=== PATIENT | female | born 1960 | race Caucasian/White ===

== ENCOUNTER → 2017-05-31 | Outpatient (POV) | payer MEDICARE, MEDICAID, SELFPAY | PROVIDERS: Visit Provider Podiatrist ==

== ENCOUNTER → 2017-07-30 10:43 | Outpatient (POV) | payer MEDICARE, MEDICAID, SELFPAY | PROVIDERS: Visit Provider Otolaryngology | DX: Z00.00 Encounter for general adult medical examination without abnormal findings (principal) ==

== ENCOUNTER → 2017-08-16 09:43 | Outpatient (POV) | payer MEDICARE, MEDICAID, SELFPAY | PROVIDERS: Visit Provider Podiatrist | DX: Z00.00 Encounter for general adult medical examination without abnormal findings (principal) ==

== ENCOUNTER → 2017-08-22 16:29 | Outpatient (CLI) | payer MEDICARE, MEDICAID, SELFPAY ==
--- NOTE | 2017-08-22 16:35 | XR_ITS ---
XR chest 2V HISTORY: ITS.REASON: ACUTE URI, COUGH ORDERING PHYSICIAN: Jen Sarah PATIENT AGE: 56 years COMPARISON: 02/03/2016 FINDINGS: The cardiomediastinal silhouette and pulmonary vascularity are within normal limits. Patchy density is present in the right lung base medially suspicious for an area of pneumonia. On the lateral view there is lobular density in the infrahilar region possibly due to vascular overlap and may be confirmed with follow-up.. No acute bony abnormalities. IMPRESSION: Patchy infiltrate in right lung base
== END ==
PROVIDERS: PCP Nurse Practitioner Family; Visit Provider Nurse Practitioner Family
DX: J06.9 Acute upper respiratory infection, unspecified (principal); R05 Cough
CPT/HCPCS: 71046

== ENCOUNTER → 2017-09-02 16:33 | Outpatient (CLI) | payer MEDICARE, MEDICAID, SELFPAY ==
[2017-09-02 16:54] LABS: Basophils # 0.1 K/mm3 (0-0.2); Basophils % 1.4 % (0.1-2.0); Eosinophils # 0.1 K/mm3 (0.0-0.4); Eosinophils % 0.9 % (0.1-12.0); Hematocrit 41.9 % (37.0-47.0); Hemoglobin 13.4 g/dL (12.2-16.2); Lymphocytes # 1.6 K/mm3 (0.7-4.5); Lymphocytes % 28.8 K/mm3 (10-50); Mean Corpuscular HGB Conc 31.9 g/dL (31.8-35.4); Mean Corpuscular Hemoglobin 32.3 pg (27.0-31.2); Mean Corpuscular Volume 101.2 fl (81-99); Mean Platelet Volume 7.5 fl (7.4-10.4); Monocytes # 0.2 K/mm3 (0.1-1.0); Neutrophils # 3.5 K/mm3 (1.8-7.8); Neutrophils % 64.8 % (37.0-80.0); Platelet Count 403 K/mm3 (142-424); Red Blood Count 4.15 M/mm3 (4.20-5.40); Red Cell Distribution Width 12.7 % (11.5-17.5); White Blood Count 5.5 K/mm3 (4.8-10.8)
[2017-09-02 17:29] LABS: Alanine Aminotransferase 39 U/L (12-78); Albumin/Globulin Ratio 0.7 (1.1-1.8); Alkaline Phosphatase 140 U/L (46-116); Anion Gap 9.3 mEq/L (5-15); Aspartate Amino Transferase 26 U/L (15-37); Bilirubin,Total 0.1 mg/dL (0.2-1.0); Blood Urea Nitrogen 10 mg/dL (7-18); Calcium 9.1 mg/dL (8.5-10.1); Carbon Dioxide 32 mmol/L (21.0-32.0); Chloride 99 mmol/L (98-107); Creatinine,Serum 0.77 mg/dL (0.55-1.02); Estimated Glomerular Filt Rate 78 ml/min (>60); GFR (African American) 94 ML/MIN (>60); Globulin 4.5 gm/dl (1.3-3.2); Glucose 132 mg/dL (74-106); Potassium 4.3 mmoL/L (3.5-5.1); Sodium 136 mmol/L (136-145); Thyroid Stimulating Hormone 0.39 uIU/ml (0.358-3.740); Total Protein,Serum 7.5 gm/dL (6.4-8.2)
[2017-09-02 17:37] LABS: Hemoglobin A1C 7.4 % (0.0-7.0)
== END ==
PROVIDERS: Visit Provider Nurse Practitioner Family
DX: E11.9 Type 2 diabetes mellitus without complications (principal); Q90.9 Down syndrome, unspecified; E03.9 Hypothyroidism, unspecified
CPT/HCPCS: 36415; 80053; 83036; 84443; 85025

== ENCOUNTER → 2017-10-07 15:22 | Outpatient (CLI) | payer MEDICARE, MEDICAID, SELFPAY ==
[2017-10-07 15:33] LABS: Adenovirus,PCR Not Detected (NotDetected); Bordetella Pertussis Not Detected (NotDetected); Chlamydophila Pneumoniae, PCR Not Detected (NotDetected); Coronavirus 229E Not Detected (NotDetected); Coronavirus NL63 Not Detected (NotDetected); Coronavirus OC43 Not Detected (NotDetected); Coronovirus HKU1,PCR Not Detected (NotDetected); Human Metapneumovirus Not Detected (NotDetected); Influenza A, PCR Not Detected (NotDetected); Influenza AH1, 2009 Not Detected (NotDetected); Influenza AH1, PCR Not Detected (NotDetected); Influenza AH3,PCR Not Detected (NotDetected); Influenza B, PCR Not Detected (NotDetected); Mycoplasma Pneumoniae, PCR Not Detected (NotDected); Parainfluenza 1, PCR Not Detected (NotDetected); Parainfluenza 2, PCR Not Detected (NotDetected); Parainfluenza 3, PCR Not Detected (NotDetected); Parainfluenza 4, PCR Not Detected (NotDetected); Respiratory Syncytial Virus Not Detected (NotDetected)
[2017-10-07 18:45] LABS: Rhinovirus/Enterovirus Detected (NotDetected)
== END ==
PROVIDERS: Visit Provider Nurse Practitioner Family
DX: J06.9 Acute upper respiratory infection, unspecified (principal)
CPT/HCPCS: 87486; 87581; 87633; 87798

== ENCOUNTER → 2017-11-07 17:13 | Outpatient (CLI) | payer MEDICARE, MEDICAID, SELFPAY ==
--- NOTE | 2017-11-07 17:28 | XR_ITS ---
XR chest 2V HISTORY: ITS.REASON: COUGH ORDERING PHYSICIAN: Jacqueline Baez PATIENT AGE: 56 years COMPARISON: 08/22/2017 FINDINGS: The cardiomediastinal silhouette and pulmonary vascularity are within normal limits. The lungs are clear without infiltrates, suspicious nodules, or pleural effusions. No acute bony abnormalities. IMPRESSION: Negative chest, no acute finding
== END ==
PROVIDERS: PCP Nurse Practitioner Family; Visit Provider Nurse Practitioner Family
DX: R05 Cough (principal)
CPT/HCPCS: 71046

== ENCOUNTER → 2017-12-11 12:57 | Outpatient (CLI) | payer MEDICARE, MEDICAID, SELFPAY ==
--- NOTE | 2017-12-11 13:02 | FL_ITS ---
FL barium swallow modified: 12/11/2017 1:02 PM CLINICAL HISTORY: Dysphasia ORDERING PHYSICIAN: Jacqueline Baez PATIENT AGE: 57 years TECHNIQUE: Patient administered varying consistencies of barium contrast, while viewed in lateral position under real-time fluoroscopy with cine recording. FLUOROSCOPY TIME: 3 minutes and 50 seconds The study was performed in conjunction with speech pathologist. Please see that report & recommendations. FINDINGS: Patient was given varying consistencies of barium. There was mild vestibular penetration with varying consistencies. No filiberto tracheal aspiration. The somewhat improved with chin duct technique IMPRESSION: Mild vestibular penetration without aspiration Please see speech pathologist report and recommendations.
--- NOTE | 2017-12-11 16:25 | HMH.SLMBS2 ---
Speech & Language Evaluation Speech/Language Mod Barium Swallow Start: 12/11/17 16:05 Freq: once Status: Complete Protocol: Document 12/11/17 16:05 ALEXI (Rec: 12/11/17 16:25 ALEXI [id number]) [facility] [place] Recommendations Diet Dietary Recommendations Pureed Thin Liquids Treatment/Strategies Treatment Recommendation Compens. Strategy Educat. Strategy/Precaution Recommend Sitting Upright (90 deg) Chin Tuck Liquids from Straw Small Bites and Sips Alternate Liquids/Solids Referrals/Other Recommended Referrals Dietary Consult Other Recommendations Speech therapy through home health per POA's request. Mod Barium Swallow Impressions Summary and Impressions Oral Phase Impression Moderate Impairment Oral Phase Summary Ms. Arreola presents with moderate impairment due to difficulty clearing tongue of residue of pudding, pureed, and mechanical soft consistencies. Immature chewing pattern (munching) exhibited with mechanical soft . Pharyngeal Phase Impression Moderate Impairment Pharyngeal Phase Summary Ms. Arreola presents with flash penetration to laryngeal vesitbule with the following consistencies: thins via straw and open cup, nectar, and honey. No cough reflex noted. No filiberto aspiration noted during examination Speech/Language MBS Assessment/Goals/Plan Assessment Date of Evaluation: 12/11/17 Evaluation Type Initial Certification Assessment/Problems Dysphagia Does Patient Qualify for Service Yes Qualify/Failure Comment Dysphagia improved with compensatory strategy. Recommendations PHYSICIAN CERTIFICATION: The specified therapy services are required, authorized, and reviewed every 30 days. Diet Recommendations Dysphagia Pureed Liquid Type Recommendations Normal/Thin SL Swallow Guidelines Standard Aspiration Prec. Dysphagia Swallow Precautions/Strategies Sitting Upright (90 deg) Chin Tuck Liquids from Straw Small Bites and Sips Alternate Liquids/Solids Plan Pt/Guardian verbally ack understanding Yes: caregiver of dx/prognosis/goals G -code Re
== END ==
PROVIDERS: PCP Nurse Practitioner Family; Visit Provider Nurse Practitioner Family
DX: R13.10 Dysphagia, unspecified (principal); K44.9 Diaphragmatic hernia without obstruction or gangrene
CPT/HCPCS: 70371; 92611

== ENCOUNTER → 2018-01-04 09:08 | Outpatient (CLI) | payer MEDICARE, MEDICAID, SELFPAY ==
[2018-01-04 09:37] LABS: Basophils # 0.1 K/mm3 (0-0.2); Eosinophils % 0.3 % (0.1-12.0); Hematocrit 42.7 % (37.0-47.0); Hemoglobin 13.6 g/dL (12.2-16.2); Lymphocytes # 1.1 K/mm3 (0.7-4.5); Lymphocytes % 37.7 K/mm3 (10-50); Mean Corpuscular HGB Conc 31.9 g/dL (31.8-35.4); Mean Corpuscular Hemoglobin 31.9 pg (27.0-31.2); Mean Corpuscular Volume 100.1 fl (81-99); Mean Platelet Volume 7.1 fl (7.4-10.4); Monocytes # 0.2 K/mm3 (0.1-1.0); Monocytes % 6.3 % (1.7-9.3); Neutrophils # 1.6 K/mm3 (1.8-7.8); Neutrophils % 53.6 % (37.0-80.0); Platelet Count 415 K/mm3 (142-424); Red Blood Count 4.27 M/mm3 (4.20-5.40); Red Cell Distribution Width 13.5 % (11.5-17.5); White Blood Count 2.9 K/mm3 (4.8-10.8)
[2018-01-04 10:19] LABS: Alanine Aminotransferase 22 U/L (12-78); Albumin Level 3.3 gm/dL (3.4-5.0); Albumin/Globulin Ratio 0.8 (1.1-1.8); Alkaline Phosphatase 123 U/L (46-116); Anion Gap 6.6 mEq/L (5-15); Aspartate Amino Transferase 24 U/L (15-37); Bilirubin,Total 0.4 mg/dL (0.2-1.0); Blood Urea Nitrogen 10 mg/dL (7-18); Calcium 9.2 mg/dL (8.5-10.1); Carbon Dioxide 32 mmol/L (21.0-32.0); Chloride 104 mmol/L (98-107); Chol/HDL Ratio 2.3 (1-3.5); Cholesterol 144 mg/dL (140-200); Creatinine,Serum 0.77 mg/dL (0.55-1.02); Estimated Glomerular Filt Rate 78 ml/min (>60); GFR (African American) 94 ML/MIN (>60); Globulin 3.9 gm/dl (1.3-3.2); Glucose 152 mg/dL (74-106); HDL Cholesterol 63 mg/dL (29-89); LDL Cholesterol 70 mg/dL (0-130); Potassium 4.6 mmoL/L (3.5-5.1); Sodium 138 mmol/L (136-145); Thyroid Stimulating Hormone 0.41 uIU/ml (0.358-3.740); Total Protein,Serum 7.2 gm/dL (6.4-8.2); Triglycerides 57 mg/dL (30-200); VLDL Cholesterol 11 mg/dL (0-40)
[2018-01-04 10:21] LABS: Hemoglobin A1C 7.1 % (0.0-7.0)
== END ==
PROVIDERS: Visit Provider Nurse Practitioner Family
DX: E78.5 Hyperlipidemia, unspecified (principal); E11.9 Type 2 diabetes mellitus without complications; Q90.9 Down syndrome, unspecified
CPT/HCPCS: 36415; 80053; 80061; 83036; 84443; 85025

== ENCOUNTER → 2018-01-28 11:01 | Outpatient (POV) | payer MEDICARE, MEDICAID, SELFPAY | PROVIDERS: PCP Nurse Practitioner Family; Visit Provider Otolaryngology | DX: Z00.00 Encounter for general adult medical examination without abnormal findings (principal) ==

== ENCOUNTER → 2018-02-10 15:22 | Outpatient (CLI) | payer MEDICARE, MEDICAID, SELFPAY ==
--- NOTE | 2018-02-10 15:34 | XR_ITS ---
XR chest 2V HISTORY: Cough. Chest pain. ITS.REASON: ABD PAIN,COUGH ORDERING PHYSICIAN: Jose Lindsey MD PATIENT AGE: 57 years Technique: PA and lateral chest. COMPARISON: December 02, 2017 2 view chest. Also October 2017 CXR FINDINGS:. There is been no significant interval change. No focal pneumonia At the slight accentuated markings at the medial right base similar to the October 2017 exam. The cardiomediastinal silhouette and pulmonary vascularity are within normal limits. The lungs are clear without infiltrates, suspicious nodules, or pleural effusions. No acute bony abnormalities. IMPRESSION: Stable chest nothing definitely acute
--- NOTE | 2018-02-10 15:34 | XR_ITS ---
XR KUB Ordering Physician: Jose Lindsey MD Patient Age: 57 years: Female HISTORY: ITS.REASON: ABD PAIN,COUGH TECHNIQUE: Supine abdomen. KUB. COMPARISON : May 2017 KUB FINDINGS Prominent increase stool is seen throughout the right colon reflecting constipation. .. Prominent stool throughout the transverse colon as well as seen at rectum. Moderate solid stool throughout the descending colon Generous gas at the hepatic and splenic flexures findings suggestive of constipation but less less pronounced than previous 2017 KUB Clips right upper quadrant from cholecystectomy. There is moderate gas throughout multiple loops small bowel but no small bowel dilatation. IMPRESSION: 1. Findings consistent with constipation.. Prominent stool is seen right and transverse colon as well as rectum. Generous gas flexures and transverse colon.
[2018-02-10 15:57] LABS: Microscopic, Urine URINE MICROSCOPIC (MICROSCOPIC)
[2018-02-10 16:42] LABS: Basophils # 0.1 K/mm3 (0-0.2); Basophils % 0.5 % (0.1-2.0); Eosinophils % 0.3 % (0.1-12.0); Hematocrit 40.3 % (37.0-47.0); Hemoglobin 13.2 g/dL (12.2-16.2); Lymphocytes # 0.6 K/mm3 (0.7-4.5); Lymphocytes % 4.9 K/mm3 (10-50); Mean Corpuscular HGB Conc 32.7 g/dL (31.8-35.4); Mean Corpuscular Hemoglobin 32.5 pg (27.0-31.2); Mean Corpuscular Volume 99.4 fl (81-99); Mean Platelet Volume 6.9 fl (7.4-10.4); Monocytes # 0.3 K/mm3 (0.1-1.0); Monocytes % 2.3 % (1.7-9.3); Neutrophils # 10.8 K/mm3 (1.8-7.8); Neutrophils % 91.9 % (37.0-80.0); Platelet Count 390 K/mm3 (142-424); Red Blood Count 4.05 M/mm3 (4.20-5.40); Red Cell Distribution Width 13.5 % (11.5-17.5); White Blood Count 11.8 K/mm3 (4.8-10.8)
[2018-02-10 16:45] LABS: MANUAL DIFFERENTIAL MANUAL DIFFERENTIAL (MANUAL DIFF)
[2018-02-10 17:19] LABS: Appearance,Urine CLEAR (Clear); Bilirubin,Urine Negative (Negative); Blood, Urine Negative (Negative); Color,Urine YELLOW (Yellow); Glucose,Urine (UA) Negative (Negative); Ketones,Urine Negative (Negative); Leukocyte Esterase,Urine 1+ (Negative); Nitrate,Urine Negative (Negative); Protein,Urine Negative (Negative); Urobilinogen,Urine 0.2 EU/dl (0.2)
[2018-02-10 17:39] LABS: Alanine Aminotransferase 31 U/L (12-78); Albumin Level 3.4 gm/dL (3.4-5.0); Albumin/Globulin Ratio 0.8 (1.1-1.8); Alkaline Phosphatase 143 U/L (46-116); Amylase 47 U/L (25-125); Anion Gap 10.9 mEq/L (5-15); Aspartate Amino Transferase 30 U/L (15-37); Bilirubin,Total 0.2 mg/dL (0.2-1.0); Blood Urea Nitrogen 13 mg/dL (7-18); Calcium 9.1 mg/dL (8.5-10.1); Carbon Dioxide 32 mmol/L (21.0-32.0); Chloride 97 mmol/L (98-107); Creatinine,Serum 1.05 mg/dL (0.55-1.02); Estimated Glomerular Filt Rate 54 ml/min (>60); GFR (African American) 66 ML/MIN (>60); Globulin 4.1 gm/dl (1.3-3.2); Glucose 176 mg/dL (74-106); Lipase 120 u/L (73-393); Potassium 4.9 mmoL/L (3.5-5.1); Sodium 135 mmol/L (136-145); Total Protein,Serum 7.5 gm/dL (6.4-8.2)
[2018-02-10 17:44] LABS: Bacteria,Urine 3+ /lpf; Squamous Epithelial Cell,Urine Occasional #/hpf (0-5)
[2018-02-10 18:02] LABS: Lymphocytes % 4 % (10-50); Monocytes % 2 % (2-9); Neutrophils % 93 % (42-76); Platelet Estimate Normal; RBC Morphology Normal; Total Cells Counted 100
== END ==
PROVIDERS: PCP Internal Medicine Adolescent Medicine; Visit Provider Internal Medicine Adolescent Medicine
DX: R10.13 Epigastric pain (principal); R05 Cough
CPT/HCPCS: 36415; 71046; 74018; 80053; 81001; 82150; 83690; 85007; 85025; 87086

== ENCOUNTER → 2018-05-05 17:17 | Outpatient (CLI) | payer MEDICARE, MEDICAID, SELFPAY ==
[2018-05-05 17:22] LABS: Microscopic, Urine URINE MICROSCOPIC (MICROSCOPIC)
[2018-05-05 19:03] LABS: Appearance,Urine CLEAR (Clear); Bilirubin,Urine Negative (Negative); Blood, Urine Negative (Negative); Color,Urine YELLOW (Yellow); Glucose,Urine (UA) Negative (Negative); Ketones,Urine Negative (Negative); Leukocyte Esterase,Urine TRACE (Negative); Nitrate,Urine Negative (Negative); Protein,Urine Negative (Negative); Urobilinogen,Urine 0.2 EU/dl (0.2)
[2018-05-05 19:28] LABS: Bacteria,Urine Trace /lpf; Squamous Epithelial Cell,Urine Occasional #/hpf (0-5)
[2018-05-07 12:19] LABS: Creatinine, Urine 26.3 mg/dL (Not Estab.); Microalbumin, Urine <3.0 ug/mL (Not Estab.)
== END ==
PROVIDERS: Visit Provider Nurse Practitioner Family
DX: R82.90 Unspecified abnormal findings in urine (principal); E11.9 Type 2 diabetes mellitus without complications; Z87.440 Personal history of urinary (tract) infections
CPT/HCPCS: 81001; 82043; 82570; 87086

== ENCOUNTER → 2018-05-10 09:01 | Outpatient (CLI) | payer MEDICARE, MEDICAID, SELFPAY ==
[2018-05-10 09:16] LABS: Basophils # 0.1 K/mm3 (0-0.2); Basophils % 1.5 % (0.1-2.0); Eosinophils % 0.7 % (0.1-12.0); Hematocrit 40.7 % (37.0-47.0); Hemoglobin 13.1 g/dL (12.2-16.2); Lymphocytes # 1.2 K/mm3 (0.7-4.5); Mean Corpuscular HGB Conc 32.2 g/dL (31.8-35.4); Mean Corpuscular Hemoglobin 32.3 pg (27.0-31.2); Mean Corpuscular Volume 100.3 fl (81-99); Mean Platelet Volume 8.6 fl (7.4-10.4); Monocytes # 0.2 K/mm3 (0.1-1.0); Monocytes % 5.5 % (1.7-9.3); Neutrophils % 57.3 % (37.0-80.0); Platelet Count 333 K/mm3 (142-424); Red Blood Count 4.06 M/mm3 (4.20-5.40); Red Cell Distribution Width 13.8 % (11.5-17.5); White Blood Count 3.5 K/mm3 (4.8-10.8)
[2018-05-10 09:29] LABS: Hemoglobin A1C 7.4 % (0.0-7.0)
[2018-05-10 11:13] LABS: Alanine Aminotransferase 29 U/L (12-78); Albumin Level 3.2 gm/dL (3.4-5.0); Albumin/Globulin Ratio 0.8 (1.1-1.8); Alkaline Phosphatase 139 U/L (46-116); Anion Gap 12.4 mEq/L (5-15); Aspartate Amino Transferase 21 U/L (15-37); Bilirubin,Total 0.3 mg/dL (0.2-1.0); Blood Urea Nitrogen 18 mg/dL (7-18); Carbon Dioxide 30 mmol/L (21.0-32.0); Chloride 100 mmol/L (98-107); Chol/HDL Ratio 2.5 (1-3.5); Cholesterol 173 mg/dL (140-200); Creatinine,Serum 0.78 mg/dL (0.55-1.02); Estimated Glomerular Filt Rate 76 ml/min (>60); GFR (African American) 92 ML/MIN (>60); Globulin 4.1 gm/dl (1.3-3.2); Glucose 132 mg/dL (74-106); HDL Cholesterol 68 mg/dL (29-89); LDL Cholesterol 91 mg/dL (0-130); Potassium 4.4 mmoL/L (3.5-5.1); Sodium 138 mmol/L (136-145); Total Protein,Serum 7.3 gm/dL (6.4-8.2); Triglycerides 70 mg/dL (30-200); VLDL Cholesterol 14 mg/dL (0-40)
== END ==
PROVIDERS: Visit Provider Nurse Practitioner Family
DX: E11.9 Type 2 diabetes mellitus without complications (principal); E78.5 Hyperlipidemia, unspecified; E03.9 Hypothyroidism, unspecified; Q90.9 Down syndrome, unspecified; R82.90 Unspecified abnormal findings in urine
CPT/HCPCS: 36415; 80053; 80061; 83036; 84443; 85025

== ENCOUNTER → 2018-05-27 10:40 | Outpatient (POV) | payer MEDICARE, MEDICAID, SELFPAY | PROVIDERS: Visit Provider Otolaryngology | DX: Z00.00 Encounter for general adult medical examination without abnormal findings (principal) ==

== ENCOUNTER → 2018-07-08 15:17 | Outpatient (CLI) | payer MEDICARE, MEDICAID, SELFPAY ==
--- NOTE | 2018-07-08 15:21 | CA_ITS ---
PROCEDURE: 2-D M-mode and color Doppler study INDICATIONS FOR THE TEST: Chest pain COPD Heart Murmur Tobacco Smoking Palpitations Fatigue Syncope Edema Hypertension Diabetes Mellitus Rheumatic Fever SOB HERMAN Obesity Hyperlipidemia Family History HD Additional History PRE-OP,HYPOTENSION,DOWN'S [id number] PATIENT INFORMATION HEIGHT: 58 WEIGHT:102 GENDER: Female B/P:80/40 2-D/M-MODE INTERPRETATION: 2-D MEASUREMENTS OBSERVED VALUES IN CMS Right Ventricular Dimension (RVDd) 2.1 Interventricular Septum (Thickness)(IVsd) 0.9 Left Ventricular Internal Dimensions(LVIDd) 4.6 Left Ventricular Posterior Wall (Thickness)(LVPWd) 0.6 Aortic Root 1.9 Aortic Cusp Separation 1.5 Left Atrial Dimensions (LAD) 3.5 2D 1. Left atrium is qualitatively mildly enlarged, left ventricle is normal size, visually estimated ejection fraction of 55% with no regional wall motion abnormality. 2. The right atrium and right ventricle are normal size and contractility. 3. The aortic valve is minimally thickened and fibrosed. 4. The mitral and tricuspid valvular grossly normal. 5. The pulmonic valve is poorly visualized. 6. No significant pericardial effusion noted. DOPPLER INTERROGATION: Doppler interrogation of the aortic, mitral and tricuspid valvular presence of mild mitral and tricuspid regurgitation, tricuspid regurgitation jet velocity is inadequate for calculation of the right ventricular systolic pressure, diastolic parameters are inconclusive. CONCLUSION: 1. Normal left ventricular size, preserved left ventricular systolic function, visually estimated ejection fraction 55% with no regional wall motion abnormality. Diastolic parameters are inconclusive. 2. Mild mitral and tricuspid regurgitation 3. No significant pericardial effusion noted.
[2018-07-08 17:02] LABS: Basophils # 0.1 K/mm3 (0-0.2); Basophils % 1.5 % (0.1-2.0); Eosinophils % 0.6 % (0.1-12.0); Hematocrit 40.8 % (37.0-47.0); Hemoglobin 13.1 g/dL (12.2-16.2); Lymphocytes # 1.8 K/mm3 (0.7-4.5); Lymphocytes % 43.7 % (10-50); Mean Corpuscular HGB Conc 32.1 g/dL (31.8-35.4); Mean Corpuscular Hemoglobin 32.1 pg (27.0-31.2); Mean Platelet Volume 7.3 fl (7.4-10.4); Monocytes # 0.2 K/mm3 (0.1-1.0); Monocytes % 4.6 % (1.7-9.3); Neutrophils # 2.1 K/mm3 (1.8-7.8); Neutrophils % 49.6 % (37.0-80.0); Platelet Count 347 K/mm3 (142-424); Red Blood Count 4.08 M/mm3 (4.20-5.40); Red Cell Distribution Width 13.5 % (11.5-17.5); White Blood Count 4.2 K/mm3 (4.8-10.8)
[2018-07-08 18:55] LABS: Alanine Aminotransferase 31 U/L (12-78); Albumin Level 3.2 gm/dL (3.4-5.0); Albumin/Globulin Ratio 0.8 (1.1-1.8); Alkaline Phosphatase 143 U/L (46-116); Anion Gap 11.8 mEq/L (5-15); Aspartate Amino Transferase 23 U/L (15-37); Bilirubin,Total 0.2 mg/dL (0.2-1.0); Blood Urea Nitrogen 16 mg/dL (7-18); Calcium 8.9 mg/dL (8.5-10.1); Carbon Dioxide 29 mmol/L (21.0-32.0); Chloride 96 mmol/L (98-107); Creatinine,Serum 0.78 mg/dL (0.55-1.02); Estimated Glomerular Filt Rate 76 ml/min (>60); GFR (African American) 92 ML/MIN (>60); Globulin 3.8 gm/dl (1.3-3.2); Glucose 123 mg/dL (74-106); Potassium 4.8 mmoL/L (3.5-5.1); Sodium 132 mmol/L (136-145); Thyroid Stimulating Hormone 0.92 uIU/ml (0.358-3.740)
== END ==
PROVIDERS: PCP Nurse Practitioner Family; Visit Provider Nurse Practitioner Family
DX: Z01.818 Encounter for other preprocedural examination (principal); I95.9 Hypotension, unspecified; E03.9 Hypothyroidism, unspecified; H26.9 Unspecified cataract; Q90.9 Down syndrome, unspecified
CPT/HCPCS: 36415; 80053; 84443; 85025; 93306

== ENCOUNTER → 2018-07-24 15:44 | Outpatient (CLI) | payer MEDICARE, MEDICAID, SELFPAY ==
[2018-07-24 17:01] LABS: Alanine Aminotransferase 30 U/L (12-78); Albumin Level 3.3 gm/dL (3.4-5.0); Albumin/Globulin Ratio 0.8 (1.1-1.8); Alkaline Phosphatase 142 U/L (46-116); Anion Gap 13.4 mEq/L (5-15); Aspartate Amino Transferase 26 U/L (15-37); Bilirubin,Total 0.2 mg/dL (0.2-1.0); Blood Urea Nitrogen 16 mg/dL (7-18); Carbon Dioxide 29 mmol/L (21.0-32.0); Chloride 92 mmol/L (98-107); Creatinine,Serum 0.79 mg/dL (0.55-1.02); Estimated Glomerular Filt Rate 75 ml/min (>60); GFR (African American) 91 ML/MIN (>60); Globulin 3.9 gm/dl (1.3-3.2); Glucose 119 mg/dL (74-106); Potassium 4.4 mmoL/L (3.5-5.1); Sodium 130 mmol/L (136-145); Total Protein,Serum 7.2 gm/dL (6.4-8.2)
== END ==
PROVIDERS: Visit Provider Nurse Practitioner Family
DX: I95.0 Idiopathic hypotension (principal)
CPT/HCPCS: 36415; 80053

== ENCOUNTER → 2018-07-28 16:43 | Outpatient (CLI) | payer MEDICARE, MEDICAID, SELFPAY ==
[2018-07-28 17:42] LABS: Anion Gap 11.7 mEq/L (5-15); Blood Urea Nitrogen 17 mg/dL (7-18); Carbon Dioxide 28 mmol/L (21.0-32.0); Chloride 93 mmol/L (98-107); Creatinine,Serum 0.97 mg/dL (0.55-1.02); Estimated Glomerular Filt Rate 59 ml/min (>60); GFR (African American) 72 ML/MIN (>60); Glucose 140 mg/dL (74-106); Potassium 4.7 mmoL/L (3.5-5.1); Sodium 128 mmol/L (136-145)
[2018-07-31 06:13] LABS: Osmolality, Urine 195 mOsmol/kg (.); Sodium, Urine <20 mmol/L (Not Estab.)
== END ==
PROVIDERS: Visit Provider Nurse Practitioner Family
DX: E87.1 Hypo-osmolality and hyponatremia (principal)
CPT/HCPCS: 36415; 80048; 83935; 84300

== ENCOUNTER → 2018-08-01 17:13 | Outpatient (CLI) | payer MEDICARE, MEDICAID, SELFPAY | PROVIDERS: Visit Provider Nurse Practitioner Family | DX: E87.1 Hypo-osmolality and hyponatremia (principal) | CPT/HCPCS: 36415; 84588 ==

== ENCOUNTER → 2018-08-14 10:58 | Outpatient (CLI) | payer MEDICARE, MEDICAID, SELFPAY ==
--- NOTE | 2018-08-14 11:00 | US_ITS ---
US Arterial Ankle Brachial Ind History: ITS.REASON: Skin Changes, hyperlipidemia, diabetes ORDERING PHYSICIAN: Jacqueline Baez PATIENT AGE: 57 years TECHNIQUE: Segmental pressures obtained of both right and left leg. These are compared to brachial blood pressure to yield index at each level sampled including summary ELIUD. The data sheets from the procedure are available in PACS FINDINGS Rest study only performed today No prior studies available for comparison. Blood pressures reported are in millimeters mercury. RIGHT LEG ELIUD = 1.3. RIGHT LEG TBI=1.0 Brachial BP: 107 Thigh BP: 145 Calf BP: 157 Ankle PT: 151 Ankle DP : 118 Digit =117 LEFT LEG ELIUD = 1.2 LEFT LEG TBI= 0.6 Brachial BPD: 118 Thigh BP: 137 Calf BP: 141 Ankle PT:139 Ankle DP: 139 Digit = 66 Pulses : The dorsalis pedis pulses are diminished bilaterally with normal posterior tibial pulses. Waveforms were not performed due to patient apprehension IMPRESSION: The ABIs as reported above are within normal limits. The left TBI is slightly low which may indicate small vessel disease. Dorsalis pedis pulses are diminished
== END ==
PROVIDERS: PCP Nurse Practitioner Family; Referring Provider Podiatrist; Visit Provider Nurse Practitioner Family
DX: R09.89 Other specified symptoms and signs involving the circulatory and respiratory systems (principal)
CPT/HCPCS: 93922

== ENCOUNTER → 2018-08-26 10:08 | Outpatient (CLI) | payer MEDICARE, MEDICAID, SELFPAY ==
--- NOTE | 2018-08-26 10:21 | CT_ITS ---
CT head/brain wo con HISTORY: ITS.REASON: ABNORMAL GAIT, HYPOATREMIA ORDERING PHYSICIAN: Jacqueline Baez PATIENT AGE: 57 years COMPARISON: None TECHNIQUE: Axial images obtained without contrast. Brain and bone windows reviewed. All CT scans at the facility use one or more dose reduction, viz: automated exposure control, ma/kV adjustment per patient size (including targeted exams where dose is matched to indication, i.e. head), or iterative reconstruction technique. FINDINGS: No midline shift, mass effect, intracranial hemorrhage, hydrocephalus, or extra-axial fluid collection is evident. The calvarium has an unremarkable appearance. There is been prior right mastoidectomy. No sinus air-fluid levels.. IMPRESSION: No acute intracranial findings Prior right mastoidectomy
[2018-08-26 10:27] LABS: Anion Gap 11.2 mEq/L (5-15); Blood Urea Nitrogen 16 mg/dL (7-18); Calcium 9.2 mg/dL (8.5-10.1); Carbon Dioxide 29 mmol/L (21.0-32.0); Chloride 98 mmol/L (98-107); Creatinine,Serum 0.83 mg/dL (0.55-1.02); Estimated Glomerular Filt Rate 71 ml/min (>60); GFR (African American) 86 ML/MIN (>60); Glucose 232 mg/dL (74-106); Potassium 4.2 mmoL/L (3.5-5.1); Sodium 134 mmol/L (136-145)
[2018-08-26 10:29] LABS: Hemoglobin A1C 7.2 % (0.0-7.0)
[2018-08-26 10:31] LABS: Basophils # 0.1 K/mm3 (0-0.2); Basophils % 1.7 % (0.1-2.0); Eosinophils % 0.5 % (0.1-12.0); Hematocrit 40.6 % (37.0-47.0); Hemoglobin 13.4 g/dL (12.2-16.2); Lymphocytes # 0.9 K/mm3 (0.7-4.5); Lymphocytes % 27.8 % (10-50); Mean Corpuscular Hemoglobin 32.9 pg (27.0-31.2); Mean Corpuscular Volume 99.6 fl (81-99); Monocytes # 0.2 K/mm3 (0.1-1.0); Monocytes % 4.6 % (1.7-9.3); Neutrophils # 2.2 K/mm3 (1.8-7.8); Neutrophils % 65.4 % (37.0-80.0); Platelet Count 360 K/mm3 (142-424); Red Blood Count 4.07 M/mm3 (4.20-5.40); Red Cell Distribution Width 13.2 % (11.5-17.5); White Blood Count 3.4 K/mm3 (4.8-10.8)
== END ==
PROVIDERS: Visit Provider Nurse Practitioner Family
DX: E87.1 Hypo-osmolality and hyponatremia (principal); R26.9 Unspecified abnormalities of gait and mobility; E11.9 Type 2 diabetes mellitus without complications; R79.89 Other specified abnormal findings of blood chemistry; Z79.84 Long term (current) use of oral hypoglycemic drugs
CPT/HCPCS: 36415; 70450; 80048; 83036; 85025

== ENCOUNTER → 2018-11-25 11:13 | Outpatient (POV) | payer MEDICARE, MEDICAID, SELFPAY | PROVIDERS: Visit Provider Otolaryngology | DX: Z00.00 Encounter for general adult medical examination without abnormal findings (principal) ==

== ENCOUNTER → 2019-01-17 07:55 | Outpatient (CLI) | payer MEDICARE, MEDICAID, SELFPAY ==
[2019-01-17 08:07] LABS: Basophils % 1.8 % (0.1-2.0); Eosinophils % 0.5 % (0.1-12.0); Lymphocytes % 41.8 % (10-50); Mean Corpuscular HGB Conc 31.8 g/dL (31.8-35.4); Mean Corpuscular Hemoglobin 31.1 pg (27.0-31.2); Mean Corpuscular Volume 97.9 fl (81-99); Mean Platelet Volume 9.2 fl (7.4-10.4); Monocytes # 0.2 K/mm3 (0.1-1.0); Monocytes % 6.2 % (1.7-9.3); Neutrophils # 1.2 K/mm3 (1.8-7.8); Neutrophils % 49.8 % (37.0-80.0); Platelet Count 312 K/mm3 (142-424); Red Blood Count 4.19 M/mm3 (4.20-5.40); Red Cell Distribution Width 13.2 % (11.5-17.5); White Blood Count 2.4 K/mm3 (4.8-10.8)
[2019-01-17 08:49] LABS: Alanine Aminotransferase 20 U/L (12-78); Albumin Level 3.1 gm/dL (3.4-5.0); Albumin/Globulin Ratio 0.8 (1.1-1.8); Alkaline Phosphatase 134 U/L (46-116); Anion Gap 11.3 mEq/L (5-15); Aspartate Amino Transferase 14 U/L (15-37); Bilirubin,Total 0.3 mg/dL (0.2-1.0); Blood Urea Nitrogen 13 mg/dL (7-18); Carbon Dioxide 29 mmol/L (21.0-32.0); Chloride 101 mmol/L (98-107); Chol/HDL Ratio 2.3 (1-3.5); Cholesterol 136 mg/dL (140-200); Creatinine,Serum 0.82 mg/dL (0.55-1.02); Estimated Glomerular Filt Rate 72 ml/min (>60); GFR (African American) 87 ML/MIN (>60); Globulin 3.9 gm/dl (1.3-3.2); Glucose 127 mg/dL (74-106); HDL Cholesterol 58 mg/dL (29-89); LDL Cholesterol 60 mg/dL (0-130); Potassium 4.3 mmoL/L (3.5-5.1); Sodium 137 mmol/L (136-145); Thyroid Stimulating Hormone 0.56 uIU/ml (0.358-3.740); Triglycerides 88 mg/dL (30-200); VLDL Cholesterol 18 mg/dL (0-40)
== END ==
PROVIDERS: Visit Provider Nurse Practitioner Family
DX: E11.9 Type 2 diabetes mellitus without complications (principal); E03.9 Hypothyroidism, unspecified; Z79.84 Long term (current) use of oral hypoglycemic drugs; Q90.9 Down syndrome, unspecified
CPT/HCPCS: 36415; 80053; 80061; 83036; 84443; 85025

== ENCOUNTER → 2019-01-27 08:55 | Outpatient (POV) | payer MEDICARE, MEDICAID, SELFPAY | PROVIDERS: Visit Provider Otolaryngology | DX: Z00.00 Encounter for general adult medical examination without abnormal findings (principal) ==

== ENCOUNTER → 2019-02-10 10:02 | Outpatient (POV) | payer MEDICARE, MEDICAID, SELFPAY | PROVIDERS: Visit Provider Otolaryngology | DX: Z00.00 Encounter for general adult medical examination without abnormal findings (principal) ==

== ENCOUNTER → 2019-03-24 10:16 | Outpatient (POV) | payer MEDICARE, MEDICAID, SELFPAY | PROVIDERS: Visit Provider Otolaryngology | DX: Z00.00 Encounter for general adult medical examination without abnormal findings (principal) ==

== ENCOUNTER → 2019-04-20 12:47 | Outpatient (CLI) | payer MEDICARE, MEDICAID, SELFPAY ==
--- NOTE | 2019-04-20 12:58 | FL_ITS ---
PROCEDURE: FL BARIUM SWALLOW MODIFIED CLINICAL INDICATION: trouble swallowing COMPARISON: No exams were available for comparison TECHNIQUE: Patient administered varying consistencies of barium contrast, while viewed in lateral position under real-time fluoroscopy with cine recording. FLUOROSCOPY TIME: The study was performed in conjunction with speech pathologist. Please see that report & recommendations. FINDINGS: Patient was given varying consistencies of barium. There was no evidence of a stable a penetration or tracheal aspiration. There was inability to perform bolus with mechanical soft.. IMPRESSION: No vestibular penetration or tracheal aspiration. Please see speech pathologist report and recommendations. Dictated by: Napoleon Agosto MD 04/30/2019 17:00 Electronically signed by Napoleon Agosto MD in [place] 04/30/2019 17:00
--- NOTE | 2019-04-20 14:37 | HMH.SLMBS2 ---
Speech & Language Evaluation Speech/Language Mod Barium Swallow Start: 04/20/19 13:43 Freq: once Status: Complete Protocol: Document 04/20/19 13:43 ALEXI (Rec: 04/20/19 14:37 ALEXI [id number]) [facility] [place] Recommendations Diet Dietary Recommendations Pureed,Thin Liquids Treatment/Strategies Strategy/Precaution Recommend Sitting Upright (90 deg), Liquids from Straw,Small Bites and Sips,Alternate Liquids/ Solids Mod Barium Swallow Impressions Summary and Impressions Oral Phase Impression Mild Impairment Oral Phase Summary Ms. Arreola was given the following consistencies: thins via straw and open cup, nectar, and honey, pudding, pureed, and mechanical soft. It was noted that Ms. Arreola exhibited immature munching with mechanical soft. She was unable to use rotary jaw movement while eating. Mechanical soft had to be spat out due to inability to masticate. Pharyngeal Phase Impression Mild Impairment Pharyngeal Phase Summary Ms. Arreola exhibited flash penetration with thin liquids, nectar liquids, and honey thick liquids. No aspiration noted. Speech/Language MBS Assessment/Goals/Plan Assessment Date of Evaluation: 04/20/19 Evaluation Type Initial Certification Assessment/Problems Dysphagia Does Patient Qualify for Service No Qualify/Failure Comment Diet remains appropriate. Patient is non-verbal and has difficulties following directions. Recommendations PHYSICIAN CERTIFICATION: The specified therapy services are required, authorized, and reviewed every 30 days. Diet Recommendations Dysphagia Pureed Liquid Type Recommendations Normal/Thin SL Swallow Guidelines Standard Aspiration Prec. Crush Meds Crush all meds Dysphagia Swallow Precautions/Strategies Sitting Upright (90 deg), Liquids from Straw,Small Bites and Sips,Alternate Liquids/ Solids Plan Pt/Guardian verbally ack understanding No: Caregiver informed of dx/prognosis/goals G -code Required Yes G-CODES ST Current Status [id number] ST Current Status Modifier CJ-At least 20% but less than
== END ==
PROVIDERS: PCP Nurse Practitioner Family; Visit Provider Internal Medicine Adolescent Medicine
DX: R13.10 Dysphagia, unspecified (principal)
CPT/HCPCS: 70371; 92611

== ENCOUNTER → 2019-04-25 09:15 | Outpatient (CLI) | payer MEDICARE, MEDICAID, SELFPAY ==
[2019-04-25 09:41] LABS: Basophils # 0.1 K/mm3 (0-0.2); Basophils % 1.4 % (0.1-2.0); Eosinophils % 0.8 % (0.1-12.0); Lymphocytes # 1.2 K/mm3 (0.7-4.5); Lymphocytes % 31.3 % (10-50); Mean Corpuscular HGB Conc 31.8 g/dL (31.8-35.4); Mean Corpuscular Hemoglobin 32.8 pg (27.0-31.2); Mean Corpuscular Volume 103.1 fl (81-99); Monocytes # 0.2 K/mm3 (0.1-1.0); Monocytes % 4.7 % (1.7-9.3); Neutrophils # 2.3 K/mm3 (1.8-7.8); Neutrophils % 61.8 % (37.0-80.0); Platelet Count 398 K/mm3 (142-424); Red Blood Count 4.27 M/mm3 (4.20-5.40); Red Cell Distribution Width 13.2 % (11.5-17.5); White Blood Count 3.7 K/mm3 (4.8-10.8)
[2019-04-25 10:42] LABS: Hemoglobin A1C 7.1 % (0.0-7.0)
[2019-04-25 11:02] LABS: Alanine Aminotransferase 19 U/L (12-78); Albumin Level 3.4 gm/dL (3.4-5.0); Albumin/Globulin Ratio 0.9 (1.1-1.8); Alkaline Phosphatase 152 U/L (46-116); Anion Gap 9.3 mEq/L (5-15); Aspartate Amino Transferase 20 U/L (15-37); Bilirubin,Total 0.3 mg/dL (0.2-1.0); Blood Urea Nitrogen 14 mg/dL (7-18); Calcium 9.5 mg/dL (8.5-10.1); Carbon Dioxide 31 mmol/L (21.0-32.0); Chloride 99 mmol/L (98-107); Chol/HDL Ratio 2.4 (1-3.5); Cholesterol 158 mg/dL (140-200); Creatinine,Serum 0.76 mg/dL (0.55-1.02); Estimated Glomerular Filt Rate 78 ml/min (>60); GFR (African American) 95 ML/MIN (>60); Glucose 157 mg/dL (74-106); HDL Cholesterol 66 mg/dL (29-89); LDL Cholesterol 80 mg/dL (0-130); Potassium 4.3 mmoL/L (3.5-5.1); Sodium 135 mmol/L (136-145); Thyroid Stimulating Hormone 0.47 uIU/ml (0.358-3.740); Total Protein,Serum 7.4 gm/dL (6.4-8.2); Triglycerides 60 mg/dL (30-200); VLDL Cholesterol 12 mg/dL (0-40)
== END ==
PROVIDERS: Visit Provider Internal Medicine Adolescent Medicine
DX: E78.5 Hyperlipidemia, unspecified (principal); E11.9 Type 2 diabetes mellitus without complications; E03.9 Hypothyroidism, unspecified; R13.10 Dysphagia, unspecified; Z79.84 Long term (current) use of oral hypoglycemic drugs
CPT/HCPCS: 36415; 80053; 80061; 83036; 84443; 85025

== ENCOUNTER → 2019-06-30 10:24 | Outpatient (POV) | payer MEDICARE, MEDICAID, SELFPAY | PROVIDERS: Visit Provider Otolaryngology | DX: Z00.00 Encounter for general adult medical examination without abnormal findings (principal) ==

== ENCOUNTER → 2019-06-30 15:48 | Outpatient (POV) | payer MEDICARE, MEDICAID, SELFPAY | PROVIDERS: Visit Provider Dermatology | DX: Z00.00 Encounter for general adult medical examination without abnormal findings (principal) ==

== ENCOUNTER → 2019-08-25 13:42 | Outpatient (POV) | payer MEDICARE, MEDICAID, SELFPAY | PROVIDERS: PCP Otolaryngology; Visit Provider Otolaryngology | DX: Z00.00 Encounter for general adult medical examination without abnormal findings (principal) ==

== ENCOUNTER → 2019-10-20 15:10 | Outpatient (CLI) | payer MEDICARE, MEDICAID, SELFPAY ==
--- NOTE | 2019-10-20 15:17 | CT_ITS ---
PROCEDURE: CT SINUS WO CON CLINICAL HISTORY: ALLERGIC RHINITIS,NASAL CONGESTION COMPARISON: No exams were available for comparison TECHNIQUE: Axial images obtained with sagittal and coronal reformats. All CT scans at the facility use one or more dose reduction, viz: automated exposure control, ma/kV adjustment per patient size (including targeted exams where dose is matched to indication, i.e. head), or iterative reconstruction technique. FINDINGS: Study is somewhat limited technically due to patient's inability to be properly position. The paranasal sinuses however have an unremarkable appearance. No significant mucosal thickening air-fluid levels or masses are evident. There appears to been a prior mastoidectomy on the right. There is a small amount of fluid in the left mastoid sinus. There are mild degenerative changes in the cervical spine. TMJs are unremarkable as are the orbits IMPRESSION: 1. Unremarkable CT of the paranasal sinuses. 2. Prior right mastoidectomy with small amount of fluid in the left mastoid sinus the Dictated by: Napoleon Agosto MD 10/21/2019 16:21 Electronically signed by Napoleon Agosto MD in [place] 10/21/2019 16:21
== END ==
PROVIDERS: PCP Otolaryngology; Visit Provider Otolaryngology
DX: J30.9 Allergic rhinitis, unspecified (principal); R09.81 Nasal congestion
CPT/HCPCS: 70486

== ENCOUNTER 2019-10-25 18:50 | Emergency (ER) | payer MEDICARE, MEDICAID, SELFPAY ==
[2019-10-25 18:52] VITALS: BP 143/93; PULSE 74; RESP 16; TEMP 38; O2SAT 100; BMI 21.4
--- NOTE | 2019-10-25 19:31 | HMH.EDGENADL ---
ED Disposition Condition on Discharge: Good - Critical Care Critical Care Time: No <Scot Beltre - Last Filed: 10/25/19 19:53> <Agustín Alvarenga - Last Filed: 10/25/19 21:17> Clinical Impression: Type 2 diabetes mellitus with hyperglycemia, without long-term current use of insulin, Hyponatremia Fatigue Qualifiers: Fatigue type: unspecified Qualified Code(s): R53.83 - Other fatigue UTI (urinary tract infection) Qualifiers: Urinary tract infection type: site unspecified Hematuria presence: without hematuria Qualified Code(s): N39.0 - Urinary tract infection, site not specified Disposition: Home, Self-Care Instructions: DI for Altered Mental Status Additional Instructions: fluids and call pcp in am Prescriptions: cephALEXin [cephALEXin 250mg/5mL 100mL susp] 250 mg PO Q8H #120 ml Transmission Status: Pending to [facility] Referrals: Jacqueline Baez APRN [Primary Care Provider] - Attestation: On 10/25/19, the high probability of a clinically significant, sudden or life threatening deterioration of the following system(s) required my full and direct attention, intervention and personal management. The time I documented below is in addition to time spent performing reported procedures but includes the following listed in this critical care notation. Medical Decision Making - Medical Records Medical records reviewed: Yes: I reviewed the patient's medical records. - [place] Inquiry Pt receiving controlled substance: No - Lab Data Result diagrams: 10/25/19 19:15 <Scot Beltre - Last Filed: 10/25/19 19:53> - Lab Data Lab results reviewed: Yes: I reviewed the patient's lab results. Result diagrams: 10/25/19 19:15 10/25/19 19:15 - Radiology Data #1 Image(s): Chest Image Reviewed: Yes I reviewed the patient's radiology image Preliminary Findings: Normal/NAD - CT Data CT Scan: Head, C-Spine Time Received: 21:[address] Reviewed: Yes: I have viewed the radiologist's interpretation Preliminary Findings: No Fracture Seen - Physician Consults Physician Consulted: aman Reason -: Pt condition - Reevaluation(s) Time: 21:12 <Agustín Alvarenga - Last Filed: 10/25/19 21:17> Vital Signs: 10/25/19 18:52 Temperature 100.4 F H Temperature Source Oral Pulse Rate [Left Radial] 74 Respiratory Rate 16 Blood Pressure [Right Arm] 143/93 H Blood Pressure Mean [Right Arm] 109 Blood Pressure Source [Right Arm] Automatic Cuff Blood Pressure Position [Right Arm] Sitting 02 Sat by Pulse Oximetry 100 Oxygen Delivery Method Room Air - Lab Data Lab Results 10/25/19 19:15: WBC 8.6, RBC 4.02 L, Hgb 13.2, Hct 39.5, MCV 98.1, MCH 32.8 H, MCHC 33.5, RDW 13.5, Plt Count 384, MPV 7.8, Neut % (Auto) 81.0 H, Lymph % (Auto) 14.5, [place] % (Auto) 3.3, Eos % (Auto) 0.3, Baso % (Auto) 0.9, Neut # (Auto) 6.9, Lymph # (Auto) 1.2, [place] # (Auto) 0.3, Eos # (Auto) 0.0, Baso # (Auto) 0.1 10/25/19 19:15: Sodium 127 L, Potassium 4.1, Chloride 93 L, Carbon Dioxide 27, Anion Gap 11.1, BUN 6 L, Creatinine 0.50 L, Estimated Creat Clear 98, Estimated GFR 127, Est GFR ( Amer) 154, Glucose 260 H, Calcium 9.2, Total Bilirubin 0.3, AST 31, ALT 18, Alkaline Phosphatase 146 H, Total Protein 7.3, Albumin 3.9, Globulin 3.4 H, Albumin/Globulin Ratio 1.1 10/25/19 19:15: Lactate 1.6 10/25/19 19:15: Influenza Type A Ag Negative, Influenza Type B Ag Negative 10/25/19 19:15: Group A Strep Rapid Negative 10/25/19 19:45: Urine Color Yellow, Urine Appearance Clear, Urine pH 6.0, Ur Specific [place] 1.010, Urine Protein Negative, Urine Glucose (UA) Negative, Urine Ketones Negative, Urine Blood Trace-i, Urine Nitrate Negative, Urine Bilirubin Negative, Urine Urobilinogen 0.2, Ur Leukocyte Esterase Trace, Urine RBC 3-5, Urine WBC 5-10 Orders (Tests/Meds): ED MEDICATIONS Generic Name Dose Route Start Last Admin Trade Name Freq PRN Reason Stop Dose Admin Sodium Chloride 1,000 mls @ 999 mls/hr 10/25/19 20:45
--- NOTE | 2019-10-25 19:32 | CT_ITS ---
PROCEDURE: CT HEAD/BRAIN WO CON CLINICAL INDICATION: confused Confusion, altered level consciousness, disorientation COMPARISON: HEADWO CT head/brain wo con from 08/26/2018 TECHNIQUE: Axial images obtained. All CT scans at the facility use one or more dose reduction, viz: automated exposure control, ma/kV adjustment per patient size (including targeted exams where dose is matched to indication, i.e. head), or iterative reconstruction technique. FINDINGS: No midline shift, mass effect, intracranial hemorrhage, hydrocephalus, or extra-axial fluid collection is evident. The calvarium has an unremarkable appearance. Prior right mastoidectomy. Minimal amount of fluid in the left mastoid sinus. No sinus air-fluid level. IMPRESSION: No acute intracranial findings. Dictated by: Napoleon Agosto MD 10/26/2019 07:16 Electronically signed by Napoleon Agosto MD in [place] 10/26/2019 07:16
--- NOTE | 2019-10-25 19:33 | XR_ITS ---
PROCEDURE: XR CHEST 2V CLINICAL HISTORY: lethargic Lethargy COMPARISON: CXR2V XR chest 2V from 11/07/2017 CXR2V XR chest 2V from 12/02/2017 CXR2V XR chest 2V from 02/10/2018 FINDINGS: The cardiomediastinal silhouette and pulmonary vascularity are within normal limits. There is overall increased density of the left hemithorax compared to the right which is felt to be technical in nature. No lobar consolidation or collapse. Button artifact noted over the upper torso. Bowel interposition is noted on the right No acute bony abnormalities. IMPRESSION: No acute findings. Dictated by: Napoleon Agosto MD 10/26/2019 05:37 Electronically signed by Napoleon Agosto MD in [place] 10/26/2019 05:37
--- NOTE | 2019-10-25 19:33 | CT_ITS ---
PROCEDURE: CT CERVICAL SPINE WO CON CLINICAL INDICATION: neck pain Neck pain COMPARISON: CT HEAD/BRAIN WO CON from 10/25/2019 TECHNIQUE: Axial images obtained with sagittal and coronal reformats. All CT scans at the facility use one or more dose reduction, viz: automated exposure control, ma/kV adjustment per patient size (including targeted exams where dose is matched to indication, i.e. head), or iterative reconstruction technique. Axial spiral CT scanning performed of the cervical spine beginning at the base of the skull and continuing to the upper T-spine. 3-D multiplanar reconstruction with 3-D manipulation of volumetric data set in image rendering was completed by the radiologist and/or technologist with the supervision of the radiologist on independent workstation. FINDINGS: There is normal alignment. No acute fracture or dislocation is evident. There is spina bifida occulta of C1 C2-C3: Degenerative disc disease. C3-C4: Degenerate disc disease C4-C5: Degenerate disc disease. C5-C6: Degenerate disc disease with some minimal posterior endplate hypertrophic change. Block vertebra involve C6-C7 and T1. Scattered small nodes are present in the neck. Lung apices are clear IMPRESSION: 1. Congenital block vertebra C6 through T1 2. Multilevel cervical spondylosis as described above. 3. No acute finding Dictated by: Napoleon Agosto MD 10/26/2019 07:21 Electronically signed by Napoleon Agosto MD in [place] 10/26/2019 07:21
[2019-10-25 19:48] LABS: Microscopic, Urine URINE MICROSCOPIC (MICROSCOPIC)
[2019-10-25 19:50] LABS: Basophils # 0.1 K/mm3 (0-0.2); Basophils % 0.9 % (0.1-2.0); Eosinophils % 0.3 % (0.1-12.0); Hematocrit 39.5 % (37.0-47.0); Hemoglobin 13.2 g/dL (12.2-16.2); Lymphocytes # 1.2 K/mm3 (0.7-4.5); Lymphocytes % 14.5 % (10-50); Mean Corpuscular HGB Conc 33.5 g/dL (31.8-35.4); Mean Corpuscular Hemoglobin 32.8 pg (27.0-31.2); Mean Corpuscular Volume 98.1 fl (81-99); Mean Platelet Volume 7.8 fl (7.4-10.4); Monocytes # 0.3 K/mm3 (0.1-1.0); Monocytes % 3.3 % (1.7-9.3); Neutrophils # 6.9 K/mm3 (1.8-7.8); Platelet Count 384 K/mm3 (142-424); Red Blood Count 4.02 M/mm3 (4.20-5.40); Red Cell Distribution Width 13.5 % (11.5-17.5); White Blood Count 8.6 K/mm3 (4.8-10.8)
[2019-10-25 19:52] VITALS: BP 121/83; PULSE 68; RESP 15; O2SAT 99
[2019-10-25 20:02] LABS: Appearance,Urine CLEAR (Clear); Bilirubin,Urine Negative (Negative); Blood, Urine TRACE-I (Negative); Color,Urine YELLOW (Yellow); Glucose,Urine (UA) Negative (Negative); Ketones,Urine Negative (Negative); Leukocyte Esterase,Urine TRACE (Negative); Nitrate,Urine Negative (Negative); Protein,Urine Negative (Negative); Urobilinogen,Urine 0.2 EU/dl (0.2)
[2019-10-25 20:04] LABS: Alanine Aminotransferase 18 U/L (12-78); Albumin Level 3.9 g/dl (3.5-5.0); Albumin/Globulin Ratio 1.1 (1.1-1.8); Alkaline Phosphatase 146 U/L (38-126); Anion Gap 11.1 mEq/L (5-15); Aspartate Amino Transferase 31 U/L (14-36); Bilirubin,Total 0.3 mg/dl (0.2-1.3); Blood Urea Nitrogen 6 mg/dl (7-17); Calcium 9.2 mg/dl (8.4-10.2); Carbon Dioxide 27 mmol/L (22.0-30.0); Chloride 93 mmol/L (98-107); Creatinine Clearance Estimated 98 mL/min (50-200); Estimated Glomerular Filt Rate 127 ml/min (>60); GFR (African American) 154 ML/MIN (>60); Globulin 3.4 g/dL (1.3-3.2); Glucose 260 mg/dl (74-100); Potassium 4.1 mmoL/L (3.5-5.1); Sodium 127 mmol/L (136-145); Total Protein,Serum 7.3 g/dl (6.3-8.2)
[2019-10-25 20:11] LABS: Lactic Acid 1.6 mmol/L (0.7-2.1)
[2019-10-25 20:20] LABS: Strep Scrn Group A (Rapid) Negative (Negative)
[2019-10-25 20:52] VITALS: BP 126/89; PULSE 71; RESP 15; O2SAT 98
[2019-10-25 21:50] VITALS: BP 117/71; PULSE 77; RESP 15; TEMP 37.3; O2SAT 95
== END 2019-10-25 21:53 | disposition home or self-care (01) ==
PROVIDERS: Emergency Provider Family Medicine; PCP Nurse Practitioner Family
DX: E11.65 Type 2 diabetes mellitus with hyperglycemia (principal); E87.1 Hypo-osmolality and hyponatremia; N30.00 Acute cystitis without hematuria; E03.9 Hypothyroidism, unspecified; E78.5 Hyperlipidemia, unspecified
CPT/HCPCS: 70450; 71046; 72125; 80053; 81001; 83605; 85025; 87040; 87275; 87276; 87430; 93005; 96365; 96366; 99284; J1335

== ENCOUNTER → 2019-11-03 08:43 | Outpatient (CLI) | payer MEDICARE, MEDICAID, SELFPAY ==
[2019-11-03 09:22] LABS: Basophils % 0.9 % (0.1-2.0); Eosinophils % 0.4 % (0.1-12.0); Hematocrit 41.1 % (37.0-47.0); Hemoglobin 13.1 g/dL (12.2-16.2); Lymphocytes # 1.1 K/mm3 (0.7-4.5); Mean Corpuscular HGB Conc 31.9 g/dL (31.8-35.4); Mean Corpuscular Hemoglobin 31.4 pg (27.0-31.2); Mean Corpuscular Volume 98.6 fl (81-99); Mean Platelet Volume 7.5 fl (7.4-10.4); Monocytes # 0.4 K/mm3 (0.1-1.0); Monocytes % 7.4 % (1.7-9.3); Neutrophils # 3.6 K/mm3 (1.8-7.8); Neutrophils % 70.3 % (37.0-80.0); Platelet Count 618 K/mm3 (142-424); Red Blood Count 4.17 M/mm3 (4.20-5.40); Red Cell Distribution Width 13.8 % (11.5-17.5); White Blood Count 5.2 K/mm3 (4.8-10.8)
[2019-11-03 10:26] LABS: Alanine Aminotransferase 11 U/L (12-78); Albumin/Globulin Ratio 1.1 (1.1-1.8); Alkaline Phosphatase 153 U/L (38-126); Aspartate Amino Transferase 24 U/L (14-36); Bilirubin,Total 0.4 mg/dl (0.2-1.3); Carbon Dioxide 32 mmol/L (22.0-30.0); Cholesterol 131 mg/dl (140-200); Globulin 3.5 g/dL (1.3-3.2); Total Protein,Serum 7.5 g/dl (6.3-8.2); Triglycerides 84 mg/dl (30-150); VLDL Cholesterol 17 mg/dL (0-40)
[2019-11-03 10:37] LABS: Direct LDL Cholesterol 84.39 mg/dL (100-129)
[2019-11-03 10:56] LABS: Anion Gap 10.8 mEq/L (5-15); Chloride 94 mmol/L (98-107); Potassium 4.8 mmoL/L (3.5-5.1); Sodium 132 mmol/L (136-145)
[2019-11-03 10:59] LABS: Calcium 9.9 mg/dl (8.4-10.2); Chol/HDL Ratio 2.8 (1-3.5); Glucose 164 mg/dl (74-100); HDL Cholesterol 47 mg/dl (40-60)
[2019-11-03 11:51] LABS: Blood Urea Nitrogen 11 mg/dl (7-17); Estimated Glomerular Filt Rate 103 ml/min (>60); GFR (African American) 125 ML/MIN (>60)
== END ==
PROVIDERS: Visit Provider Nurse Practitioner Family
DX: R50.9 Fever, unspecified (principal); E78.5 Hyperlipidemia, unspecified; E11.9 Type 2 diabetes mellitus without complications; E87.1 Hypo-osmolality and hyponatremia; E03.9 Hypothyroidism, unspecified; Z79.84 Long term (current) use of oral hypoglycemic drugs
CPT/HCPCS: 36415; 80053; 80061; 83036; 84443; 85025

== ENCOUNTER → 2019-11-24 10:00 | Outpatient (POV) | payer MEDICARE, MEDICAID, SELFPAY | PROVIDERS: PCP Otolaryngology; Visit Provider Otolaryngology | DX: Z00.00 Encounter for general adult medical examination without abnormal findings (principal) ==

== ENCOUNTER → 2020-01-15 08:31 | Outpatient (CLI) | payer MEDICARE, MEDICAID, SELFPAY ==
--- NOTE | 2020-01-15 08:36 | CT_ITS ---
PROCEDURE: CT ABDOMEN PELVIS WO CON CLINICAL INDICATION: SLOW TRANSIT CONSTIPATION,ABD PAIN Upper abdominal pain, slow transit constipation now with diarrhea COMPARISON: ABDPELW/O CT ABD PELVIS W/O CONTRAST from 02/03/2016 TECHNIQUE: Axial images obtained with sagittal and coronal reformats. All CT scans at the facility use one or more dose reduction, viz: automated exposure control, ma/kV adjustment per patient size (including targeted exams where dose is matched to indication, i.e. head), or iterative reconstruction technique. FINDINGS: LOWER THORAX: There are mild atelectatic changes in the lung bases. There is minimal pericardial thickening posteriorly. ABDOMEN & PELVIS: Status post cholecystectomy. The liver, spleen, adrenal glands, and pancreas has an unremarkable appearance. No renal or ureteral calculi. No hydronephrosis. The bowel gas pattern is nonspecific with gas-filled loops of small and large bowel which are nondistended. There is a mild amount of retained colonic feces. There are redundant loops of large bowel. What appears represent the appendix is slightly prominent measuring up to 7 mm in diameter. There is no stranding of the periappendiceal fat. The prominence of the appendix is not significantly changed compared to 02/03/2016 and may represent a normal variant. There is a moderate amount of stool within the rectosigmoid region. There is nonspecific thickening of a redundant loop of sigmoid colon which could be due to nondistention or mild colitis. Urinary bladder is decompressed with mild thickening of the wall. No acute bony findings. There are degenerative changes in the lumbar spine with prominent bony osteophytes anteriorly IMPRESSION: 1. There is a moderate amount of retained colonic feces especially in the rectosigmoid region consistent with constipation. 2. Mild prominence of the appendix. This however is not significantly changed and is somewhat less than when compared to 02/03/2016 consistent with a normal variant. 3. Nonspecific thickening of the redundant loop of sigmoid colon which could be due to nondistention or mild colitis. 4. Other nonacute findings as described above. The Dictated by: Napoleon Agosto MD 01/16/2020 07:52 Electronically signed by Napoleon Agosto MD in [place] 01/16/2020 07:52
== END ==
PROVIDERS: PCP Otolaryngology; Visit Provider Nurse Practitioner Family
DX: R10.84 Generalized abdominal pain (principal); K59.01 Slow transit constipation
CPT/HCPCS: 74176

== ENCOUNTER → 2020-03-14 12:38 | Outpatient (CLI) | payer MEDICARE, MEDICAID, SELFPAY ==
[2020-03-14 12:57] LABS: Basophils % 0.9 % (0.1-2.0); Eosinophils % 0.5 % (0.1-12.0); Hematocrit 42.6 % (37.0-47.0); Hemoglobin 14.3 g/dL (12.2-16.2); Lymphocytes # 1.2 K/mm3 (0.7-4.5); Lymphocytes % 24.5 % (10-50); Mean Corpuscular HGB Conc 33.5 g/dL (31.8-35.4); Mean Corpuscular Volume 101.4 fl (81-99); Mean Platelet Volume 8.4 fl (7.4-10.4); Monocytes # 0.2 K/mm3 (0.1-1.0); Monocytes % 4.5 % (1.7-9.3); Neutrophils # 3.4 K/mm3 (1.8-7.8); Neutrophils % 69.6 % (37.0-80.0); Platelet Count 419 K/mm3 (142-424); Red Cell Distribution Width 13.9 % (11.5-17.5); White Blood Count 4.9 K/mm3 (4.8-10.8)
[2020-03-14 13:44] LABS: Hemoglobin A1C 7.6 % (4.0-6.0)
[2020-03-14 13:45] LABS: Chloride 97 mmol/L (98-107); Sodium 134 mmol/L (136-145)
[2020-03-14 13:46] LABS: Potassium 4.4 mmoL/L (3.5-5.1)
[2020-03-14 13:48] LABS: Alanine Aminotransferase 13 U/L (12-78); Alkaline Phosphatase 143 U/L (38-126); Anion Gap 13.4 mEq/L (5-15); Aspartate Amino Transferase 29 U/L (14-36); Bilirubin,Total 0.3 mg/dl (0.2-1.3); Blood Urea Nitrogen 13 mg/dl (7-17); Carbon Dioxide 28 mmol/L (22.0-30.0); Estimated Glomerular Filt Rate 103 ml/min (>60); GFR (African American) 124 ML/MIN (>60)
[2020-03-14 13:49] LABS: Albumin Level 3.8 g/dl (3.5-5.0); Albumin/Globulin Ratio 1.2 (1.1-1.8); Calcium 9.7 mg/dl (8.4-10.2); Globulin 3.2 g/dL (1.3-3.2); Glucose 161 mg/dl (74-100)
[2020-03-14 14:20] LABS: Thyroid Stimulating Hormone 0.67 uIU/mL (0.465-4.68)
== END ==
PROVIDERS: Visit Provider Nurse Practitioner Family
DX: E03.9 Hypothyroidism, unspecified (principal); E11.9 Type 2 diabetes mellitus without complications; Z79.84 Long term (current) use of oral hypoglycemic drugs
CPT/HCPCS: 36415; 80053; 83036; 84443; 85025

== ENCOUNTER → 2020-03-30 11:37 | Outpatient (CLI) | payer MEDICARE, MEDICAID, SELFPAY ==
[2020-03-30 13:01] LABS: Coronavirus 19 IgG Antibody Positive (Negative)
[2020-03-30 13:02] LABS: Coronavirus 19 IgM Antibody Negative (Negative)
== END ==
PROVIDERS: Visit Provider Internal Medicine Adolescent Medicine
DX: Z01.84 Encounter for antibody response examination (principal); U07.1 COVID-19
CPT/HCPCS: 36415; 86328

== ENCOUNTER → 2020-05-11 14:54 | Outpatient (CLI) | payer MEDICARE, MEDICAID, SELFPAY | PROVIDERS: PCP Nurse Practitioner Family; Visit Provider Nurse Practitioner Family | DX: Z71.3 Dietary counseling and surveillance (principal); E11.9 Type 2 diabetes mellitus without complications | CPT/HCPCS: 97802 ==

== ENCOUNTER → 2020-05-26 12:14 | Outpatient (CLI) | payer MEDICARE, MEDICAID, SELFPAY ==
[2020-05-26 13:51] LABS: Adenovirus,PCR Not Detected (NotDetected); Bordetella Pertussis Not Detected (NotDetected); Chlamydophila Pneumoniae, PCR Not Detected (NotDetected); Coronavirus 19, PCR Not Detected (NotDetected); Coronavirus 229E Not Detected (NotDetected); Coronavirus NL63 Not Detected (NotDetected); Coronavirus OC43 Not Detected (NotDetected); Coronovirus HKU1,PCR Not Detected (NotDetected); Human Metapneumovirus Not Detected (NotDetected); Influenza A, PCR Not Detected (NotDetected); Influenza AH1, 2009 Not Detected (NotDetected); Influenza AH1, PCR Not Detected (NotDetected); Influenza AH3,PCR Not Detected (NotDetected); Influenza B, PCR Not Detected (NotDetected); Mycoplasma Pneumoniae, PCR Not Detected (NotDetected); Parainfluenza 1, PCR Not Detected (NotDetected); Parainfluenza 2, PCR Not Detected (NotDetected); Parainfluenza 3, PCR Not Detected (NotDetected); Parainfluenza 4, PCR Not Detected (NotDetected); Respiratory Syncytial Virus Not Detected (NotDetected); Rhinovirus/Enterovirus Not Detected (NotDetected)
== END ==
PROVIDERS: PCP Nurse Practitioner Family; Referring Provider Nurse Practitioner Family; Visit Provider Nurse Practitioner Family
DX: Z03.818 Encounter for observation for suspected exposure to other biological agents ruled out (principal); R50.9 Fever, unspecified; R09.81 Nasal congestion
CPT/HCPCS: 87581; 87633; 87798

== ENCOUNTER 2020-05-30 07:19 | Emergency (ER) | payer MEDICARE, MEDICAID, SELFPAY ==
[2020-05-30 07:21] VITALS: BP 113/54; PULSE 60; RESP 18; TEMP 36.4; O2SAT 99; BMI 25.4
--- NOTE | 2020-05-30 07:38 | CT_ITS ---
PROCEDURE: CT ABDOMEN PELVIS W CON CLINICAL INDICATION: pain Diarrhea and abdominal pain COMPARISON: CT CT ABDOMEN PELVIS WO CON from 01/15/2020 TECHNIQUE: IV Contrast: 75ML Isovue 370 Oral Contrast None Axial images obtained with sagittal and coronal reformats. All CT scans at the facility use one or more dose reduction, viz: automated exposure control, ma/kV adjustment per patient size (including targeted exams where dose is matched to indication, i.e. head), or iterative reconstruction technique. FINDINGS: LOWER THORAX: There is a patchy area of infiltrate in the right lung base along the hemidiaphragm. Another smaller area of ground-glass infiltrate is present in the left lung base possibly due to atelectasis versus infiltrate. There is a trace right-sided pleural effusion. ABDOMEN & PELVIS: There has been a prior cholecystectomy. The spleen and adrenal glands and pancreas have an unremarkable appearance. No renal or ureteral calculi. No hydronephrosis. No evidence of appendicitis. There is non rotation of the bowel with the colon mostly on the right side and small bowel on the left side. There is mild thickening the descending colon with some mild stranding of the pericolic fat. No intestinal obstruction or free air is evident. There is diffuse thickening of the urinary bladder. 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 IMPRESSION: 1. Pneumonia in the right lung base with trace right effusion. Ground-glass infiltrate or atelectasis in the left lung base. 2. Non rotation of the bowel with: On the right and small bowel on the left with mild thickening of the descending colon and stranding of the pericolic fat suggesting colitis. 3. Moderate thickening of the urinary bladder wall with somewhat irregular contour. Differential diagnosis would include cystitis or neoplasm or neurogenic bladder Dictated by: Napoleon Agosto MD 05/30/2020 09:43 Napoleon Agosto MD in [place] 05/30/2020 09:43
--- NOTE | 2020-05-30 07:56 | PC.NURSE ---
Pt does not want pt to have contrast with the scan. States they had a brother to after receiving contrast and she wants to just see what they can without a scan with contrast. Family aware that the test will not be a accurate without contrast vs with scan with contrast. aware
[2020-05-30 08:09] LABS: Basophils % 0.7 % (0.1-2.0); Eosinophils % 0.1 % (0.1-12.0); Hematocrit 41.2 % (37.0-47.0); Hemoglobin 13.6 g/dL (12.2-16.2); Lymphocytes # 0.8 K/mm3 (0.7-4.5); Lymphocytes % 22.2 % (10-50); Mean Corpuscular HGB Conc 33.1 g/dL (31.8-35.4); Mean Corpuscular Hemoglobin 33.3 pg (27.0-31.2); Mean Corpuscular Volume 100.6 fl (81-99); Mean Platelet Volume 8.3 fl (7.4-10.4); Monocytes # 0.2 K/mm3 (0.1-1.0); Monocytes % 4.8 % (1.7-9.3); Neutrophils # 2.5 K/mm3 (1.8-7.8); Neutrophils % 72.2 % (37.0-80.0); Platelet Count 285 K/mm3 (142-424); Red Cell Distribution Width 13.9 % (11.5-17.5); White Blood Count 3.5 K/mm3 (4.8-10.8)
[2020-05-30 08:13] LABS: Chloride 95 mmol/L (98-107); Potassium 4.5 mmoL/L (3.5-5.1); Sodium 132 mmol/L (136-145)
[2020-05-30 08:15] LABS: Blood Urea Nitrogen 15 mg/dl (7-17)
[2020-05-30 08:16] LABS: Alanine Aminotransferase 13 U/L (12-78); Albumin/Globulin Ratio 1.1 (1.1-1.8); Alkaline Phosphatase 171 U/L (38-126); Anion Gap 11.5 mEq/L (5-15); Aspartate Amino Transferase 30 U/L (14-36); Bilirubin,Total 0.5 mg/dl (0.2-1.3); Calcium 9.2 mg/dl (8.4-10.2); Carbon Dioxide 30 mmol/L (22.0-30.0); Creatinine Clearance Estimated 59 mL/min (50-200); Estimated Glomerular Filt Rate 86 ml/min (>60); GFR (African American) 104 ML/MIN (>60); Globulin 3.6 g/dL (1.3-3.2); Glucose 181 mg/dl (74-100); Total Protein,Serum 7.6 g/dl (6.3-8.2)
[2020-05-30 08:21] VITALS: BP 104/38; PULSE 84; RESP 20; O2SAT 100
--- NOTE | 2020-05-30 08:37 | HMH.EDNVD ---
ED Disposition Clinical Impression: Colitis Right lower lobe pneumonia Qualifiers: Pneumonia type: due to unspecified organism Qualified Code(s): J18.9 - Pneumonia, unspecified organism Disposition: Home, Self-Care Condition on Discharge: Good Instructions: DI for Colitis Prescriptions: Ciprofloxacin HCl [Ciprofloxacin 500mg Tab] 500 mg PO BID 10 Days #20 tab Transmission Status: Pending to [facility] Referrals: Jacqueline Baez APRN [Primary Care Provider] - - Critical Care Critical Care Time: No Attestation: On 05/30/20, the high probability of a clinically significant, sudden or life threatening deterioration of the following system(s) required my full and direct attention, intervention and personal management. The time I documented below is in addition to time spent performing reported procedures but includes the following listed in this critical care notation. Medical Decision Making - Medical Records Medical records reviewed: Yes: I reviewed the patient's medical records. - Puneet Inquiry Pt receiving controlled substance: No Vital Signs: 05/30/20 07:21 05/30/20 08:21 05/30/20 09:51 Temperature 97.6 F Temperature Source Oral Pulse Rate [Left Radial] 60 84 Respiratory Rate 18 20 16 Blood Pressure [Right Arm] 113/54 L 104/38 L 130/66 Blood Pressure Mean [Right Arm] 73 60 87 Blood Pressure Source [Right Arm] Automatic Cuff Automatic Cuff Blood Pressure Position [Right Arm] Sitting Sitting 02 Sat by Pulse Oximetry 99 100 97 Oxygen Delivery Method Room Air Room Air - Lab Data Lab Results 05/30/20 07:50: WBC 3.5 L, RBC 4.10 L, Hgb 13.6, Hct 41.2, MCV 100.6 H, MCH 33.3 H, MCHC 33.1, RDW 13.9, Plt Count 285, MPV 8.3, Neut % (Auto) 72.2, Lymph % (Auto) 22.2, [place] % (Auto) 4.8, Eos % (Auto) 0.1, Baso % (Auto) 0.7, Neut # (Auto) 2.5, Lymph # (Auto) 0.8, [place] # (Auto) 0.2, Eos # (Auto) 0.0, Baso # (Auto) 0.0 05/30/20 07:50: Sodium 132 L, Potassium 4.5, Chloride 95 L, Carbon Dioxide 30, Anion Gap 11.5, BUN 15, Creatinine 0.70, Estimated Creat Clear 59, Estimated GFR 86, Est GFR ( Amer) 104, Glucose 181 H, Calcium 9.2, Total Bilirubin 0.5, AST 30, ALT 13, Alkaline Phosphatase 171 H, Total Protein 7.6, Albumin 4.0, Globulin 3.6 H, Albumin/Globulin Ratio 1.1 Result diagrams: 05/30/20 07:50 05/30/20 07:50 Orders (Tests/Meds): ED MEDICATIONS Discontinued Medications Generic Name Dose Route Start Last Admin Trade Name Freq PRN Reason Stop Dose Admin Sodium Chloride 1,000 mls @ 999 mls/hr 05/30/20 08:00 05/30/20 08:00 Sod Chlor 0.9% 1000ml Bag IV 05/30/20 09:00 999 mls/hr .Q1H1M SIMÓN Administration Iopamidol 75 ml 05/30/20 09:03 05/30/20 09:04 Iopamidol-370 (76%);100ml Bottle IV 05/30/20 09:04 75 ml ONCE ONE Administration Sodium Chloride 10 ml 05/30/20 09:03 05/30/20 09:04 Sodium Chloride 0.9% 10ml Syr (Rad Only) IV 05/30/20 09:04 10 ml ONCE ONE Administration ORDERS Category Date Time Status Diarrhea 6-11 Panel, Cdiff PCR Stat Lab 05/30/20 07:38 Ordered - CT Data CT Scan: Abdomen, Pelvis Time Received: 09:[address] Reviewed: Yes: I have reviewed the patient's CT results, I have viewed the radiologist's interpretation Findings Narrative: 1. Pneumonia in the right lung base with trace right effusion. Ground-glass infiltrate or atelectasis in the left lung base. 2. Non rotation of the bowel with: On the right and small bowel on the left with mild thickening of the descending colon and stranding of the pericolic fat suggesting colitis. 3. Moderate thickening of the urinary bladder wall with somewhat irregular contour. Differential diagnosis would include cystitis or neoplasm or neurogenic bladder - Reevaluation(s) Time: 10:07 Reevaluation #1: On reevaluation, patient appears to be at baseline. There is been no vomiting or diarrhea in the emergency department. Remains hemodynamically stable. CT of t
--- NOTE | 2020-05-30 08:48 | PC.NURSE ---
Pt family member has contacted another sister and are ok with doing the CT with contrast at this time. aware.
--- NOTE | 2020-05-30 08:49 | PC.NURSE ---
pt to radiology
[2020-05-30 09:51] VITALS: BP 130/66; RESP 16; O2SAT 97
--- NOTE | 2020-05-30 09:51 | PC.NURSE ---
Pt sitting in bed with family at bedside. No complaints at this time
[2020-05-30 10:28] VITALS: BP 119/59; PULSE 55; RESP 16; TEMP 36.4; O2SAT 96
== END 2020-05-30 10:30 | disposition home or self-care (01) ==
PROVIDERS: Emergency Medicine; Emergency Provider Emergency Medicine; PCP Nurse Practitioner Family
DX: K52.9 Noninfective gastroenteritis and colitis, unspecified (principal); J18.9 Pneumonia, unspecified organism; E11.65 Type 2 diabetes mellitus with hyperglycemia; E03.9 Hypothyroidism, unspecified; E78.5 Hyperlipidemia, unspecified; Q90.9 Down syndrome, unspecified; Z88.0 Allergy status to penicillin; Z88.5 Allergy status to narcotic agent
CPT/HCPCS: 74177; 80053; 85025; 96365; 99283; Q9967

== ENCOUNTER 2020-06-01 19:55 | Emergency (ER) | payer MEDICARE, MEDICAID, SELFPAY ==
[2020-06-01 19:54] VITALS: BP 127/57; PULSE 69; RESP 16; TEMP 37.2; O2SAT 96; BMI 26.7
[2020-06-01 20:24] VITALS: BP 107/57; PULSE 74; RESP 16; O2SAT 97
[2020-06-01 20:24] LABS: Basophils % 1.2 % (0.1-2.0); Eosinophils % 0.5 % (0.1-12.0); Hematocrit 38.9 % (37.0-47.0); Hemoglobin 13.3 g/dL (12.2-16.2); Mean Corpuscular HGB Conc 34.2 g/dL (31.8-35.4); Mean Corpuscular Hemoglobin 33.9 pg (27.0-31.2); Mean Corpuscular Volume 99.1 fl (81-99); Mean Platelet Volume 8.3 fl (7.4-10.4); Monocytes # 0.2 K/mm3 (0.1-1.0); Monocytes % 7.2 % (1.7-9.3); Neutrophils % 44.1 % (37.0-80.0); Platelet Count 327 K/mm3 (142-424); Red Blood Count 3.92 M/mm3 (4.20-5.40); Red Cell Distribution Width 13.7 % (11.5-17.5); White Blood Count 2.2 K/mm3 (4.8-10.8)
--- NOTE | 2020-06-01 20:35 | XR_ITS ---
PROCEDURE: XR CHEST PORTABLE CLINICAL HISTORY: pt choked on food Cough COMPARISON: CR CXR2V XR chest 2V from 12/02/2017 CR CXR2V XR chest 2V from 02/10/2018 CR XR CHEST 2V from 10/25/2019 FINDINGS: The cardiomediastinal silhouette and pulmonary vascularity are within normal limits. There are some minimal atelectatic changes in the left lung base. There is some faint increased density in the right midlung at the 7th interspace posteriorly which may be due to summation artifact. There is bowel interposition on the right.. There is mild gaseous distention of the bowel loop in the right upper quadrant. IMPRESSION: As above, minimal atelectatic change in the left lung base Dictated by: Napoleon Agosto MD 06/01/2020 23:36 Napoleon Agosto MD in [place] 06/01/2020 23:36
--- NOTE | 2020-06-01 20:36 | HMH.EDSKAF ---
ED Disposition Clinical Impression: Unexplained dysphagia, Choking episode, Down syndrome Disposition: Home, Self-Care Condition on Discharge: Fair Instructions: DI for Choking Episode Additional Instructions: call pcp for follow up Referrals: Jacqueline Baez APRN [Primary Care Provider] - - Critical Care Critical Care Time: No Attestation: On 06/01/20, the high probability of a clinically significant, sudden or life threatening deterioration of the following system(s) required my full and direct attention, intervention and personal management. The time I documented below is in addition to time spent performing reported procedures but includes the following listed in this critical care notation. Medical Decision Making - Medical Records Medical records reviewed: Yes: I reviewed the patient's medical records. - Puneet Inquiry Pt receiving controlled substance: No Vital Signs: 06/01/20 19:54 Temperature 99.0 F Temperature Source Oral Pulse Rate [Left Radial] 69 Respiratory Rate 16 Blood Pressure [Right Arm] 127/57 L Blood Pressure Mean [Right Arm] 80 Blood Pressure Source [Right Arm] Automatic Cuff Blood Pressure Position [Right Arm] Sitting 02 Sat by Pulse Oximetry 96 Oxygen Delivery Method Room Air - Lab Data Lab results reviewed: Yes: I reviewed the patient's lab results. Lab Results 06/01/20 20:15: WBC 2.2 L D, RBC 3.92 L, Hgb 13.3, Hct 38.9, MCV 99.1 H, MCH 33.9 H, MCHC 34.2, RDW 13.7, Plt Count 327, MPV 8.3, Neut % (Auto) 44.1, Lymph % (Auto) 47.0, [place] % (Auto) 7.2, Eos % (Auto) 0.5, Baso % (Auto) 1.2, Neut # (Auto) 1.0 L, Lymph # (Auto) 1.0, [place] # (Auto) 0.2, Eos # (Auto) 0.0, Baso # (Auto) 0.0 Result diagrams: 06/01/20 20:15 Orders (Tests/Meds): ORDERS Category Date Time Status XR chest portable Stat Exams 06/01/20 20:35 Taken - Radiology Data #1 Image(s): Chest Image Reviewed: Yes I reviewed the patient's radiology image Preliminary Findings: Abnormal (non-specific) - Reevaluation(s) Time: 21:26 Reevaluation #1: tolerating liquids Skin/Abscess/FB HPI - General Chief complaint: Skin/Abscess/Foreign Body Stated complaint: food bolus Time Seen by Provider: 06/01/20 20:10 Mode of Arrival: EMS Source of Information: Patient, Relative, EMS, Medical Record Limitations: No Limitations Description of Symptoms (Recalled from ER Triage Doc. by RN): pt is nonverbal. per pts sister pt was eating mashed potatoes for dinner when she got choked up and threw up her mashed potatoes. pt sister stated since the episode this evening the pt has been spitting up her saliva and when offered a drink she will pocket the fluid in her cheeks and spit it back out. - History of Present Illness HPI narrative: choking episode tonight - pt has hx of downs syndrome - no sig hx of dysphagia MD complaint: other (choking episode ) Onset (ago): hour(s) Tetanus up to date: unsure Severity: moderate Associated symptoms: denies other symptoms Treatments prior to arrival: none - Related Data Home Medications Medication Instructions Recorded Confirmed aspirin 81 mg tablet,delayed 81 mg PO ONCE 07/25/17 04/21/20 release atorvastatin 10 mg tablet 10 mg PO DAILY 30 Days tab 07/25/17 04/21/20 beclomethasone dipropionate 80 80 mcg INTRANASAL DAILY 30 Days #8 07/25/17 04/21/20 mcg/actuation nasal HFA inhaler levothyroxine 75 mcg tablet 75 mcg PO DAILY 30 Days tab 07/25/17 04/21/20 metformin 500 mg tablet 500 mg PO DAILY 90 Days tab 07/25/17 04/21/20 polyethylene glycol 3350 17 17 g PO DAILY 30 Days #527 each 07/25/17 04/21/20 gram/dose oral powder montelukast 10 mg tablet 10 mg PO DAILY 30 Days #30 11/28/17 04/21/20 omeprazole 20 mg capsule,delayed 20 mg PO DAILY 30 Days #30 11/28/17 04/21/20 release nystatin 100,000 unit/mL oral 1 ml PO ml 04/21/20 04/21/20 suspension olopatadine 0.1 % eye drops drp OPHTHALMIC 04/21/20 04/21/20 plecanatide 3 mg tablet 3 mg PO t
--- NOTE | 2020-06-01 20:42 | PC.NURSE ---
bedside PO challenge with a small sip of water. pt swallowed water. tolerated well and no complaints observed
--- NOTE | 2020-06-01 20:43 | PC.NURSE ---
pt offered a hany mist to drink. pt able to take small drinks at this time without difficulty
[2020-06-01 20:54] VITALS: BP 104/56; PULSE 71; RESP 16; O2SAT 96
[2020-06-01 21:24] VITALS: BP 124/60; PULSE 75; RESP 16; O2SAT 98
[2020-06-01 22:02] VITALS: BP 116/58; PULSE 80; RESP 15; TEMP 36.9; O2SAT 96
== END 2020-06-01 22:05 | disposition home or self-care (01) ==
PROVIDERS: Emergency Provider Emergency Medicine; PCP Nurse Practitioner Family
DX: R13.10 Dysphagia, unspecified (principal); Q90.9 Down syndrome, unspecified; E11.9 Type 2 diabetes mellitus without complications; Z79.84 Long term (current) use of oral hypoglycemic drugs; E78.5 Hyperlipidemia, unspecified; Z88.0 Allergy status to penicillin; Z88.5 Allergy status to narcotic agent; Z79.899 Other long term (current) drug therapy
CPT/HCPCS: 71045; 85025; 99283

== ENCOUNTER → 2020-06-07 10:23 | Outpatient (POV) | payer MEDICARE, MEDICAID, SELFPAY | PROVIDERS: Visit Provider Otolaryngology | DX: Z00.00 Encounter for general adult medical examination without abnormal findings (principal) ==

== ENCOUNTER → 2020-06-13 15:21 | Outpatient (CLI) | payer MEDICARE, MEDICAID, SELFPAY ==
--- NOTE | 2020-06-13 15:26 | XR_ITS ---
PROCEDURE: XR KUB CLINICAL INDICATION: COLITIS,INCOMPLETE ROTATION OF INTESTINE COMPARISON: CT CT ABDOMEN PELVIS WO CON from 01/15/[address] ABDOMEN PELVIS W CON from 05/30/2020 FINDINGS: There is a moderate amount of retained colonic feces in the rectosigmoid region. Surgical clips are present in the right upper quadrant. No acute bony anomalies. There are degenerative changes in the hips with some exostosis in the super acetabular region bilaterally IMPRESSION: Mild amount of retained colonic feces in the rectosigmoid area Dictated by: Napoleon Agosto MD 06/13/2020 15:44 Napoleon Agosto MD in [facility] 06/13/2020 15:45
== END ==
PROVIDERS: PCP Nurse Practitioner Family; Visit Provider Nurse Practitioner Family
DX: K52.9 Noninfective gastroenteritis and colitis, unspecified (principal); Q43.3 Congenital malformations of intestinal fixation
CPT/HCPCS: 74018

== ENCOUNTER → 2020-10-05 17:40 | Outpatient (CLI) | payer MEDICARE, MEDICAID, SELFPAY ==
[2020-10-05 18:41] LABS: Basophils # 0.1 K/mm3 (0-0.2); Basophils % 1.3 % (0.1-2.0); Eosinophils % 0.4 % (0.1-12.0); Hematocrit 37.9 % (37.0-47.0); Hemoglobin 12.1 g/dL (12.2-16.2); Lymphocytes # 2.1 K/mm3 (0.7-4.5); Lymphocytes % 44.7 % (10-50); Mean Corpuscular Hemoglobin 32.2 pg (27.0-31.2); Mean Corpuscular Volume 100.9 fl (81-99); Monocytes # 0.3 K/mm3 (0.1-1.0); Monocytes % 5.4 % (1.7-9.3); Neutrophils # 2.2 K/mm3 (1.8-7.8); Neutrophils % 48.1 % (37.0-80.0); Platelet Count 348 K/mm3 (142-424); Red Blood Count 3.76 M/mm3 (4.20-5.40); Red Cell Distribution Width 13.8 % (11.5-17.5); White Blood Count 4.7 K/mm3 (4.8-10.8)
[2020-10-05 19:10] LABS: Hemoglobin A1C 7.4 % (4.0-6.0)
[2020-10-05 19:18] LABS: Alanine Aminotransferase 19 U/L (12-78); Albumin Level 3.8 g/dl (3.5-5.0); Albumin/Globulin Ratio 1.2 (1.1-1.8); Alkaline Phosphatase 116 U/L (38-126); Anion Gap 12.7 mEq/L (5-15); Aspartate Amino Transferase 34 U/L (14-36); Bilirubin,Total 0.2 mg/dl (0.2-1.3); Blood Urea Nitrogen 16 mg/dl (7-17); Calcium 9.2 mg/dl (8.4-10.2); Carbon Dioxide 28 mmol/L (22.0-30.0); Chloride 98 mmol/L (98-107); Estimated Glomerular Filt Rate 86 ml/min (>60); GFR (African American) 104 ML/MIN (>60); Globulin 3.3 g/dL (1.3-3.2); Glucose 128 mg/dl (74-100); Potassium 4.7 mmoL/L (3.5-5.1); Sodium 134 mmol/L (136-145); Total Protein,Serum 7.1 g/dl (6.3-8.2)
[2020-10-05 19:50] LABS: Thyroid Stimulating Hormone 0.59 uIU/mL (0.465-4.68)
[2020-10-05 20:25] LABS: Vitamin B12 387 pg/mL (239-931)
[2020-10-05 20:33] LABS: Folate 4.28 ng/mL
== END ==
PROVIDERS: Visit Provider Nurse Practitioner Family
DX: E03.9 Hypothyroidism, unspecified (principal); E11.9 Type 2 diabetes mellitus without complications; D72.819 Decreased white blood cell count, unspecified; Q90.9 Down syndrome, unspecified; Z79.84 Long term (current) use of oral hypoglycemic drugs
CPT/HCPCS: 36415; 80053; 82607; 82746; 83036; 84443; 85025

== ENCOUNTER → 2020-11-10 09:40 | Outpatient (CLI) | payer MEDICARE, MEDICAID, SELFPAY ==
--- NOTE | 2020-11-10 09:46 | XR_ITS ---
PROCEDURE: XR ACUTE ABDOMEN SERIES CLINICAL INDICATION: COUGH, SLOW TRANSIT CONSTIPATION COMPARISON: No exams were available for comparison FINDINGS: Frontal view of the chest shows no acute finding. Upright and supine views of the abdomen demonstrates surgical clips in the right upper quadrant. There is a nonspecific bowel gas pattern. There is a mild amount of retained colonic feces in the rectosigmoid region. Gas-filled transverse colon and hepatic flexure noted with questionable bowel wall thickening at this region. There are nondistended gas-filled loops of small bowel. There are few small air-fluid levels. Degenerative changes are present in the hips and spine. IMPRESSION: Nondistended air-filled loop of large bowel in the right upper quadrant with questionable mucosal thickening raising the suspicion of possible colitis. CT with IV and oral contrast may confirm. There also nondistended gas-filled loops of small bowel with a few air-fluid levels. Enteritis is also consideration. Dictated by: Napoleon Agosto MD 11/10/2020 11:24 Napoleon Agosto MD in [place] 11/10/2020 11:24
== END ==
PROVIDERS: PCP Internal Medicine Adolescent Medicine; Visit Provider Internal Medicine Adolescent Medicine
DX: K59.01 Slow transit constipation (principal); R05 Cough
CPT/HCPCS: 74021

== ENCOUNTER 2020-12-04 21:40 | Observation (INO) | payer MEDICARE, MEDICAID, SELFPAY ==
[2020-12-04 21:50] VITALS: BP 130/66; PULSE 61; RESP 16; TEMP 37.2; O2SAT 95; BMI 25.1
[2020-12-04 22:00] VITALS: BP 107/55; PULSE 57; O2SAT 97
--- NOTE | 2020-12-04 22:09 | HMH.EDNVD ---
ED Disposition Clinical Impression: Down syndrome, Type 2 diabetes mellitus with hyperglycemia, without long-term current use of insulin Dysphagia Qualifiers: Dysphagia type: unspecified Qualified Code(s): R13.10 - Dysphagia, unspecified Disposition: Admitted as Observation Condition on Discharge: Good - Critical Care Critical Care Time: No Attestation: On 12/04/20, the high probability of a clinically significant, sudden or life threatening deterioration of the following system(s) required my full and direct attention, intervention and personal management. The time I documented below is in addition to time spent performing reported procedures but includes the following listed in this critical care notation. Medical Decision Making - Medical Records Medical records reviewed: Yes: I reviewed the patient's medical records. - Puneet Inquiry Pt receiving controlled substance: No Vital Signs: 12/04/20 21:50 12/04/20 22:00 12/04/20 22:30 Temperature 98.9 F Temperature Source Oral Pulse Rate 57 L 83 Pulse Rate [Right] 61 Respiratory Rate 16 Blood Pressure 107/55 L 140/66 Blood Pressure [Right Arm] 130/66 Blood Pressure Mean [Right Arm] 87 Blood Pressure Source [Right Arm] Automatic Cuff Blood Pressure Position [Right Arm] Supine 02 Sat by Pulse Oximetry 95 97 97 Oxygen Delivery Method Room Air 12/04/20 23:00 12/04/20 23:30 12/05/20 00:00 Temperature Temperature Source Pulse Rate 89 89 78 Pulse Rate [Right] Respiratory Rate Blood Pressure 105/61 L 105/61 L 117/59 L Blood Pressure [Right Arm] Blood Pressure Mean [Right Arm] Blood Pressure Source [Right Arm] Blood Pressure Position [Right Arm] 02 Sat by Pulse Oximetry 97 97 93 L Oxygen Delivery Method Room Air Room Air 12/05/20 00:50 12/05/20 01:00 12/05/20 01:30 Temperature Temperature Source Pulse Rate 69 64 58 L Pulse Rate [Right] Respiratory Rate Blood Pressure 102/54 L 124/55 L 94/56 L Blood Pressure [Right Arm] Blood Pressure Mean [Right Arm] Blood Pressure Source [Right Arm] Blood Pressure Position [Right Arm] 02 Sat by Pulse Oximetry 91 L 91 L 91 L Oxygen Delivery Method Room Air Room Air Room Air 12/05/20 02:00 12/05/20 02:32 Temperature 98.9 F Temperature Source Pulse Rate 57 L 58 L Pulse Rate [Right] Respiratory Rate 16 Blood Pressure 80/43 L 115/64 Blood Pressure [Right Arm] Blood Pressure Mean [Right Arm] Blood Pressure Source [Right Arm] Blood Pressure Position [Right Arm] 02 Sat by Pulse Oximetry 92 L Oxygen Delivery Method Room Air Room Air - Lab Data Lab results reviewed: Yes: I reviewed the patient's lab results. Lab Results 12/04/20 22:00: WBC 3.5 L, RBC 3.94 L, Hgb 12.8, Hct 38.6, MCV 98.1, MCH 32.6 H, MCHC 33.2, RDW 13.4, Plt Count 390, MPV 7.7, Neut % (Auto) 36.5 L, Lymph % (Auto) 54.9 H, [place] % (Auto) 5.2, Eos % (Auto) 0.9, Baso % (Auto) 2.4 H, Neut # (Auto) 1.3 L, Lymph # (Auto) 1.9, [place] # (Auto) 0.2, Eos # (Auto) 0.0, Baso # (Auto) 0.1, Total Counted 100, Neutrophils % (Manual) 39 L, Lymphocytes % (Manual) 51 H, Monocytes % (Manual) 9, Eosinophils % (Manual) 1, Platelet Estimate Normal, RBC Morphology Normal, ESR 54 H 12/04/20 22:00: Sodium 134 L, Potassium 4.1, Chloride 100, Carbon Dioxide 30, Anion Gap 8.1, BUN 10, Creatinine 0.70, Estimated Creat Clear 58, Estimated GFR 86, Est GFR ( Amer) 104, Glucose 134 H, Calcium 8.8, Total Bilirubin 0.3, AST 32, ALT 23, Alkaline Phosphatase 106, C-Reactive Protein 1.4, Total Protein 7.2, Albumin 3.8, Globulin 3.4 H, Albumin/Globulin Ratio 1.1, Amylase 70, Lipase 144, Procalcitonin 0.035 12/04/20 22:00: Troponin I < 0.01 12/05/20 00:29: Urine Color Straw, Urine Appearance Clear, Urine pH 6.5, Ur Specific [employer] <= 1.005, Urine Protein Negative, Urine Glucose (UA) Negative, Urine Ketones Negative, Urine Blood Negative, Urine Nitrate Negative, Urine Bilirubin Negative, Urine Urobilinogen
[2020-12-04 22:11] LABS: Basophils # 0.1 K/mm3 (0-0.2); Basophils % 2.4 % (0.1-2.0); Eosinophils % 0.9 % (0.1-12.0); Hematocrit 38.6 % (37.0-47.0); Hemoglobin 12.8 g/dL (12.2-16.2); Lymphocytes # 1.9 K/mm3 (0.7-4.5); Lymphocytes % 54.9 % (10-50); Mean Corpuscular HGB Conc 33.2 g/dL (31.8-35.4); Mean Corpuscular Hemoglobin 32.6 pg (27.0-31.2); Mean Corpuscular Volume 98.1 fl (81-99); Mean Platelet Volume 7.7 fl (7.4-10.4); Monocytes # 0.2 K/mm3 (0.1-1.0); Monocytes % 5.2 % (1.7-9.3); Neutrophils # 1.3 K/mm3 (1.8-7.8); Neutrophils % 36.5 % (37.0-80.0); Platelet Count 390 K/mm3 (142-424); Red Blood Count 3.94 M/mm3 (4.20-5.40); Red Cell Distribution Width 13.4 % (11.5-17.5); White Blood Count 3.5 K/mm3 (4.8-10.8)
[2020-12-04 22:19] LABS: Alanine Aminotransferase 23 U/L (12-78); Albumin Level 3.8 g/dl (3.5-5.0); Albumin/Globulin Ratio 1.1 (1.1-1.8); Alkaline Phosphatase 106 U/L (38-126); Amylase 70 U/L (30-110); Anion Gap 8.1 mEq/L (5-15); Aspartate Amino Transferase 32 U/L (14-36); Bilirubin,Total 0.3 mg/dl (0.2-1.3); Blood Urea Nitrogen 10 mg/dl (7-17); Calcium 8.8 mg/dl (8.4-10.2); Carbon Dioxide 30 mmol/L (22.0-30.0); Chloride 100 mmol/L (98-107); Creatinine Clearance Estimated 58 mL/min (50-200); Estimated Glomerular Filt Rate 86 ml/min (>60); GFR (African American) 104 ML/MIN (>60); Globulin 3.4 g/dL (1.3-3.2); Glucose 134 mg/dl (74-100); Lipase 144 U/L (23-300); Potassium 4.1 mmoL/L (3.5-5.1); Sodium 134 mmol/L (136-145); Total Protein,Serum 7.2 g/dl (6.3-8.2)
[2020-12-04 22:20] LABS: MANUAL DIFFERENTIAL MANUAL DIFFERENTIAL (MANUAL DIFF)
[2020-12-04 22:25] LABS: C-Reactive Protein 1.4 mg/L (0-4)
--- NOTE | 2020-12-04 22:28 | XR_ITS ---
PROCEDURE INFORMATION: Exam: XR Chest Exam date and time: 12/04/2020 10:28 PM Age: 60 years old Clinical indication: Other: Possible asspiration; Patient HX: Possible aspiration, PT unable to raise chin; Additional info: Possable aspiration TECHNIQUE: Imaging protocol: XR of the chest. Views: 1 view. COMPARISON: CR XR CHEST PORTABLE 06/01/2020 9:02 PM FINDINGS: Airway: The airways are patent. Lungs: Low lung volumes causes crowding of the bronchovascular structures. No acute interstitial or airspace disease. Left lung apex is obscured by the overlying mandible. Pleural spaces: There are no pleural effusions present. There is no evidence of pneumothorax. Heart/Mediastinum: Cardiomediastinal silhouette is magnified due to technique. Bones/joints: No acute skeletal abnormality or aggressive osseous lesion. IMPRESSION: Negative for acute thoracic pathology.
[2020-12-04 22:30] VITALS: BP 140/66; PULSE 83; O2SAT 97
[2020-12-04 22:38] LABS: Procalcitonin 0.035 ng/mL (0.0-2.0)
[2020-12-04 22:41] LABS: Eosinophils % 1 % (0-3); Lymphocytes % 51 % (10-50); Monocytes % 9 % (2-9); Neutrophils % 39 % (42-76); Platelet Estimate Normal; RBC Morphology Normal; Total Cells Counted 100
[2020-12-04 22:48] LABS: Erythrocyte Sedimentation Rate 54 mm/hr (0-30)
[2020-12-04 23:00] VITALS: BP 105/61; PULSE 89; O2SAT 97
[2020-12-04 23:18] LABS: Troponin I < 0.01 ng/ml (0.00-0.034)
[2020-12-04 23:30] VITALS: BP 105/61; PULSE 89; O2SAT 97
[2020-12-05] VITALS (22 sets, daily range): BP systolic 90–124; BP diastolic 46–66; PULSE 56–78; RESP 12–16; TEMP 35.9–37.2; O2SAT 91–98; BMI 26.3; BMI 26.6
[2020-12-05 00:37] LABS: Microscopic, Urine URINE MICROSCOPIC (MICROSCOPIC)
[2020-12-05 00:38] LABS: Appearance,Urine CLEAR (Clear); Bilirubin,Urine Negative (Negative); Blood, Urine Negative (Negative); Color,Urine STRAW (Yellow); Glucose,Urine (UA) Negative (Negative); Ketones,Urine Negative (Negative); Leukocyte Esterase,Urine Negative (Negative); Nitrate,Urine Negative (Negative); PH,Urine 6.5 (5.0-8.5); Protein,Urine Negative (Negative); Specific Gravity, Urine <= 1.005 (1.005-1.030); Urobilinogen,Urine 0.2 EU/dl (0.2)
[2020-12-05 00:44] LABS: Bacteria,Urine Trace /lpf; Squamous Epithelial Cell,Urine Occasional #/hpf (0-5); WBC,Urine Occasional #/hpf (0-3)
[2020-12-05 02:19] LABS: Coronavirus 19, PCR Not Detected (NotDetected); Influenza A, PCR Not Detected (NotDetected); Influenza B, PCR Not Detected (NotDetected)
--- NOTE | 2020-12-05 02:42 | PC.NURSE ---
patient up to floor via stretcher.
[2020-12-05 02:48] LABS: Troponin I < 0.01 ng/ml (0.00-0.034)
[2020-12-05 05:51] LABS: POC Glucose,Bedside 129 (70-110)
--- NOTE | 2020-12-05 07:20 | HMH.HP ---
*Admission Date: 12/05/20 *Chief complaint: choked, cannot swallow *History of present illness: Ms. Arreola is a 60-year-old patient with history of Down syndrome, type 2 diabetes, hypothyroidism, hypertension. She presented last night to the ER after swallowing a pill and choking on it at home. Subsequently refused to take any p.o. food or fluids. Attempted a bedside swallow in the ER and patient spit out all of her liquids and applesauce. Had significant coughing after the initial episode coughed up quite a bit of mucus. Has had swallow studies in the past due to concerns for dysphagia but had overall been doing well at home on a pur?ed diet until last night. Sister is at bedside, she is her caregiver. Reports concern that Ms. Hdzs has a tendency to drop her blood pressure with anesthesia and medications. Patient has remained comfortable overnight on maintenance IV fluids. Is pleasant on interview but not talkative. [facility] History I have reviewed the patient's past medical history: Yes Medical History: Reports:: Diabetes Mellitus Type 2, Hyperlipidemia Denies:: Aneurysm, Asthma, Atrial Fibrillation, Cancer, Chronic Obstructive Pulmonary Disease (COPD), Cerebrovascular Accident, Diabetes Mellitus Type 1, Gastroesophageal Reflux Disease(GERD), Hypertension, MRSA, Myocardial Infarction, Renal Disease, Renal Insufficiency *Have you ever received a pneumonia vaccine?: Yes *Have you received a flu vaccine this season?: Yes Other Medical History: Reports: Hypothyroidism, Liver Disease, Sinus Problems, Thyroid Disease. Denies: Arthritis Other Surgeries: Yes: No Previous Surgery, Cholecystectomy, Colonoscopy, Other Amputation: No Fractures: No - *Social History Last grade of school completed: High school graduate Smoking Status: Never smoker Alcohol Intake: never Alcohol Intake Frequency:: other Substance Use Type: denies use *Occupational Status:: disabled Housing: house Household Members: family *Travel in the last 8 weeks: None Family Hx:: Non-contributory Review of Systems - Review of Systems Review of systems:: pertinent systems reviewed and negative unless documented below (14 point review of systems performed, pertinent positives and negatives as per HPI) - *Neurologic Denies localized weakness, Denies headache(s), Denies seizure-like activity Meds Home Medications Medication Instructions Recorded Confirmed Type aspirin 81 mg tablet,delayed 81 mg PO DAILY 07/25/17 12/05/20 History release atorvastatin 10 mg tablet 10 mg PO HS 30 Days tab 07/25/17 12/05/20 History beclomethasone dipropionate 80 1 - 2 spr INTRANASAL DAILY 30 Days 07/25/17 12/05/20 History mcg/actuation nasal HFA inhaler #8 levothyroxine 75 mcg tablet 75 mcg PO DAILY 30 Days tab 07/25/17 12/05/20 History metformin 500 mg tablet 500 mg PO DAILY 90 Days tab 07/25/17 12/05/20 History montelukast 10 mg tablet 10 mg PO PM 30 Days #30 11/28/17 12/05/20 History omeprazole 20 mg capsule,delayed 20 mg PO HS 30 Days #30 11/28/17 12/05/20 History release olopatadine 0.1 % eye drops 1 drp OPHTHALMIC BIDP PRN 04/21/20 12/05/20 History sennosides 8.6 mg-docusate sodium 2 cap PO HS 08/02/20 12/05/20 History 50 mg capsule tamsulosin 0.4 mg capsule 0.4 mg PO HS cap 08/02/20 12/05/20 History Plecanatide [Trulance] 3 mg PO DAILY 12/05/20 12/05/20 History Allergies Allergy/AdvReac Type Severity Reaction Status Date / Time bacitracin [BACITRACIN] Allergy Unknown Verified 10/27/20 16:00 codeine [CODEINE] Allergy Unknown Verified 10/27/20 16:00 Penicillins [PENICILLINS] Allergy Unknown Verified 10/27/20 16:00 Exam Vital signs and Labs for Last 24 Hours: Temp Pulse Resp BP Pulse Ox 98.6 F 62 16 110/57 L 93 L 12/05/20 03:52 12/05/20 03:52 12/05/20 03:52 12/05/20 03:52 12/05/20 03:52 Laboratory Results - last 24 hr 12/04/20 22:00: WBC 3.5 L, RBC 3.94 L, Hgb 12.8, Hct 38.6, MCV 98.1, MCH 32.6 H, MCHC 33.2, RDW 13.4, Plt Count 390, MPV
--- NOTE | 2020-12-05 07:21 | HMH.PHAVTE ---
[facility] Pharmacy VTE Monitoring - Patient Demographics Admission date: 12/04/20 Report Date: 12/05/20 Time: 07:21 Allergies/Adverse Reactions: Patient Allergies bacitracin [BACITRACIN] Allergy (Unknown, Verified 10/27/20 16:00) codeine [CODEINE] Allergy (Unknown, Verified 10/27/20 16:00) Penicillins [PENICILLINS] Allergy (Unknown, Verified 10/27/20 16:00) Height: 1.3 m Weight: 44.509 kg Patient Problems: Current Active Problems Dysphagia (Acute) Down syndrome (Acute) Type 2 diabetes mellitus with hyperglycemia, without long-term current use of insulin (Acute) - VTE Risk Labs: VTE Related Lab Results Hgb 12.8 g/dL (12.2-16.2) 12/04/20 22:00 Hct 38.6 % (37.0-47.0) 12/04/20 22:00 Plt Count 390 K/mm3 (142-424) 12/04/20 22:00 BUN 10 mg/dl (7-17) 12/04/20 22:00 Creatinine 0.70 mg/dl (0.52-1.04) 12/04/20 22:00 Estimated Creat Clear 58 mL/min (50-200) 12/04/20 22:00 VTE Score: 2 - Prophylaxis VTE Prophylaxis Ordered?: Yes Types of VTE Prophylaxis: TEDS Knee High Location of Applied Device: Bilateral Lower Extremeties
--- NOTE | 2020-12-05 10:16 | HMH.PHAINT ---
verified home medication list using list from MD office ([facility]) and outpatient pharmacy
[2020-12-05 11:49] LABS: POC Glucose,Bedside 113 (70-110)
--- NOTE | 2020-12-05 15:12 | HMH.ANESCL ---
[facility] Anesthesia Checklist - Patient Identification Patient Identification: Arm Band - Structural Data Admitted From: Home Planned Operative Procedure/s: egd Consent for Planned Operative Procedure(s) Verified: Yes Verified Documents: Surgical Consent, History and Physical - NPO Status Verified Time NPO: 00:00 - Additional verifications Anesthesia Reactions: No - Airway Assessment C-Spine Mobility Assessed: Yes (mp2) TMJ Mobility Assessed: Yes Dentition: Edentulous - Neurological Assessment Level of Consciousness: Awake, Alert - Anesthesia Plan Anesthesia Risk discussed: Yes Anesthesia Plan: Verified ASA Class: III Anesthesia Type: MAC [facility] History I have reviewed the patient's past medical history: Yes Medical History: Reports:: Diabetes Mellitus Type 2, Hyperlipidemia Denies:: Aneurysm, Asthma, Atrial Fibrillation, Cancer, Chronic Obstructive Pulmonary Disease (COPD), Cerebrovascular Accident, Diabetes Mellitus Type 1, Gastroesophageal Reflux Disease(GERD), Hypertension, MRSA, Myocardial Infarction, Renal Disease, Renal Insufficiency *Have you ever received a pneumonia vaccine?: Yes *Have you received a flu vaccine this season?: Yes Other Medical History: Reports: Hypothyroidism, Liver Disease, Sinus Problems, Thyroid Disease. Denies: Arthritis Anesthesia experience/problems:: nac Other Surgeries: Yes: Cholecystectomy, Colonoscopy, Other Amputation: No Fractures: No - *Social History Last grade of school completed: High school graduate Smoking Status: Never smoker Alcohol Intake: never Alcohol Intake Frequency:: other Substance Use Type: denies use *Occupational Status:: disabled Housing: house Household Members: family *Travel in the last 8 weeks: None Family Hx:: Non-contributory
--- NOTE | 2020-12-05 15:25 | HMH.PROC ---
[facility] Procedure Note Procedure Note:: Upper Endoscopy Procedure Report: Esophagogastroduodenoscopy with cold biopsies and TTS balloon dilation Endoscopost: Hernán Pichardo II, MD Referring Physician: MARYCHUY Leo Date of Procedure: December 05, 2020 Equipment: Olympus GIF 190 standard upper endoscope Sedation: MAC sedation Indications: Ms. Arreola is a 60-year-old female with a history of diabetes, hypertension and Down syndrome. The patient has had longstanding digestive difficulties and does have moderate chronic constipation. She did have prior CT scan of the abdomen and routine abdominal films in May 2020. She did have nonrotation of the bowel with some mild thickening of the descending colon. Her KUB showed obstipation/retained stool. The patient does have moderate bloating. The patient came to the hospital with dysphagia. She has had some chronic dysphagia but last evening she could not tolerate swallowing her pills. Her sister states that she has had trouble and she did have a prior modified barium swallow in April 2019. This did not show any stricturing or pharyngeal defect. Procedure: Prior to the procedure, a history and physical exam was performed, and patient's medications and allergies were reviewed. The risks, benefits and alternatives of the sedation and procedure were discussed with the patient. All questions were answered and informed consent was obtained. The patient was brought to the procedure room. Patient identification and proposed procedure were verified by the physician and the nurse. The patient was placed in a left lateral decubitus position and the scope was passed under direct vision. Throughout the procedure, the patient's blood pressure, pulse, and oxygen saturations were monitored continuously. The upper GI endoscopy was accomplished without difficulty. The patient tolerated the procedure well. Findings: The scope was passed directly into the upper esophagus (and initially there was a proximal esophageal web or stricture that did not allow passage of the 8 mm endoscope and the original diameter was approximately 5 to 6 mm) and advanced to the third portion of the duodenum. The post bulbar duodenum and duodenal bulb were normal with normal mucosa and conniventes. The scope was withdrawn through a normal duodenal bulb and pylorus into the stomach. There was bile reflux with mild reactive gastropathy of the antrum. There was mild atrophy of the fundus. Cold biopsies were taken from the fundus of the stomach. Upon retroflexion there was no hiatal hernia. The scope was then withdrawn into the esophagus. There was reduced resting tone of the lower esophageal sphincter (LES). There was no evidence of reflux esophagitis or Carter's. There was moderate esophageal dysmotility. There was a proximal esophageal web/stricture that was initially 5 to 6 mm and this was dilated to 15 mm with a TTS hydrostatic balloon. Cold biopsies were taken from the midesophagus to rule out chronic candidal esophagitis or eosinophilic esophagitis. The remainder of the esophageal mucosa was normal. Impression: 1. Proximal esophageal stricture/web status post dilation to 15 mm (from original diameter 5 to 6 mm) 2. Nonerosive GERD with reduced LES resting tone and esophageal dysmotility 3. Bile reflux with mild reactive gastropathy and chronic atrophic gastritis Plan: The patient should have clinical improvement with swallowing and I will follow-up the biopsies. I would like to make sure this does not represent chronic candidal esophagitis versus eosinophilic esophagitis. I would treat her obstipation with a fiber bowel regimen. If she is unable to tolerate, I would consider promotility treatment. She is a long-term diabetic.
[2020-12-05 16:50] LABS: POC Glucose,Bedside 120 (70-110)
--- NOTE | 2020-12-05 18:57 | PC.NURSE ---
Pt has been pleasant and cooperative this shift. Pt is non-verbal, although she follows commands. No S/S of pain or SOA. Pt is post-EGD. Pt is on room air with sats. >90%. Lungs CTA. No edema noted. Skin is C/D/I. Pt is partially incontinent and ambulates with stand-by assistance. Urine is clear and yellow. No BM today. FSBS results have been 113 and 120. 20 G peripheral IV in the RT AC is patent and infusing NS @ 50 ML/HR. VSS. Family at bedside. Call light within reach. Will continue to monitor.
[2020-12-05 20:44] LABS: POC Glucose,Bedside 177 (70-110)
--- NOTE | 2020-12-06 03:40 | PC.NURSE ---
A&OX3, BUT IS NOT VERBAL THIS SHIFT. PT FOLLOWS COMMANDS. PT TOLERATING RA WELL. PT UP WITH STANDBY ASSIST IN ROOM, HER MOTHER HAS HELPED HER TONIGHT. PT HAS HAD NO ISSUES WITH DRINKING OR TAKING MEDS TONIGHT. PT HAS HAD NO C/O PAIN/NA/VO. VSS WILL CONTINUE TO MONITOR.
[2020-12-06 04:27] VITALS: BP 102/53; PULSE 65; RESP 16; TEMP 36.4; O2SAT 94
[2020-12-06 05:00] VITALS: BMI 26.6
[2020-12-06 05:52] LABS: Basophils # 0.1 K/mm3 (0-0.2); Basophils % 1.5 % (0.1-2.0); Eosinophils # 0.1 K/mm3 (0.0-0.4); Eosinophils % 2.3 % (0.1-12.0); Hematocrit 33.7 % (37.0-47.0); Hemoglobin 11.5 g/dL (12.2-16.2); Lymphocytes # 1.6 K/mm3 (0.7-4.5); Lymphocytes % 35.7 % (10-50); Mean Corpuscular HGB Conc 34.1 g/dL (31.8-35.4); Mean Corpuscular Hemoglobin 33.6 pg (27.0-31.2); Mean Corpuscular Volume 98.5 fl (81-99); Monocytes # 0.2 K/mm3 (0.1-1.0); Monocytes % 4.5 % (1.7-9.3); Neutrophils # 2.5 K/mm3 (1.8-7.8); Platelet Count 321 K/mm3 (142-424); Red Blood Count 3.42 M/mm3 (4.20-5.40); Red Cell Distribution Width 13.6 % (11.5-17.5); White Blood Count 4.4 K/mm3 (4.8-10.8)
[2020-12-06 05:56] LABS: Chloride 104 mmol/L (98-107); Sodium 134 mmol/L (136-145)
[2020-12-06 05:57] LABS: Potassium 3.7 mmoL/L (3.5-5.1)
[2020-12-06 05:59] LABS: Alanine Aminotransferase 16 U/L (12-78); Albumin Level 3.2 g/dl (3.5-5.0); Albumin/Globulin Ratio 1.1 (1.1-1.8); Alkaline Phosphatase 94 U/L (38-126); Anion Gap 7.7 mEq/L (5-15); Aspartate Amino Transferase 26 U/L (14-36); Bilirubin,Total 0.5 mg/dl (0.2-1.3); Blood Urea Nitrogen 6 mg/dl (7-17); Calcium 8.4 mg/dl (8.4-10.2); Carbon Dioxide 26 mmol/L (22.0-30.0); Creatinine Clearance Estimated 72 mL/min (50-200); Estimated Glomerular Filt Rate 102 ml/min (>60); GFR (African American) 124 ML/MIN (>60); Glucose 111 mg/dl (74-100); Magnesium 1.6 mg/dl (1.6-2.3); Total Protein,Serum 6.2 g/dl (6.3-8.2)
[2020-12-06 08:00] VITALS: BP 120/64; PULSE 68; RESP 18; TEMP 37.2; O2SAT 95
--- NOTE | 2020-12-06 10:22 | HMH.DCSUM ---
General - General Admission date:: 12/05/20 Discharge date: 12/06/20 HPI HPI: Ms. Arreola is a 60-year-old patient with history of Down syndrome, type 2 diabetes, hypothyroidism, hypertension. She presented last night to the ER after swallowing a pill and choking on it at home. Subsequently refused to take any p.o. food or fluids. Attempted a bedside swallow in the ER and patient spit out all of her liquids and applesauce. Had significant coughing after the initial episode coughed up quite a bit of mucus. Has had swallow studies in the past due to concerns for dysphagia but had overall been doing well at home on a pur?ed diet until last night. Sister is at bedside, she is her caregiver. Reports concern that Ms. Laguerre's has a tendency to drop her blood pressure with anesthesia and medications. Patient has remained comfortable overnight on maintenance IV fluids. Is pleasant on interview but not talkative. Hospital Course Hospital Course: Noted for dysphagia. GI consulted. Patient taken for EGD with finding of esophageal stricture. Full details below from procedure note. After procedure, patient tolerated p.o. intake well. Medically stable for discharge home today, tolerating oral nutrition and meds. Will transition to pantoprazole from omeprazole. Discussed bowel regimen and stool softener with caregiver. Examined on day of discharge. Patient had no complaints or visible response on exam concerning for abdominal pain, nausea, chest discomfort. Was pleasant and cooperative and at her baseline nonverbal state. Close follow-up in the next 2 weeks in our office. Impression: 1. Proximal esophageal stricture/web status post dilation to 15 mm (from original diameter 5 to 6 mm) 2. Nonerosive GERD with reduced LES resting tone and esophageal dysmotility 3. Bile reflux with mild reactive gastropathy and chronic atrophic gastritis Plan: The patient should have clinical improvement with swallowing and I will follow-up the biopsies. I would like to make sure this does not represent chronic candidal esophagitis versus eosinophilic esophagitis. I would treat her obstipation with a fiber bowel regimen. If she is unable to tolerate, I would consider promotility treatment. She is a long-term diabetic. Objective Vital signs: Temp Pulse Resp BP Pulse Ox 99.0 F 68 18 120/64 95 12/06/20 08:00 12/06/20 08:00 12/06/20 08:00 12/06/20 08:00 12/06/20 08:00 Narrative: - Constitutional no acute distress Comments: Trisomy 21 facies - *Routine HEENT Exam Head: Present: normocephalic Eye: Present: EOMI, PERRL ENT: Present: mucous membranes moist - *Routine Neck Exam Present: supple. Absent: lymphadenopathy - *Routine Respiratory Exam Present: CTA bilaterally - *Routine Cardiovascular Exam Present: RRR - *Routine Abdominal Exam Present: soft, normoactive bowel sounds. Absent: tenderness - *Routine Extremities Exam Absent: cyanosis, clubbing, edema - *Routine Skin Exam Present: warm. Absent: rash - *Routine Neurological Exam Present: alert, baseline non-verbal on exam. cooperative Results Labs on day of discharge: Labs from last 24 hours 12/06/20 12/06/20 12/05/20 05:42 05:42 20:34 WBC 4.4 L D RBC 3.42 L Hgb 11.5 L Hct 33.7 L MCV 98.5 MCH 33.6 H MCHC 34.1 RDW 13.6 Plt Count 321 MPV 8.0 Neut % (Auto) 56.0 Lymph % (Auto) 35.7 Mcmullen % (Auto) 4.5 Eos % (Auto) 2.3 Baso % (Auto) 1.5 Neut # (Auto) 2.5 Lymph # (Auto) 1.6 Mcmullen # (Auto) 0.2 Eos # (Auto) 0.1 Baso # (Auto) 0.1 Sodium 134 L Potassium 3.7 Chloride 104 Carbon Dioxide 26 Anion Gap 7.7 BUN 6 L D Creatinine 0.60 Estimated Creat Clear 72 Estimated GFR 102 Est GFR ( Amer) 124 Glucose 111 H POC Glucose 177 H Calcium 8.4 Magnesium 1.6 Total Bilirubin 0.5 AST 26 ALT 16 D Alkaline Phosphatas
[2020-12-06 11:20] LABS: POC Glucose,Bedside 179 (70-110)
[2020-12-06 20:35] LABS: POC Glucose,Bedside 103 (70-110)
== END 2020-12-06 12:02 | disposition home or self-care (01) ==
LOC: ER 22:22 → 2ND 12-05 02:23
PROVIDERS: Internal Medicine Adolescent Medicine; Internal Medicine Gastroenterology; Admitting Provider Emergency Medicine; Emergency Provider Emergency Medicine; PCP Nurse Practitioner Family; Visit Provider Internal Medicine Adolescent Medicine
PROC: 0DJ08ZZ Inspection of Upper Intestinal Tract, Via Natural or Artificial Opening Endoscopic (ICD-10-PCS; CPT 43235; principal; 2020-12-05 15:30)
DX: K21.9 Gastro-esophageal reflux disease without esophagitis (principal); K22.8 Other specified diseases of esophagus; E11.65 Type 2 diabetes mellitus with hyperglycemia; Q90.9 Down syndrome, unspecified; R13.10 Dysphagia, unspecified; E78.5 Hyperlipidemia, unspecified; E03.9 Hypothyroidism, unspecified; Z79.84 Long term (current) use of oral hypoglycemic drugs; K29.40 Chronic atrophic gastritis without bleeding
CPT/HCPCS: 43239; 43249; 36415; 71045; 80053; 81001; 82150; 82962; 83690; 83735; 84145; 84484; 85007; 85025; 85651; 86140; 88305; 88342; 96365; 96375; 99284; C1726; G0378; J2405; U0003

== ENCOUNTER → 2021-01-02 08:36 | Outpatient (POV) | payer MEDICARE, MEDICAID, SELFPAY | PROVIDERS: Visit Provider Otolaryngology | DX: Z00.00 Encounter for general adult medical examination without abnormal findings (principal) ==

== ENCOUNTER → 2021-02-13 16:30 | Outpatient (CLI) | payer MEDICARE, MEDICAID, SELFPAY ==
[2021-02-13 16:59] LABS: Basophils # 0.1 K/mm3 (0-0.2); Basophils % 1.6 % (0.1-2.0); Eosinophils % 0.6 % (0.1-12.0); Hematocrit 42.1 % (37.0-47.0); Hemoglobin 14.1 g/dL (12.2-16.2); Lymphocytes # 1.7 K/mm3 (0.7-4.5); Mean Corpuscular HGB Conc 33.4 g/dL (31.8-35.4); Mean Corpuscular Hemoglobin 33.3 pg (27.0-31.2); Mean Corpuscular Volume 99.7 fl (81-99); Mean Platelet Volume 7.9 fl (7.4-10.4); Monocytes # 0.2 K/mm3 (0.1-1.0); Neutrophils # 2.6 K/mm3 (1.8-7.8); Neutrophils % 56.7 % (37.0-80.0); Platelet Count 435 K/mm3 (142-424); Red Blood Count 4.22 M/mm3 (4.20-5.40); Red Cell Distribution Width 13.7 % (11.5-17.5); White Blood Count 4.6 K/mm3 (4.8-10.8)
[2021-02-13 17:48] LABS: Alanine Aminotransferase 25 U/L (12-78); Albumin Level 4.1 g/dl (3.5-5.0); Albumin/Globulin Ratio 1.2 (1.1-1.8); Alkaline Phosphatase 118 U/L (38-126); Anion Gap 15.6 mEq/L (5-15); Aspartate Amino Transferase 37 U/L (14-36); Bilirubin,Total 0.3 mg/dl (0.2-1.3); Blood Urea Nitrogen 13 mg/dl (7-17); Carbon Dioxide 29 mmol/L (22.0-30.0); Chloride 90 mmol/L (98-107); Estimated Glomerular Filt Rate 102 ml/min (>60); GFR (African American) 124 ML/MIN (>60); Globulin 3.4 g/dL (1.3-3.2); Glucose 116 mg/dl (74-100); Potassium 4.6 mmoL/L (3.5-5.1); Sodium 130 mmol/L (136-145); Total Protein,Serum 7.5 g/dl (6.3-8.2)
[2021-02-13 17:51] LABS: Hemoglobin A1C 6.9 % (4.0-6.0)
[2021-02-13 18:19] LABS: Thyroid Stimulating Hormone 1.59 uIU/mL (0.465-4.68)
== END ==
PROVIDERS: Visit Provider Nurse Practitioner Family
DX: E11.9 Type 2 diabetes mellitus without complications (principal); E03.9 Hypothyroidism, unspecified; R63.1 Polydipsia; Z79.84 Long term (current) use of oral hypoglycemic drugs
CPT/HCPCS: 36415; 80053; 83036; 84443; 85025

== ENCOUNTER → 2021-03-28 09:53 | Outpatient (POV) | payer MEDICARE, MEDICAID, SELFPAY | PROVIDERS: Visit Provider Otolaryngology | DX: Z00.00 Encounter for general adult medical examination without abnormal findings (principal) ==

== ENCOUNTER → 2021-08-19 11:53 | Outpatient (CLI) | payer MEDICARE, MEDICAID, SELFPAY ==
--- NOTE | 2021-08-19 12:23 | ECG_ITS ---
APPROVED REPORT Exam: Resting ECG HR:65 bpm ECG Measurements Heart Rate 65 AXES ID 159 P 43 QRSd 81 QRS 12 QT 425 T 60 QTc 436 Conclusion SINUS RHYTHM Left atrial abnormality and very minimal ST changes previously noted ABNORMAL ECG UNCONFIRMED REPORT Electronically signed by : Jose Lindsey MD 08/19/2021 18:37:43
[2021-08-19 12:52] LABS: Basophils # 0.1 K/mm3 (0-0.2); Basophils % 0.9 % (0.1-2.0); Eosinophils % 0.4 % (0.1-12.0); Hematocrit 39.1 % (37.0-47.0); Lymphocytes # 0.9 K/mm3 (0.7-4.5); Lymphocytes % 11.7 % (10-50); Mean Corpuscular HGB Conc 33.3 g/dL (31.8-35.4); Mean Corpuscular Hemoglobin 33.2 pg (27.0-31.2); Mean Corpuscular Volume 99.5 fl (81-99); Mean Platelet Volume 7.5 fl (7.4-10.4); Monocytes # 0.3 K/mm3 (0.1-1.0); Monocytes % 4.1 % (1.7-9.3); Neutrophils # 6.2 K/mm3 (1.8-7.8); Platelet Count 420 K/mm3 (142-424); Red Blood Count 3.92 M/mm3 (4.20-5.40); Red Cell Distribution Width 13.2 % (11.5-17.5); White Blood Count 7.5 K/mm3 (4.8-10.8)
[2021-08-19 13:26] LABS: Anion Gap 9.4 mEq/L (5-15); Blood Urea Nitrogen 8 mg/dl (7-17); Calcium 9.3 mg/dl (8.4-10.2); Carbon Dioxide 32 mmol/L (22.0-30.0); Chloride 93 mmol/L (98-107); Estimated Glomerular Filt Rate 102 ml/min (>60); GFR (African American) 124 ML/MIN (>60); Glucose 186 mg/dl (74-100); Potassium 4.4 mmoL/L (3.5-5.1); Sodium 130 mmol/L (136-145)
== END ==
PROVIDERS: PCP Internal Medicine Adolescent Medicine; Referring Provider Otolaryngology; Visit Provider Nurse Practitioner Family
DX: Z11.52 Encounter for screening for COVID-19; Z01.818 Encounter for other preprocedural examination; H61.22 Impacted cerumen, left ear
CPT/HCPCS: 36415; 80048; 85025; 93005; C9803; U0003; U0005

== ENCOUNTER 2021-08-22 07:51 | Day surgery (SDC) | payer MEDICARE, MEDICAID, SELFPAY ==
[2021-08-21 08:42] VITALS: BMI 27.3
[2021-08-22 08:04] VITALS: BP 124/67; PULSE 68; RESP 18; TEMP 36.7; O2SAT 97
--- NOTE | 2021-08-22 08:59 | HMH.ANESCL ---
[facility] Anesthesia Checklist - Patient Identification Patient Identification: Arm Band, Guardian - Structural Data Admitted From: Home Planned Operative Procedure/s: Left Cerumenectomy, Right Mastoid Debridement Consent for Planned Operative Procedure(s) Verified: Yes Verified Documents: Surgical Consent, History and Physical - NPO Status Verified Time NPO: 00:00 - Additional verifications Anesthesia Reactions: No Hx Blood Transfusions: No Blood Transfusion Reaction: No - Airway Assessment C-Spine Mobility Assessed: Yes TMJ Mobility Assessed: Yes Dentition: Edentulous - Neurological Assessment Level of Consciousness: Awake - Anesthesia Plan Anesthesia Risk discussed: Yes Anesthesia Plan: Verified (with Guardian) ASA Class: III Anesthesia Type: General [facility] History I have reviewed the patient's past medical history: Yes Medical History: Reports:: Diabetes Mellitus Type 2, Gastroesophageal Reflux Disease(GERD), Hyperlipidemia Denies:: Aneurysm, Asthma, Atrial Fibrillation, Cancer, Chronic Obstructive Pulmonary Disease (COPD), Cerebrovascular Accident, Diabetes Mellitus Type 1, Hypertension, Internal Pacemaker, MRSA, Myocardial Infarction, Renal Disease, Renal Insufficiency, Seizures *Have you ever received a pneumonia vaccine?: Yes *Have you received a flu vaccine this season?: Yes Other Medical History: Reports: Arthritis, Hypothyroidism, Liver Disease, Sinus Problems, Thyroid Disease, Other. Denies: Blood Transfusion Reaction Anesthesia experience/problems:: nac Other Surgeries: Yes: Cholecystectomy, Colonoscopy, Other. No: Pacemaker Amputation: No Fractures: No - *Social History Last grade of school completed: None Smoking Status: Never smoker Alcohol Intake: never Alcohol Intake Frequency:: other Substance Use Type: denies use *Occupational Status:: disabled Housing: house Household Members: family *Travel in the last 8 weeks: None Family Hx:: Cancer, Hyperlipidemia, Hypertension
--- NOTE | 2021-08-22 10:13 | HMH.OPNOTE ---
Date of procedure: 08/22/21 Pre-op Diagnosis:: Cerumen impaction left ear, debris and right mastoid cavity Post-op Diagnosis:: Same Procedure performed:: Left cerumenectomy, debridement of right mastoid cavity Surgeon:: Stanley Bailey MD SUPERVISOR WHIPPED TOPPING:: Other Anesthesia: GETA Estimated blood loss (mL): 0 Operative findings:: Large amount of cerumen in the left ear canal, left tympanic membrane was retracted but clear. Large amount of cerumen and squamous debris right mastoid cavity but no underlying infection Operative note:: Patient was brought to the operating room and after adequate general anesthesia the operating microscope was employed to visualize the left ear canal. A large amount of cerumen was removed with suction and cup forceps and the tympanic membrane then visualized. Findings as noted above. Attention was then drawn to the right ear. Using the operating microscope, suction, and cup forceps, a moderate amount of cerumen and squamous debris was removed from the mastoid cavity. The underlying cavity was clean and uninfected. The procedure was then concluded. All counts correct. Blood loss 0. Patient was sent to recovery in stable condition. Condition: stable Disposition: PACU Complications:: None
[2021-08-22 10:17] VITALS: BP 81/47; PULSE 56; RESP 16; TEMP 36.2; O2SAT 92
[2021-08-22 10:32] VITALS: BP 95/52; PULSE 66; RESP 16; TEMP 36.2; O2SAT 98
[2021-08-22 10:48] VITALS: BP 110/55; PULSE 71; RESP 16; TEMP 36.2; O2SAT 99
[2022-03-22 10:57] LABS: POC Glucose,Bedside 160 (70-110)
== END 2021-08-22 10:49 | disposition home or self-care (01) ==
LOC: OR 07:53
PROVIDERS: PCP Nurse Practitioner Family; Visit Provider Otolaryngology
DX: H61.22 Impacted cerumen, left ear (principal); E11.9 Type 2 diabetes mellitus without complications; K21.9 Gastro-esophageal reflux disease without esophagitis; E78.5 Hyperlipidemia, unspecified; M19.90 Unspecified osteoarthritis, unspecified site; E03.9 Hypothyroidism, unspecified; Z80.9 Family history of malignant neoplasm, unspecified
CPT/HCPCS: 69210; 82962; J2405

== ENCOUNTER → 2021-11-07 09:33 | Outpatient (CLI) | payer MEDICARE, MEDICAID, SELFPAY ==
--- NOTE | 2021-11-07 | CA_ITS ---
FINAL REPORT TECHNIQUE: Color Doppler, duplex Doppler and compression sonography of the left lower extremity deep venous systems was performed. CLINICAL HISTORY: .Left leg pain, Down syndrome-non verbal FINDINGS: There is no evidence of deep venous thrombosis from the level of the groin to the calf. The veins are patent and compressible. IMPRESSION: No evidence of deep venous thrombosis left lower extremity. Reviewed, Interpreted and Dictated by Darwin Modi III, MD Transcribed by Johann Alberts Authenticated by Darwin Modi III, MD on 11/07/2021 11:12:11 AM [facility]
== END ==
PROVIDERS: PCP Nurse Practitioner Family; Visit Provider Nurse Practitioner Family
DX: M79.605 Pain in left leg (principal)
CPT/HCPCS: 93971

== ENCOUNTER → 2021-11-21 15:01 | Outpatient (POV) | payer MEDICARE, MEDICAID, SELFPAY | PROVIDERS: Visit Provider Dermatology | DX: Z00.00 Encounter for general adult medical examination without abnormal findings (principal) ==

== ENCOUNTER → 2021-11-25 11:24 | Outpatient (CLI) | payer MEDICARE, MEDICAID, SELFPAY ==
--- NOTE | 2021-11-25 11:43 | XR_ITS ---
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 ; Additional info: Lt lateral ankle pain and swelling TECHNIQUE: Imaging protocol: XR Left ankle. Views: 3 or more views. COMPARISON: None FINDINGS: Bones/joints: No acute bony injury or malalignment. Soft tissues: Soft tissue swelling. IMPRESSION: Soft tissue swelling.
[2021-11-25 11:49] LABS: Basophils # 0.1 K/mm3 (0-0.2); Basophils % 1.5 % (0.1-2.0); Eosinophils % 0.3 % (0.1-12.0); Hematocrit 38.5 % (37.0-47.0); Lymphocytes # 0.9 K/mm3 (0.7-4.5); Lymphocytes % 10.1 % (10-50); Mean Corpuscular HGB Conc 33.8 g/dL (31.8-35.4); Mean Corpuscular Hemoglobin 34.1 pg (27.0-31.2); Mean Corpuscular Volume 100.8 fl (81-99); Mean Platelet Volume 7.7 fl (7.4-10.4); Monocytes # 0.4 K/mm3 (0.1-1.0); Monocytes % 4.1 % (1.7-9.3); Neutrophils # 7.6 K/mm3 (1.8-7.8); Platelet Count 452 K/mm3 (142-424); Red Blood Count 3.82 M/mm3 (4.20-5.40); Red Cell Distribution Width 13.4 % (11.5-17.5); White Blood Count 9.1 K/mm3 (4.8-10.8)
[2021-11-25 12:00] LABS: Alanine Aminotransferase 20 U/L (12-78); Albumin Level 3.7 g/dl (3.5-5.0); Albumin/Globulin Ratio 1.1 (1.1-1.8); Alkaline Phosphatase 168 U/L (38-126); Anion Gap 9.9 mEq/L (5-15); Aspartate Amino Transferase 35 U/L (14-36); Blood Urea Nitrogen 14 mg/dl (7-17); Carbon Dioxide 31 mmol/L (22.0-30.0); Chloride 94 mmol/L (98-107); Cholesterol 142 mg/dl (140-200); Estimated Glomerular Filt Rate 85 ml/min (>60); GFR (African American) 103 ML/MIN (>60); Globulin 3.5 g/dL (1.3-3.2); Glucose 181 mg/dl (74-100); HDL Cholesterol 47 mg/dl (40-60); Potassium 3.9 mmoL/L (3.5-5.1); Sodium 131 mmol/L (136-145); Total Protein,Serum 7.2 g/dl (6.3-8.2); Triglycerides 65 mg/dl (30-150); VLDL Cholesterol 13 mg/dL (0-40)
[2021-11-25 12:03] LABS: Bilirubin,Total < 0.1 mg/dl (0.2-1.3)
[2021-11-25 12:11] LABS: Direct LDL Cholesterol 55.42 mg/dL (100-129)
[2021-11-25 12:33] LABS: Thyroid Stimulating Hormone 1.13 uIU/mL (0.465-4.68)
== END ==
PROVIDERS: PCP Nurse Practitioner Family; Visit Provider Nurse Practitioner Family
DX: M25.572 Pain in left ankle and joints of left foot (principal); M25.472 Effusion, left ankle; E11.9 Type 2 diabetes mellitus without complications; E78.5 Hyperlipidemia, unspecified; R74.8 Abnormal levels of other serum enzymes; E03.9 Hypothyroidism, unspecified; Z79.84 Long term (current) use of oral hypoglycemic drugs
CPT/HCPCS: 36415; 73610; 80053; 80061; 83036; 84443; 84550; 85025

== ENCOUNTER → 2022-01-01 12:42 | Outpatient (CLI) | payer MEDICARE, MEDICAID, SELFPAY | PROVIDERS: PCP Nurse Practitioner Family; Visit Provider Internal Medicine Adolescent Medicine | DX: R55 Syncope and collapse (principal) | CPT/HCPCS: 95816 ==

== ENCOUNTER → 2022-02-01 14:28 | Outpatient (CLI) | payer MEDICARE, MEDICAID, SELFPAY ==
--- NOTE | 2022-02-01 14:30 | CA_ITS ---
APPROVED REPORT EXAM: Comprehensive 2D, Doppler, and color-flow Echocardiogram Organic Preparation Technician: Jessica Frye RDCS Ht: 4 ft 9 in Wt: 105lbs BSA: 1.37 BP: 116/62 mmHg Indications: SYNCOPE DOWN SYNDROME ECHO LIMITED, APICALS OFF AXIS SECONDARY TO BODY HABITUS 2D Dimensions LVOT 1.58 cm (M/F) 1.5-2.5 M-Mode Dimensions RVDd 2.63 cm (0.9-2.6) LA Diam 3.11 cm (1.9-4.0) LVDd 4.10 cm (3.5-5.7) Ao Diam 2.45 cm (2.0-3.7) LVDs 2.54 cm (3.5-5.7) IVSd 0.56 cm (0.6-1.1) PWd 0.66 cm (0.6-1.1) EF (Teich) 68.70% FS 38.00% EDV (Teich) 74.20 mL ESV (Teich) 23.20 mL Left Ventricle Technically difficult study because of the patient factors and poor acoustic windows. Left atrium is normal size left ventricle is normal size, estimated ejection fraction 55% with no regional wall motion abnormality, diastolic parameters are inconclusive in the study. Right Ventricle Right atrium and right ventricle are normal size and contractility. Aortic Valve Aortic valve is grossly normal there is no aortic stenosis aortic insufficiency. Mitral Valve Mitral valve leaflets are minimally thickened, there is trace mitral regurgitation. Tricuspid Valve Tricuspid valve grossly normal, there is trace tricuspid regurgitation. Tricuspid regurgitation jet velocity is inadequate for calculation of the right ventricular systolic pressure. Pulmonic Valve Pulmonic valve is poorly visualized. Great Vessels Aortic root is normal size. Inferior vena cava is poorly visualized. Pericardium No significant pericardial effusion noted. Conclusion 1. Technically difficult study because of the patient factors and poor acoustic windows. Normal left ventricular size preserved left ventricular systolic function, estimated ejection fraction 55% with no regional wall motion abnormality, diastolic parameters are inconclusive. 2. Trace mitral and tricuspid regurgitation. 3. No significant pericardial effusion. 4. Inferior vena cava is poorly visualized. Electronically signed by : González Seals MD 02/02/2022 15:13:39
== END ==
PROVIDERS: PCP Nurse Practitioner Family; Visit Provider Nurse Practitioner Family
DX: R55 Syncope and collapse (principal); Q90.9 Down syndrome, unspecified
CPT/HCPCS: 93306

== ENCOUNTER → 2022-03-05 15:27 | Outpatient (CLI) | payer MEDICARE, MEDICAID, SELFPAY ==
--- NOTE | 2022-03-05 15:27 | US_ITS ---
FINAL REPORT CLINICAL HISTORY: DM,EDEMA,PAIN,PT HAS DOWN SYNDROME FINDINGS: ANKLE-BRACHIAL PRESSURE INDICES Pressure indices are as follows: RIGHT LOWER EXTREMITY: Ankle-brachial pressure index: 1.14 Comments: Normal LEFT LOWER EXTREMITY: Ankle-brachial pressure index: 1.30 Comments: Normal IMPRESSION: No evidence of significant obstructive peripheral vascular disease of the lower extremities Reviewed, Interpreted and Dictated by Darwin Modi III, MD Transcribed by Eva Askew Authenticated and [facility]
== END ==
PROVIDERS: PCP Nurse Practitioner Family; Visit Provider Podiatrist
DX: G89.29 Other chronic pain (principal); M25.572 Pain in left ankle and joints of left foot; R09.89 Other specified symptoms and signs involving the circulatory and respiratory systems
CPT/HCPCS: 93923

== ENCOUNTER → 2022-07-02 15:42 | Outpatient (CLI) | payer MEDICARE, MEDICAID, SELFPAY ==
[2022-07-02 16:56] LABS: Basophils # 0.1 K/mm3 (0-0.2); Basophils % 0.7 % (0.1-2.0); Eosinophils % 0.2 % (0.1-12.0); Hematocrit 40.2 % (37.0-47.0); Hemoglobin 12.8 g/dL (12.2-16.2); Lymphocytes # 1.2 K/mm3 (0.7-4.5); Lymphocytes % 19.4 % (10-50); Mean Corpuscular HGB Conc 31.8 g/dL (31.8-35.4); Mean Corpuscular Hemoglobin 32.9 pg (27.0-31.2); Mean Corpuscular Volume 103.5 fl (81-99); Monocytes # 0.2 K/mm3 (0.1-1.0); Monocytes % 3.6 % (1.7-9.3); Neutrophils # 4.8 K/mm3 (1.8-7.8); Platelet Count 454 K/mm3 (142-424); Red Blood Count 3.89 M/mm3 (4.20-5.40); Red Cell Distribution Width 13.5 % (11.5-17.5); White Blood Count 6.3 K/mm3 (4.8-10.8)
[2022-07-02 17:38] LABS: Hemoglobin A1C 7.1 % (4.0-6.0)
[2022-07-02 17:59] LABS: Alanine Aminotransferase 20 U/L (12-78); Albumin Level 3.8 g/dl (3.5-5.0); Albumin/Globulin Ratio 1.2 (1.1-1.8); Alkaline Phosphatase 137 U/L (38-126); Aspartate Amino Transferase 30 U/L (14-36); Bilirubin,Total 0.2 mg/dl (0.2-1.3); Blood Urea Nitrogen 15 mg/dl (7-17); Calcium 8.6 mg/dl (8.4-10.2); Carbon Dioxide 29 mmol/L (22.0-30.0); Chloride 94 mmol/L (98-107); Estimated Glomerular Filt Rate 85 ml/min (>60); GFR (African American) 103 ML/MIN (>60); Globulin 3.1 g/dL (1.3-3.2); Glucose 160 mg/dl (74-100); Sodium 131 mmol/L (136-145); Total Protein,Serum 6.9 g/dl (6.3-8.2)
[2022-07-02 18:28] LABS: Thyroid Stimulating Hormone 0.65 uIU/mL (0.465-4.68)
[2022-07-02 19:09] LABS: Anion Gap 12.4 mEq/L (5-15); Potassium 4.4 mmoL/L (3.5-5.1)
== END ==
PROVIDERS: PCP Nurse Practitioner Family; Visit Provider Nurse Practitioner Family
DX: E03.9 Hypothyroidism, unspecified (principal); J30.2 Other seasonal allergic rhinitis; E11.9 Type 2 diabetes mellitus without complications; Z79.84 Long term (current) use of oral hypoglycemic drugs
CPT/HCPCS: 36415; 80053; 83036; 84443; 85025

== ENCOUNTER → 2023-01-22 07:51 | Outpatient (CLI) | payer MEDICARE, MEDICAID, SELFPAY ==
[2023-01-22 08:29] LABS: Basophils # 0.1 K/mm3 (0-0.2); Basophils % 2.5 % (0.1-2.0); Eosinophils % 1.3 % (0.1-12.0); Hematocrit 43.3 % (37.0-47.0); Hemoglobin 13.7 g/dL (12.2-16.2); Lymphocytes # 1.2 K/mm3 (0.7-4.5); Lymphocytes % 53.1 % (10-50); Mean Corpuscular HGB Conc 31.6 g/dL (31.8-35.4); Mean Corpuscular Hemoglobin 31.1 pg (27.0-31.2); Mean Corpuscular Volume 98.4 fl (81-99); Mean Platelet Volume 7.7 fl (7.4-10.4); Monocytes # 0.2 K/mm3 (0.1-1.0); Monocytes % 6.9 % (1.7-9.3); Neutrophils # 0.8 K/mm3 (1.8-7.8); Neutrophils % 36.3 % (37.0-80.0); Platelet Count 374 K/mm3 (142-424); Red Cell Distribution Width 13.1 % (11.5-17.5); White Blood Count 2.2 K/mm3 (4.8-10.8)
[2023-01-22 08:47] LABS: MANUAL DIFFERENTIAL MANUAL DIFFERENTIAL (MANUAL DIFF)
[2023-01-22 09:12] LABS: Eosinophils % 1 % (0-3); Lymphocytes % 56 % (10-50); Monocytes % 8 % (2-9); Neutrophils % 33 % (42-76); Platelet Estimate Normal; RBC Morphology Normal; Total Cells Counted 100
[2023-01-22 09:31] LABS: Hemoglobin A1C 7.8 % (4.0-6.0)
[2023-01-22 09:34] LABS: Alanine Aminotransferase 18 U/L (12-78); Albumin Level 3.7 g/dl (3.5-5.0); Albumin/Globulin Ratio 1.1 (1.1-1.8); Alkaline Phosphatase 128 U/L (38-126); Anion Gap 9.9 mEq/L (5-15); Aspartate Amino Transferase 28 U/L (14-36); Bilirubin,Total 0.2 mg/dl (0.2-1.3); Blood Urea Nitrogen 17 mg/dl (7-17); Calcium 9.2 mg/dl (8.4-10.2); Carbon Dioxide 31 mmol/L (22.0-30.0); Chloride 100 mmol/L (98-107); Chol/HDL Ratio 3.2 (1-3.5); Cholesterol 137 mg/dl (140-200); Estimated Glomerular Filt Rate 85 ml/min (>60); GFR (African American) 103 ML/MIN (>60); Globulin 3.3 g/dL (1.3-3.2); Glucose 154 mg/dl (74-100); HDL Cholesterol 43 mg/dl (40-60); Potassium 4.9 mmoL/L (3.5-5.1); Sodium 136 mmol/L (136-145); Triglycerides 71 mg/dl (30-150); VLDL Cholesterol 14 mg/dL (0-40)
[2023-01-22 09:45] LABS: Direct LDL Cholesterol 71.25 mg/dL (100-129)
[2023-01-22 09:51] LABS: 25-OH Vitamin D, Total 21.6 ng/mL (30-100)
[2023-01-22 10:04] LABS: Thyroid Stimulating Hormone 0.22 uIU/mL (0.465-4.68)
[2023-01-22 10:23] LABS: Vitamin B12 286 pg/mL (239-931)
== END ==
PROVIDERS: PCP Nurse Practitioner Family; Visit Provider Nurse Practitioner Family
DX: E11.9 Type 2 diabetes mellitus without complications (principal); E55.9 Vitamin D deficiency, unspecified; R06.02 Shortness of breath; E03.9 Hypothyroidism, unspecified; D75.89 Other specified diseases of blood and blood-forming organs; Z79.84 Long term (current) use of oral hypoglycemic drugs
CPT/HCPCS: 36415; 80053; 80061; 82306; 82607; 83036; 84443; 85007; 85025

== ENCOUNTER 2023-02-25 09:46 | Emergency (ER) | payer MEDICARE, MEDICAID, SELFPAY ==
[2023-02-25 10:00] VITALS: BP 98/60; PULSE 60; RESP 18; TEMP 36.4; O2SAT 97; BMI 29.7
--- NOTE | 2023-02-25 10:03 | EXP.UTC ---
Discharge Plan Disposition Patient Disposition: Home, Self-Care Condition: Good Prescriptions Prescriptions: New cefdinir 250 mg/5 mL suspension for reconstitution 300 mg PO BID 10 Days Qty: 120 0RF No Action levothyroxine 75 mcg tablet 75 mcg PO DAILY 30 Days Patient Comments: beclomethasone dipropionate 80 mcg/actuation HFA aerosol inhaler 1 - 2 spr INTRANASAL DAILY 30 Days Qty: 8 Patient Comments: atorvastatin 10 mg tablet 10 mg PO HS 30 Days Patient Comments: metformin 500 mg tablet 500 mg PO DAILY 90 Days Patient Comments: aspirin [Adult Low Dose Aspirin] 81 mg tablet,delayed release (DR/EC) 81 mg PO DAILY Rx Instructions: Senna Plus 8.6-50 mg capsule 2 cap PO MOWEFR wheat dextrin 1 gram tablet 1 gram tablet PO nystatin 100,000 unit/gram powder 1 applic topical DAILY 14 Days Qty: 30 2RF Rx Instructions: apply to affected area azelastine 137 mcg (0.1 %) aerosol,spray 2 spray intranasal DAILY Qty: 30 3RF Rx Instructions: administer into each nostril montelukast 10 mg tablet 10 mg PO PM 30 Days Qty: 30 olopatadine 0.1 % drops 1 drp OPHTHALMIC BIDP PRN (Reason: allergy symptoms) escitalopram oxalate 10 mg tablet 10 mg PO cetirizine 10 mg tablet 10 mg PO sennosides [senna] 8.8 mg/5 mL syrup 8.8 mg PO docusate sodium [Docu] 50 mg/5 mL liquid 50 mg PO diazepam 5 mg/mL concentrate 5 mg PO HS PRN (Reason: anxiety) Qty: 5 0RF Rx Instructions: Give 30 minutes prior to ear cleaning appointment Jublia 10 % solution with applicator 1 applic TP DAILY 336 Days Qty: 8 3RF Rx Instructions: Apply once daily to toenails both feet pantoprazole 20 MG tablet,delayed release (DR/EC) 20 mg PO DAILY tamsulosin 0.4 MG capsule 0.4 mg PO DAILY polyethylene glycol 3350 119 GM powder 1 cap PO BID psyllium husk (with sugar) 575 GM powder 1 tbsp PO BID Referrals Follow up/Referrals: Jacqueline Baez APRN [Primary Care Provider] - See instructions Activity Restrictions/Add. Instructions Additional Instructions/Restrictions: Encourage her to drink plenty of fluids. Give her the medications as directed. Give her tylenol or ibuprofen for pain or fever. Throw her tooth brush away and get a new one. Follow up with her regular doctor. GO TO THE ER FOR ANY WORSENING SYMPTOMS Clinical Impressions Clinical Impression: Strep throat Stand Alone Forms Stand Alone Forms: Work/School Release Instructions Patient Instructions: Strep Throat, DI for Strep Throat Discharge ED Provider: Danielito Carrillo [facility] [place] HPI General Stated complaint: chills, fever 100.7, diarrhea, congestion Mode of Arrival: Ambulatory Source of Information: Patient and Relative Limitations: Language Barrier Time Seen by Provider: 02/25/23 10:03 Description of Symptoms (Recalled from Triage Doc. by RN): severe chills, fever, stuffy nose, difficulty breathing, diarrhea HEENT Symptoms (Recalled from RN notes): Yes Resp Symptoms (Recalled from RN notes): Yes Skin Symptoms (Recalled from RN notes): No MS Symptoms (Recalled from RN notes): No Functional Status (Recalled from RN notes): na History of Present Illness Provider Complaint: She states that for the past 2 days she has had sore throat, congestion, cough, low grade fever and malaise. Related Data Home Medications Medication Instructions Recorded Confirmed aspirin 81 mg tablet,delayed 81 mg PO DAILY Heart health 07/25/17 12/11/22 release (Adult Low Dose Aspirin) atorvastatin 10 mg tablet 10 mg PO HS Cholesterol 30 days 07/25/17 12/11/22 beclomethasone dipropionate 80 1 - 2 spr intranasal DAILY Allergy 07/25/17 12/11/22 mcg/actuation nasal HFA inhaler symptoms 30 days ##8 levothyroxine 75 mcg tablet 75 mcg PO DAILY hypothyroidism 30 07/25/17 12/11/22 days metformin
--- NOTE | 2023-02-25 10:14 | XR_ITS ---
PROCEDURE INFORMATION: Exam: XR Chest Exam date and time: 02/25/2023 10:13 AM Age: 62 years old Clinical indication: Cough; Additional info: Cough, congestion TECHNIQUE: Imaging protocol: Radiologic exam of the chest. Views: 2 views. COMPARISON: CR XR CHEST PORTABLE 12/04/2020 10:32 PM FINDINGS: Lungs: Unremarkable. No consolidation. Pleural spaces: Unremarkable. No pleural effusion. No pneumothorax. Heart/Mediastinum: Unremarkable. No cardiomegaly. Bones/joints: Unremarkable. IMPRESSION: No acute findings.
[2023-02-25 10:26] LABS: UTC Strep Screen (Rapid) Positive (Negative)
[2023-02-25 10:45] VITALS: BP 98/44; PULSE 60; RESP 18; TEMP 36.4
== END 2023-02-25 10:49 | disposition home or self-care (01) ==
PROVIDERS: Emergency Provider Nurse Practitioner Family; PCP Nurse Practitioner Family
DX: J02.0 Streptococcal pharyngitis (principal); R50.9 Fever, unspecified; R53.81 Other malaise; E11.9 Type 2 diabetes mellitus without complications; K21.9 Gastro-esophageal reflux disease without esophagitis; Q90.9 Down syndrome, unspecified; Z79.84 Long term (current) use of oral hypoglycemic drugs
CPT/HCPCS: 71046; 87880; 99204; 99212; G0463

== ENCOUNTER → 2023-04-22 12:32 | Outpatient (CLI) | payer MEDICARE, MEDICAID, SELFPAY ==
--- NOTE | 2023-04-22 12:37 | XR_ITS ---
FINAL REPORT CLINICAL HISTORY: COUGH COMPARISON: 02/25/2023 FINDINGS: 2 views of the chest were obtained . The heart is normal in size. The mediastinum is within normal limits. There is mild right base atelectasis or less likely, pneumonia. There is no pneumothorax. Osseous structures are unremarkable. IMPRESSION: Mild right base atelectasis or less likely, pneumonia. Reviewed, Interpreted and Dictated by Darwin Modi III, MD Transcribed by Eva Askew Authenticated and [facility]
== END ==
PROVIDERS: PCP Nurse Practitioner Family; Visit Provider Nurse Practitioner Family
DX: R05.1 Acute cough (principal)
CPT/HCPCS: 71046

== ENCOUNTER → 2023-05-06 08:11 | Outpatient (CLI) | payer MEDICARE, MEDICAID, SELFPAY ==
[2023-05-06 08:44] LABS: Basophils # 0.1 K/mm3 (0-0.2); Basophils % 1.4 % (0.1-2.0); Eosinophils % 0.6 % (0.1-12.0); Hematocrit 42.2 % (37.0-47.0); Hemoglobin 14.3 g/dL (12.2-16.2); Lymphocytes # 1.3 K/mm3 (0.7-4.5); Lymphocytes % 33.2 % (10-50); Mean Corpuscular HGB Conc 33.9 g/dL (31.8-35.4); Mean Corpuscular Volume 100.1 fl (81-99); Mean Platelet Volume 7.8 fl (7.4-10.4); Monocytes # 0.2 K/mm3 (0.1-1.0); Neutrophils # 2.2 K/mm3 (1.8-7.8); Neutrophils % 59.8 % (37.0-80.0); Platelet Count 436 K/mm3 (142-424); Red Blood Count 4.22 M/mm3 (4.20-5.40); White Blood Count 3.8 K/mm3 (4.8-10.8)
[2023-05-06 09:24] LABS: Potassium 4.8 mmoL/L (3.5-5.1); Sodium 132 mmol/L (136-145)
[2023-05-06 09:26] LABS: Alanine Aminotransferase 17 U/L (12-78); Albumin/Globulin Ratio 1.1 (1.1-1.8); Alkaline Phosphatase 124 U/L (38-126); Aspartate Amino Transferase 33 U/L (14-36); Bilirubin,Total 0.3 mg/dl (0.2-1.3); Blood Urea Nitrogen 16 mg/dl (7-17); Calcium 9.1 mg/dl (8.4-10.2); Carbon Dioxide 31 mmol/L (22.0-30.0); Estimated Glomerular Filt Rate 73 ml/min (>60); GFR (African American) 88 ML/MIN (>60); Globulin 3.5 g/dL (1.3-3.2); Glucose 145 mg/dl (74-100); Total Protein,Serum 7.5 g/dl (6.3-8.2)
[2023-05-06 09:33] LABS: Anion Gap 11.8 mEq/L (5-15); Chloride 94 mmol/L (98-107)
[2023-05-06 09:57] LABS: Hemoglobin A1C 7.3 % (4.0-6.0)
[2023-05-06 09:59] LABS: 25-OH Vitamin D, Total 55.1 ng/mL (30-100); Thyroid Stimulating Hormone 3.54 uIU/mL (0.465-4.68)
== END ==
PROVIDERS: PCP Nurse Practitioner Family; Visit Provider Nurse Practitioner Family
DX: E11.9 Type 2 diabetes mellitus without complications (principal); E55.9 Vitamin D deficiency, unspecified; E03.9 Hypothyroidism, unspecified; E87.1 Hypo-osmolality and hyponatremia; D72.819 Decreased white blood cell count, unspecified; Z68.22 Body mass index [BMI] 22.0-22.9, adult; Z79.84 Long term (current) use of oral hypoglycemic drugs
CPT/HCPCS: 36415; 80053; 82306; 83036; 84443; 85025

== ENCOUNTER 2023-06-29 05:12 | Inpatient (IN) | payer MEDICARE, MEDICAID, SELFPAY ==
[2023-06-29] VITALS (67 sets, daily range): BP systolic 59–132; BP diastolic 16–63; PULSE 57–93; RESP 12–21; TEMP 36.7–39; O2SAT 82–99; BMI 28.5; BMI 29.1
--- NOTE | 2023-06-29 05:33 | CT_ITS ---
PROCEDURE INFORMATION: Exam: CTA Chest With Contrast Exam date and time: 06/29/2023 6:36 AM Age: 62 years old Clinical indication: Other: Resp distress, hypoxia; Additional info: Abd pain, vomiting, resp distress, hypoxia TECHNIQUE: Imaging protocol: Computed tomographic angiography of the chest with contrast. Exam focused on the arteries. 3D rendering (Not supervised by radiologist): MIP and/or 3D reconstructed images were created by the technologist. Radiation optimization: All CT scans at this facility use at least one of these dose optimization techniques: automated exposure control; mA and/or kV adjustment per patient size (includes targeted exams where dose is matched to clinical indication); or iterative reconstruction. Contrast material: ISOVUE; Contrast volume: 75 ml; Contrast route: INTRAVENOUS (IV); COMPARISON: CR XR CHEST 2V 04/22/2023 12:39 PM FINDINGS: Pulmonary arteries: Negative for acute pulmonary embolism. Aorta: Unremarkable. No aortic aneurysm. No aortic dissection. Lungs: Patchy airspace densities in the right lower lobe compatible with pneumonia. Pleural spaces: Small right pleural effusion. Heart: Unremarkable. No cardiomegaly. No pericardial effusion. Lymph nodes: Mild right hilar lymphadenopathy, largest lymph node 1.3 cm in short axis. Likely reactive. Bones/joints: Unremarkable. No acute fracture. Soft tissues: Unremarkable. IMPRESSION: 1. Negative for acute pulmonary embolism. 2. Patchy airspace densities in the right lower lobe compatible with pneumonia. 3. Small right pleural effusion. 4. Mild right hilar lymphadenopathy, largest lymph node 1.3 cm in short axis. Likely reactive.
--- NOTE | 2023-06-29 05:33 | CT_ITS ---
PROCEDURE INFORMATION: Exam: CT Abdomen And Pelvis With Contrast Exam date and time: 06/29/2023 6:36 AM Age: 62 years old Clinical indication: Vomiting; Abdominal pain; Additional info: Abd pain, vomiting, resp distress, hypoxia TECHNIQUE: Imaging protocol: Computed tomography of the abdomen and pelvis with contrast. Radiation optimization: All CT scans at this facility use at least one of these dose optimization techniques: automated exposure control; mA and/or kV adjustment per patient size (includes targeted exams where dose is matched to clinical indication); or iterative reconstruction. Contrast material: ISOVUE; Contrast volume: 75 ml; Contrast route: IV; COMPARISON: CT ABDOMEN PELVIS W CON 05/30/2020 8:56 AM FINDINGS: Lungs: Patchy airspace densities in the right lower lobe, compatible with pneumonia. Pleural spaces: Small right pleural effusion. Liver: Normal. No mass. Gallbladder and bile ducts: Previous cholecystectomy. Pancreas: Normal. No ductal dilation. Spleen: Normal. No splenomegaly. Adrenal glands: Normal. No mass. Kidneys and ureters: Normal. No hydronephrosis. Stomach and bowel: Cecum in the right upper quadrant. No evidence of bowel obstruction. Appendix: No evidence of appendicitis. Intraperitoneal space: Unremarkable. No free air. No significant fluid collection. Vasculature: Unremarkable. No abdominal aortic aneurysm. Lymph nodes: Unremarkable. No enlarged lymph nodes. Urinary bladder: Unremarkable as visualized. Reproductive: Unremarkable as visualized. Bones/joints: Prominent anterior osteophytes of the lumbar spine. Soft tissues: Unremarkable. IMPRESSION: 1. Patchy airspace densities in the right lower lobe, compatible with pneumonia. 2. Small right pleural effusion. 3. Cecum in the right upper quadrant. No evidence of bowel obstruction.
[2023-06-29 05:42] LABS: Basophils % 0.2 % (0.1-2.0); Eosinophils % 0.2 % (0.1-12.0); Hematocrit 40.5 % (37.0-47.0); Hemoglobin 13.5 g/dL (12.2-16.2); Lymphocytes # 0.5 K/mm3 (0.7-4.5); Lymphocytes % 7.5 % (10-50); Mean Corpuscular HGB Conc 33.4 g/dL (31.8-35.4); Mean Corpuscular Volume 98.9 fl (81-99); Mean Platelet Volume 7.2 fl (7.4-10.4); Monocytes # 0.1 K/mm3 (0.1-1.0); Monocytes % 1.6 % (1.7-9.3); Neutrophils # 6.6 K/mm3 (1.8-7.8); Neutrophils % 90.5 % (37.0-80.0); Platelet Count 401 K/mm3 (142-424); Red Blood Count 4.09 M/mm3 (4.20-5.40); Red Cell Distribution Width 13.6 % (11.5-17.5); White Blood Count 7.3 K/mm3 (4.8-10.8)
[2023-06-29 05:43] LABS: MANUAL DIFFERENTIAL MANUAL DIFFERENTIAL (MANUAL DIFF)
--- NOTE | 2023-06-29 05:43 | ECG_ITS ---
APPROVED REPORT Exam: Resting ECG HR:84 bpm ECG Measurements Heart Rate 84 AXES OH 153 P 78 QRSd 81 QRS 68 QT 349 T 59 QTc 391 Conclusion SINUS RHYTHM NORMAL ECG UNCONFIRMED REPORT Electronically signed by : Jose Lindsey MD 06/30/2023 09:04:02
--- NOTE | 2023-06-29 05:43 | ED_ITS ---
Discharge Plan Disposition Patient Disposition: Still a Patient Prescriptions Prescriptions: No Action levothyroxine 75 mcg tablet 75 mcg PO DAILY 30 Days Patient Comments: beclomethasone dipropionate 80 mcg/actuation HFA aerosol inhaler 1 - 2 spr INTRANASAL DAILY 30 Days Qty: 8 Patient Comments: atorvastatin 10 mg tablet 10 mg PO HS 30 Days Patient Comments: metformin 500 mg tablet 500 mg PO DAILY 90 Days Patient Comments: aspirin [Adult Low Dose Aspirin] 81 mg tablet,delayed release (DR/EC) 81 mg PO DAILY Rx Instructions: azelastine 137 mcg (0.1 %) aerosol,spray 2 spray intranasal DAILY Qty: 30 3RF Rx Instructions: administer into each nostril montelukast 10 mg tablet 10 mg PO PM 30 Days Qty: 30 olopatadine 0.1 % drops 1 drp OPHTHALMIC BIDP PRN (Reason: allergy symptoms) cetirizine 10 mg tablet 10 mg PO DAILY sennosides [senna] 8.8 mg/5 mL syrup 8.8 mg PO DAILY docusate sodium [Docu] 50 mg/5 mL liquid 50 mg PO DAILY mecobalamin (vitamin B12) 500 mcg tablet,chewable 500 mcg PO DAILY calcium [id number] 500 mg-12.5 mcg -20 mg/15 mL liquid 15 ml PO DAILY pantoprazole 20 MG tablet,delayed release (DR/EC) 20 mg PO DAILY tamsulosin 0.4 MG capsule 0.4 mg PO DAILY polyethylene glycol 3350 119 GM powder 1 cap PO BID psyllium husk (with sugar) 575 GM powder 1 tbsp PO BID Referrals Follow up/Referrals: Provider,Referral, MD [Primary Care Provider] - See instructions Clinical Impressions Clinical Impression: Septic shock, Acute hypoxemic respiratory failure Pneumonia Qualifiers: Pneumonia type: aspiration pneumonia Instructions Patient Instructions: DI for Diarrhea and Traveler's Diarrhea -- Adult, DI for Diarrhea and Traveler's Diarrhea -- Child, DI for Nausea -- Adult, DI for Nausea -- Child Discharge ED Provider: Whitney Vang General Adult HPI <Whitney Vang DO - Last Filed: 06/29/23 07:01> General Chief complaint: Nausea/Vomiting/Diarrhea Stated complaint: N/V,diarrhea Time Seen by Provider: 06/29/23 05:20 Mode of Arrival: Ambulatory Source of Information: Patient Limitations: No Limitations Description of Symptoms (Recalled from ER Triage Doc. by RN): pt c/o n/v/d since 3 this morning History of Present Illness HPI narrative: This patient is a 62-year-old female with history of Down syndrome who is nonverbal, history of type 2 diabetes, history of urinary tract infection, history of hypothyroidism, and hyperlipidemia presenting to the emergency department for evaluation with concern for vomiting and pain. According to the patient's sister, who is her POA, the patient woke up screaming in the middle of the night. Given the patient is nonverbal, family is unable to determine what is causing her pain, but she has been screaming and has had dry heaves since approximately 4:00 this morning. She was given Zofran at home with no improvement. Of note, she did recently have a stomach bug, and a gastroe nteritis is going around the patient's adult daycare. She has also had loose, watery diarrhea. Patient is nonverbal and is unable to contribute to history given this. Related Data Home Medications Medication Instructions Recorded Confirmed aspirin 81 mg tablet,delayed 81 mg PO DAILY Heart health 07/25/17 06/29/23 release (Adult Low Dose Aspirin) atorvastatin 10 mg tablet 10 mg PO HS Cholesterol 30 days 07/25/17 06/29/23 beclomethasone dipropionate 80 1 - 2 spr intranasal DAILY Allergy 07/25/17 06/29/23 mcg/actuation nasal HFA inhaler symptoms 30 days ##8 levothyroxine 75 mcg tablet 75 mcg PO DAILY hypothyroidism 30 07/25/17 06/29/23 days metformin 500 mg tablet 500 mg PO DAILY Diabetes 90 days 07/25/17 06/29/23 montelukast 10 mg tablet 10 mg PO PM Allergy symptoms 30 11/28/17 06/29/23 days ##30 olopatadine 0.1 % eye drops 1 drp ophthalmic (eye) BIDP PRN 04/21/20 06/29/23 allergy symptoms polyethylene glycol 3350 17 1 cap PO BID CONSTIPATION 12/06/20 06/29/23 gram/dose oral powder psyllium husk (with sugar) 3.4 1 tbsp PO BID CONSTIPATION 12/06/20 06/29/23 gram/12 gram oral powder pantoprazole 20 mg tablet,delayed 20 mg PO DAILY stomach 08/21/21 06/29/23 release tamsulosin 0.4 mg capsule 0.4 mg PO DAILY kidneys 08/21/21 06/29/23 cetirizine 10 mg tablet 10 mg PO DAILY 09/05/21 06/29/23 docusate sodium 50 mg/5 mL oral 50 mg PO DAILY 09/05/21 06/29/23 liquid (Docu) sennosides 8.8 mg/5 mL oral syrup 8.8 mg PO DAILY 09/05/21 06/29/23 (senna) calcium 500 mg-D3 12.5 mcg-mag 20 15 ml PO DAILY 03/12/23 06/29/23 mg-boron 125 mcg/15 mL oral liquid mecobalamin (vitamin B12) 500 mcg 500 mcg PO DAILY 03/12/23 06/29/23 chewable tablet Previous Rx's Medication Instructions Recorded azelastine 137 mcg (0.1 %) nasal 2 spray intranasal DAILY use at 09/12/22 spray aerosol night before bed #30 mL Allergies Allergy/AdvReac Type Severity Reaction Status Date / Time bacitracin [BACITRACIN] Allergy Unknown Verified 06/04/23 09:06 codeine [CODEINE] Allergy Unknown Verified 06/04/23 09:06 Penicillins [PENICILLINS] Allergy Unknown Verified 06/04/23 09:06 [facility] <Whitney Vang DO - Last Filed: 06/29/23 07:01> [facility] Disclaimer: The information contained in this section may have been updated after the patient was seen, as this information can be updated by other users. Medical History Bilateral impacted cerumen Down syndrome GERD with esophagitis Hypertrophy of nasal turbinates Hyponatremia Impacted cerumen of left ear Type 2 diabetes mellitus with hyperglycemia, without long-term current use of insulin Surgical History H/O mastoidectomy Family History Other Cancer Hyperlipidemia Hypertension Social History Smoking Status: Never smoker second hand exposure: No alcohol intake: never counseling provided: none substance use type: denies use current occupational status: disabled Travel in the last 8 weeks: None household members: family housing: house current occupational exposures/hazards: No caffeine: No <Whitney Vang DO - Last Filed: 06/29/23 07:01> ROS Obtained: Yes All systems reviewed & no additional complaints except as documented Physical Exam <Whitney Vang DO - Last Filed: 06/29/23 07:01> General General appearance: alert Comment: In mild distress. Tachypneic and hypoxic on room air. Appears to be in pain. Head Head exam: atraumatic and normocephalic Eye Eye exam: Present normal appearance, PERRL and EOMI ENT ENT exam: Present normal exam, normal oropharynx, mucous membranes moist and normal external ear exam Neck Neck exam: Present normal inspection, full ROM and trachea midline; Absent tenderness Chest Chest inspection: Present normal inspection and symmetric chest wall rise; Absent tenderness Respiratory Respiratory exam: Present normal lung sounds bilaterally and respiratory distress (Tachypnea with hypoxia on room air); Absent wheezes, stridor or accessory muscle use Cardiovascular Cardiovascular exam: Present normal rhythm and tachycardia Abdominal Exam Abdominal exam: Present soft; Absent distention, tenderness or guarding Extremities Exam Extremities exam: Present normal inspection, full ROM and normal capillary refill; Absent tenderness or edema Back Exam Back exam: Present normal inspection and full ROM; Absent tenderness Neurological Exam Neurological exam: Present alert and other (At neurologic baseline) Skin Skin exam: Present warm and dry Medical Decision Making <Whitney Vang DO - Last Filed: 06/29/23 07:01> Medical Records Medical records reviewed: Yes I reviewed the patient's medical records. [place] Inquiry Pt receiving controlled substance: No Vital Signs: 06/29/23 05:13 06/29/23 05:31 06/29/23 06:00 Temperature 102.2 F H Temperature Source Rectal Pulse Rate 90 78 Pulse Rate [Right] 93 H Respiratory Rate 16 Blood Pressure 103/48 L 86/37 L Blood Pressure [Right Arm] 124/63 Blood Pressure Mean Blood Pressure Mean [Right Arm] 83 Blood Pressure Source 02 Sat by Pulse Oximetry 82 L 96 96 Oxygen Delivery Method Room Air Nasal Cannula Nasal Cannula Oxygen Flow Rate (LPM) 4 4 06/29/23 06:07 06/29/23 06:08 06/29/23 06:09 Temperature Temperature Source Pulse Rate 74 69 79 Pulse Rate [Right] Respiratory Rate Blood Pressure 72/31 L 59/16 L 71/30 L Blood Pressure [Right Arm] Blood Pressure Mean Blood Pressure Mean [Right Arm] Blood Pressure Source 02 Sat by Pulse Oximetry 95 95 95 Oxygen Delivery Method Nasal Cannula Nasal Cannula Nasal Cannula Oxygen Flow Rate (LPM) 4 4 4 06/29/23 06:10 06/29/23 06:18 06/29/23 06:20 Temperature Temperature Source Pulse Rate 65 75 Pulse Rate [Right] Respiratory Rate Blood Pressure 70/40 L 84/43 L 90/45 L Blood Pressure [Right Arm] Blood Pressure Mean 43 Blood Pressure Mean [Right Arm] Blood Pressure Source Manual Cuff/ Auscultation 02 Sat by Pulse Oximetry 95 97 98 Oxygen Delivery Method Nasal Cannula Nasal Cannula Nasal Cannula Oxygen Flow Rate (LPM) 4 4 4 06/29/23 06:24 06/29/23 06:25 06/29/23 06:30 Temperature 99.8 F H Temperature Source Rectal Pulse Rate 77 75 72 Pulse Rate [Right] Respiratory Rate Blood Pressure 90/49 L 98/48 L 93/57 L Blood Pressure [Right Arm] Blood Pressure Mean Blood Pressure Mean [Right Arm] Blood Pressure Source 02 Sat by Pulse Oximetry 97 97 96 Oxygen Delivery Method Nasal Cannula Nasal Cannula Nasal Cannula Oxygen Flow Rate (LPM) 4 4 4 06/29/23 06:44 06/29/23 06:45 06/29/23 06:50 Temperature Temperature Source Pulse Rate 86 57 L 82 Pulse Rate [Right] Respiratory Rate Blood Pressure 95/37 L 91/49 L 91/43 L Blood Pressure [Right Arm] Blood Pressure Mean Blood Pressure Mean [Right Arm] Blood Pressure Source 02 Sat by Pulse Oximetry 94 L 95 96 Oxygen Delivery Method Nasal Cannula Nasal Cannula Nasal Cannula Oxygen Flow Rate (LPM) 4 4 4 06/29/23 06:55 06/29/23 07:00 06/29/23 07:05 Temperature Temperature Source Pulse Rate 80 79 81 Pulse Rate [Right] Respiratory Rate 19 Blood Pressure 93/42 L 83/44 L 101/52 L Blood Pressure [Right Arm] Blood Pressure Mean Blood Pressure Mean [Right Arm] Blood Pressure Source 02 Sat by Pulse Oximetry 96 97 96 Oxygen Delivery Method Nasal Cannula Nasal Cannula Nasal Cannula Oxygen Flow Rate (LPM) 4 4 4 06/29/23 07:10 06/29/23 07:15 06/29/23 07:20 Temperature Temperature Source Pulse Rate 80 74 77 Pulse Rate [Right] Respiratory Rate 19 17 17 Blood Pressure 80/50 L 104/49 L 109/53 L Blood Pressure [Right Arm] Blood Pressure Mean Blood Pressure Mean [Right Arm] Blood Pressure Source 02 Sat by Pulse Oximetry 95 98 98 Oxygen Delivery Method Nasal Cannula Nasal Cannula Nasal Cannula Oxygen Flow Rate (LPM) 2 2 2 06/29/23 07:25 06/29/23 07:30 06/29/23 07:35 Temperature Temperature Source Pulse Rate 82 85 78 Pulse Rate [Right] Respiratory Rate 21 18 19 Blood Pressure 97/49 L 92/43 L 96/52 L Blood Pressure [Right Arm] Blood Pressure Mean Blood Pressure Mean [Right Arm] Blood Pressure Source 02 Sat by Pulse Oximetry 95 96 97 Oxygen Delivery Method Nasal Cannula Nasal Cannula Nasal Cannula Oxygen Flow Rate (LPM) 2 2 2 06/29/23 07:40 06/29/23 07:50 06/29/23 08:05 Temperature Temperature Source Pulse Rate 73 73 79 Pulse Rate [Right] Respiratory Rate 18 18 18 Blood Pressure 112/55 L 115/53 L 110/53 L Blood Pressure [Right Arm] Blood Pressure Mean 74 73 68 Blood Pressure Mean [Right Arm] Blood Pressure Source 02 Sat by Pulse Oximetry 98 98 98 Oxygen Delivery Method Nasal Cannula Nasal Cannula Nasal Cannula Oxygen Flow Rate (LPM) 2 2 2 06/29/23 08:20 06/29/23 08:25 06/29/23 08:30 Temperature Temperature Source Pulse Rate 78 82 74 Pulse Rate [Right] Respiratory Rate 18 19 17 Blood Pressure 104/54 L 108/53 L 100/49 L Blood Pressure [Right Arm] Blood Pressure Mean 68 Blood Pressure Mean [Right Arm] Blood Pressure Source 02 Sat by Pulse Oximetry 98 98 98 Oxygen Delivery Method Nasal Cannula Nasal Cannula Nasal Cannula Oxygen Flow Rate (LPM) 2 2 2 06/29/23 08:35 06/29/23 08:40 06/29/23 08:45 Temperature Temperature Source Pulse Rate 80 82 77 Pulse Rate [Right] Respiratory Rate 20 19 19 Blood Pressure 116/54 L 113/59 L 115/54 L Blood Pressure [Right Arm] Blood Pressure Mean Blood Pressure Mean [Right Arm] Blood Pressure Source 02 Sat by Pulse Oximetry 97 98 98 Oxygen Delivery Method Nasal Cannula Nasal Cannula Nasal Cannula Oxygen Flow Rate (LPM) 2 2 2 06/29/23 08:50 06/29/23 08:55 06/29/23 09:00 Temperature Temperature Source Pulse Rate 77 74 80 Pulse Rate [Right] Respiratory Rate 18 17 18 Blood Pressure 111/53 L 109/55 L 116/58 L Blood Pressure [Right Arm] Blood Pressure Mean Blood Pressure Mean [Right Arm] Blood Pressure Source 02 Sat by Pulse Oximetry 98 98 97 Oxygen Delivery Method Nasal Cannula Nasal Cannula Nasal Cannula Oxygen Flow Rate (LPM) 2 2 2 06/29/23 09:05 Temperature Temperature Source Pulse Rate 78 Pulse Rate [Right] Respiratory Rate 18 Blood Pressure 111/56 L Blood Pressure [Right Arm] Blood Pressure Mean Blood Pressure Mean [Right Arm] Blood Pressure Source 02 Sat by Pulse Oximetry 97 Oxygen Delivery Method Nasal Cannula Oxygen Flow Rate (LPM) 2 Lab Data Lab results reviewed: Yes I reviewed the patient's lab results. Lab Results 06/29/23 05:28: WBC 7.3, RBC 4.09 L, Hgb 13.5, Hct 40.5, MCV 98.9, MCH 33.0 H, MCHC 33.4, RDW 13.6, Plt Count 401, MPV 7.2 L, Neut % (Auto) 90.5 H, Lymph % (Auto) 7.5 L, [place] % (Auto) 1.6 L, Eos % (Auto) 0.2, Baso % (Auto) 0.2, Neut # (Auto) 6.6, Lymph # (Auto) 0.5 L, [place] # (Auto) 0.1, Eos # (Auto) 0.0, Baso # (Auto) 0.0, Total Counted 100, Neutrophils % (Manual) 90 H, Lymphocytes % (Manual) 9 L, Monocytes % (Manual) 1 L, Platelet Estimate Normal, Macrocytosis 1+, Sodium 133 L, Potassium 4.1, Chloride 98, Carbon Dioxide 24, Anion Gap 15.1 H, BUN 19 H, Creatinine 0.80, Estimated Creat Clear 47, Estimated GFR 73, Est GFR ( Amer) 88, Glucose 186 H, Lactate 2.7 H, Calcium 8.5, Total Bilirubin 0.5, AST 33, ALT 30, Alkaline Phosphatase 113, Troponin I < 0.01, Total Protein 6.8, Albumin 3.4 L, Globulin 3.4 H, Albumin/Globulin Ratio 1.0 L, Lipase 68 06/29/23 05:44: VBG pH 7.34, VBG pCO2 43.5, VBG pO2 42.4 H, VBG HCO3 23.0, VBG Total CO2 24.3, VBG O2 Saturation 75.1 H, VBG Base Excess -2.8 L 06/29/23 05:54: Urine Color Yellow, Urine Appearance Clear, Urine pH 6.0, Ur Specific [place] 1.015, Urine Protein Negative, Urine Glucose (UA) Negative, Urine Ketones Negative, Urine Blood Negative, Urine Nitrate Negative, Urine B ilirubin Negative, Urine Urobilinogen 0.2, Ur Leukocyte Esterase Negative, Urine RBC None, Urine WBC 3-5, Ur Squamous Epith Cells Occasional, Urine Bacteria None 06/29/23 06:15: SARS-CoV-2 (PCR) Not detected, Influenza A Untype (PCR) Not detected, Influenza Type B (PCR) Not detected 06/29/23 05:28 06/29/23 05:28 Orders (Tests/Meds): ED MEDICATIONS Generic Name Dose Route Start Last Admin Trade Name Freq PRN Reason Stop Dose Admin Norepinephrine Bitartrate 8 mg 258 mls @ 3.87 mls/hr 06/29/23 06:15 06/29/23 07:56 / Dextrose IV 07/29/23 06:14 10 mcg/min .Q24H SIMÓN 19.35 mls/hr Titration Protocol 2 MCG/MIN Lactated Ringer's 1,000 mls @ 150 mls/hr 06/29/23 07:00 06/29/23 06:56 Lactated Ringer's 1000 Ml Bag IV 07/29/23 06:59 150 mls/hr .Q6H40M [facility] Administration Miscellaneous 1 each 06/29/23 06:00 06/29/23 06:02 Vancomycin Consult Request NOTAPPLIC 07/29/23 05:59 1 each CONSULT PHARMACY [facility] Administration Discontinued Medications Generic Name Dose Route Start Last Admin Trade Name Freq PRN Reason Stop Dose Admin Acetaminophen 1,000 mg 06/29/23 05:35 06/29/23 05:45 Acetaminophen 1,000mg/100ml Vial IV 06/29/23 05:36 1,000 mg ONCE ONE Administration Lactated Ringer's 1,000 mls @ 999 mls/hr 06/29/23 05:35 06/29/23 06:02 Lactated Ringer's 1000 Ml Bag IV 06/29/23 06:35 Not Given .Q1H1M ONE Metronidazole 500 mg in 100 mls @ 100 mls/hr 06/29/23 05:59 06/29/23 06:04 Flagyl 500mg/100ml Ivpb IV 06/29/23 06:58 100 mls/hr ONCE ONE Administration Cefepime HCl 2 gm/ Sodium 100 mls @ 200 mls/hr 06/29/23 05:59 06/29/23 06:52 Chloride IV 06/29/23 06:28 200 mls/hr ONCE ONE Administration Lactated Ringer's 1,500 mls @ 750 mls/hr 06/29/23 05:59 06/29/23 06:04 Lactated Ringer's 1000 Ml Bag 30 ml/kg infuse over 2 hr (1500 ml) 06/29/23 07:58 750 mls/hr IV Administration .Q2H ONE Vancomycin HCl 1,000 mg/ 250 mls @ 125 mls/hr 06/29/23 06:15 06/29/23 06:56 Sodium Chloride IV 06/29/23 08:14 125 mls/hr ONCE ONE Administration Iopamidol 75 ml 06/29/23 06:40 06/29/23 06:43 Iopamidol-370 (76%);100ml Bottle IV 06/29/23 06:41 75 ml ONCE ONE Administration Ondansetron HCl 4 mg 06/29/23 05:35 06/29/23 05:45 Ondansetron 4mg/2ml Vial IV 06/29/23 05:36 4 mg ONCE ONE Administration Sodium Chloride 10 ml 06/29/23 06:40 06/29/23 06:43 Sodium Chloride 0.9% 10ml Syr (Rad Only) IV 06/29/23 06:41 10 ml ONCE ONE Administration Sodium Chloride 40 ml 06/29/23 06:40 06/29/23 06:43 Sodium Chloride 0.9% 50ml Bag IV 06/29/23 06:41 40 ml ONCE ONE Administration ORDERS Category Date Time Status CT abdomen pelvis w con Stat Cat Scan 06/29/23 05:33 Completed CTA Chest [CT angio chest PE protocol] Stat Cat Scan 06/29/23 05:33 Completed Complete Blood Count Auto Diff Stat Lab 06/29/23 05:28 Completed Comprehensive Metabolic Panel Stat Lab 06/29/23 05:28 Completed Diarrhea 23 Panel, PCR Stat Lab 06/29/23 05:44 Ordered Lactic Acid Stat Lab 06/29/23 05:28 Completed Lipase Stat Lab 06/29/23 05:28 Completed Rapid PCR Covid and Flu A/B Stat Lab 06/29/23 06:15 Completed Troponin I Q3H Lab 06/29/23 08:45 Ordered Troponin I Q3H Lab 06/29/23 11:45 Ordered Troponin I Stat Lab 06/29/23 05:28 Completed Urinalysis and Microscopic Stat Lab 06/29/23 05:54 Completed Blood Culture Stat Micro 06/29/23 05:51 Received Urine Culture Stat Micro 06/29/23 05:54 Received Venous Blood Gas Stat RT 06/29/23 05:44 Completed ECG Data Tracing #1: I reviewed this ECG and interpreted as documented below: Normal sinus rhythm with a ventricular rate of [address] changes concerning for ischemia. Normal axis and intervals. ECG initial impression date: 06/29/23 ECG initial impression time: 05:50 Medical Decision Narrative: In summary, this patient is a 62-year-old female who is nonverbal who woke up c rying out in pain and dry heaving in the middle of the night. Differential diagnoses considered include but are not limited to bowel obstruction, appendicitis, constipation, cystitis, pyelonephritis, viral syndrome, pneumonia, aspiration, PE. Ruling out the most morbid conditions drove assessment. It should be noted patient's history includes diabetes, hyperlipidemia, and hypothyroidism which may or may not be at goal therapy. This complicates all aspects of care by increasing patient's risk for morbidity. On exam, the patient is febrile, hypoxic, and tachycardic. She is uncomfortable appearing. Workup included broad lab evaluation including infectious and metabolic workup as well as CTA of the chest PE protocol and CT abdomen pelvis with IV contrast. Patient was given a bolus of IV fluids as well as IV acetaminophen and Zofran for symptomatic improvement. I independently interpre dorota CT scans prior to the radiologist read and noted right lower lobe pneumonia, concerning for possible aspiration. She also has mild gaseous distention of her intestine without obvious obstruction. Please see their read for final interpretation. Labs were obtained that demonstrated elevated lactic acid and mildly elevated anion gap and slightly low CO2 concerning for dehydration. On multiple subsequent reassessments, patient had a rapid decline in her blood pressure on cardiac telemetry. She became hypotensive with systolics in the 70s. She was given sepsis bolus with improvement in her maps initially to 65, however she started to decline again once fluids were finished. Maintenance fluids were initiated, and the patient was started on IV Levophed for blood pressure support. She continues to require supplemental oxygen for respiratory failure with hypoxia. Given concerns for possible septic shock in the setting of likely aspiration pneumonia, patient was given IV vancomycin, cefepime, and Flagyl. I had a long discussion with the patient's family who noted that she is a full code. At this time, CT scan final reads are pending. I feel that it is important to get the final radiology read and exclude surgical pathology definitively prior to admission, so patient care signed out to the oncoming provider, Dr. Cloud pending CT reads and ultimate admission for septic shock. <Eduard Cloud, DO - Last Filed: 06/29/23 09:17> Vital Signs: 06/29/23 05:13 06/29/23 05:31 06/29/23 06:00 Temperature 102.2 F H Temperature Source Rectal Pulse Rate 90 78 Pulse Rate [Right] 93 H Respiratory Rate 16 Blood Pressure 103/48 L 86/37 L Blood Pressure [Right Arm] 124/63 Blood Pressure Mean Blood Pressure Mean [Right Arm] 83 Blood Pressure Source 02 Sat by Pulse Oximetry 82 L 96 96 Oxygen Delivery Method Room Air Nasal Cannula Nasal Cannula Oxygen Flow Rate (LPM) 4 4 06/29/23 06:07 06/29/23 06:08 06/29/23 06:09 Temperature Temperature Source Pulse Rate 74 69 79 Pulse Rate [Right] Respiratory Rate Blood Pressure 72/31 L 59/16 L 71/30 L Blood Pressure [Right Arm] Blood Pressure Mean Blood Pressure Mean [Right Arm] Blood Pressure Source 02 Sat by Pulse Oximetry 95 95 95 Oxygen Delivery Method Nasal Cannula Nasal Cannula Nasal Cannula Oxygen Flow Rate (LPM) 4 4 4 06/29/23 06:10 06/29/23 06:18 06/29/23 06:20 Temperature Temperature Source Pulse Rate 65 75 Pulse Rate [Right] Respiratory Rate Blood Pressure 70/40 L 84/43 L 90/45 L Blood Pressure [Right Arm] Blood Pressure Mean 43 Blood Pressure Mean [Right Arm] Blood Pressure Source Manual Cuff/ Auscultation 02 Sat by Pulse Oximetry 95 97 98 Oxygen Delivery Method Nasal Cannula Nasal Cannula Nasal Cannula Oxygen Flow Rate (LPM) 4 4 4 06/29/23 06:24 06/29/23 06:25 06/29/23 06:30 Temperature 99.8 F H Temperature Source Rectal Pulse Rate 77 75 72 Pulse Rate [Right] Respiratory Rate Blood Pressure 90/49 L 98/48 L 93/57 L Blood Pressure [Right Arm] Blood Pressure Mean Blood Pressure Mean [Right Arm] Blood Pressure Source 02 Sat by Pulse Oximetry 97 97 96 Oxygen Delivery Method Nasal Cannula Nasal Cannula Nasal Cannula Oxygen Flow Rate (LPM) 4 4 4 06/29/23 06:44 06/29/23 06:45 06/29/23 06:50 Temperature Temperature Source Pulse Rate 86 57 L 82 Pulse Rate [Right] Respiratory Rate Blood Pressure 95/37 L 91/49 L 91/43 L Blood Pressure [Right Arm] Blood Pressure Mean Blood Pressure Mean [Right Arm] Blood Pressure Source 02 Sat by Pulse Oximetry 94 L 95 96 Oxygen Delivery Method Nasal Cannula Nasal Cannula Nasal Cannula Oxygen Flow Rate (LPM) 4 4 4 06/29/23 06:55 06/29/23 07:00 06/29/23 07:05 Temperature Temperature Source Pulse Rate 80 79 81 Pulse Rate [Right] Respiratory Rate 19 Blood Pressure 93/42 L 83/44 L 101/52 L Blood Pressure [Right Arm] Blood Pressure Mean Blood Pressure Mean [Right Arm] Blood Pressure Source 02 Sat by Pulse Oximetry 96 97 96 Oxygen Delivery Method Nasal Cannula Nasal Cannula Nasal Cannula Oxygen Flow Rate (LPM) 4 4 4 06/29/23 07:10 06/29/23 07:15 06/29/23 07:20 Temperature Temperature Source Pulse Rate 80 74 77 Pulse Rate [Right] Respiratory Rate 19 17 17 Blood Pressure 80/50 L 104/49 L 109/53 L Blood Pressure [Right Arm] Blood Pressure Mean Blood Pressure Mean [Right Arm] Blood Pressure Source 02 Sat by Pulse Oximetry 95 98 98 Oxygen Delivery Method Nasal Cannula Nasal Cannula Nasal Cannula Oxygen Flow Rate (LPM) 2 2 2 06/29/23 07:25 06/29/23 07:30 06/29/23 07:35 Temperature Temperature Source Pulse Rate 82 85 78 Pulse Rate [Right] Respiratory Rate 21 18 19 Blood Pressure 97/49 L 92/43 L 96/52 L Blood Pressure [Right Arm] Blood Pressure Mean Blood Pressure Mean [Right Arm] Blood Pressure Source 02 Sat by Pulse Oximetry 95 96 97 Oxygen Delivery Method Nasal Cannula Nasal Cannula Nasal Cannula Oxygen Flow Rate (LPM) 2 2 2 06/29/23 07:40 06/29/23 07:50 06/29/23 08:05 Temperature Temperature Source Pulse Rate 73 73 79 Pulse Rate [Right] Respiratory Rate 18 18 18 Blood Pressure 112/55 L 115/53 L 110/53 L Blood Pressure [Right Arm] Blood Pressure Mean 74 73 68 Blood Pressure Mean [Right Arm] Blood Pressure Source 02 Sat by Pulse Oximetry 98 98 98 Oxygen Delivery Method Nasal Cannula Nasal Cannula Nasal Cannula Oxygen Flow Rate (LPM) 2 2 2 06/29/23 08:20 06/29/23 08:25 06/29/23 08:30 Temperature Temperature Source Pulse Rate 78 82 74 Pulse Rate [Right] Respiratory Rate 18 19 17 Blood Pressure 104/54 L 108/53 L 100/49 L Blood Pressure [Right Arm] Blood Pressure Mean 68 Blood Pressure Mean [Right Arm] Blood Pressure Source 02 Sat by Pulse Oximetry 98 98 98 Oxygen Delivery Method Nasal Cannula Nasal Cannula Nasal Cannula Oxygen Flow Rate (LPM) 2 2 2 06/29/23 08:35 06/29/23 08:40 06/29/23 08:45 Temperature Temperature Source Pulse Rate 80 82 77 Pulse Rate [Right] Respiratory Rate 20 19 19 Blood Pressure 116/54 L 113/59 L 115/54 L Blood Pressure [Right Arm] Blood Pressure Mean Blood Pressure Mean [Right Arm] Blood Pressure Source 02 Sat by Pulse Oximetry 97 98 98 Oxygen Delivery Method Nasal Cannula Nasal Cannula Nasal Cannula Oxygen Flow Rate (LPM) 2 2 2 06/29/23 08:50 06/29/23 08:55 06/29/23 09:00 Temperature Temperature Source Pulse Rate 77 74 80 Pulse Rate [Right] Respiratory Rate 18 17 18 Blood Pressure 111/53 L 109/55 L 116/58 L Blood Pressure [Right Arm] Blood Pressure Mean Blood Pressure Mean [Right Arm] Blood Pressure Source 02 Sat by Pulse Oximetry 98 98 97 Oxygen Delivery Method Nasal Cannula Nasal Cannula Nasal Cannula Oxygen Flow Rate (LPM) 2 2 2 06/29/23 09:05 Temperature Temperature Source Pulse Rate 78 Pulse Rate [Right] Respiratory Rate 18 Blood Pressure 111/56 L Blood Pressure [Right Arm] Blood Pressure Mean Blood Pressure Mean [Right Arm] Blood Pressure Source 02 Sat by Pulse Oximetry 97 Oxygen Delivery Method Nasal Cannula Oxygen Flow Rate (LPM) 2 Lab Data Lab Results 06/29/23 05:28: WBC 7.3, RBC 4.09 L, Hgb 13.5, Hct 40.5, MCV 98.9, MCH 33.0 H, MCHC 33.4, RDW 13.6, Plt Count 401, MPV 7.2 L, Neut % (Auto) 90.5 H, Lymph % (Auto) 7.5 L, [place] % (Auto) 1.6 L, Eos % (Auto) 0.2, Baso % (Auto) 0.2, Neut # (Auto) 6.6, Lymph # (Auto) 0.5 L, [place] # (Auto) 0.1, Eos # (Auto) 0.0, Baso # (Auto) 0.0, Total Counted 100, Neutrophils % (Manual) 90 H, Lymphocytes % (Manual) 9 L, Monocytes % (Manual) 1 L, Platelet Estimate Normal, Macrocytosis 1+, Sodium 133 L, Potassium 4.1, Chloride 98, Carbon Dioxide 24, Anion Gap 15.1 H, BUN 19 H, Creatinine 0.80, Estimated Creat Clear 47, Estimated GFR 73, Est GFR ( Amer) 88, Glucose 186 H, Lactate 2.7 H, Calcium 8.5, Total Bilirubin 0.5, AST 33, ALT 30, Alkaline Phosphatase 113, Troponin I < 0.01, Total Protein 6.8, Albumin 3.4 L, Globulin 3.4 H, Albumin/Globulin Ratio 1.0 L, Lipase 68 06/29/23 05:44: VBG pH 7.34, VBG pCO2 43.5, VBG pO2 42.4 H, VBG HCO3 23.0, VBG Total CO2 24.3, VBG O2 Saturation 75.1 H, VBG Base Excess -2.8 L 06/29/23 05:54: Urine Color Yellow, Urine Appearance Clear, Urine pH 6.0, Ur Specific [place] 1.015, Urine Protein Negative, Urine Glucose (UA) Negative, Urine Ketones Negative, Urine Blood Negative, Urine Nitrate Negative, Urine Bilirubin Negative, Urine Urobilinogen 0.2, Ur Leukocyte Esterase Negative, Urine RBC None, Urine WBC 3-5, Ur Squamous Epith Cells Occasional, Urine Bacteria None 06/29/23 06:15: SARS-CoV-2 (PCR) Not detected, Influenza A Untype (PCR) Not detected, Influenza Type B (PCR) Not detected Orders (Tests/Meds): ED MEDICATIONS Generic Name Dose Route Start Last Admin Trade Name Freq PRN Reason Stop Dose Admin Norepinephrine Bitartrate 8 mg 258 mls @ 3.87 mls/hr 06/29/23 06:15 06/29/23 07:56 / Dextrose IV 07/29/23 06:14 10 mcg/min .Q24H SIMÓN 19.35 mls/hr Titration Protocol 2 MCG/MIN Lactated Ringer's 1,000 mls @ 150 mls/hr 06/29/23 07:00 06/29/23 06:56 Lactated Ringer's 1000 Ml Bag IV 07/29/23 06:59 150 mls/hr .Q6H40M SIMÓN Administration Miscellaneous 1 each 06/29/23 06:00 06/29/23 06:02 Vancomycin Consult Request NOTAPPLIC 07/29/23 05:59 1 each CONSULT PHARMACY [facility] Administration Discontinued Medications Generic Name Dose Route Start Last Admin Trade Name Freq PRN Reason Stop Dose Admin Acetaminophen 1,000 mg 06/29/23 05:35 06/29/23 05:45 Acetaminophen 1,000mg/100ml Vial IV 06/29/23 05:36 1,000 mg ONCE ONE Administration Lactated Ringer's 1,000 mls @ 999 mls/hr 06/29/23 05:35 06/29/23 06:02 Lactated Ringer's 1000 Ml Bag IV 06/29/23 06:35 Not Given .Q1H1M ONE Metronidazole 500 mg in 100 mls @ 100 mls/hr 06/29/23 05:59 06/29/23 06:04 Flagyl 500mg/100ml Ivpb IV 06/29/23 06:58 100 mls/hr ONCE ONE Administration Cefepime HCl 2 gm/ Sodium 100 mls @ 200 mls/hr 06/29/23 05:59 06/29/23 06:52 Chloride IV 06/29/23 06:28 200 mls/hr ONCE ONE Administration Lactated Ringer's 1,500 mls @ 750 mls/hr 06/29/23 05:59 06/29/23 06:04 Lactated Ringer's 1000 Ml Bag 30 ml/kg infuse over 2 hr (1500 ml) 06/29/23 07:58 750 mls/hr IV Administration .Q2H ONE Vancomycin HCl 1,000 mg/ 250 mls @ 125 mls/hr 06/29/23 06:15 06/29/23 06:56 Sodium Chloride IV 06/29/23 08:14 125 mls/hr ONCE ONE Administration Iopamidol 75 ml 06/29/23 06:40 06/29/23 06:43 Iopamidol-370 (76%);100ml Bottle IV 06/29/23 06:41 75 ml ONCE ONE Administration Ondansetron HCl 4 mg 06/29/23 05:35 06/29/23 05:45 Ondansetron 4mg/2ml Vial IV 06/29/23 05:36 4 mg ONCE ONE Administration Sodium Chloride 10 ml 06/29/23 06:40 06/29/23 06:43 Sodium Chloride 0.9% 10ml Syr (Rad Only) IV 06/29/23 06:41 10 ml ONCE ONE Administration Sodium Chloride 40 ml 06/29/23 06:40 06/29/23 06:43 Sodium Chloride 0.9% 50ml Bag IV 06/29/23 06:41 40 ml ONCE ONE Administration ORDERS Category Date Time Status CT abdomen pelvis w con Stat Cat Scan 06/29/23 05:33 Completed CTA Chest [CT angio chest PE protocol] Stat Cat Scan 06/29/23 05:33 Completed Complete Blood Count Auto Diff Stat Lab 06/29/23 05:28 Completed Comprehensive Metabolic Panel Stat Lab 06/29/23 05:28 Completed Diarrhea 23 Panel, PCR Stat Lab 06/29/23 05:44 Ordered Lactic Acid Stat Lab 06/29/23 05:28 Completed Lipase Stat Lab 06/29/23 05:28 Completed Rapid PCR Covid and Flu A/B Stat Lab 06/29/23 06:15 Completed Troponin I Q3H Lab 06/29/23 08:45 Ordered Troponin I Q3H Lab 06/29/23 11:45 Ordered Troponin I Stat Lab 06/29/23 05:28 Completed Urinalysis and Microscopic Stat Lab 06/29/23 05:54 Completed Blood Culture Stat Micro 06/29/23 05:51 Received Urine Culture Stat Micro 06/29/23 05:54 Received Venous Blood Gas Stat RT 06/29/23 05:44 Completed Medical Decision Narrative: In summary, this patient is a 62-year-old female who is nonverbal who woke up crying out in pain and dry heaving in the middle of the night. Differential diagnoses considered include but are not limited to bowel obstruction, appendicitis, constipation, cystitis, pyelonephritis, viral syndrome, pneumonia, aspiration, PE. Ruling out the most morbid conditions drove assessment. It should be noted patient's history includes diabetes, hyperlipidemia, and hypothyroidism which may or may not be at goal therapy. This complicates all aspects of care by increasing patient's risk for morbidity. On exam, the patient is febrile, hypoxic, and tachycardic. She is uncomfortable appearing. Workup included broad lab evaluation including infectious and metabolic workup as well as CTA of the chest PE protocol and CT abdomen pelvis with IV contrast. Patient was given a bolus of IV fluids as well as IV acetaminophen and Zofran for symptomatic improvement. I independently interpreted CT scans prior to the radiologist read and noted right lower lobe pneumonia, concerning for possible aspiration. She also has mild gaseous distention of her intestine without obvious obstruction. Please see their read for final interpretation. Labs were obtained that demonstrated elevated lactic acid and mildly elevated anion gap and slightly low CO2 concerning for dehydration. On multiple subsequent reassessments, patient had a rapid decline in her blood pressure on cardiac telemetry. She became hypotensive with systolics in the 70s. She was given sepsis bolus with improvement in her maps initially to 65, however she started to decline again once fluids were finished. Maintenance fluids were initiated, and the patient was started on IV Levophed for blood pressure support. She continues to require supplemental oxygen for respiratory failure with hypoxia. Given concerns for possible septic shock in the setting of likely aspiration pneumonia, patient was given IV vancomycin, cefepime, and Flagyl. I had a long discussion with the patient's family who noted that she is a full code. At this time, CT scan final reads are pending. I feel that it is important to get the final radiology read and exclude surgical pathology definitively prior to admission, so patient care signed out to the oncoming provider, Dr. Cloud pending CT reads and ultimate admission for septic shock. Dr. Cloud: CT PE with no pulmonary embolism identified on radiology read. There were airspace densities in the right lower lobe, likely pneumonia. Small right pleural effusion. Right hilar lymphadenopathy. CT abdomen pelvis with cecum in the right upper quadrant. No evidence of bowel obstruction. Patient's current vitals 128/58. Heart rate of 73. Oxygen saturation 97% on 2 L nasal cannula. Currently on 10 of Levophed. I did consult with hospital medicine for admission and discussed management. Patient was subsequently admitted to their service for further management. Critical Care <Whitney Vang, DO - Last Filed: 06/29/23 07:01> Critical Care Time Critical Care Time: Yes Attestation: On 06/29/23, the high probability of a clinically significant, sudden or life threatening deterioration of the following system(s) (respiratory, cardiovascular, gastrointestinal) required my full and direct attention, intervention and personal management. The time I documented below is in addition to time spent performing reported procedures but includes the following listed in this critical care notation. Total Time Total Critical Care Time: 45
[2023-06-29] MEDS: ONDANSETRON 4MG/2ML VIAL 4 MG IV (05:45)
[2023-06-29] MEDS: ACETAMINOPHEN 1,000MG/100ML VIAL 1000 MG IV (05:45)
[2023-06-29 05:46] LABS: Chloride 98 mmol/L (98-107); Potassium 4.1 mmoL/L (3.5-5.1)
[2023-06-29 05:48] LABS: Alanine Aminotransferase 30 U/L (12-78); Alkaline Phosphatase 113 U/L (38-126); Aspartate Amino Transferase 33 U/L (14-36); Bilirubin,Total 0.5 mg/dl (0.2-1.3); Blood Urea Nitrogen 19 mg/dl (7-17); Creatinine Clearance Estimated 47 mL/min (50-200); Estimated Glomerular Filt Rate 73 ml/min (>60); GFR (African American) 88 ML/MIN (>60)
[2023-06-29 05:49] LABS: Albumin Level 3.4 g/dl (3.5-5.0); Calcium 8.5 mg/dl (8.4-10.2); Carbon Dioxide 24 mmol/L (22.0-30.0); Globulin 3.4 g/dL (1.3-3.2); Glucose 186 mg/dl (74-100); Lipase 68 U/L (23-300); Total Protein,Serum 6.8 g/dl (6.3-8.2)
[2023-06-29 05:52] LABS: Lactic Acid 2.7 mmol/L (0.7-2.1); Lymphocytes % 9 % (10-50); Monocytes % 1 % (2-9); Neutrophils % 90 % (42-76); Total Cells Counted 100
[2023-06-29 05:52] LABS: VBG Base Excess -2.8 mmol/L (-2.4-2.3); VBG Oxygen Saturation 75.1 % (50-70); VBG PCO2 43.5 mmol/L (35-51); VBG PH 7.34 mmol/L (7.31-7.41); VBG PO2 42.4 mmol/L (28-40); VBG Total CO2 24.3 mmol/L (23-27)
[2023-06-29 05:53] LABS: Macrocytosis 1+; Platelet Estimate Normal
[2023-06-29 05:59] LABS: Microscopic, Urine URINE MICROSCOPIC (MICROSCOPIC)
[2023-06-29 06:02] LABS: Troponin I < 0.01 ng/ml (0.00-0.034)
[2023-06-29] MEDS: VANCOMYCIN CONSULT REQUEST 1 EACH NOTAPPLIC (06:02)
[2023-06-29 06:03] LABS: Appearance,Urine CLEAR (Clear); Bilirubin,Urine Negative (Negative); Blood, Urine Negative (Negative); Color,Urine YELLOW (Yellow); Glucose,Urine (UA) Negative (Negative); Ketones,Urine Negative (Negative); Leukocyte Esterase,Urine Negative (Negative); Nitrate,Urine Negative (Negative); Protein,Urine Negative (Negative); Specific Gravity, Urine 1.015 (1.005-1.030); Urobilinogen,Urine 0.2 EU/dl (0.2)
[2023-06-29 06:03] LABS: Anion Gap 15.1 mEq/L (5-15); Sodium 133 mmol/L (136-145)
[2023-06-29] MEDS: METRONIDAZ/SOD CHL 500 MG/100 ML PIGGYBACK 100 MG IV ×3 (06:04→22:01)
[2023-06-29] MEDS: LACTATED RINGERS 1000ML 1,500 ML 750 ML IV (06:04)
--- NOTE | 2023-06-29 06:14 | PC.NURSE ---
Doctor speaking to family at this time
--- NOTE | 2023-06-29 06:16 | PC.NURSE ---
verified levophed dose at 2mcg/min with Martine NAVA
[2023-06-29 06:22] LABS: Coronavirus 19, PCR Not Detected (NotDetected); Influenza A, PCR Not Detected (NotDetected); Influenza B, PCR Not Detected (NotDetected)
[2023-06-29] MEDS: SODIUM CHLORIDE 0.9% 50ML BAG 40 ML IV (06:43)
[2023-06-29] MEDS: SODIUM CHLORIDE 0.9% 10ML SYR (RAD ONLY) 10 ML IV (06:43)
[2023-06-29] MEDS: IOPAMIDOL-370 (76%);100ML BOTTLE 75 ML IV (06:43)
[2023-06-29] MEDS: CEFEPIME HCL 2 GM in 0.9 % SODIUM CHLORIDE 100 ML IV ×2 (06:52→18:18)
[2023-06-29 06:56] LABS: Squamous Epithelial Cell,Urine Occasional #/hpf (0-5)
[2023-06-29] MEDS: LACTATED RINGERS 1000ML 1,000 ML 150 ML IV ×3 (06:56→20:30)
[2023-06-29] MEDS: VANCOMYCIN HCL 1,000 MG in 0.9 % SODIUM CHLORIDE 250 ML 125 MG IV (06:56)
[2023-06-29] MEDS: NOREPINEPHRINE BITARTRATE 8 MG in DEXTROSE 5 % IN WATER 250 ML 3.87000000000000011 MG IV (07:13)
--- NOTE | 2023-06-29 09:20 | P.CONPHA_ITS ---
Pharmacy Consult Date: 06/29/23 Time: 09:20 Referring provider: DR. RAMIREZ Reason for Consult:: VANCOMYCIN DOSING Allergies Allergy/AdvReac Type Severity Reaction Status Date / Time bacitracin [BACITRACIN] Allergy Unknown Verified 06/04/23 09:06 codeine [CODEINE] Allergy Unknown Verified 06/04/23 09:06 Penicillins [PENICILLINS] Allergy Unknown Verified 06/04/23 09:06 Home Medications Medication Instructions Recorded Confirmed Type aspirin 81 mg tablet,delayed 81 mg PO DAILY Heart health 07/25/17 06/29/23 History release (Adult Low Dose Aspirin) atorvastatin 10 mg tablet 10 mg PO HS Cholesterol 30 days 07/25/17 06/29/23 History beclomethasone dipropionate 80 1 - 2 spr intranasal DAILY Allergy 07/25/17 06/29/23 History mcg/actuation nasal HFA inhaler symptoms 30 days ##8 levothyroxine 75 mcg tablet 75 mcg PO DAILY hypothyroidism 30 07/25/17 06/29/23 History days metformin 500 mg tablet 500 mg PO DAILY Diabetes 90 days 07/25/17 06/29/23 History montelukast 10 mg tablet 10 mg PO PM Allergy symptoms 30 11/28/17 06/29/23 History days ##30 olopatadine 0.1 % eye drops 1 drp ophthalmic (eye) BIDP PRN 04/21/20 06/29/23 History allergy symptoms polyethylene glycol 3350 17 1 cap PO BID CONSTIPATION 12/06/20 06/29/23 History gram/dose oral powder psyllium husk (with sugar) 3.4 1 tbsp PO BID CONSTIPATION 12/06/20 06/29/23 Hi story gram/12 gram oral powder pantoprazole 20 mg tablet,delayed 20 mg PO DAILY stomach 08/21/21 06/29/23 History release tamsulosin 0.4 mg capsule 0.4 mg PO DAILY kidneys 08/21/21 06/29/23 History cetirizine 10 mg tablet 10 mg PO DAILY 09/05/21 06/29/23 History docusate sodium 50 mg/5 mL oral 50 mg PO DAILY 09/05/21 06/29/23 History liquid (Docu) sennosides 8.8 mg/5 mL oral syrup 8.8 mg PO DAILY 09/05/21 06/29/23 History (senna) azelastine 137 mcg (0.1 %) nasal 2 spray intranasal DAILY use at 09/12/22 06/29/23 Rx spray aerosol night before bed #30 mL calcium 500 mg-D3 12.5 mcg-mag 20 15 ml PO DAILY 03/12/23 06/29/23 History mg-boron 125 mcg/15 mL oral liquid mecobalamin (vitamin B12) 500 mcg 500 mcg PO DAILY 03/12/23 06/29/23 History chewable tablet New Prescriptions to Start Prescriptions: Height: 1.32 m Weight: 49.895 kg Laboratory Results:: Laboratory Results - last 24 hr 06/29/23 05:28: WBC 7.3, RBC 4.09 L, Hgb 13.5, Hct 40.5, MCV 98.9, MCH 33.0 H, MCHC 33.4, RDW 13.6, Plt Count 401, MPV 7.2 L, Neut % (Auto) 90.5 H, Lymph % (Auto) 7.5 L, [place] % (Auto) 1.6 L, Eos % (Auto) 0.2, Baso % (Auto) 0.2, Neut # (Auto) 6.6, Lymph # (Auto) 0.5 L, [place] # (Auto) 0.1, Eos # (Auto) 0.0, Baso # (Auto) 0.0, Total Counted 100, Neutrophils % (Manual) 90 H, Lymphocytes % (Manual) 9 L, Monocytes % (Manual) 1 L, Platelet Estimate Normal, Macrocytosis 1+, Sodium 133 L, Potassium 4.1, Chloride 98, Carbon Dioxide 24, Anion Gap 15.1 H, BUN 19 H, Creatinine 0.80, Estimated Creat Clear 47, Estimated GFR 73, Est GFR ( Amer) 88, Glucose 186 H, Lactate 2.7 H, Calcium 8.5, Total Bilirubin 0.5, AST 33, ALT 30, Alkaline Phosphatase 113, Troponin I < 0.01, Total Protein 6.8, Albumin 3.4 L, Globulin 3.4 H, Albumin/Globulin Ratio 1.0 L, Lipase 68 06/29/23 05:44: VBG pH 7.34, VBG pCO2 43.5, VBG pO2 42.4 H, VBG HCO3 23.0, VBG Total CO2 24.3, VBG O2 Saturation 75.1 H, VBG Base Excess -2.8 L 06/29/23 05:54: Urine Color Yellow, Urine Appearance Clear, Urine pH 6.0, Ur Specific [place] 1.015, Urine Protein Negative, Urine Glucose (UA) Negative, Urine Ketones Negative, Urine Blood Negative, Urine Nitrate Negative, Urine Bilirubin Negative, Urine Urobilinogen 0.2, Ur Leukocyte Esterase Negative, Urine RBC None, Urine WBC 3-5, Ur Squamous Epith Cells Occasional, Urine B acteria None 06/29/23 06:15: SARS-CoV-2 (PCR) Not detected, Influenza A Untype (PCR) Not detected, Influenza Type B (PCR) Not detected Medical History: Medical History (Updated 06/29/23 @ 07:01 by Whitney Ramirez DO) Bilateral impacted cerumen Down syndrome GERD with esophagitis Hypertrophy of nasal turbinates Hyponatremia Impacted cerumen of left ear Type 2 diabetes mellitus with hyperglycemia, without long-term current use of insulin Assessment and Plan Assessment and plan all Dx Assessment and Plan for all problems:: Pharmacokinetic dosing service Objective: Patient: Floor: Age: 62 yo Serum creatinine: 0.80 mg/dL Height: 52.0 Inches Weight (kg): 49.9 Assessment: IBW (kg): 39.44 Dosing wt(kg): 49.9 Estimated Creatinine clearance (ml/min): 46.0 CRCL method: Cockcroft and Gault using ibw(default). Drug selected: Vancomycin Loading dose (mg): Vd (liters): 39.9 (factor used: 0.8 L/kg) Edin (hr-1): 0.043 Half life (hrs): 16.12 CLvanco=?? 1.716 L/hr Recommended dose: 1000 mg Interval: 24 hrs Infusion time (hrs): 2.0 Predicted peak (mcg/mL): 37.3 Predicted trough (mcg/mL): 14.48 Total body weight is being used for vancomycin dosing. Recommendations: Give Vancomycin 1000 mg q 24 hrs with an expected Cpeak of 37.3 mcg/ml and an expected Ctrough of 14.48 mcg/ml AUC 0-24 /JAS Data: JAS 0.5 mcg/mL:?? AUC/JAS:? 1165.5 JAS 1.0 mcg/mL:?? AUC/JAS:? 582.8 --------- JAS 1.5 mcg/mL:?? AUC/JAS:? 388.5 JAS 2.0 mcg/mL:?? AUC/JAS:? 291.4 Thank you for the consult, will continue to follow. -IRENE PURVIS, CARRID
--- NOTE | 2023-06-29 09:38 | PC.NURSE ---
on phone with hospitalist
[2023-06-29 09:39] LABS: Reflex Lactic Add Lactic Reflex
--- NOTE | 2023-06-29 09:39 | PC.NURSE ---
call made to dry house tender for bed assignment
--- NOTE | 2023-06-29 09:55 | PC.NURSE ---
report called to hugh leija on second floor
--- NOTE | 2023-06-29 10:03 | PC.NURSE ---
arrived by stretcher from ED
--- NOTE | 2023-06-29 10:05 | HMH.PHAINT1 ---
Pharmacy Intervention Comments: MEDICATION RECONCILIATION COMPLETED ON PATIENT USING EXTERNAL FILL HISTORY FROM PHARMACY. -IRENE PURVIS, CARRID
--- NOTE | 2023-06-29 11:14 | PC.NURSE ---
Pt is non verbal and unable to answer question regarding orientation. pt does follow requests/directions. pt is aware of when she needs to go to the restroom per sister
[2023-06-29] MEDS: HEPARIN SODIUM 5,000 UNIT/ML VIAL 5000 UNIT SQ ×2 (13:36→20:29)
[2023-06-29 16:56] LABS: POC Glucose,Bedside 250 (70-110)
--- NOTE | 2023-06-29 17:00 | PC.NURSE ---
[address] Jacinto about pt sister being concerned with the number of needle sticks/pokes pt is receiving. pt does not comprehend situation and could become fearful of staff performing care. pt fsbs is 250 at this time, does not have fsbs with insulin ordered and is a diabetic who takes metformin at home. pt family does not perform fsbs at home, instead they rely on blood work from md office. MD states he will review pt order and enter as needed. no new orders for RN
[2023-06-29 17:09] LABS: Lactic Acid Follow Up (RFLX 1) 2.8 mmol/L (0.7-2.1)
--- NOTE | 2023-06-29 17:19 | EXP.HP ---
History of Present Illness *Admission Date: 06/29/23 *Reason for visit:: Agitation *History of present illness: Patient is a 62-year-old female with past medical history of Down syndrome diabetes mellitus who presented to hospital for not feeling well. According to the patient's sister at the bedside patient has been screaming and agitated. Patient is nonverbal at baseline. Patient was further evaluated in the emergency department which did show pulmonary infiltrates. Patient was a started on 2 L nasal cannula, patient was also noted to have low blood pressure and was started on Levophed. [facility] Disclaimer: The information contained in this section may have been updated after the patient was seen, as this information can be updated by other users. Medical History Bilateral impacted cerumen Down syndrome GERD with esophagitis Hypertrophy of nasal turbinates Hyponatremia Impacted cerumen of left ear Type 2 diabetes mellitus with hyperglycemia, without long-term current use of insulin Surgical History H/O mastoidectomy Family History Other Cancer Hyperlipidemia Hypertension Social History (Updated 06/29/23 @ 11:22 by Quynh Fuentes RN) Smoking Status: Never smoker second hand exposure: No alcohol intake: never counseling provided: none substance use type: denies use current occupational status: disabled Travel in the last 8 weeks: None household members: family housing: house current occupational exposures/hazards: No caffeine: No Review of Systems Review of Systems Review of systems (narrative): as per HPI Meds Home Medications and Allergies Home Medications Medication Instructions Recorded Confirmed Type aspirin 81 mg tablet,delayed 81 mg PO DAILY Heart health 07/25/17 06/29/23 History release (Adult Low Dose Aspirin) atorvastatin 10 mg tablet 10 mg PO HS Cholesterol 30 days 07/25/17 06/29/23 History beclomethasone dipropionate 80 1 - 2 spr intranasal DAILY Allergy 07/25/17 06/29/23 History mcg/actuation nasal HFA inhaler symptoms 30 days ##8 levothyroxine 75 mcg tablet 75 mcg PO DAILY hypothyroidism 30 07/25/17 06/29/23 History days metformin 500 mg tablet 500 mg PO BID Diabetes 90 days 07/25/17 06/29/23 History montelukast 10 mg tablet 10 mg PO PM Allergy symptoms 30 11/28/17 06/29/23 History days ##30 olopatadine 0.1 % eye drops 1 drp ophthalmic (eye) BIDP PRN 04/21/20 06/29/23 History allergy symptoms polyethylene glycol 3350 17 1 cap PO BID CONSTIPATION 12/06/20 06/29/23 History gram/dose oral powder psyllium husk (with sugar) 3.4 1 tbsp PO BID CONSTIPATION 12/06/20 06/29/23 History gram/12 gram oral powder pantoprazole 20 mg tablet,delayed 20 mg PO DAILY Acid Reflux 08/21/21 06/29/23 History release tamsulosin 0.4 mg capsule 0.4 mg PO DAILY Bladder 08/21/21 06/29/23 History cetirizine 10 mg tablet 10 mg PO DAILY Allergy Symptoms 09/05/21 06/29/23 History docusate sodium 50 mg/5 mL oral 50 mg PO DAILY 09/05/21 06/29/23 History liquid (Docu) sennosides 8.8 mg/5 mL oral syrup 8.8 mg PO DAILY Constipation 09/05/21 06/29/23 History (senna) calcium 500 mg-D3 12.5 mcg-mag 20 15 ml PO DAILY 03/12/23 06/29/23 History mg-boron 125 mcg/15 mL oral liquid mecobalamin (vitamin B12) 500 mcg 500 mcg PO DAILY 03/12/23 06/29/23 History chewable tablet azelastine 137 mcg (0.1 %) nasal 2 spray intranasal HS Allergy 06/29/23 06/29/23 History spray aerosol Symptoms docusate sodium 50 mg/5 mL oral 50 mg PO DAILY Constipation 06/29/23 06/29/23 History liquid New Prescriptions to Start Prescriptions: Allergies Allergy/AdvReac Type Severity Reaction Status Date / Time bacitracin [BACITRACIN] Allergy Unknown Verified 06/29/23 11:12 codeine [CODEINE] Allergy Unknown Verified 06/29/23 11:12 Penicillins [PENICILLINS] Allergy Unknown Verified 06/29/23 11:12 Exam Data for Last 24 hours Vital signs and Labs for Last 24 Hours: Temp Pulse Resp BP Pulse Ox O2 Del Method O2 Flow Rate 98.9 F 64 16 107/56 L 96 Room Air 2 06/29/23 15:15 06/29/23 17:00 06/29/23 17:00 06/29/23 17:00 06/29/23 17:00 06/29/23 17:00 06/29/23 14:00 Laboratory Results - last 24 hr 06/29/23 05:28: WBC 7.3, RBC 4.09 L, Hgb 13.5, Hct 40.5, MCV 98.9, MCH 33.0 H, MCHC 33.4, RDW 13.6, Plt Count 401, MPV 7.2 L, Neut % (Auto) 90.5 H, Lymph % (Auto) 7.5 L, [place] % (Auto) 1.6 L, Eos % (Auto) 0.2, Baso % (Auto) 0.2, Neut # (Auto) 6.6, Lymph # (Auto) 0.5 L, [place] # (Auto) 0.1, Eos # (Auto) 0.0, Baso # (Auto) 0.0, Total Counted 100, Neutrophils % (Manual) 90 H, Lymphocytes % (Manual) 9 L, Monocytes % (Manual) 1 L, Platelet Estimate Normal, Macrocytosis 1+, Sodium 133 L, Potassium 4.1, Chloride 98, Carbon Dioxide 24, Anion Gap 15.1 H, BUN 19 H, Creatinine 0.80, Estimated Creat Clear 47, Estimated GFR 73, Est GFR ( Amer) 88, Glucose 186 H, Lactate 2.7 H, Calcium 8.5, Total Bilirubin 0.5, AST 33, ALT 30, Alkaline Phosphatase 113, Troponin I < 0.01, Total Protein 6.8, Albumin 3.4 L, Globulin 3.4 H, Albumin/Globulin Ratio 1.0 L, Lipase 68 06/29/23 05:44: VBG pH 7.34, VBG pCO2 43.5, VBG pO2 42.4 H, VBG HCO3 23.0, VBG Total CO2 24.3, VBG O2 Saturation 75.1 H, VBG Base Excess -2.8 L 06/29/23 05:54: Urine Color Yellow, Urine Appearance Clear, Urine pH 6.0, Ur Specific [place] 1.015, Urine Protein Negative, Urine Glucose (UA) Negative, Urine Ketones Negative, Urine Blood Negative, Urine Nitrate Negative, Urine Bilirubin Negative, Urine Urobilinogen 0.2, Ur Leukocyte Esterase Negative, Urine RBC None, Urine WBC 3-5, Ur Squamous Epith Cells Occasional, Urine Bacteria None 06/29/23 06:15: SARS-CoV-2 (PCR) Not detected, Influenza A Untype (PCR) Not detected, Influenza Type B (PCR) Not detected 06/29/23 16:28: POC Glucose 250 H 06/29/23 16:45: Lactate 2.8 H I & O for Last 24 hours: Intake & Output 06/26/23 06/27/23 06/28/23 06/29/23 23:59 23:59 23:59 23:59 Intake Total 1489.484 / 1489.484 Output Total 700 / 700 Balance 789.484 / 789.484 Weight 50.802 kg Constitutional Constitutional: no acute distress *Routine HEENT Exam Head: Present normocephalic Eye: Present EOMI and PERRL ENT: Present mucous membranes moist *Routine Neck Exam Neck: Present supple; Absent lymphadenopathy *Routine Respiratory Exam Respiratory: Present CTA bilaterally *Routine Cardiovascular Exam Cardiovascular: Present RRR *Routine Abdominal Exam Abdominal: Present soft and normoactive bowel sounds; Absent tenderness *Routine Rectal Exam Rectal:: deferred *Routine Genitalia Exam Genitalia:: deferred *Routine Extremities Exam Extremities: Absent cyanosis, clubbing or edema *Routine Skin Exam Skin: Present warm; Absent rash *Routine Neurological Exam Neurological: Present alert and oriented X3 Assessment and Plan *Assessment and plan (1) Septic shock: Status: Acute Category: Medical Code(s): A41.9 - Sepsis, unspecified organism; R65.21 - Severe sepsis with septic shock (2) Pneumonia: Status: Acute Qualifiers: Pneumonia type: aspiration pneumonia Category: Medical Code(s): J18.9 - Pneumonia, unspecified organism (3) Acute hypoxemic respiratory failure: Status: Acute Category: Medical Code(s): J96.01 - Acute respiratory failure with hypoxia (4) Type 2 diabetes mellitus with hyperglycemia, without long-term current use of insulin: Status: Chronic Category: Medical Code(s): E11.65 - Type 2 diabetes mellitus with hyperglycemia (5) Hyponatremia: Status: Acute Category: Medical Code(s): E87.1 - Hypo-osmolality and hyponatremia Plan Patient is a 62-year-old female with past medical history of Down syndrome diabetes mellitus who presented to hospital for not feeling well. According to the patient's sister at the bedside patient has been screaming and agitated. Patient is nonverbal at baseline. Patient was further evaluated in the emergency department which did show pulmonary infiltrates. Patient was a started on 2 L nasal cannula, patient was also noted to have low blood pressure and was started on Levophed. Assessment Septic shock present on admission likely secondary to pneumonia Pneumonia presumed gram-positive organism Lactic acidosis Acute hypoxic respiratory failure satting less than 90% on room air Chronic hyponatremia Hyperglycemia Down syndrome Plan Started on vancomycin, cefepime, Flagyl on levophed, continue IVF Check blood cultures Check PCT UA was checked-negative for UTI DuoNeb as needed Monitor and replace electrolytes Monitor lactic acid Sliding scale Hold home metformin DVT prophylaxis-heparin
[2023-06-29] MEDS: TAMSULOSIN 0.4MG CAPSULE 0.400000000000000022 MG PO (17:48)
[2023-06-29] MEDS: LORATADINE 10MG TABLET 10 MG PO (17:48)
[2023-06-29] MEDS: ASPIRIN EC 81MG TABLET 81 MG PO (17:49)
[2023-06-29 18:26] LABS: Adenovirus F 40/41, stool Not Detected (NotDetected); Astrovirus Not Detected (NotDetected); Campylobacter Not Detected (NotDetected); Clostridium Difficile A/B, PCR Not Detected (NotDetected); Cryptosporidium Not Detected (NotDetected); Cyclospora Cayetanesis Not Detected (NotDetected); Entamoeba histolytica Not Detected (NotDetected); Enteroaggregative E coli Not Detected (NotDetected); Enteropathogenic E coli Not Detected (NotDetected); Enterotoxigenic E coli Not Detected (NotDetected); Giardia lamblia Not Detected (NotDetected); Plesimonas Shigalloides, PCR Not Detected (NotDetected); Rotavirus A Not Detected (NotDetected); Salmonella, PCR Not Detected (NotDetected); Shiga-like toxin E coli Not Detected (NotDetected); Shigella Enterovasive E coli Not Detected (NotDetected); Vibrio Cholerae Not Detected (NotDetected); Vibrio, PCR Not Detected (NotDetected); Yersinia Entercolitica, PCR Not Detected (NotDetected)
[2023-06-29 19:04] LABS: Reflex Lactic (2 hrs) Add Lactic Reflex
[2023-06-29] MEDS: MONTELUKAST SODIUM 10MG TAB 10 MG PO (20:29)
[2023-06-29] MEDS: humaLOG 100 UNITS/ML 3ML VIAL (SSI) SQ (20:32)
[2023-06-29] MEDS: ATORVASTATIN 10MG TABLET 10 MG PO (20:33)
[2023-06-29 20:46] LABS: POC Glucose,Bedside 250 (70-110)
[2023-06-29 21:02] LABS: Lactic Acid Follow up (RFLX 2) 2.4 mmol/L (0.7-2.1)
[2023-06-29] MEDS: MELATONIN 5MG TABLET 10 MG PO (23:10)
[2023-06-30] VITALS (42 sets, daily range): BP systolic 74–128; BP diastolic 37–73; PULSE 50–88; RESP 16–22; TEMP 36.4–38.8; O2SAT 86–99; BMI 30.1
[2023-06-30] MEDS: LACTATED RINGERS 1000ML 1,000 ML 150 ML IV ×2 (02:52→14:02)
[2023-06-30] MEDS: NOREPINEPHRINE BITARTRATE 8 MG in DEXTROSE 5 % IN WATER 250 ML 13.5500000000000007 MG IV (02:52)
[2023-06-30] MEDS: CEFEPIME HCL 2 GM in 0.9 % SODIUM CHLORIDE 100 ML IV ×2 (05:03→18:42)
[2023-06-30] MEDS: METRONIDAZ/SOD CHL 500 MG/100 ML PIGGYBACK 100 MG IV ×3 (05:59→21:30)
[2023-06-30] MEDS: humaLOG 100 UNITS/ML 3ML VIAL (SSI) SQ ×2 (06:28→12:11)
[2023-06-30 06:33] LABS: POC Glucose,Bedside 157 (70-110)
--- NOTE | 2023-06-30 06:34 | PC.NURSE ---
Shift summary: Pt nonverbal, but followed commands throughout night. Sister at bedside and informed of medication regimen and plan. Pt temperature elevated at beginning of shift, normothermic on last VS. Pt NE gtt increased to 6 mcg/min to maintain MAP >65, tolerating well. Pt maintained on regular voiding schedule to , tolerated well. Pt increased anxiety and agitation with needlesticks, especially in ABD, requiring encouraging from sister and staff development educator. Pt unable to verbalize any discomfort or needs. Nonverbal cues and pt behaviors assessed on rounding and conferred with sister. No other acute events or issues overnight. Call light within reach, fall precautions in place.
[2023-06-30] MEDS: VANCOMYCIN HCL 1,000 MG in 0.9 % SODIUM CHLORIDE 250 ML 125 MG IV (06:46)
[2023-06-30 07:29] LABS: Anion Gap 6.9 mEq/L (5-15); Blood Urea Nitrogen 8 mg/dl (7-17); Calcium 7.7 mg/dl (8.4-10.2); Carbon Dioxide 27 mmol/L (22.0-30.0); Chloride 99 mmol/L (98-107); Creatinine Clearance Estimated 49 mL/min (50-200); Estimated Glomerular Filt Rate 85 ml/min (>60); GFR (African American) 103 ML/MIN (>60); Glucose 150 mg/dl (74-100); Potassium 3.9 mmoL/L (3.5-5.1); Sodium 129 mmol/L (136-145)
[2023-06-30 07:33] LABS: Basophils # 0.1 K/mm3 (0-0.2); Basophils % 0.4 % (0.1-2.0); Hemoglobin 11.4 g/dL (12.2-16.2); Lymphocytes % 5.1 % (10-50); Mean Corpuscular HGB Conc 32.6 g/dL (31.8-35.4); Mean Corpuscular Hemoglobin 32.8 pg (27.0-31.2); Mean Corpuscular Volume 100.5 fl (81-99); Mean Platelet Volume 8.9 fl (7.4-10.4); Monocytes # 0.4 K/mm3 (0.1-1.0); Monocytes % 2.3 % (1.7-9.3); Neutrophils # 17.2 K/mm3 (1.8-7.8); Neutrophils % 92.3 % (37.0-80.0); Platelet Count 334 K/mm3 (142-424); Red Blood Count 3.48 M/mm3 (4.20-5.40); Red Cell Distribution Width 13.8 % (11.5-17.5); White Blood Count 18.6 K/mm3 (4.8-10.8)
--- NOTE | 2023-06-30 07:40 | PC.NURSE ---
at start of shift pt levophed infusing at 6mcg. titration on aug updated to show current rate.
[2023-06-30 08:26] LABS: MANUAL DIFFERENTIAL MANUAL DIFFERENTIAL (MANUAL DIFF)
[2023-06-30] MEDS: ASPIRIN EC 81MG TABLET 81 MG PO (09:03)
[2023-06-30] MEDS: LORATADINE 10MG TABLET 10 MG PO (09:03)
[2023-06-30] MEDS: TAMSULOSIN 0.4MG CAPSULE 0.400000000000000022 MG PO (09:03)
[2023-06-30] MEDS: LEVOTHYROXINE 75MCG (0.075MG) TAB 75 MCG PO (09:03)
[2023-06-30] MEDS: NOREPINEPHRINE BITARTRATE 8 MG in 0.9 % SODIUM CHLORIDE 250 ML 11.6099999999999994 MG IV (09:05)
[2023-06-30 09:43] LABS: Lymphocytes % 2 % (10-50); Macrocytosis 1+; Neutrophils % 98 % (42-76); Platelet Estimate Normal; Total Cells Counted 100
--- NOTE | 2023-06-30 10:03 | PC.NURSE ---
Pt home meds that have been ordered are unavailable at this time, pt family to bring meds in this afternoon.
[2023-06-30 12:24] LABS: POC Glucose,Bedside 212 (70-110)
[2023-06-30] MEDS: PANTOPRAZOLE 20 MG 20 EACH PO (14:13)
[2023-06-30] MEDS: BECLOMETHASONE DIPROPIONATE NS (14:14)
[2023-06-30] MEDS: VITAMIN B12 500 EACH PO (14:14)
[2023-06-30] MEDS: [UNRECOGNIZED DRUG - OTHER] NS (14:14)
--- NOTE | 2023-06-30 17:12 | EXP.PN ---
Subjective *Date: 06/30/23 *Time: 17:12 Interval history: seen at bedside, sister at bedside, no questions, no acute events overnight reproted except agitation during Heparin SC Exam Data for Last 24 hours Vital signs and Labs for Last 24 Hours: Temp Pulse Resp BP Pulse Ox O2 Del Method O2 Flow Rate 99.0 F 57 L 16 116/57 L 97 Room Air 1 06/30/23 15:50 06/30/23 16:00 06/30/23 15:00 06/30/23 15:00 06/30/23 16:00 06/30/23 16:00 06/30/23 06:00 Laboratory Results - last 24 hr 06/29/23 20:21: POC Glucose 250 H 06/29/23 20:45: Lactate 2.4 H 06/30/23 06:25: WBC 18.6 H D, RBC 3.48 L, Hgb 11.4 L, Hct 35.0 L, MCV 100.5 H, MCH 32.8 H, MCHC 32.6, RDW 13.8, Plt Count 334, MPV 8.9, Neut % (Auto) 92.3 H, Lymph % (Auto) 5.1 L, [place] % (Auto) 2.3, Eos % (Auto) 0.0 L, Baso % (Auto) 0.4, Neut # (Auto) 17.2 H, Lymph # (Auto) 1.0, [place] # (Auto) 0.4, Eos # (Auto) 0.0, Baso # (Auto) 0.1, Total Counted 100, Neutrophils % (Manual) 98 H, Lymphocytes % (Manual) 2 L, Platelet Estimate Normal, Macrocytosis 1+, Sodium 129 L, Potassium 3.9, Chloride 99, Carbon Dioxide 27, Anion Gap 6.9, BUN 8 D, Creatinine 0.70, Estimated Creat Clear 49, Estimated GFR 85, Est GFR ( Amer) 103, Glucose 150 H, POC Glucose 157 H, Calcium 7.7 L 06/30/23 12:05: POC Glucose 212 H I & O for Last 24 hours: Intake & Output 06/27/23 06/28/23 06/29/23 06/30/23 23:59 23:59 23:59 23:59 Intake Total 2399.126 / 2597.211 3044.996 / 3044.996 Output Total 2550 / 2550 1949 / 1949 Balance -150.874 / 47.211 1094.996 / 1094.996 Weight 50.802 kg 52.5 kg Constitutional Constitutional: no acute distress *Routine HEENT Exam Head: Present normocephalic Eye: Present EOMI and PERRL ENT: Present mucous membranes moist *Routine Neck Exam Neck: Present supple; Absent lymphadenopathy *Routine Respiratory Exam Respiratory: Present CTA bilaterally *Routine Cardiovascular Exam Cardiovascular: Present RRR *Routine Abdominal Exam Abdominal: Present soft and normoactive bowel sounds; Absent tenderness *Routine Extremities Exam Extremities: Absent cyanosis, clubbing or edema *Routine Skin Exam Skin: Present warm; Absent rash *Routine Neurological Exam Neurological: Present alert Comments: [email or web address] Assessment and Plan *Assessment and plan (1) Septic shock: Status: Acute Category: Medical Code(s): A41.9 - Sepsis, unspecified organism; R65.21 - Severe sepsis with septic shock (2) Pneumonia: Status: Acute Qualifiers: Pneumonia type: aspiration pneumonia Category: Medical Code(s): J18.9 - Pneumonia, unspecified organism (3) Acute hypoxemic respiratory failure: Status: Acute Category: Medical Code(s): J96.01 - Acute respiratory failure with hypoxia (4) Type 2 diabetes mellitus with hyperglycemia, without long-term current use of insulin: Status: Chronic Category: Medical Code(s): E11.65 - Type 2 diabetes mellitus with hyperglycemia (5) Hyponatremia: Status: Acute Category: Medical Code(s): E87.1 - Hypo-osmolality and hyponatremia Plan Patient is a 62-year-old female with past medical history of Down syndrome diabetes mellitus who presented to hospital for not feeling well. According to the patient's sister at the bedside patient has been screaming and agitated. Patient is nonverbal at baseline. Patient was further evaluated in the emergency department which did show pulmonary infiltrates. Patient was a started on 2 L nasal cannula, patient was also noted to have low blood pressure and was started on Levophed. Assessment Septic shock present on admission likely secondary to pneumonia Pneumonia presumed gram-positive organism Lactic acidosis Acute hypoxic respiratory failure satting less than 90% on room air Chronic hyponatremia Hyperglycemia Down syndrome Plan Started on vancomycin, cefepime, Flagyl on levophed, continue IVF Check blood cultures Check PCT UA was checked-negative for UTI DuoNeb as needed Monitor and replace electrolytes Monitor lactic acid Sliding scale Hold home metformin DVT prophylaxis-heparin continue current treatment, wean levophed
[2023-06-30 17:46] LABS: POC Glucose,Bedside 177 (70-110)
[2023-06-30] MEDS: ONDANSETRON 4MG/2ML VIAL 4 MG IV (17:59)
[2023-06-30] MEDS: MONTELUKAST SODIUM 10MG TAB 10 MG PO (18:42)
--- NOTE | 2023-06-30 19:45 | PC.NURSE ---
At start of shift Levo GTT is paused. Patients SBP is maintaing >90 at this time.
[2023-06-30] MEDS: ACETAMINOPHEN 325MG TAB 650 MG PO (20:37)
[2023-06-30] MEDS: MELATONIN 5MG TABLET 10 MG PO (20:38)
[2023-06-30] MEDS: ATORVASTATIN 10MG TABLET 10 MG PO (20:38)
[2023-06-30] MEDS: AZELASTINE NASAL SPRAY 30ML BOTTLE NS (20:38)
--- NOTE | 2023-06-30 21:29 | PC.NURSE ---
Patient has been changed to step down status
--- NOTE | 2023-06-30 21:52 | PC.NURSE ---
Addendum entered by Bobbi Velazquez RN 06/30/23 21:54: JODIE Barrientos Original Note: Levophed GTT had to be resumed patients systolic blood pressure maintaining <90. Currently 77/37 (51). Patient is resting at this time. JODIE Rivas has been notified.
--- NOTE | 2023-06-30 22:01 | PC.NURSE ---
New orders recieved to give patient a 500ML bolus of NS and monitor BP, hold on levophed at this time. Orders recieved from JAVID Cueto
[2023-06-30] MEDS: 0.9 % SODIUM CHLORIDE 500 ML IV (22:06)
--- NOTE | 2023-06-30 22:10 | PC.NURSE ---
Patient desated to 85-86% von room air. 2LNC was applied oxygen maintaing >90% Current sats are 94% on the 2LNC. Patient is asleep resting well, easily arousable. Sister remains at bedside
--- NOTE | 2023-06-30 23:15 | PC.NURSE ---
low bp, spoke with Iliana Wagoner new order to restart levaphed and change status to icu.
[2023-07-01] VITALS (25 sets, daily range): BP systolic 81–135; BP diastolic 47–68; PULSE 50–84; RESP 16–22; TEMP 36.6–37.3; O2SAT 90–97; BMI 30.1
[2023-07-01] MEDS: LACTATED RINGERS 1000ML 1,000 ML 100 ML IV ×2 (05:25→18:22)
[2023-07-01] MEDS: CEFEPIME HCL 2 GM in 0.9 % SODIUM CHLORIDE 100 ML IV ×2 (06:11→18:20)
[2023-07-01] MEDS: METRONIDAZ/SOD CHL 500 MG/100 ML PIGGYBACK 100 MG IV (06:11)
[2023-07-01 06:20] LABS: POC Glucose,Bedside 144 (70-110)
[2023-07-01 06:21] LABS: POC Glucose,Bedside 141 (70-110)
[2023-07-01] MEDS: LEVOTHYROXINE 75MCG (0.075MG) TAB 75 MCG PO (06:49)
[2023-07-01] MEDS: VANCOMYCIN HCL 1,000 MG in 0.9 % SODIUM CHLORIDE 250 ML 125 MG IV (06:49)
--- NOTE | 2023-07-01 06:52 | PC.NURSE ---
Patient has rested well throughout the shift. As previous notes state patient was restarted on levophed GTT to maintain systolic >90 and oxygen had to be applied to maintain sats >90%. This morning patient is awake, smiling and blood pressures have improved. Levophed is currently being titrated back down currently at 1mcg/min. Patient has been to the bathroom three times with adequate urine output. No BM this shift. Lung sounds are still diminished and expiratory wheezing is present.
[2023-07-01 06:59] LABS: Basophils # 0.1 K/mm3 (0-0.2); Basophils % 0.3 % (0.1-2.0); Eosinophils # 0.1 K/mm3 (0.0-0.4); Eosinophils % 0.3 % (0.1-12.0); Hematocrit 31.6 % (37.0-47.0); Hemoglobin 10.5 g/dL (12.2-16.2); Lymphocytes % 7.1 % (10-50); Mean Corpuscular HGB Conc 33.2 g/dL (31.8-35.4); Mean Corpuscular Hemoglobin 33.6 pg (27.0-31.2); Mean Corpuscular Volume 101.1 fl (81-99); Mean Platelet Volume 8.4 fl (7.4-10.4); Monocytes # 0.3 K/mm3 (0.1-1.0); Monocytes % 1.8 % (1.7-9.3); Neutrophils # 12.2 K/mm3 (1.8-7.8); Neutrophils % 90.4 % (37.0-80.0); Platelet Count 316 K/mm3 (142-424); Red Blood Count 3.12 M/mm3 (4.20-5.40); Red Cell Distribution Width 14.1 % (11.5-17.5); White Blood Count 13.5 K/mm3 (4.8-10.8)
[2023-07-01 07:08] LABS: Anion Gap 1.6 mEq/L (5-15); Blood Urea Nitrogen 6 mg/dl (7-17); Calcium 7.6 mg/dl (8.4-10.2); Carbon Dioxide 27 mmol/L (22.0-30.0); Chloride 103 mmol/L (98-107); Creatinine Clearance Estimated 49 mL/min (50-200); Estimated Glomerular Filt Rate 102 ml/min (>60); GFR (African American) 123 ML/MIN (>60); Glucose 149 mg/dl (74-100); MANUAL DIFFERENTIAL MANUAL DIFFERENTIAL (MANUAL DIFF); Potassium 3.6 mmoL/L (3.5-5.1); Sodium 128 mmol/L (136-145)
[2023-07-01 08:51] LABS: Eosinophils % 2 % (0-3); Lymphocytes % 6 % (10-50); Monocytes % 3 % (2-9); Neutrophils % 77 % (42-76); Total Cells Counted 100
[2023-07-01 09:02] LABS: RBC Morphology Normal
[2023-07-01 09:03] LABS: Platelet Estimate Normal
[2023-07-01] MEDS: ASPIRIN EC 81MG TABLET 81 MG PO (09:29)
[2023-07-01] MEDS: BECLOMETHASONE DIPROPIONATE NS (09:29)
[2023-07-01] MEDS: [UNRECOGNIZED DRUG - OTHER] NS (09:29)
[2023-07-01] MEDS: LORATADINE 10MG TABLET 10 MG PO (09:30)
[2023-07-01] MEDS: VITAMIN B12 500 EACH PO (09:30)
[2023-07-01] MEDS: ENOXAPARIN 40MG/0.4ML SYRINGE 40 MG SQ (09:30)
[2023-07-01] MEDS: PANTOPRAZOLE 20 MG 20 EACH PO (09:30)
[2023-07-01] MEDS: POLYETHYLENE GLYCOL 3350 17 GM PACKET PO (09:30)
[2023-07-01] MEDS: humaLOG 100 UNITS/ML 3ML VIAL (SSI) SQ ×2 (11:16→20:54)
[2023-07-01] MEDS: metroNIDAZOLE 500 MG TABLET PO ×2 (13:46→20:54)
[2023-07-01 13:51] LABS: POC Glucose,Bedside 218 (70-110)
--- NOTE | 2023-07-01 14:37 | P.PN_ITS ---
Subjective *Date: 07/01/23 *Time: 14:37 Interval history: Patient was seen and evaluated at the bedside. more alert and awake today, No reported acute events overnight, denies chest pain, shortness of breath, nausea, vomiting, abdominal pain. Exam Data for Last 24 hours Vital signs and Labs for Last 24 Hours: Temp Pulse Resp BP Pulse Ox O2 Del Method O2 Flow Rate 98 F 72 16 113/63 94 L Room Air 2 07/01/23 12:54 07/01/23 13:00 07/01/23 13:00 07/01/23 13:00 07/01/23 13:00 07/01/23 13:00 07/01/23 08:00 Laboratory Results - last 24 hr 06/30/23 16:40: POC Glucose 177 H 06/30/23 21:40: POC Glucose 144 H 07/01/23 05:52: WBC 13.5 H D, RBC 3.12 L, Hgb 10.5 L, Hct 31.6 L, MCV 101.1 H, MCH 33.6 H, MCHC 33.2, RDW 14.1, Plt Count 316, MPV 8.4, Neut % (Auto) 90.4 H, Lymph % (Auto) 7.1 L, [place] % (Auto) 1.8, Eos % (Auto) 0.3, Baso % (Auto) 0.3, Neut # (Auto) 12.2 H, Lymph # (Auto) 1.0, [place] # (Auto) 0.3, Eos # (Auto) 0.1, Baso # (Auto) 0.1, Total Counted 100, Neutrophils % (Manual) 77 H, Band Neutrophils % 12.0 H, Lymphocytes % (Manual) 6 L, Monocytes % (Manual) 3, Eosinophils % (Manual) 2, Platelet Estimate Normal, RBC Morphology Normal, Sodium 128 L, Potassium 3.6, Chloride 103, Carbon Dioxide 27, Anion Gap 1.6 L, BUN 6 L, Creatinine 0.60, Estimated Creat Clear 49, Estimated GFR 102, Est GFR ( Amer) 123, Glucose 149 H, Calcium 7.6 L 07/01/23 06:14: POC Glucose 141 H 07/01/23 11:13: POC Glucose 218 H I & O for Last 24 hours: Intake & Output 06/28/23 06/29/23 06/30/23 01/08/24 23:59 23:59 23:59 23:59 Intake Total 2399.126 / 2597.211 4689.854 / 4793.054 2867.335 / 2867.335 Output Total 2550 / 2550 2300 / 2300 1300 / 1300 Balance -150.874 / 47.211 2389.854 / 2493.054 1567.335 / 1567.335 Weight 50.802 kg 52.5 kg 52.5 kg Constitutional Constitutional: no acute distress *Routine HEENT Exam Head: Present normocephalic Eye: Present EOMI and PERRL ENT: Present mucous membranes moist *Routine Neck Exam Neck: Present supple; Absent lymphadenopathy *Routine Respiratory Exam Respiratory: Present CTA bilaterally *Routine Cardiovascular Exam Cardiovascular: Present RRR *Routine Abdominal Exam Abdominal: Present soft and normoactive bowel sounds; Absent tenderness *Routine Extremities Exam Extremities: Absent cyanosis, clubbing or edema *Routine Skin Exam Skin: Present warm; Absent rash *Routine Neurological Exam Neurological: Present alert Comments: [email or web address] Assessment and Plan *Assessment and plan (1) Septic shock: Status: Acute Category: Medical Code(s): A41.9 - Sepsis, unspecified organism; R65.21 - Severe sepsis with septic shock (2) Pneumonia: Status: Acute Qualifiers: Pneumonia type: aspiration pneumonia Category: Medical Code(s): J18.9 - Pneumonia, unspecified organism (3) Acute hypoxemic respiratory failure: Status: Acute Category: Medical Code(s): J96.01 - Acute respiratory failure with hypoxia (4) Type 2 diabetes mellitus with hyperglycemia, without long-term current use of insulin: Status: Chronic Category: Medical Code(s): E11.65 - Type 2 diabetes mellitus with hyperglycemia (5) Hyponatremia: Status: Acute Category: Medical Code(s): E87.1 - Hypo-osmolality and hyponatremia Plan Patient is a 62-year-old female with past medical history of Down syndrome diabetes mellitus who presented to hospital for not feeling well. According to the patient's sister at the bedside patient has been screaming and agitated. Patient is nonverbal at baseline. Patient was further evaluated in the emergency department which did show pulmonary infiltrates. Patient was a started on 2 L nasal cannula, patient was also noted to have low blood pressure and was started on Levophed. Assessment Septic shock present on admission likely secondary to pneumonia Pneumonia presumed gram-positive organism Lactic acidosis Acute hypoxic respiratory failure satting less than 90% on room air Chronic hyponatremia Hyperglycemia Down syndrome Plan Started on vancomycin, cefepime, Flagyl on levophed, continue IVF Check blood cultures Check PCT UA was checked-negative for UTI DuoNeb as needed Monitor and replace electrolytes Monitor lactic acid Sliding scale Hold home metformin DVT prophylaxis-heparin continue current treatment, weaning down levophed, continue IV abx, continue IVF
[2023-07-01 16:43] LABS: POC Glucose,Bedside 143 (70-110)
[2023-07-01] MEDS: MONTELUKAST SODIUM 10MG TAB 10 MG PO (18:23)
[2023-07-01] MEDS: ATORVASTATIN 10MG TABLET 10 MG PO (20:52)
[2023-07-01] MEDS: ACETAMINOPHEN 325MG TAB 650 MG PO (20:53)
[2023-07-01] MEDS: AZELASTINE NASAL SPRAY 30ML BOTTLE NS (20:53)
[2023-07-01] MEDS: TAMSULOSIN 0.4MG CAPSULE 0.400000000000000022 MG PO (20:53)
[2023-07-01] MEDS: DOCUSATE SODIUM 10 ML/UDC UDC PO (20:53)
[2023-07-01] MEDS: SENNA 8.6MG TABLET 8.59999999999999964 MG PO (20:53)
[2023-07-02] VITALS (14 sets, daily range): BP systolic 91–142; BP diastolic 50–88; PULSE 60–80; RESP 15–25; TEMP 36.4–37.3; O2SAT 88–96; BMI 30.1
[2023-07-02 05:09] LABS: Basophils % 0.5 % (0.1-2.0); Eosinophils # 0.1 K/mm3 (0.0-0.4); Eosinophils % 1.3 % (0.1-12.0); Hematocrit 34.5 % (37.0-47.0); Hemoglobin 11.4 g/dL (12.2-16.2); Lymphocytes # 0.9 K/mm3 (0.7-4.5); Lymphocytes % 9.9 % (10-50); Mean Corpuscular Hemoglobin 33.7 pg (27.0-31.2); Mean Corpuscular Volume 102.1 fl (81-99); Mean Platelet Volume 8.3 fl (7.4-10.4); Monocytes # 0.3 K/mm3 (0.1-1.0); Monocytes % 3.2 % (1.7-9.3); Neutrophils # 7.4 K/mm3 (1.8-7.8); Platelet Count 293 K/mm3 (142-424); Red Blood Count 3.38 M/mm3 (4.20-5.40); Red Cell Distribution Width 14.1 % (11.5-17.5); White Blood Count 8.7 K/mm3 (4.8-10.8)
[2023-07-02 05:12] LABS: MANUAL DIFFERENTIAL MANUAL DIFFERENTIAL (MANUAL DIFF)
[2023-07-02] MEDS: PHA TO NURSING INSTRUCTION 1 EACH NOTAPPLIC (05:17)
[2023-07-02 05:19] LABS: Anion Gap 3.8 mEq/L (5-15); Blood Urea Nitrogen 4 mg/dl (7-17); Calcium 7.6 mg/dl (8.4-10.2); Carbon Dioxide 28 mmol/L (22.0-30.0); Chloride 102 mmol/L (98-107); Creatinine Clearance Estimated 49 mL/min (50-200); Estimated Glomerular Filt Rate 125 ml/min (>60); GFR (African American) 152 ML/MIN (>60); Glucose 116 mg/dl (74-100); Potassium 3.8 mmoL/L (3.5-5.1); Sodium 130 mmol/L (136-145)
[2023-07-02] MEDS: CEFEPIME HCL 2 GM in 0.9 % SODIUM CHLORIDE 100 ML IV (05:19)
[2023-07-02 05:35] LABS: Eosinophils % 1 % (0-3); Lymphocytes % 11 % (10-50); Monocytes % 2 % (2-9); Neutrophils % 86 % (42-76); Total Cells Counted 100
[2023-07-02 05:36] LABS: Macrocytosis 1+; Platelet Estimate Normal
[2023-07-02 05:37] LABS: POC Glucose,Bedside 116 (70-110)
[2023-07-02] MEDS: LEVOTHYROXINE 75MCG (0.075MG) TAB 75 MCG PO (06:35)
[2023-07-02] MEDS: VANCOMYCIN HCL 1,000 MG in 0.9 % SODIUM CHLORIDE 250 ML 125 MG IV (06:35)
--- NOTE | 2023-07-02 06:42 | PC.NURSE ---
Patient remained stable throughout shift without acute changes. Patient's mother remains at bedside and reports her daughter to be more at her playful baseline. Patient medicated per MAR. NAD, VSS
[2023-07-02] MEDS: ENOXAPARIN 40MG/0.4ML SYRINGE 40 MG SQ (08:25)
[2023-07-02] MEDS: BECLOMETHASONE DIPROPIONATE NS (08:26)
[2023-07-02] MEDS: ASPIRIN EC 81MG TABLET 81 MG PO (08:26)
[2023-07-02] MEDS: [UNRECOGNIZED DRUG - OTHER] NS (08:26)
[2023-07-02] MEDS: LORATADINE 10MG TABLET 10 MG PO (08:29)
[2023-07-02] MEDS: metroNIDAZOLE 500 MG TABLET PO ×3 (08:30→20:57)
[2023-07-02] MEDS: VITAMIN B12 500 EACH PO (08:30)
[2023-07-02] MEDS: PANTOPRAZOLE 20 MG 20 EACH PO (08:30)
[2023-07-02] MEDS: PSYLLIUM UD PACKET 1 EACH PO (08:31)
[2023-07-02] MEDS: POLYETHYLENE GLYCOL 3350 17 GM PACKET PO (08:31)
--- NOTE | 2023-07-02 08:48 | P.CONPHA_ITS ---
Pharmacy Consult Date: 07/02/23 Time: 08:48 Referring provider: DR. CABRERA Reason for Consult:: VANCOMYCIN TROUGH LEVEL AND DOSE CHANGE Allergies Allergy/AdvReac Type Severity Reaction Status Date / Time bacitracin [BACITRACIN] Allergy Unknown Verified 06/29/23 11:12 codeine [CODEINE] Allergy Unknown Verified 06/29/23 11:12 Penicillins [PENICILLINS] Allergy Unknown Verified 06/29/23 11:12 Home Medications Medication Instructions Recorded Confirmed Type aspirin 81 mg tablet,delayed 81 mg PO DAILY Heart health 07/25/17 06/29/23 History release (Adult Low Dose Aspirin) atorvastatin 10 mg tablet 10 mg PO HS Cholesterol 30 days 07/25/17 06/29/23 History levothyroxine 75 mcg tablet 75 mcg PO DAILY hypothyroidism 30 07/25/17 06/29/23 History days metformin 500 mg tablet 500 mg PO BID Diabetes 90 days 07/25/17 06/29/23 History montelukast 10 mg tablet 10 mg PO PM Allergy symptoms 30 11/28/17 06/29/23 History days ##30 olopatadine 0.1 % eye drops 1 drp ophthalmic (eye) BIDP PRN 04/21/20 06/29/23 History allergy symptoms polyethylene glycol 3350 17 1 cap PO BID CONSTIPATION 12/06/20 06/29/23 History gram/dose oral powder psyllium husk (with sugar) 3.4 1 tbsp PO BID CONSTIPATION 12/06/20 06/29/23 History gram/12 gram oral powder pantoprazole 20 mg tablet,delayed 20 mg PO DAILY Acid Reflux 08/21/21 06/29/23 History release tamsulosin 0.4 mg capsule 0.4 mg PO DAILY Bladder 08/21/21 06/29/23 History cetirizine 10 mg tablet 10 mg PO DAILY Allergy Symptoms 09/05/21 06/29/23 History sennosides 8.8 mg/5 mL oral syrup 8.8 mg PO DAILY Constipation 09/05/21 06/29/23 History (senna) calcium 500 mg-D3 12.5 mcg-mag 20 15 ml PO DAILY 03/12/23 06/29/23 History mg-boron 125 mcg/15 mL oral liquid mecobalamin (vitamin B12) 500 mcg 500 mcg PO DAILY 03/12/23 06/29/23 History chewable tablet azelastine 137 mcg (0.1 %) nasal 2 spray intranasal HS Allergy 06/29/23 06/29/23 History spray aerosol Symptoms docusate sodium 50 mg/5 mL oral 50 mg PO DAILY Constipation 06/29/23 06/29/23 History liquid beclomethasone dipropionate 80 1 - 2 spray intranasal DAILY 06/30/23 06/30/23 History mcg/actuation nasal HFA inhaler Allergy Symptoms (QNASL) New Prescriptions to Start Prescriptions: Height: 1.32 m Weight: 52.5 kg Laboratory Results:: Laboratory Results - last 24 hr 07/01/23 05:52: Total Counted 100, Neutrophils % (Manual) 77 H, Band Neutrophils % 12.0 H, Lymphocytes % (Manual) 6 L, Monocytes % (Manual) 3, Eosinophils % (Manual) 2, Platelet Estimate Normal, RBC Morphology Normal 07/01/23 11:13: POC Glucose 218 H 07/01/23 16:35: POC Glucose 143 H 07/02/23 04:50: WBC 8.7 D, RBC 3.38 L, Hgb 11.4 L, Hct 34.5 L, MCV 102.1 H, MCH 33.7 H, MCHC 33.0, RDW 14.1, Plt Count 293, MPV 8.3, Neut % (Auto) 85.0 H, Lymph % (Auto) 9.9 L, [place] % (Auto) 3.2, Eos % (Auto) 1.3, Baso % (Auto) 0.5, Neut # (Auto) 7.4, Lymph # (Auto) 0.9, [place] # (Auto) 0.3, Eos # (Auto) 0.1, Baso # (Auto) 0.0, Total Counted 100, Neutrophils % (Manual) 86 H, Lymphocytes % (Manual) 11, Monocytes % (Manual) 2, Eosinophils % (Manual) 1, Platelet Estimate Normal, Macrocytosis 1+, Sodium 130 L, Potassium 3.8, Chloride 102, Carbon Dioxide 28, Anion Gap 3.8 L, BUN 4 L D, Creatinine 0.50 L, Estimated Creat Clear 49, Estimated GFR 125, Est GFR ( Amer) 152 D, Glucose 116 H D, Calcium 7.6 L, Vancomycin Trough 7.0 07/02/23 05:29: POC Glucose 116 H Medical History: Medical History (Updated 06/29/23 @ 07:01 by Whitney Vang, ) Bilateral impacted cerumen Down syndrome GERD with esophagitis Hypertrophy of nasal turbinates Hyponatremia Impacted cerumen of left ear Type 2 diabetes mellitus with hyperglycemia, without long-term current use of insulin Assessment and Plan Assessment and plan all Dx Assessment and Plan for all problems:: BASED ON PATIENT FACTORS AND VANCOMYCIN TROUGH LEVEL OF 7.0, RECOMMEND ADJUST VANCOMYCIN DOSE TO 750MG EVERY 12 HOURS. PHARMACY WILL CONTINUE TO MONITOR AND WILL ADJUST DOSE APPROPRIATE. -IRENE PURVIS, CARRID
--- NOTE | 2023-07-02 09:44 | P.PN_ITS ---
Subjective *Date: 07/02/23 *Time: 09:44 Medical Exam Vital signs and Labs for Last 24 Hours: Vital Signs Temp Pulse Pulse Resp BP Pulse Ox O2 Del Method 07/02/23 08:00 97.7 F 07/02/23 06:41 Room Air 07/02/23 06:00 63 17 97/59 L 93 L Room Air 07/02/23 05:00 Room Air 07/02/23 04:00 97.7 F 60 15 91/50 L 92 L Nasal Cannula 07/02/23 03:59 91 L Nasal Cannula 07/02/23 03:58 60 07/02/23 02:28 Nasal Cannula 07/02/23 01:51 71 22 121/62 89 L Nasal Cannula 07/02/23 00:51 Nasal Cannula 07/02/23 00:00 70 07/02/23 00:00 97.6 F 80 24 113/56 L 94 L Nasal Cannula 07/01/23 23:07 94 L Nasal Cannula 07/01/23 22:28 Nasal Cannula 07/01/23 21:00 Nasal Cannula 07/01/23 22:26 60 07/01/23 22:00 98.4 F 66 17 109/54 L 94 L Nasal Cannula 07/01/23 19:00 70 21 115/58 L 92 L Room Air 07/01/23 19:00 Room Air 07/01/23 18:00 71 20 121/63 95 Room Air 07/01/23 16:00 98.5 F 07/01/23 16:00 64 07/01/23 17:00 63 20 97/53 L 93 L Room Air 07/01/23 17:00 Room Air 07/01/23 16:00 95 Room Air 07/01/23 16:00 58 L 18 112/60 95 Room Air 07/01/23 15:00 Room Air 07/01/23 15:00 66 16 112/52 L 94 L Room Air 07/01/23 14:00 79 18 122/66 94 L Room Air 07/01/23 12:00 67 07/01/23 13:00 72 16 113/63 94 L Room Air 07/01/23 13:00 Room Air 07/01/23 12:54 98 F 07/01/23 12:00 62 95 Room Air 07/01/23 12:00 62 17 100/49 L 95 Room Air 07/01/23 11:00 63 22 103/57 L 92 L Room Air 07/01/23 10:00 63 20 103/54 L 91 L Room Air 07/01/23 11:00 Room Air O2 Flow Rate 07/02/23 08:00 07/02/23 06:41 07/02/23 06:00 07/02/23 05:00 07/02/23 04:00 2 07/02/23 03:59 2 07/02/23 03:58 07/02/23 02:28 2 07/02/23 01:51 2 07/02/23 00:51 2 07/02/23 00:00 07/02/23 00:00 2 07/01/23 23:07 2 07/01/23 22:28 2 07/01/23 21:00 2 07/01/23 22:26 07/01/23 22:00 2 07/01/23 19:00 07/01/23 19:00 07/01/23 18:00 07/01/23 16:00 07/01/23 16:00 07/01/23 17:00 07/01/23 17:00 07/01/23 16:00 07/01/23 16:00 07/01/23 15:00 07/01/23 15:00 07/01/23 14:00 07/01/23 12:00 07/01/23 13:00 07/01/23 13:00 07/01/23 12:54 07/01/23 12:00 07/01/23 12:00 07/01/23 11:00 07/01/23 10:00 07/01/23 11:00 Intake and Output 07/01/23 07/02/23 07/02/23 23:59 07:59 15:59 Intake Total 675 / 3745.335 500 / 740 240 / 740 Output Total 800 / 2400 2400 / 2400 Balance -125 / 1345.335 -1900 / -1660 240 / -1660 Intake: Intake, Oral Amount 270 / 1110 0 / 240 240 / 240 Intake, Total IV Amount 405 / 2553 500 / 500 Cefepime HCl 2 gm In 0.9 % 100 / 200 Sodium Chloride 100 ml @ 200 mls/hr IV Q12H [facility] Rx#:[id number] Lactated Ringers 1000ML 1,000 305 / 1962 500 / 500 ml @ 100 mls/hr IV .Q10H [facility] Rx #:[id number] Output: Output, Urine Amount 800 / 2400 2400 / 2400 Other: Number of Voids 0 Weight 52.5 kg 52.5 kg Patient Weight 07/02/23 23:59 Weight 52.5 kg Laboratory Results - last 24 hr 07/01/23 11:13: POC Glucose 218 H 07/01/23 16:35: POC Glucose 143 H 07/02/23 04:50: WBC 8.7 D, RBC 3.38 L, Hgb 11.4 L, Hct 34.5 L, MCV 102.1 H, MCH 33.7 H, MCHC 33.0, RDW 14.1, Plt Count 293, MPV 8.3, Neut % (Auto) 85.0 H, Lymph % (Auto) 9.9 L, [place] % (Auto) 3.2, Eos % (Auto) 1.3, Baso % (Auto) 0.5, Neut # (Auto) 7.4, Lymph # (Auto) 0.9, [place] # (Auto) 0.3, Eos # (Auto) 0.1, Baso # (Auto) 0.0, Total Counted 100, Neutrophils % (Manual) 86 H, Lymphocytes % (Manual) 11, Monocytes % (Manual) 2, Eosinophils % (Manual) 1, Platelet Estimate Normal, Macrocytosis 1+, Sodium 130 L, Potassium 3.8, Chloride 102, Carbon Dioxide 28, Anion Gap 3.8 L, BUN 4 L D, Creatinine 0.50 L, Estimated Creat Clear 49, Estimated GFR 125, Est GFR ( Amer) 152 D, Glucose 116 H D, Calcium 7.6 L, Vancomycin Trough 7.0 07/02/23 05:29: POC Glucose 116 H I & O for Labs for Last 24 Hours: Intake & Output 06/29/23 06/30/23 07/01/23 07/02/23 23:59 23:59 23:59 23:59 Intake Total 2399.126 / 2597.211 4689.854 / 4793.054 3745.335 / 3745.335 740 / 740 Output Total 2550 / 2550 2300 / 2300 2400 / 2400 2400 / 2400 Balance -150.874 / 47.211 2389.854 / 2493.054 1345.335 / 1345.335 -1660 / -1660 Weight 50.802 kg 52.5 kg 52.5 kg 52.5 kg Microbiology Reports for the Last 24 Hours: Microbiology 06/29/23 05:51 Blood Blood Culture - Preliminary 06/29/23 05:51 Blood Blood Culture - Preliminary The patient's infection will respond to the chosen ABx?: Yes (EMPIRIC THERAPY) Is the patient receiving the right drug, dose, and route?: Yes Could a more targeted ABx be ordered?: No (CULTURES PENDING)
--- NOTE | 2023-07-02 10:03 | ECG_ITS ---
APPROVED REPORT Exam: Resting ECG HR:74 bpm ECG Measurements Heart Rate 74 AXES AZ 160 P 51 QRSd 70 QRS 20 QT 373 T 52 QTc 400 Conclusion SINUS RHYTHM NORMAL ECG UNCONFIRMED REPORT Electronically signed by : Jose Lindsey MD 07/02/2023 20:38:21
--- NOTE | 2023-07-02 10:08 | FL_ITS ---
FINAL REPORT CLINICAL HISTORY: DAP 126.65 time 1:20 recurrent PNA FINDINGS: MODIFIED BARIUM SWALLOW History: Dysphagia FINDINGS: Fluoroscopy was provided for the speech pathologist to evaluate the swallowing mechanism. The patient was given several different consistencies of barium while the swallow was visualized fluoroscopically. The report of the speech pathologist should be consulted prior to making dietary decisions. FLUOROSCOPY TIME: 3 minutes IMPRESSION: Modified barium swallow under fluoroscopic guidance. Please see the report of the speech pathologist for Dietary recommendations. Films reviewed , interpreted and dictated by Dr. Modi Transcribed by Theodore Weiss PA-C. Reviewed, Interpreted and Dictated by Darwin Modi III, MD Transcribed by LEANNE Bar Authenticated and . [facility]
--- NOTE | 2023-07-02 10:27 | HMH.SLDYSPHA ---
Speech & Language Evaluation Speech/Language Dysphagia Evaluation Start: 07/02/23 10:13 Freq: ONCE Status: Active Protocol: Document 07/02/23 10:13 TOÑO (Rec[facility]02/23 10:27 [id number] Dysphagia Assess/Goals/Plan Assessment Date of Evaluation: 07/02/23 Evaluation Type Initial Certification Assessment/Problems possible aspiration/modified diet per MD order Does Patient Qualify for Service Yes Qualify/Failure Comment Based on chart review and patient caregiver interview, pt would benefit from further instrumental testing 2' recurrent pna. MBSS schuelded for 2 PM today. Plan Pt/Guardian verbally ack understanding Yes of dx/prognosis/goals G -code Required No Education Instructions provided Discussed current diet and limited changes that could be made, as well as need for MBSS 2' recurrent pna hx and mother expressed compliance and understanding. Pt/Caregiver able to recall information Able to recall/restate Reinforcement needed No Speech & Language HPI History Present Illness Description of Patient Problem patient is a 62-year-old female with history of Down syndrome who is nonverbal, history of type 2 diabetes, history of urinary tract infection, history of hypothyroidism, and hyperlipidemia presenting to the emergency department on 06/29/23 for evaluation with concern for vomiting and pain. Pt is currently on a puree/ thin diet. Chest CTA impressions state atchy airspace densities in the right lower lobe compatible with pneumonia and small right pleural effusion. Language Primary Language [place] General Information General Current Food Consistancy Pureed,Thin Liquids Dentition Edentulous Oxygen Status Nasal Cannula Ability to Follow Directions Fair Communication Ability Severe Impairment Dysphagia:Food Presentation Evaluation Food Type Pureed,Liquid,Pudding Dysphagia Evaluation Summary Pt was seen sitting upright in the bed with caregiver at the bedside. Per nursing report, pt has had no difficulty with meals or pills. Family reported at the bedside that pt has had pna 4+ times within the past year. Pt was given thin liquid, pureed applesauce , and pudding trials with no overt s/sxs of aspiration. Given recurrent pna hx and modified diet it is recommended that pt receive an updated MBSS to assess oropharyngeal phase of the swallow; her POA was in agreement. MBSS scheduled for today at 2 PM. Stroke Dysphagia Assessment PHYSICIAN CERTIFICATION: I certify the specified therapy services for Deepa Nicole Lyvers are required, authorized, and reviewed every 30 days.
[2023-07-02] MEDS: humaLOG 100 UNITS/ML 3ML VIAL (SSI) SQ ×2 (11:29→20:32)
--- NOTE | 2023-07-02 12:43 | PC.NURSE ---
patient oxygen saturation 87% on room air at rest
[2023-07-02 12:55] LABS: Vancomycin,Peak 16.1 ug/ml (11-39)
--- NOTE | 2023-07-02 14:18 | DIET.NUTRFU ---
reviewed POC in rounds today, pureed is baseline at home but d/t recurrent PNA FACE HARDENER ordered and MBSS recommended. Sister indicated tubefeeding is not desired to prolong life. Will followup on MBSS results
--- NOTE | 2023-07-02 14:40 | HMH.SLMBS2 ---
Speech & Language Evaluation Speech/Language Mod Barium Swallow Start: 07/02/23 10:08 Freq: ONCE Status: Complete Protocol: Document 07/02/23 14:17 TOÑO (Rec: 07/02/23 14:40 [facility] [id number]) General Information General Current Food Consistancy Pureed,Thin Liquids Dentition Edentulous Ability to Follow Directions Good Communication Ability Severe Impairment MBS Recommendations Diet Dietary Recommendations Pureed,Thin Liquids Treatment/Strategies Strategy/Precaution Recommend Sitting Upright (90 deg),Small Bites and Sips,Alternate Liquids/Solids Mod Barium Swallow Impressions Summary and Impressions Oral Phase Impression Severe Impairment Oral Phase Summary Severe impairment of the oral preparatory and oral transit phases of the swallow. Pt did well with thin liquids, puree, and pudding trials during the instrumental, however, when presented with a mechanical soft solid (trialled 2' family reporting that she has been eating eggs/smashed cake/ spaghetti in home environment) Deepa was observed to have difficulty producing an adequate munching/rotary chew to manipulate the bolus and had scattered loss and residual under base of tongue. She required a pureed wash to facilitate the swallow of the solid with trace resiudals found in the vallecular space following wash, which was then cleared by an additional swallow. CHANNEL MAN discussed importance of ensuring that bolus at home is as close to puree as possible and provided recommendations for what foods could be blended with. Ms. Arreola is okay to continue with thin liquids given small bites/sips. Pharyngeal Phase Impression Moderate Impairment Pharyngeal Phase Summary Moderate impairment of the pharyngeal phase of the swallow. Deepa did well with thin liquids, puree, and pudding consistencies during the instrumental with minimal to no residual found in the pharynx. However, when given mechanical soft solid, pt was observed to have a delayed swallow in which she was unable to facilitate a swallow to clear until she was given a puree wash. When given the puree wash, she was observed to have residual of the mechanical soft solid (likely 2' improper mastication/ manipulation of bolus during oral phase) that she required a double swallow and a puree wash to clear. CHANNEL MAN discussed importance of continuing a puree only diet with thin liquids with family who expressed understanding. Speech/Language MBS Assessment/Goals/Plan Assessment Date of Evaluation: 07/02/23 Evaluation Type Initial Certification Assessment/Problems possible aspiration per MD order. Does Patient Qualify for Service No Qualify/Failure Comment Based on MBSS results, with continuation of recommended diet pt's swallowing and mastication/manipulation of bolus is WFL. No further skilled speech therapy services are warranted at this time. Recommendations PHYSICIAN CERTIFICATION: The specified therapy services are required, authorized, and reviewed every 30 days. Diet Recommendations Pureed Liquid Type Recommendations Normal/Thin SL Swallow Guidelines Standard Aspiration Prec.,Chk mough for pocketing,Crush meds as allowed*,Eat at slow rate Crush Meds Crush all meds Dysphagia Swallow Precautions/Strategies Sitting Upright (90 deg),Small Bites and Sips,Alternate Liquids/Solids Place Food on Either side of Mouth Plan Pt/Guardian verbally ack understanding Yes of dx/prognosis/goals G -code Required No Education Instructions provided Discussed results of MBSS and aspiraton precautions/diet recommendations and need to follow pureed consistency with family and care management both of which expressed understanding. Pt/Caregiver able to recall information Able to recall/restate Reinforcement needed No Mod Barium Swallow Setup Exam Setup Radiologist Darwin Modi Level of Consciousness Awake,Alert,Appropriate, Follows Commands Mod Barium Swallow-Lat View Textures Lateral View Food Presentation Thin Liquid via Spoon,Thin Liquid via Cup,Thin Liquid via Straw,Pureed Food- Thin,Mech. Soft Food- Chopped,Pudding Comment puree: applesauce mechanical soft: crumbled cookie piece in barium pudding Oral Phase Labial Closure Minimal Impairment Bolus Formation Pooling L/R Minimal Impairment Bolus Formation under Tongue Moderate Impairment Bolus Formation Scattered Loss Moderate Impairment Mastication Rotary Chew Moderate Impairment Mastication Munching Moderate Impairment Mastication Lateralization Mild Impairment Lingual Movement Mild Impairment Residue Clearing Minimal Impairment Other Oral Phase Observations Difficulties observed with primarily with mechanical soft solids trial, required puree bolus to initiate swallow Pharyngeal Phase A/P Lingual Propulsion Spills No Impairment (WFL) Swallow Response Delay Moderate Impairment Base of Tongue Moderate Impairment Epiglottic Coverage Mild Impairment Laryngeal Elevation Mild Impairment Vallecular Retention Clearing Mild Impairment Pharyn. Wall Residue Clearing No Impairment (WFL) Piriform Sinus Retention No Impairment (WFL) Other Pharyngeal Phase Observation Difficulties observed with primarily with mechanical soft solids trial, required puree bolus to initiate swallow Aspiration? No Silent aspiration? No Mod Barium Swallow-AP View Performed Mod Barium Swallow A/P View Test Not Applicable/Performed PHYSICIAN CERTIFICATION: I certify the specified therapy services for Deepalauren Mendozae Lyvers are required, authorized, and reviewed every 30 days.
[2023-07-02] MEDS: MONTELUKAST SODIUM 10MG TAB 10 MG PO (16:36)
--- NOTE | 2023-07-02 18:22 | PC.NURSE ---
Vtach noted on monitor at 0953, ekg obtained, NSR. Dr. Baptiste notified. Patient aymptomatic, BP stable. No changes noted. VS stable. Lung sounds diminished but clear.
--- NOTE | 2023-07-02 19:44 | EXP.ACUTE.PN ---
Subjective *Date: 07/02/23 *Time: 22:53 Interval history: Patient in no acute distress on morning exam. Remains afebrile. On room air on initial exam. When she rests or sleeping she desats into the mid to high 80s. Speech evaluating for dietary modification. Family at bedside. Medical Exam Vital signs and Labs for Last 24 Hours: Vital Signs Temp Pulse Pulse Resp BP Pulse Ox O2 Del Method 07/02/23 10:30 72 18 114/58 L 88 L Room Air 07/02/23 08:30 65 20 105/60 L 94 L Nasal Cannula 07/02/23 07:30 65 20 108/56 L 96 Nasal Cannula 07/02/23 18:35 Room Air 07/02/23 16:00 71 07/02/23 12:00 71 07/02/23 08:00 76 07/02/23 08:45 Room Air 07/02/23 17:00 Room Air 07/02/23 15:00 Room Air 07/02/23 13:00 Room Air 07/02/23 15:59 99.1 F 66 22 112/88 91 L Room Air 07/02/23 11:00 Room Air 07/02/23 09:13 Room Air 07/02/23 12:00 99.0 F 79 25 H 110/58 L 90 L Room Air 07/02/23 10:13 Nasal Cannula 07/02/23 08:00 97.7 F 07/02/23 06:41 Room Air 07/02/23 06:00 63 17 97/59 L 93 L Room Air 07/02/23 05:00 Room Air 07/02/23 04:00 97.7 F 60 15 91/50 L 92 L Nasal Cannula 07/02/23 03:59 91 L Nasal Cannula 07/02/23 03:58 60 07/02/23 02:28 Nasal Cannula 07/02/23 01:51 71 22 121/62 89 L Nasal Cannula 07/02/23 00:51 Nasal Cannula 07/02/23 00:00 70 07/02/23 00:00 97.6 F 80 24 113/56 L 94 L Nasal Cannula 07/01/23 23:07 94 L Nasal Cannula 07/01/23 22:28 Nasal Cannula 07/01/23 21:00 Nasal Cannula 07/01/23 22:26 60 07/01/23 22:00 98.4 F 66 17 109/54 L 94 L Nasal Cannula O2 Flow Rate 07/02/23 10:30 07/02/23 08:30 2 07/02/23 07:30 2 07/02/23 18:35 07/02/23 16:00 07/02/23 12:00 07/02/23 08:00 07/02/23 08:45 07/02/23 17:00 07/02/23 15:00 07/02/23 13:00 07/02/23 15:59 07/02/23 11:00 07/02/23 09:13 07/02/23 12:00 07/02/23 10:13 07/02/23 08:00 07/02/23 06:41 07/02/23 06:00 07/02/23 05:00 07/02/23 04:00 2 07/02/23 03:59 2 07/02/23 03:58 07/02/23 02:28 2 07/02/23 01:51 2 07/02/23 00:51 2 07/02/23 00:00 07/02/23 00:00 2 07/01/23 23:07 2 07/01/23 22:28 2 07/01/23 21:00 2 07/01/23 22:26 07/01/23 22:00 2 Intake and Output 07/02/23 07/02/23 07/02/23 07:59 15:59 23:59 Intake Total 500 / 1100 480 / 1100 120 / 1100 Output Total 2400 / 3600 400 / 3600 800 / 3600 Balance -1900 / -2500 80 / -2500 -680 / -2500 Intake: Intake, Oral Amount 0 / 600 480 / 600 120 / 600 Intake, Total IV Amount 500 / 500 Lactated Ringers 1000ML 1,000 500 / 500 ml @ 100 mls/hr IV .Q10H [facility] Rx #:[id number] Output: Output, Urine Amount 2400 / 3600 400 / 3600 800 / 3600 Other: Number of Unmeasured Voids 0 0 Weight 52.5 kg 52.5 kg Patient Weight 07/02/23 23:59 Weight 52.5 kg Laboratory Results - last 24 hr 07/02/23 04:50: WBC 8.7 D, RBC 3.38 L, Hgb 11.4 L, Hct 34.5 L, MCV 102.1 H, MCH 33.7 H, MCHC 33.0, RDW 14.1, Plt Count 293, MPV 8.3, Neut % (Auto) 85.0 H, Lymph % (Auto) 9.9 L, [place] % (Auto) 3.2, Eos % (Auto) 1.3, Baso % (Auto) 0.5, Neut # (Auto) 7.4, Lymph # (Auto) 0.9, [place] # (Auto) 0.3, Eos # (Auto) 0.1, Baso # (Auto) 0.0, Total Counted 100, Neutrophils % (Manual) 86 H, Lymphocytes % (Manual) 11, Monocytes % (Manual) 2, Eosinophils % (Manual) 1, Platelet Estimate Normal, Macrocytosis 1+, Sodium 130 L, Potassium 3.8, Chloride 102, Carbon Dioxide 28, Anion Gap 3.8 L, BUN 4 L D, Creatinine 0.50 L, Estimated Creat Clear 49, Estimated GFR 125, Est GFR ( Amer) 152 D, Glucose 116 H D, Calcium 7.6 L, Vancomycin Trough 7.0 07/02/23 05:29: POC Glucose 116 H 07/02/23 11:25: Vancomycin Peak 16.1 I & O for Labs for Last 24 Hours: Intake & Output 06/29/23 06/30/23 07/01/23 07/02/23 23:59 23:59 23:59 23:59 Intake Total 2399.126 / 2597.211 4689.854 / 4793.054 3745.335 / 3745.335 1100 / 1100 Output Total 2550 / 2550 2300 / 2300 2400 / 2400 3600 / 3600 Balance -150.874 / 47.211 2389.854 / 2493.054 1345.335 / 1345.335 -2500 / -2500 Weight 50.802 kg 52.5 kg 52.5 kg 52.5 kg Microbiology Reports for the Last 24 Hours: Microbiology 06/29/23 05:51 Blood Blood Culture - Preliminary 06/29/23 05:51 Blood Blood Culture - Preliminary Constitutional: Present no acute distress, obese, chronically ill appearing and cooperative Comment:: Non-verbal Head: Present atraumatic Comment:: Downs facies Neck: Present normal inspection Respiratory: Present crackles (Right lower lobe) and normal respiratory effort; Absent rhonchi or wheezes Comment:: transmitted upper airway sounds Cardiac: Present Reg Rate and Rhythm GI: Present normal bowel sounds; Absent tenderness Extremities: Present normal inspection and full ROM Skin: Present intact; Absent erythema Neuro: Present Grossly Intact, alert, awake and moves all extremities Assessment and Plan *Assessment and plan (1) Pneumonia: Status: Acute Qualifiers: Pneumonia type: aspiration pneumonia Aspiration pneumonia type: unspecified Laterality: right Lung location: lower lobe of lung Qualified Code(s): J69.0 - Pneumonitis due to inhalation of food and vomit Category: Medical Code(s): J18.9 - Pneumonia, unspecified organism (2) Acute hypoxemic respiratory failure: Status: Acute Category: Medical Code(s): J96.01 - Acute respiratory failure with hypoxia (3) Type 2 diabetes mellitus with hyperglycemia, without long-term current use of insulin: Status: Chronic Category: Medical Code(s): E11.65 - Type 2 diabetes mellitus with hyperglycemia (4) Hyponatremia: Status: Acute Category: Medical Code(s): E87.1 - Hypo-osmolality and hyponatremia (5) Down syndrome: Status: Chronic Category: Medical Code(s): Q90.9 - Down syndrome, unspecified (6) GERD with esophagitis: Status: Chronic Category: Medical Code(s): K21.00 - Gastro-esophageal reflux disease with esophagitis, without bleeding Plan Patient is a 62-year-old female with past medical history of Down syndrome diabetes mellitus who presented to hospital for not feeling well. According to the patient's sister at the bedside patient has been screaming and agitated. Patient is nonverbal at baseline. Patient was further evaluated in the emergency department which did show pulmonary infiltrates. Patient was a started on 2 L nasal cannula, patient was also noted to have low blood pressure and was started on Levophed, since weaned off Levophed. Patient evaluated by speech today. Attempting to wean oxygen. Continuing antibiotics. Continues to necessitate inpatient management. Problems addressed as follows: Septic shock, resolved Pneumonia, aspiration Acute hypoxemic respiratory failure - Findings on chest imaging of right lower lobe pneumonia. Patient has been on a modified diet due to aspiration risk for some time. Continue antibiotics to cover broadly. Will continue vancomycin, cefepime, Flagyl while admitted. Plan to transition to cefdinir and Flagyl at discharge. - Speech eval to assess for aspiration risk. Anticipate modified barium swallow today. -Discussed risks and benefits of alternate forms of nutrition including feeding tube, this would not minimize her risk of aspirating secretions which she has significant amount of due to chronic congestion. Family not interested in pursuing this route at this time, agree with this decision. -On room air during the day while awake. Continue supplemental oxygen for goal saturation greater 90%. Suspect component of sleep apnea, will monitor for oxygen requirement tonight. -Repeat CBC, CMP, magnesium ordered for the morning. -White cell count normal at 8.7. chronic hyponatremia: Sodium 130, this appears to be baseline for her. Hyperglycemia: Sliding scale insulin with fingersticks ACHS DVT prophylaxis-heparin Full code
[2023-07-02] MEDS: VANCOMYCIN HCL 750 MG in 0.9 % SODIUM CHLORIDE 250 ML 125 MG IV (20:01)
[2023-07-02] MEDS: SENNA 8.6MG TABLET 8.59999999999999964 MG PO (20:56)
[2023-07-02] MEDS: CEFDINIR 300MG CAPSULE 300 MG PO (20:56)
[2023-07-02] MEDS: TAMSULOSIN 0.4MG CAPSULE 0.400000000000000022 MG PO (20:57)
[2023-07-02] MEDS: AZELASTINE NASAL SPRAY 30ML BOTTLE NS (20:57)
[2023-07-02] MEDS: ATORVASTATIN 10MG TABLET 10 MG PO (20:57)
[2023-07-02] MEDS: DOCUSATE SODIUM 10 ML/UDC UDC PO (20:57)
[2023-07-02] MEDS: MAGNESIUM SULFATE IN WATER 2 GM/50 ML PIGGYBACK IV (21:10)
[2023-07-02] MEDS: METOPROLOL TARTRATE 25MG TABLET 12.5 MG PO (21:58)
[2023-07-03] VITALS: BP 116/62; PULSE 56; PULSE 59; RESP 16; TEMP 36.9; O2SAT 96
[2023-07-03 03:50] LABS: Norovirus Detected (NotDetected)
[2023-07-03 04:00] VITALS: BP 114/62; PULSE 69; PULSE 91; RESP 16; TEMP 36.9; O2SAT 91; BMI 31.4
[2023-07-03 04:42] LABS: Sapovirus Detected (NotDetected)
[2023-07-03] MEDS: LEVOTHYROXINE 75MCG (0.075MG) TAB 75 MCG PO (06:25)
[2023-07-03 07:24] LABS: Basophils # 0.1 K/mm3 (0-0.2); Basophils % 0.9 % (0.1-2.0); Eosinophils # 0.1 K/mm3 (0.0-0.4); Eosinophils % 0.8 % (0.1-12.0); Hematocrit 30.5 % (37.0-47.0); Hemoglobin 10.5 g/dL (12.2-16.2); Lymphocytes # 0.9 K/mm3 (0.7-4.5); Lymphocytes % 14.4 % (10-50); Mean Corpuscular HGB Conc 34.5 g/dL (31.8-35.4); Mean Corpuscular Volume 98.7 fl (81-99); Mean Platelet Volume 8.3 fl (7.4-10.4); Monocytes # 0.2 K/mm3 (0.1-1.0); Monocytes % 3.9 % (1.7-9.3); Neutrophils % 79.9 % (37.0-80.0); Platelet Count 384 K/mm3 (142-424); Red Blood Count 3.09 M/mm3 (4.20-5.40); Red Cell Distribution Width 14.2 % (11.5-17.5); White Blood Count 6.2 K/mm3 (4.8-10.8)
[2023-07-03 07:49] LABS: Alanine Aminotransferase 15 U/L (12-78); Albumin Level 2.3 g/dl (3.5-5.0); Albumin/Globulin Ratio 0.8 (1.1-1.8); Alkaline Phosphatase 83 U/L (38-126); Aspartate Amino Transferase 26 U/L (14-36); Bilirubin,Total 0.3 mg/dl (0.2-1.3); Blood Urea Nitrogen 4 mg/dl (7-17); Calcium 7.5 mg/dl (8.4-10.2); Carbon Dioxide 29 mmol/L (22.0-30.0); Chloride 100 mmol/L (98-107); Creatinine Clearance Estimated 51 mL/min (50-200); Estimated Glomerular Filt Rate 102 ml/min (>60); GFR (African American) 123 ML/MIN (>60); Globulin 2.8 g/dL (1.3-3.2); Glucose 136 mg/dl (74-100); Magnesium 1.9 mg/dl (1.6-2.3); Potassium 3.9 mmoL/L (3.5-5.1); Total Protein,Serum 5.1 g/dl (6.3-8.2)
[2023-07-03 07:56] VITALS: BP 98/62; PULSE 67; RESP 15; TEMP 37.1; O2SAT 95
[2023-07-03 08:00] VITALS: PULSE 68
[2023-07-03 08:03] LABS: Anion Gap 2.9 mEq/L (5-15); Sodium 128 mmol/L (136-145)
[2023-07-03] MEDS: VANCOMYCIN HCL 750 MG in 0.9 % SODIUM CHLORIDE 250 ML 125 MG IV (08:24)
[2023-07-03] MEDS: ENOXAPARIN 40MG/0.4ML SYRINGE 40 MG SQ (08:26)
[2023-07-03] MEDS: ASPIRIN EC 81MG TABLET 81 MG PO (08:26)
[2023-07-03] MEDS: LORATADINE 10MG TABLET 10 MG PO (08:27)
[2023-07-03] MEDS: CEFDINIR 300MG CAPSULE 300 MG PO (08:27)
[2023-07-03] MEDS: METOPROLOL TARTRATE 25MG TABLET 12.5 MG PO (08:28)
[2023-07-03] MEDS: ASCORBIC ACID 500MG TAB 500 MG PO (08:29)
[2023-07-03] MEDS: [UNRECOGNIZED DRUG - OTHER] NS (08:30)
[2023-07-03] MEDS: BECLOMETHASONE DIPROPIONATE NS (08:30)
[2023-07-03] MEDS: metroNIDAZOLE 500 MG TABLET PO ×2 (08:31→12:20)
[2023-07-03] MEDS: POLYETHYLENE GLYCOL 3350 17 GM PACKET PO (08:33)
[2023-07-03] MEDS: PSYLLIUM UD PACKET 1 EACH PO (08:33)
--- NOTE | 2023-07-03 09:14 | EXP.DC.SUM ---
General Admission date:: 06/29/23 Discharge date: 07/03/23 HPI HPI HPI: Patient is a 62-year-old female with past medical history of Down syndrome diabetes mellitus who presented to hospital for not feeling well. According to the patient's sister at the bedside patient has been screaming and agitated. Patient is nonverbal at baseline. Patient was further evaluated in the emergency department which did show pulmonary infiltrates. Patient was a started on 2 L nasal cannula, patient was also noted to have low blood pressure and was started on Levophed. Hospital Course Hospital Course Hospital Course: Patient is a 62-year-old female with past medical history of Down syndrome diabetes mellitus who presented to hospital for not feeling well. According to the patient's sister at the bedside patient has been screaming and agitated. Patient is nonverbal at baseline. Patient was further evaluated in the emergency department which did show pulmonary infiltrates. Patient was a started on 2 L nasal cannula, patient was also noted to have low blood pressure and was started on Levophed. She was weaned off Levophed. Blood pressure is done well. Pneumonia concerning for aspiration. Evaluated by speech, continue pur?ed diet. Continues to require oxygen at night but stable on room air during the day. Tolerating p.o. intake and p.o. meds. Transition to p.o. antibiotics to complete course. Patient additionally had an episode of V. tach that responded to magnesium and metoprolol. Will need further evaluation of possible heart failure as an outpatient. Discussed case with PCP, echo obtained prior to discharge, formal read still pending. Stable for discharge home with close follow-up. Problems addressed as follows: Septic shock, resolved Pneumonia, aspiration Acute hypoxemic respiratory failure - Findings on chest imaging of right lower lobe pneumonia. Patient has been on a modified diet due to aspiration risk for some time. Started on IV antibiotics. Showed good response. Initially on vancomycin, cefepime, Flagyl. Transitioned to cefdinir and Flagyl at discharge to complete course. Speech eval to assess for aspiration risk. Modified barium swallow performed during admission. No filiberto aspiration but speech recommends continuing modified diet. Discussed risks and benefits of alternate forms of nutrition including feeding tube, this would not minimize her risk of aspirating secretions which she has significant amount of due to chronic congestion. Family not interested in pursuing this route at this time, agree with this decision. On room air during the day while awake. Continue supplemental oxygen for goal saturation greater 90%. Suspect component of sleep apnea, continue 2 L nasal cannula oxygen at night. Labs showed normalization of white cell count. Patient has been afebrile for over 48 hours. chronic hyponatremia: Sodium 130, this appears to be baseline for her. Hyperglycemia: Sliding scale insulin with fingersticks ACHS V. tach -Episode of V. tach that resolved with magnesium supplementation and initiation of metoprolol. Will continue low-dose metoprolol 12.5 mg twice daily. 1 week event monitor placed prior to discharge. Echo also obtained. Read still pending at time of discharge. Concern the patient may have a component of heart failure given her tachyarrhythmia. During discussion with family, they care very much for Jennie and want to keep her comfortable but are unsure about aggressive invasive interventions at this time. Will defer cardiology referral pending results of echo and discussion with PCP. Continues to be stable on current medications. Spent 30 minutes in discharge counseling, documentation, chart review, and direct care with patient. Exam Data for Last 24 hours Vital signs and Labs for Last 24 Hours: Temp Pulse Resp BP Pulse Ox O2 Del Method O2 Flow Rate 98.8 F 67 15 98/62 L 95 Room Air 2 07/03/23 07:56 07/03/23 07:56 07/03/23 07:56 07/03/23 07:56 07/03/23 07:56 07/03/23 07:56 07/03/23 07:00 Laboratory Results - last 24 hr 06/29/23 18:06: Stl Aeromonas (PCR) Not detected, Stl C. cayetanensis PCR Not detected, Stool Rotavirus (PCR) Not detected, Stl Adenov F 40/41 PCR Not detected, Stool Astrovirus (PCR) Not detected, Stool Campylobacter PCR Not detected, Stl C.difficile Tox PCR Not detected, Stool Cryptosporidium PCR Not detected, Stl E.coli Shiga Tox PCR Not detected, Stool E coli O157 PCR TNP, Stl Enterotoxigenic E PCR Not detected, Stool EPEC (PCR) Not detected, Stool EAEC (PCR) Not detected, Stl E. histolytica PCR Not detected, Stool Giardia Lamblia PCR Not detected, Stool Salmonella PCR Not detected, Stool Sapovirus (PCR) Detected A, Stl P. shigelloides PCR Not detected, Stl Shigella/EIEC PCR Not detected, St Y.enterocolitica PCR Not detected, Stool Vibrio (PCR) Not detected, Stl Vibrio cholerae PCR Not detected, Stl Norovirus GI/GII PCR Detected A 07/02/23 11:25: Vancomycin Peak 16.1 07/03/23 06:51: WBC 6.2 D, RBC 3.09 L, Hgb 10.5 L, Hct 30.5 L, MCV 98.7, MCH 34.0 H, MCHC 34.5, RDW 14.2, Plt Count 384 D, MPV 8.3, Neut % (Auto) 79.9, Lymph % (Auto) 14.4, [place] % (Auto) 3.9, Eos % (Auto) 0.8, Baso % (Auto) 0.9, Neut # (Auto) 5.0, Lymph # (Auto) 0.9, [place] # (Auto) 0.2, Eos # (Auto) 0.1, Baso # (Auto) 0.1, Sodium 128 L, Potassium 3.9, Chloride 100, Carbon Dioxide 29, Anion Gap 2.9 L, BUN 4 L, Creatinine 0.60, Estimated Creat Clear 51, Estimated GFR 102, Est GFR ( Amer) 123, Glucose 136 H, Calcium 7.5 L, Magnesium 1.9, Total Bilirubin 0.3, AST 26, ALT 15, Alkaline Phosphatase 83, Total Protein 5.1 L, Albumin 2.3 L, Globulin 2.8, Albumin/Globulin Ratio 0.8 L I & O for Last 24 hours: Intake & Output 06/30/23 07/01/23 07/02/23 07/03/23 23:59 23:59 23:59 23:59 Intake Total 4689.854 / 4793.054 3745.335 / 3745.335 1100 / 1150 290 / 290 Output Total 2300 / 2300 2400 / 2400 4200 / 4200 700 / 700 Balance 2389.854 / 2493.054 1345.335 / 1345.335 -3100 / -3050 -410 / -410 Weight 52.5 kg 52.5 kg 52.5 kg 54.703 kg Microbiology Reports for the Last 24 Hours: Microbiology 06/29/23 16:30 Sputum - Expectorated Sputum Gram Stain - Final 06/29/23 05:51 Blood Blood Culture - Preliminary 06/29/23 05:51 Blood Blood Culture - Preliminary Constitutional Constitutional: no acute distress, obese, chronically ill appearing and cooperative Comments: non-verbal *Routine HEENT Exam Head: Present normocephalic Eye: Present EOMI and PERRL ENT: Present mucous membranes moist *Routine Neck Exam Neck: Present supple; Absent lymphadenopathy *Routine Respiratory Exam Respiratory: Present CTA bilaterally; Absent rhonchi, wheezes or crackles *Routine Cardiovascular Exam Cardiovascular: Present RRR *Routine Abdominal Exam Abdominal: Present soft and normoactive bowel sounds; Absent tenderness *Routine Extremities Exam Extremities: Absent cyanosis, clubbing or edema *Routine Skin Exam Skin: Present warm; Absent rash *Routine Neurological Exam Neurological: Present alert and moving all extremities; Absent altered mental status Comments: [email or web address] Results Data Completed and Pending Labs on day of discharge: Labs from last 24 hours 07/03/23 07/02/23 06/29/23 06:51 11:25 18:06 WBC 6.2 D RBC 3.09 L Hgb 10.5 L Hct 30.5 L MCV 98.7 MCH 34.0 H MCHC 34.5 RDW 14.2 Plt Count 384 D MPV 8.3 Neut % (Auto) 79.9 Lymph % (Auto) 14.4 [place] % (Auto) 3.9 Eos % (Auto) 0.8 Baso % (Auto) 0.9 Neut # (Auto) 5.0 Lymph # (Auto) 0.9 [place] # (Auto) 0.2 Eos # (Auto) 0.1 Baso # (Auto) 0.1 Sodium 128 L Potassium 3.9 Chloride 100 Carbon Dioxide 29 Anion Gap 2.9 L BUN 4 L Creatinine 0.60 Estimated Creat Clear 51 Estimated GFR 102 Est GFR ( Amer) 123 Glucose 136 H Calcium 7.5 L Magnesium 1.9 Total Bilirubin 0.3 AST 26 ALT 15 Alkaline Phosphatase 83 Total Protein 5.1 L Albumin 2.3 L Globulin 2.8 Albumin/Globulin Ratio 0.8 L Stl Aeromonas (PCR) Not detected Stl C. cayetanensis PCR Not detected Stool Rotavirus (PCR) Not detected Stl Adenov F 40/41 PCR Not detected Stool Astrovirus (PCR) Not detected Stool Campylobacter PCR Not detected Stl C.difficile Tox PCR Not detected Stool Cryptosporidium PCR Not detected Stl E.coli Shiga Tox PCR Not detected Stool E coli O157 PCR TNP Stl Enterotoxigenic E PCR Not detected Stool EPEC (PCR) Not detected Stool EAEC (PCR) Not detected Stl E. histolytica PCR Not detected Stool Giardia Lamblia PCR Not detected Stool Salmonella PCR Not detected Stool Sapovirus (PCR) Detected A Stl P. shigelloides PCR Not detected Stl Shigella/EIEC PCR Not detected St Y.enterocolitica PCR Not detected Stool Vibrio (PCR) Not detected Stl Vibrio cholerae PCR Not detected Stl Norovirus GI/GII PCR Detected A Vancomycin Peak 16.1 Preliminary micro results at discharge 06/29/23 05:51 Blood Culture - Preliminary Blood 06/29/23 05:51 Blood Culture - Preliminary Blood DS: Diagnosis Discharge Diagnosis (1) Pneumonia: Status: Acute Code(s): J18.9 - Pneumonia, unspecified organism Qualifiers: Aspiration pneumonia type: unspecified Laterality: right Lung location: lower lobe of lung Pneumonia type: aspiration pneumonia Qualified Code(s): J69.0 - Pneumonitis due to inhalation of food and vomit (2) Acute hypoxemic respiratory failure: Status: Acute Code(s): J96.01 - Acute respiratory failure with hypoxia (3) Type 2 diabetes mellitus with hyperglycemia, without long-term current use of insulin: Status: Chronic Code(s): E11.65 - Type 2 diabetes mellitus with hyperglycemia (4) Hyponatremia: Status: Acute Code(s): E87.1 - Hypo-osmolality and hyponatremia (5) Down syndrome: Status: Chronic Code(s): Q90.9 - Down syndrome, unspecified (6) GERD with esophagitis: Status: Chronic Code(s): K21.00 - Gastro-esophageal reflux disease with esophagitis, without bleeding Meds Home Medications and Allergies Home Medications Medication Instructions Recorded Confirmed Type aspirin 81 mg tablet,delayed 81 mg PO DAILY Heart health 07/25/17 06/29/23 History release (Adult Low Dose Aspirin) atorvastatin 10 mg tablet 10 mg PO HS Cholesterol 30 days 07/25/17 06/29/23 History levothyroxine 75 mcg tablet 75 mcg PO DAILY hypothyroidism 30 07/25/17 06/29/23 History days metformin 500 mg tablet 500 mg PO BID Diabetes 90 days 07/25/17 06/29/23 History montelukast 10 mg tablet 10 mg PO PM Allergy symptoms 30 11/28/17 06/29/23 History days ##30 olopatadine 0.1 % eye drops 1 drp ophthalmic (eye) BIDP PRN 04/21/20 06/29/23 History allergy symptoms polyethylene glycol 3350 17 1 cap PO BID CONSTIPATION 12/06/20 06/29/23 History gram/dose oral powder psyllium husk (with sugar) 3.4 1 tbsp PO BID CONSTIPATION 12/06/20 06/29/23 History gram/12 gram oral powder pantoprazole 20 mg tablet,delayed 20 mg PO DAILY Acid Reflux 08/21/21 06/29/23 History release tamsulosin 0.4 mg capsule 0.4 mg PO DAILY Bladder 08/21/21 06/29/23 History cetirizine 10 mg tablet 10 mg PO DAILY Allergy Symptoms 09/05/21 06/29/23 History sennosides 8.8 mg/5 mL oral syrup 8.8 mg PO DAILY Constipation 09/05/21 06/29/23 History (senna) calcium 500 mg-D3 12.5 mcg-mag 20 15 ml PO DAILY 03/12/23 06/29/23 History mg-boron 125 mcg/15 mL oral liquid mecobalamin (vitamin B12) 500 mcg 500 mcg PO DAILY 03/12/23 06/29/23 History chewable tablet azelastine 137 mcg (0.1 %) nasal 2 spray intranasal HS Allergy 06/29/23 06/29/23 History spray aerosol Symptoms docusate sodium 50 mg/5 mL oral 50 mg PO DAILY Constipation 06/29/23 06/29/23 History liquid beclomethasone dipropionate 80 1 - 2 spray intranasal DAILY 06/30/23 06/30/23 History mcg/actuation nasal HFA inhaler Allergy Symptoms (QNASL) cefdinir 300 mg capsule 300 mg PO BID 3 days #5 caps 07/03/23 Rx metoprolol tartrate 25 mg tablet 12.5 mg PO BID 30 days #30 tabs 07/03/23 Rx metronidazole 500 mg tablet 500 mg PO TID 3 days #7 tabs 07/03/23 Rx New Prescriptions to Start Prescriptions: Danielito Santana metoprolol tartrate Danielito Baptiste metronidazole Danielito Baptiste Allergies Allergy/AdvReac Type Severity Reaction Status Date / Time bacitracin [BACITRACIN] Allergy Unknown Verified 06/29/23 11:12 codeine [CODEINE] Allergy Unknown Verified 06/29/23 11:12 Penicillins [PENICILLINS] Allergy Unknown Verified 06/29/23 11:12 Discharge Plan Disposition Patient Disposition: Home, Self-Care Condition: Fair Discharge Order Discharge Orders: Discharge Order (Routine); Ordered 07/03/23 Ordered By: Danielito Baptiste Follow up Plan Follow up with: Jacqueline Baez APRN [Nurse Practitioner] - 07/11/23 4:45 pm Prescriptions/Medication Reconciliation: New cefdinir 300 mg Capsule 300 mg PO BID 3 Days Qty: 5 0RF metronidazole 500 mg Tablet 500 mg PO TID 3 Days Qty: 7 0RF metoprolol tartrate 25 mg Tablet 12.5 mg PO BID 30 Days Qty: 30 0RF Continued levothyroxine 75 mcg tablet 75 mcg PO DAILY 30 Days Patient Comments: atorvastatin 10 mg tablet 10 mg PO HS 30 Days Patient Comments: metformin 500 mg tablet 500 mg PO BID 90 Days Patient Comments: aspirin [Adult Low Dose Aspirin] 81 mg tablet,delayed release (DR/EC) 81 mg PO DAILY Rx Instructions: montelukast 10 mg tablet 10 mg PO PM 30 Days Qty: 30 olopatadine 0.1 % drops 1 drp OPHTHALMIC BIDP PRN (Reason: allergy symptoms) cetirizine 10 mg tablet 10 mg PO DAILY sennosides [senna] 8.8 mg/5 mL syrup 8.8 mg PO DAILY mecobalamin (vitamin B12) 500 mcg tablet,chewable 500 mcg PO DAILY calcium no.[id number]-boron 500 mg-12.5 mcg -20 mg/15 mL liquid 15 ml PO DAILY pantoprazole 20 MG tablet,delayed release (DR/EC) 20 mg PO DAILY tamsulosin 0.4 MG capsule 0.4 mg PO DAILY polyethylene glycol 3350 119 GM powder 1 cap PO BID psyllium husk (with sugar) 575 GM powder 1 tbsp PO BID docusate sodium 50 mg/5 mL liquid 50 mg PO DAILY azelastine 137 mcg (0.1 %) aerosol,spray 2 spray intranasal HS Rx Instructions: administer into each nostril QNASL 80 mcg/actuation HFA aerosol inhaler 1 - 2 spray INTRANASAL DAILY Other Ambulatory Orders: Home Medical Equipment (Routine) Location: None Selected Ordered By: Danielito Baptiste Problem Reconciliation Problems Reviewed?: Yes Patient Discharge Instructions ACTIVITY: Continue current activity DIET: continue same diet Patient Instructions: Pneumonia-Adult, Sepsis, Septic Shock, DI for Pneumonia -- Adult, DI for Sepsis -- Adult Providers Primary Care Provider: Provider,Referral Admit Provider: Jordyn Jacinto Attending Provider: Jordyn Jacinto
[2023-07-03 11:19] VITALS: BP 115/63; PULSE 64; RESP 18; TEMP 37.4; O2SAT 93
[2023-07-03 11:25] LABS: POC Glucose,Bedside 153 (70-110)
[2023-07-03 11:25] LABS: POC Glucose,Bedside 143 (70-110)
[2023-07-03 11:25] LABS: POC Glucose,Bedside 216 (70-110)
[2023-07-03] MEDS: MAGNESIUM SULFATE IN WATER 2 GM/50 ML PIGGYBACK IV (11:29)
[2023-07-03] MEDS: humaLOG 100 UNITS/ML 3ML VIAL (SSI) SQ (11:36)
[2023-07-03 11:43] LABS: POC Glucose,Bedside 240 (70-110)
--- NOTE | 2023-07-03 11:46 | CA_ITS ---
APPROVED REPORT EXAM: Comprehensive 2D, Doppler, and color-flow Echocardiogram Cushion Cover Inspector: XANDER De Guzman, RVS Ht: 4 ft 3 in Wt: 120lbs BSA: 1.33 BP: 107/56 mmHg Indications: episode of V-tach, Down syndrome, Pneumonia, DM 2D Dimensions Left Atrium 2.41 cm LA Volume 36.00 mL LA Volume Index 26.30 mL/m2 (M/F) 16-34 M-Mode Dimensions RVDd 1.37 cm (0.9-2.6) LA Diam 3.64 cm (1.9-4.0) LVDd 4.62 cm (3.5-5.7) LVDs 3.56 cm (3.5-5.7) IVSd 0.91 cm (0.6-1.1) PWd 0.78 cm (0.6-1.1) EF (Teich) 46.10% EPSs 0.57 cm FS 22.90% EDV (Teich) 98.30 mL TAPSE 1.38 (<1.7) ESV (Teich) 53.00 mL LV Diastology E Decel Time 210 (160-240 msec) E/A Ratio 0.81 MED A' 6.70 cm/s LAT A' 8.30 cm/s Aortic Valve KEVYN Index 1.10 cm2/m2 AoV Peak Bryan. 144.0 (50-130 cm/s) AO Peak GR. 8.30 mmHg AO Mean GR. 4.20 (<5 mmHg) AO VTI 30.5 (18-25 cm) KEVYN (VTI) 1.51 (2.5-4.5 cm2) Mitral Valve MV A Velocity 115.0 (40-130 cm/s) E/A Ratio 0.81 Tricuspid Valve TR P. Velocity 263.00 cm/s RAP Estimate 10.00 mmHg RVSP 37.80 mmHg Left Ventricle The left ventricle is normal size. The left ventricular systolic function is normal. The left ventricular ejection fraction is within the normal range. There is increased LV wall thickness. There is normal LV segmental wall motion. Transmitral Doppler flow pattern suggests impaired LV relaxation. LVEF is 60%. Right Ventricle Right ventricle is mildly dilated. Right ventricle is mildly hypokinetic. Atria The left atrium size is normal. There is no Doppler evidence of interatrial shunt. Aortic Valve The aortic valve opens well. There is no aortic valvular stenosis. No aortic regurgitation is present. Mitral Valve The mitral valve is normal in structure. No evidence of mitral valve stenosis. There is no mitral valve regurgitation noted. Tricuspid Valve The tricuspid valve leaflets are thin and pliable. Trace tricuspid regurgitation. RVSP is 25 mmHg + RA pressure. Pulmonic Valve The pulmonary valve is normal in structure. Trace pulmonic regurgitation. Great Vessels The aortic root is normal in size. The ascending aorta is normal in size. The IVC is not well visualized. Pericardium There is no pericardial effusion. Other Information Study Quality: Fair Conclusion Normal LV systolic function. Mild RV dilation with mild reduction in RV function. No significant valvular stenosis or regurgitation. Electronically signed by : Mackenzie Shields MD 07/06/2023 15:34:23
[2023-07-03 12:00] VITALS: PULSE 67
--- NOTE | 2023-07-03 14:56 | CARE MANAGER ---
Met with patient and her family to discuss need for home O2. Patient's family member signed the Patient Choice form for [facility]. Order/clinical faxed and confirmed with [employer] that it was received. Plan is for delivery to home.
--- NOTE | 2023-07-04 16:03 | CARE MANAGER ---
Called and spoke with patient's sister regarding recent discharge. She stated that she is doing well, has started new medication and was aware of scheduled f/u appt. Explained how pulse ox works so that they can monitor O2 status.
--- NOTE | 2023-07-08 15:57 | PC.NURSE ---
URINE CULTURE RESULTS DISCUSSED WITH DR. ORDOÑEZ. PT RECEIVED APPROPRIATE ABX WHILE ADMITTED AND ON D/C. NO NEW ORDERS
--- NOTE | 2023-07-11 11:31 | DIET.NUTRFU ---
Spoke to sister over phone, Deepa is sick and not eating well. Saw Dr Lindsey and ABT tx was started. Veronica had questions about pureed consistency and portion sizes for meats and other protein choices. Recommended premier protein BID to provide extra protein but low sugar. Veronica was afraid to add ensure due to sugar content. Also let her glucerna was a option. Deepa used to like oatmeal but she dislikes the pureed oatmeal, suggested adding more flavor the peanut butter protein powder would be good. Also suggested mixing the cottage cheese with peaches. Deepa hasn't been eating the pureed cottage cheese like she used too. She still is tolerating the yogurt and mashed potatoes. They are not checking sugar at home for comfort reason, continues to take metformin BID. Anticipate BS would be elevated just because she is sick. Encourage her to eat whatever she could get in and not worry so much about the amount of carbs. Since she is only eats bites of each item. Provided contact information if she needed anything else.
== END 2023-07-03 16:47 | disposition home or self-care (01) | DRG 871 ==
LOC: ER 09:17 → 2ND 10:02 → ICU 07-01 20:37
PROVIDERS: Internal Medicine Adolescent Medicine; Admitting Provider Internal Medicine; Emergency Provider Emergency Medicine; Visit Provider Internal Medicine
DX: A41.9 Sepsis, unspecified organism (principal); J69.0 Pneumonitis due to inhalation of food and vomit; R65.21 Severe sepsis with septic shock; J96.01 Acute respiratory failure with hypoxia; E87.20 Acidosis, unspecified; E87.1 Hypo-osmolality and hyponatremia; I47.20 Ventricular tachycardia, unspecified; E78.5 Hyperlipidemia, unspecified; E03.9 Hypothyroidism, unspecified; Q90.9 Down syndrome, unspecified; E11.65 Type 2 diabetes mellitus with hyperglycemia; Z79.84 Long term (current) use of oral hypoglycemic drugs
CPT/HCPCS: 36415; 70371; 71275; 74177; 80048; 80053; 80202; 81001; 82803; 82962; 83605; 83690; 83735; 84484; 85007; 85025; 87040; 87070; 87086; 87205; 87507; 87636; 92610; 92611; 93005; 93270; 93306; 99291; J0131; J2405; J3370; J3475; Q9967

== ENCOUNTER 2023-07-14 11:32 | Inpatient (IN) | payer MEDICARE, MEDICAID, SELFPAY ==
[2023-07-14] VITALS (9 sets, daily range): BP systolic 115–131; BP diastolic 52–69; PULSE 63–78; RESP 14–18; TEMP 35.9–36.9; O2SAT 92–96; BMI 37.5; BMI 27.6
--- NOTE | 2023-07-14 11:45 | CT_ITS ---
PROCEDURE INFORMATION: Exam: CT Chest With Contrast; Diagnostic Exam date and time: 07/14/2023 12:44 PM Age: 62 years old Clinical indication: Pain; Chest pressure; Additional info: Recent pna, pain TECHNIQUE: Imaging protocol: Diagnostic computed tomography of the chest with contrast. Radiation optimization: All CT scans at this facility use at least one of these dose optimization techniques: automated exposure control; mA and/or kV adjustment per patient size (includes targeted exams where dose is matched to clinical indication); or iterative reconstruction. Contrast material: ISOVUE; Contrast volume: 75 ml; Contrast route: IV; COMPARISON: CT ANGIO CHEST PE PROTOCOL 06/29/2023 6:36 AM FINDINGS: Thyroid: Thyroid gland is unremarkable. Trachea: Main airways are patent. Lungs: Dependent atelectasis in the lower lobes noted. Hazy and consolidative airspace opacity in right middle lobe, new from prior exam. Pleural spaces: Development of moderate right, mild left pleural effusions. Heart: Cardiomegaly attributable to multi cardiac chamber enlargement. The left atrial appendage is normal. Coronary arteries: There is mild atherosclerotic calcification of the coronary arteries. Lymph nodes: Borderline prominent, multi station lymph nodes likely reactive. Vasculature: The main pulmonary trunk is prominent, which can be seen in the context of pulmonary hypertension. Aorta is nonaneurysmal. Intraperitoneal space: For findings in the abdomen and pelvis, please refer to the separately dictated abdomen and pelvis CT report under a separate accession number. Bones/joints: Unremarkable. No acute fracture. Soft tissues: Unremarkable. IMPRESSION: 1. Development of moderate right, mild left pleural effusions. 2. New, hazy airspace opacity in right middle lobe suspicious for pneumonia/aspiration.
--- NOTE | 2023-07-14 11:45 | CT_ITS ---
PROCEDURE INFORMATION: Exam: CT Abdomen And Pelvis With Contrast Exam date and time: 07/14/2023 12:44 PM Age: 62 years old Clinical indication: Abdominal pain; Generalized; Additional info: Abd pain/diarrhea TECHNIQUE: Imaging protocol: Computed tomography of the abdomen and pelvis with contrast. Radiation optimization: All CT scans at this facility use at least one of these dose optimization techniques: automated exposure control; mA and/or kV adjustment per patient size (includes targeted exams where dose is matched to clinical indication); or iterative reconstruction. Contrast material: ISOVUE; Contrast volume: 75 ml; Contrast route: IV; COMPARISON: CT ABDOMEN PELVIS W CON 06/29/2023 6:36 AM FINDINGS: Liver: No focal hepatic lesions. Gallbladder and bile ducts: There has been a cholecystectomy. Gallbladder is distended without radiopaque cholelithiasis. No biliary ductal dilation. Pancreas: No peripancreatic fluid stranding. No main pancreatic ductal dilation. Spleen: No splenomegaly. Multiple splenic granulomas Adrenal glands: The adrenal glands are normal. Kidneys and ureters: Nephrograms are symmetric. No nephrolithiasis or hydroureteronephrosis on either side. No solid lesions Stomach and bowel: Mild fluid distention of proximal small bowel loops can be seen in the context of enteritis. There is mucosal hyperenhancement and mild wall thickening along the rectosigmoid junction. Appendix: A normal appendix is not well visualized. However, no evidence of inflammatory changes in the right lower quadrant to suggest acute appendicitis. Intraperitoneal space: Unremarkable. No free air. No significant fluid collection. Vasculature: Unremarkable. No abdominal aortic aneurysm. Lymph nodes: No lymphadenopathy. Urinary bladder: Bladder is partially distended. There is urothelial hyperenhancement and bladder wall thickening. Reproductive: Status post hysterectomy. Bones/joints: No acute osseous abnormality. Multilevel degenerative changes of the included spine. Soft tissues: Unremarkable. Other findings: For findings in the chest, please refer to the separately dictated chest CT report under a separate accession number. IMPRESSION: 1. Mild fluid distention of proximal small bowel loops and mucosal hyperenhancement and wall thickening along the rectosigmoid junction can be seen in the context of enterocolitis. 2. Findings may represent cystitis. Correlate with urinalysis to rule out a lower urinary tract infection.
--- NOTE | 2023-07-14 11:48 | ED_ITS ---
Discharge Plan Disposition Patient Disposition: Admitted Clinical Impressions Clinical Impression: Pneumonia, Diarrhea, Colitis Discharge ED Provider: Rickie Singleton General Adult HPI General Chief complaint: Nausea/Vomiting/Diarrhea Stated complaint: congestion, diarrhea Time Seen by Provider: 07/14/23 11:34 History of Present Illness HPI narrative: This 62-year-old female with a history of Down syndrome, recent pneumonia with hospitalization in the ICU presents to the ER with concerns of discomfort and diarrhea. Patient's opto mechanical technician who is her sister states that patient was screaming for multiple hours this morning and was straining to have a bowel movement which was yellow, watery, foul-smelling. Patient has been on antibiotics since discharge for pneumonia. Emergency Worker does not describe any worsening cough but is concerned about pain and thinks it may be coming from the abdomen. Patient does not have any new neurologic deficits or changes. She currently seems comfortable. Related Data Home Medications Medication Instructions Recorded Confirmed aspirin 81 mg tablet,delayed 81 mg PO DAILY Heart health 07/25/17 06/29/23 release (Adult Low Dose Aspirin) atorvastatin 10 mg tablet 10 mg PO HS Cholesterol 30 days 07/25/17 06/29/23 levothyroxine 75 mcg tablet 75 mcg PO DAILY hypothyroidism 30 07/25/17 06/29/23 days metformin 500 mg tablet 500 mg PO BID Diabetes 90 days 07/25/17 06/29/23 montelukast 10 mg tablet 10 mg PO PM Allergy symptoms 30 11/28/17 06/29/23 days ##30 olopatadine 0.1 % eye drops 1 drp ophthalmic (eye) BIDP PRN 04/21/20 06/29/23 allergy symptoms polyethylene glycol 3350 17 1 cap PO BID CONSTIPATION 12/06/20 06/29/23 gram/dose oral powder psyllium husk (with sugar) 3.4 1 tbsp PO BID CONSTIPATION 12/06/20 06/29/23 gram/12 gram oral powder pantoprazole 20 mg tablet,delayed 20 mg PO DAILY Acid Reflux 08/21/21 06/29/23 release tamsulosin 0.4 mg capsule 0.4 mg PO DAILY Bladder 08/21/21 06/29/23 cetirizine 10 mg tablet 10 mg PO DAILY Allergy Symptoms 09/05/21 06/29/23 sennosides 8.8 mg/5 mL oral syrup 8.8 mg PO DAILY Constipation 09/05/21 06/29/23 (senna) calcium 500 mg-D3 12.5 mcg-mag 20 15 ml PO DAILY 03/12/23 06/29/23 mg-boron 125 mcg/15 mL oral liquid mecobalamin (vitamin B12) 500 mcg 500 mcg PO DAILY 03/12/23 06/29/23 chewable tablet azelastine 137 mcg (0.1 %) nasal 2 spray intranasal HS Allergy 06/29/23 06/29/23 spray aerosol Symptoms docusate sodium 50 mg/5 mL oral 50 mg PO DAILY Constipation 06/29/23 06/29/23 liquid beclomethasone dipropionate 80 1 - 2 spray intranasal DAILY 06/30/23 06/30/23 mcg/actuation nasal HFA inhaler Allergy Symptoms (QNASL) Previous Rx's Medication Instructions Recorded cefdinir 300 mg capsule 300 mg PO BID 3 days #5 caps 07/03/23 metoprolol tartrate 25 mg tablet 12.5 mg PO BID 30 days #30 tabs 07/03/23 metronidazole 500 mg tablet 500 mg PO TID 3 days #7 tabs 07/03/23 ciprofloxacin 0.3 %-dexamethasone 4 drp otic (ear) BID 7 days #7.5 mL 07/11/23 0.1 % ear drops,suspension Allergies Allergy/AdvReac Type Severity Reaction Status Date / Time bacitracin [BACITRACIN] Allergy Unknown Verified 06/29/23 11:12 codeine [CODEINE] Allergy Unknown Verified 06/29/23 11:12 Penicillins [PENICILLINS] Allergy Unknown Verified 06/29/23 11:12 [facility] Disclaimer: The information contained in this section may have been updated after the jannet valentine was seen, as this information can be updated by other users. Medical History Bilateral impacted cerumen Down syndrome GERD with esophagitis Hypertrophy of nasal turbinates Hyponatremia Impacted cerumen of left ear Type 2 diabetes mellitus with hyperglycemia, without long-term current use of insulin Surgical History H/O mastoidectomy Family History Other Cancer Hyperlipidemia Hypertension Social History (Updated 07/14/23 @ 16:14 by Anamaria Castro RN) Smoking Status: Never smoker second hand exposure: No alcohol intake: never counseling provided: none substance use type: denies use current occupational status: disabled Travel in the last 8 weeks: None household members: family housing: house current occupational exposures/hazards: No caffeine: No ROS Obtained: Yes All systems reviewed & no additional complaints except as documented Review of systems limited secondary to patient's cognitive status Gastrointestinal Gastrointestingal: Reports diarrhea Physical Exam General General appearance: alert and in no apparent distress Comment: Syndromic appearance, no acute distress, nontoxic Head Head exam: atraumatic and normocephalic Eye Eye exam: Present PERRL and EOMI ENT ENT exam: Present mucous membranes moist Neck Neck exam: Present normal inspection and full ROM Chest Chest inspection: Present symmetric chest wall rise Respiratory Respiratory exam: Present normal lung sounds bilaterally; Absent respiratory distress, wheezes or stridor Cardiovascular Cardiovascular exam: Present regular rate and normal rhythm Abdominal Exam Abdominal exam: Present soft; Absent distention, tenderness, guarding or rebound Extremities Exam Extremities exam: Present full ROM Neurological Exam Neurological exam: Present alert and other (At neurologic baseline); Absent motor sensory deficit Psychiatric Psychiatric exam: Present normal affect and normal mood Skin Skin exam: Present warm and dry Medical Decision Making Puneet Inquiry Pt receiving controlled substance: No Vital Signs: 07/14/23 11:33 07/14/23 11:41 07/14/23 11:57 Temperature 98.3 F Temperature Source Oral Pulse Rate 64 63 Pulse Rate [Left Radial] 64 Respiratory Rate 14 Blood Pressure 121/60 120/57 L Blood Pressure [Right Arm] 121/60 Blood Pressure Mean 73 Blood Pressure Mean [Right Arm] 80 Blood Pressure Source Blood Pressure Position 02 Sat by Pulse Oximetry 93 L 93 L 93 L Oxygen Delivery Method Room Air Room Air Room Air 07/14/23 13:23 07/14/23 14:00 07/14/23 15:00 Temperature Temperature Source Pulse Rate 73 71 64 Pulse Rate [Left Radial] Respiratory Rate Blood Pressure 131/69 115/68 119/65 Blood Pressure [Right Arm] Blood Pressure Mean Blood Pressure Mean [Right Arm] Blood Pressure Source Blood Pressure Position 02 Sat by Pulse Oximetry 96 94 L 92 L Oxygen Delivery Method Room Air Room Air 07/14/23 15:45 Temperature 98.4 F Temperature Source Oral Pulse Rate 78 Pulse Rate [Left Radial] Respiratory Rate 18 Blood Pressure 119/65 Blood Pressure [Right Arm] Blood Pressure Mean Blood Pressure Mean [Right Arm] Blood Pressure Source Automatic Cuff Blood Pressure Position Supine 02 Sat by Pulse Oximetry Oxygen Delivery Method Room Air Lab Data Lab Results 07/14/23 12:00: WBC 6.2, RBC 3.60 L, Hgb 11.9 L, Hct 36.3 L, MCV 100.9 H, MCH 32.9 H, MCHC 32.6, RDW 14.9, Plt Count 677 H, MPV 7.9, Neut % (Auto) 85.5 H, L ymph % (Auto) 10.1, [place] % (Auto) 3.2, Eos % (Auto) 0.8, Baso % (Auto) 0.4, Neut # (Auto) 5.3, Lymph # (Auto) 0.6 L, [place] # (Auto) 0.2, Eos # (Auto) 0.1, Baso # (Auto) 0.0, Total Counted 100, Neutrophils % (Manual) 82 H, Lymphocytes % (Manual) 15, Monocytes % (Manual) 3, Platelet Estimate Normal, RBC Morphology Normal, Sodium 128 L, Potassium 4.0, Chloride 95 L, Carbon Dioxide 23, Anion Gap 14.0, BUN 10, Creatinine 0.50 L, Estimated Creat Clear 63, Estimated GFR 125, Est GFR ( Amer) 152, Glucose 180 H, Lactate 2.2 H, Calcium 7.3 L, Total Bilirubin 0.3, AST 47 H, ALT 35, Alkaline Phosphatase 91, Troponin I < 0.01, Total Protein 6.5 D, Albumin 3.2 L, Globulin 3.3 H, Albumin/Globulin Ratio 1.0 L, Lipase 51 07/14/23 13:22: Urine Color Yellow, Urine Appearance Clear, Urine pH 6.5, Ur Specific [place] <= 1.005, Urine Protein Negative, Urine Glucose (UA) Negative, Urine Ketones Negative, Urine Blood Negative, Urine Nitrate Negative, Urine Bilirubin Negative, Urine Urobilinogen 0.2, Ur Leukocyte Esterase Negative, Urine RBC None, Urine WBC None, Ur Squamous Epith Cells Occasional, Urine Bacteria Trace 07/14/23 15:12: Troponin I < 0.01 07/14/23 12:00 07/14/23 12:00 Orders (Tests/Meds): ED MEDICATIONS Generic Name Dose Route Start Last Admin Trade Name Krishan PRN Reason Stop Dose Admin Acetaminophen 650 mg 07/14/23 15:42 Acetaminophen 325mg Tab PO 08/13/23 15:41 Q4HP PRN Fever or Mild Pain (1-3) Enoxaparin Sodium 40 mg 07/14/23 21:00 Enoxaparin 40mg/0.4ml Syringe SQ 08/13/23 20:59 HS SIMÓN Sodium Chloride 1,000 mls @ 50 mls/hr 07/14/23 15:45 07/14/23 16:15 Sod Chlor 0.9% 1000ml Bag IV 08/13/23 15:44 50 mls/hr .Q20H SIMÓN Administration Ondansetron HCl 4 mg 07/14/23 15:42 Ondansetron 4mg/2ml Vial IV 08/13/23 15:41 Q8HP PRN Nausea Sodium Chloride 10 ml 07/14/23 12:27 Sodium Chloride 0.9% 10ml Flush Syringe IV 08/13/23 12:26 NEEDED PRN Maintain IV Site Sodium Chloride 10 ml 07/14/23 12:52 07/14/23 12:52 Sodium Chloride 0.9% 10ml Syr (Rad Only) IV 08/13/23 12:51 10 ml NEEDED PRN Administration Maintain IV Site Sodium Chloride 10 ml 07/14/23 15:42 Sodium Chloride 0.9% 10ml Flush Syringe IV 08/13/23 15:41 NEEDED PRN Maintain IV Site Discontinued Medications Generic Name Dose Route Start Last Admin Trade Name Krishan PRN Reason Stop Dose Admin Acetaminophen 1,000 mg 07/14/23 11:45 07/14/23 12:05 Acetaminophen 1,000mg/100ml Vial IV 07/14/23 11:46 1,000 mg ONCE ONE Administration Heparin Sodium (Porcine) 5,000 unit 07/14/23 21:00 Heparin Sodium 5,000 Unit/Ml Vial SQ 08/13/23 20:59 BID SIMÓN Heparin Sodium (Porcine) 5,000 unit 07/14/23 16:00 07/14/23 15:54 Heparin Sodium 5,000 Unit/Ml Vial SQ 08/13/23 15:59 Not Given Q8H SIMÓN Lactated Ringer's 500 mls @ 999 mls/hr 07/14/23 11:48 07/14/23 12:26 Lactated Ringer's 500ml IV 07/14/23 12:18 999 mls/hr .Q31M ONE Administration Piperacillin Sod/Tazobactam 100 mls @ 200 mls/hr 07/14/23 14:17 07/14/23 15:09 Sod 4.5 gm/ Sodium Chloride IV 07/14/23 14:46 200 mls/hr ONCE ONE Administration Vancomycin/PEG/NADA/Lysine/Water 1.25 gm in 250 mls @ 125 mls/hr 07/14/23 14:30 07/14/23 16:15 Vancomycin 1.25gm/250ml (Peg) Premix IV 07/14/23 16:29 125 mls/hr ONCE ONE Administration Iopamidol 75 ml 07/14/23 12:52 07/14/23 12:52 Iopamidol-370 (76%);100ml Bottle IV 07/14/23 12:53 75 ml ONCE ONE Administration Miscellaneous 1 each 07/14/23 14:15 07/14/23 15:52 Vancomycin Consult Request NOTAPPLIC 08/13/23 14:14 1 each CONSULT PHARMACY SIMÓN Administration Miscellaneous 1 each 07/14/23 16:15 07/14/23 16:15 Pha To Nursing Instruction APPLIC 07/14/23 16:16 1 each ONCE ONE Administration ORDERS Category Date Time Status CT abdomen pelvis w con Stat Cat Scan 07/14/23 11:[address] chest w con Stat Cat Scan 07/14/23 11:45 Completed CBC w/Auto Diff [Complete Blood Count Auto Diff] Stat Lab 07/14/23 12:00 Completed CMP [Comprehensive Metabolic Panel] Stat Lab 07/14/23 12:00 Completed Diarrhea 23 Panel, PCR Stat Lab 07/14/23 11:45 Ordered Lactic Acid Stat Lab 07/14/23 12:00 Completed Lipase Stat Lab 07/14/23 12:00 Completed Trop I [Troponin I] Stat Lab 07/14/23 12:00 Completed Troponin I Q3H Lab 07/14/23 15:12 Completed Troponin I Q3H Lab 07/14/23 17:45 Ordered Urinalysis and Microscopic Stat Lab 07/14/23 13:22 Completed ECG initial Besson Routine Y 07/14/23 12:00 Completed HEART Score History (anamnesis): Slightly suspicious ECG: Normal Age: 45-65 years Risk factors: 1-2 risk factors Troponin: </= normal limit HEART Score: 2 Medical Decision Narrative: In summary, this 62year old female with a history of Down syndrome, recent pneumonia requiring ICU hospitalization which is a comorbidity of current condition presents to the emergency department today with concerns of pain, diarrhea. On initial evaluation patient is hemodynamically stable, afebrile, no acute distress at this time, physical exam is reassuring and I have not identified any obvious sources of pain however I am concerned about the explanation of the watery yellow diarrhea given patient is on persistent antibiotics. Differential diagnosis includes but is not limited to colitis, enteritis, ACS, pneumonia, urinary tract infection, C. difficile, other infe ctious diarrhea, electrolyte abnormality, dehydration. Based on these concerns, I ordered appropriate labs including cardiac workup and diarrhea PCR and imaging as well as treatment with IV fluids and IV Tylenol. ECG personally interpreted demonstrates normal sinus rhythm, rate 67, normal axis, no interval abnormalities, no STEMI Patient received IV Tylenol, IV fluids for initial treatment. Labs personally reviewed demonstrate no leukocytosis, WBC 6.2, mild anemia with hemoglobin 11.9 however this is improved from patient's recent discharge 11 days ago based on my review of recent labs. Patient does have thrombocytosis with platelets 677, nonactionable and nonspecific at this time. CMP with persistent mild hyponatremia, nonactionable, no findings of kidney dysfunction, patient's lactate is elevated at 2.2, she is receiving a small fluid bolus given reported history of HFrEF. Initial troponin undetectable at less than 0.01. Stool sample pending. Lipase normal. UA negative for signs of infection CT imaging personally interpreted demonstrate right middle lobe infiltrate, new effusions on both the right and the left, right worse than left. On my review of recent imaging, previous pneumonia was in the right lower lobe. I am also concerned for aspiration on the new CT today. See radiology read for full interpretation. CT abdomen pelvis with findings of colitis. See radiology read for final interpretation. I discussed these results with patient's family and opto mechanical technician at bedside including my concern for patient having continued pneumonia despite being on outpatient antibiotics. We discussed patient's penicillin allergy which seems to be a historic and unknown childhood reaction. Patient's primary opto mechanical technician is amenable to trying a penicillin-based antibiotic for broader coverage to hopefully help improve symptoms. This was also discussed with pharmacy and they are in agreement with this plan. Patient is receiving vancomycin and Zosyn for broad-spectrum coverage. I discussed this case with the hospitalist service given patient's multiple comorbidities, recent ICU admission for pneumonia, failure of outpatient antibiotics, and persistent pneumonia today as well as findings of colitis. On reassessment patient remains stable and has tolerated all interventions well thus far. Hospitalist accepted the patient for admission. Critical Care Critical Care Time Critical Care Time: No
--- NOTE | 2023-07-14 12:00 | ECG_ITS ---
APPROVED REPORT Exam: Resting ECG HR:67 bpm ECG Measurements Heart Rate 67 AXES WV 160 P 59 QRSd 69 QRS 44 QT 404 T 64 QTc 419 Conclusion SINUS RHYTHM NORMAL ECG UNCONFIRMED REPORT Electronically signed by : Jose Lindsey MD 07/15/2023 17:29:59
[2023-07-14] MEDS: ACETAMINOPHEN 1,000MG/100ML VIAL 1000 MG IV (12:05)
[2023-07-14 12:12] LABS: Basophils % 0.4 % (0.1-2.0); Eosinophils # 0.1 K/mm3 (0.0-0.4); Eosinophils % 0.8 % (0.1-12.0); Hematocrit 36.3 % (37.0-47.0); Hemoglobin 11.9 g/dL (12.2-16.2); Lymphocytes # 0.6 K/mm3 (0.7-4.5); Lymphocytes % 10.1 % (10-50); Mean Corpuscular HGB Conc 32.6 g/dL (31.8-35.4); Mean Corpuscular Hemoglobin 32.9 pg (27.0-31.2); Mean Corpuscular Volume 100.9 fl (81-99); Mean Platelet Volume 7.9 fl (7.4-10.4); Monocytes # 0.2 K/mm3 (0.1-1.0); Monocytes % 3.2 % (1.7-9.3); Neutrophils # 5.3 K/mm3 (1.8-7.8); Neutrophils % 85.5 % (37.0-80.0); Platelet Count 677 K/mm3 (142-424); Red Cell Distribution Width 14.9 % (11.5-17.5); White Blood Count 6.2 K/mm3 (4.8-10.8)
[2023-07-14 12:17] LABS: Chloride 95 mmol/L (98-107); MANUAL DIFFERENTIAL MANUAL DIFFERENTIAL (MANUAL DIFF); Sodium 128 mmol/L (136-145)
[2023-07-14 12:19] LABS: Blood Urea Nitrogen 10 mg/dl (7-17); Creatinine Clearance Estimated 63 mL/min (50-200); Estimated Glomerular Filt Rate 125 ml/min (>60); GFR (African American) 152 ML/MIN (>60)
[2023-07-14 12:20] LABS: Alanine Aminotransferase 35 U/L (12-78); Albumin Level 3.2 g/dl (3.5-5.0); Alkaline Phosphatase 91 U/L (38-126); Aspartate Amino Transferase 47 U/L (14-36); Bilirubin,Total 0.3 mg/dl (0.2-1.3); Calcium 7.3 mg/dl (8.4-10.2); Carbon Dioxide 23 mmol/L (22.0-30.0); Globulin 3.3 g/dL (1.3-3.2); Glucose 180 mg/dl (74-100); Lipase 51 U/L (23-300); Total Protein,Serum 6.5 g/dl (6.3-8.2)
[2023-07-14] MEDS: RINGERS SOLUTION,LACTATED 500 ML 999 ML IV (12:26)
[2023-07-14 12:32] LABS: Lymphocytes % 15 % (10-50); Monocytes % 3 % (2-9); Neutrophils % 82 % (42-76); Platelet Estimate Normal; RBC Morphology Normal; Total Cells Counted 100
[2023-07-14 12:37] LABS: Troponin I < 0.01 ng/ml (0.00-0.034)
[2023-07-14 12:38] LABS: Lactic Acid 2.2 mmol/L (0.7-2.1)
[2023-07-14] MEDS: IOPAMIDOL-370 (76%);100ML BOTTLE 75 ML IV (12:52)
[2023-07-14] MEDS: SODIUM CHLORIDE 0.9% 10ML SYR (RAD ONLY) 10 ML IV (12:52)
[2023-07-14 13:25] LABS: Microscopic, Urine URINE MICROSCOPIC (MICROSCOPIC)
[2023-07-14 13:44] LABS: Appearance,Urine CLEAR (Clear); Bilirubin,Urine Negative (Negative); Blood, Urine Negative (Negative); Color,Urine YELLOW (Yellow); Glucose,Urine (UA) Negative (Negative); Ketones,Urine Negative (Negative); Leukocyte Esterase,Urine Negative (Negative); Nitrate,Urine Negative (Negative); PH,Urine 6.5 (5.0-8.5); Protein,Urine Negative (Negative); Specific Gravity, Urine <= 1.005 (1.005-1.030); Urobilinogen,Urine 0.2 EU/dl (0.2)
[2023-07-14 14:00] LABS: Bacteria,Urine Trace /lpf; Squamous Epithelial Cell,Urine Occasional #/hpf (0-5)
--- NOTE | 2023-07-14 14:42 | PC.NURSE ---
Pharmacy called related to Zosyn order and allergy to PCN. Dr. Call notified and states she still wants the Zosyn given.
--- NOTE | 2023-07-14 14:52 | PC.NURSE ---
M ON PHONE WITH HOSPITALIST
[2023-07-14] MEDS: PIPERACILLIN/TAZO 4.5 GM in 0.9 % SODIUM CHLORIDE 100 ML IV (15:09)
--- NOTE | 2023-07-14 15:26 | PC.NURSE ---
Report given to JUS Bryan on Med Surg.
[2023-07-14 15:42] LABS: Troponin I < 0.01 ng/ml (0.00-0.034)
--- NOTE | 2023-07-14 15:51 | PC.NURSE ---
arrived to floor by w/c from ED
[2023-07-14] MEDS: VANCOMYCIN CONSULT REQUEST 1 EACH NOTAPPLIC (15:52)
[2023-07-14 16:08] LABS: Reflex Lactic Add Lactic Reflex
[2023-07-14] MEDS: 0.9 % SODIUM CHLORIDE 1000ML 1,000 ML 50 ML IV (16:15)
[2023-07-14] MEDS: VANCOMYCIN/WATER FOR INJ (PEG) 1.25 GM/250 ML PIGGYBACK IV (16:15)
[2023-07-14] MEDS: PHA TO NURSING INSTRUCTION 1 EACH NOTAPPLIC (16:15)
--- NOTE | 2023-07-14 17:39 | P.HP_ITS ---
History of Present Illness *Admission Date: 07/14/23 *Reason for visit:: not feeling well *History of present illness: Patient is a 62-year-old female with past medical history of Down syndrome, diabetes mellitus who presented to hospital due to not feeling well. According to the patient's sister at the bedside patient has not been feeling well, patient was screaming last night and agitated, this is her typical behavior when she is not feeling well. Otherwise no reported fevers chills. She was recently started on antibiotics for pneumonia, she has been having diarrhea for the past 2 weeks alternating with constipation. [facility] Disclaimer: The information contained in this section may have been updated after the patient was seen, as this information can be updated by other users. Medical History Bilateral impacted cerumen Down syndrome GERD with esophagitis Hypertrophy of nasal turbinates Hyponatremia Impacted cerumen of left ear Type 2 diabetes mellitus with hyperglycemia, without long-term current use of insulin Surgical History H/O mastoidectomy Family History Other Cancer Hyperlipidemia Hypertension Social History (Updated 07/14/23 @ 16:14 by Anamaria Castro RN) Smoking Status: Never smoker second hand exposure: No alcohol intake: never counseling provided: none substance use type: denies use current occupational status: disabled Travel in the last 8 weeks: None household members: family housing: house current occupational exposures/hazards: No caffeine: No Review of Systems Review of Systems Review of systems (narrative): as per HPI Meds Home Medications and Allergies Home Medications Medication Instructions Recorded Confirmed Type aspirin 81 mg tablet,delayed 81 mg PO DAILY Heart health 07/25/17 07/14/23 History release (Adult Low Dose Aspirin) atorvastatin 10 mg tablet 10 mg PO HS Cholesterol 30 days 07/25/17 07/14/23 History levothyroxine 75 mcg tablet 75 mcg PO DAILY hypothyroidism 30 07/25/17 07/14/23 History days metformin 500 mg tablet 500 mg PO BID Diabetes 90 days 07/25/17 07/14/23 History montelukast 10 mg tablet 10 mg PO PM Allergy symptoms 30 11/28/17 07/14/23 History days ##30 olopatadine 0.1 % eye drops 1 drp ophthalmic (eye) BIDP PRN 04/21/20 07/14/23 History allergy symptoms polyethylene glycol 3350 17 1 cap PO BID CONSTIPATION 12/06/20 07/14/23 History gram/dose oral powder psyllium husk (with sugar) 3.4 1 tbsp PO BID CONSTIPATION 12/06/20 07/14/23 H istory gram/12 gram oral powder pantoprazole 20 mg tablet,delayed 20 mg PO DAILY Acid Reflux 08/21/21 07/14/23 History release tamsulosin 0.4 mg capsule 0.4 mg PO DAILY Bladder 08/21/21 07/14/23 History cetirizine 10 mg tablet 10 mg PO DAILY Allergy Symptoms 09/05/21 07/14/23 History sennosides 8.8 mg/5 mL oral syrup 8.8 mg PO DAILY Constipation 09/05/21 07/14/23 History (senna) calcium 500 mg-D3 12.5 mcg-mag 20 15 ml PO DAILY 03/12/23 07/14/23 History mg-boron 125 mcg/15 mL oral liquid mecobalamin (vitamin B12) 500 mcg 500 mcg PO DAILY 03/12/23 07/14/23 History chewable tablet azelastine 137 mcg (0.1 %) nasal 2 spray intranasal HS Allergy 06/29/23 07/14/23 History spray aerosol Symptoms docusate sodium 50 mg/5 mL oral 50 mg PO DAILY Constipation 06/29/23 07/14/23 History liquid beclomethasone dipropionate 80 1 - 2 spray intranasal DAILY 06/30/23 07/14/23 History mcg/actuation nasal HFA inhaler Allergy Symptoms (QNASL) cefdinir 300 mg capsule 300 mg PO BID 3 days #5 caps 07/03/23 07/14/23 Rx metoprolol tartrate 25 mg tablet 12.5 mg PO BID 30 days #30 tabs 07/03/23 07/14/23 Rx metronidazole 500 mg tablet 500 mg PO TID 3 days #7 tabs 07/03/23 07/14/23 Rx ciprofloxacin 0.3 %-dexamethasone 4 drp otic (ear) BID 7 days #7.5 mL 07/11/23 07/14/23 Rx 0.1 % ear drops,suspension New Prescriptions to Start Prescriptions: Allergies Allergy/AdvReac Type Severity Reaction Status Date / Time bacitracin [BACITRACIN] Allergy Unknown Verified 06/29/23 11:12 codeine [CODEINE] Allergy Unknown Verified 06/29/23 11:12 Penicillins [PENICILLINS] Allergy Unknown Verified 06/29/23 11:12 Exam Data for Last 24 hours Vital signs and Labs for Last 24 Hours: Temp Pulse Resp BP Pulse Ox O2 Del Method 98.3 F 67 18 119/65 94 L Room Air 07/14/23 15:51 07/14/23 15:51 07/14/23 15:51 07/14/23 15:51 07/14/23 15:51 07/14/23 17:00 Laboratory Results - last 24 hr 07/14/23 12:00: WBC 6.2, RBC 3.60 L, Hgb 11.9 L, Hct 36.3 L, MCV 100.9 H, MCH 32.9 H, MCHC 32.6, RDW 14.9, Plt Count 677 H, MPV 7.9, Neut % (Auto) 85.5 H, Lymph % (Auto) 10.1, [place] % (Auto) 3.2, Eos % (Auto) 0.8, Baso % (Auto) 0.4, Neut # (Auto) 5.3, Lymph # (Auto) 0.6 L, [place] # (Auto) 0.2, Eos # (Auto) 0.1, Baso # (Auto) 0.0, Total Counted 100, Neutrophils % (Manual) 82 H, Lymphocytes % (Manual) 15, Monocytes % (Manual) 3, Platelet Estimate Normal, RBC Morphology Normal, Sodium 128 L, Potassium 4.0, Chloride 95 L, Carbon Dioxide 23, Anion Gap 14.0, BUN 10, Creatinine 0.50 L, Estimated Creat Clear 63, Estimated GFR 125, Est GFR ( Amer) 152, Glucose 180 H, Lactate 2.2 H, Calcium 7.3 L, Total Bilirubin 0.3, AST 47 H, ALT 35, Alkaline Phosphatase 91, Troponin I < 0.01, Total Protein 6.5 D, Albumin 3.2 L, Globulin 3.3 H, Albumin/Globulin Ratio 1.0 L, Lipase 51 07/14/23 13:22: Urine Color Yellow, Urine Appearance Clear, Urine pH 6.5, Ur Specific [place] <= 1.005, Urine Protein Negative, Urine Glucose (UA) Negative, Urine Ketones Negative, Urine Blood Negative, Urine Nitrate Negative, Urine Bilirubin Negative, Urine Urobilinogen 0.2, Ur Leukocyte Esterase Negative, Urine RBC None, Urine WBC None, Ur Squamous Epith Cells Occasional, Urine Bacteria Trace 07/14/23 15:12: Troponin I < 0.01 I & O for Last 24 hours: Intake & Output 07/11/23 07/12/23 07/13/23 07/14/23 23:59 23:59 23:59 23:59 Intake Total 0 / 0 Balance 0 / 0 Weight 50.094 kg Constitutional Constitutional: no acute distress Comments: do not follow commands *Routine HEENT Exam Head: Present normocephalic Eye: Present EOMI ENT: Present mucous membranes moist *Routine Neck Exam Neck: Present supple; Absent lymphadenopathy *Routine Respiratory Exam Respiratory: Present CTA bilaterally *Routine Cardiovascular Exam Cardiovascular: Present RRR *Routine Abdominal Exam Abdominal: Present soft and normoactive bowel sounds; Absent tenderness *Routine Rectal Exam Rectal:: deferred *Routine Genitalia Exam Genitalia:: deferred *Routine Extremities Exam Extremities: Absent cyanosis, clubbing or edema *Routine Skin Exam Skin: Present warm; Absent rash *Routine Neurological Exam Neurological: Present alert Comments: do not follow commands Assessment and Plan *Assessment and plan (1) Pneumonia: Status: Acute Category: Medical Code(s): J18.9 - Pneumonia, unspecified organism (2) Diarrhea: Status: Acute Category: Medical Code(s): R19.7 - Diarrhea, unspecified (3) Pneumonia: Status: Acute Qualifiers: Aspiration pneumonia type: unspecified Laterality: right Lung location: lower lobe of lung Pneumonia type: aspiration pneumonia Qualified Code(s): J69.0 - Pneumonitis due to inhalation of food and vomit Category: Medical Code(s): J18.9 - Pneumonia, unspecified organism (4) Colitis: Status: Acute Category: Medical Code(s): K52.9 - Noninfective gastroenteritis and colitis, unspecified (5) Type 2 diabetes mellitus with hyperglycemia, without long-term current use of insulin: Status: Chronic Category: Medical Code(s): E11.65 - Type 2 diabetes mellitus with hyperglycemia (6) Hyponatremia: Status: Acute Category: Medical Code(s): E87.1 - Hypo-osmolality and hyponatremia Plan Patient is a 62-year-old female with past medical history of Down syndrome, diabetes mellitus who presented to hospital due to not feeling well. According to the patient's sister at the bedside patient has not been feeling well, patient was screaming last night and agitated, this is her typical behavior when she is not feeling well. Otherwise no reported fevers chills. She was recently started on antibiotics for pneumonia, she has been having diarrhea for the past 2 weeks alternating with constipation. Assessment Recurrent pneumonia, suspect gram-positive organism Aspiration pneumonia Moderate right, left pleural effusions Colitis/Enterocolitis Hyponatremia Lactic acidosis Diabetes mellitus Plan Started on vancomycin, Zosyn, check C diff Consulted speech therapy N.p.o., okay with sips of water Gentle IV fluid therapy Patient's CODE STATUS was confirmed as DNR Insulin sliding scale Resume home aspirin, statin, levothyroxine Cleared by speech therapy DVT prophylaxis-Lovenox
[2023-07-14 17:48] LABS: Lactic Acid Follow Up (RFLX 1) 1.9 mmol/L (0.7-2.1)
[2023-07-14 19:10] LABS: Hemoglobin A1C 7.2 % (4.0-6.0)
[2023-07-14 19:22] LABS: Procalcitonin 0.058 ng/mL (0.0-2.0)
[2023-07-14 20:18] LABS: POC Glucose,Bedside 127 (70-110)
[2023-07-14] MEDS: PIPERACILLIN/TAZO 3.375 GM in 0.9 % SODIUM CHLORIDE 50 ML IV (23:18)
[2023-07-15] VITALS (7 sets, daily range): BP systolic 110–137; BP diastolic 55–65; PULSE 60–82; RESP 16–20; TEMP 36.6–36.9; O2SAT 94–96; BMI 27.6
--- NOTE | 2023-07-15 05:15 | PC.NURSE ---
Patient has had a good shift. RN did not noticed any discomfort with the patient. Patient has remained on RA. Patient did get put on tele to monitor heart rate due to patient not taking her PO metoprolol. Patient has been up to the bathroom x2 this shift with no issues. No other issue noted or voiced by family director of consulting services
[2023-07-15] MEDS: PIPERACILLIN/TAZO 3.375 GM in 0.9 % SODIUM CHLORIDE 50 ML IV (06:12)
[2023-07-15 07:12] LABS: Basophils % 0.7 % (0.1-2.0); Eosinophils % 1.1 % (0.1-12.0); Hemoglobin 11.8 g/dL (12.2-16.2); Lymphocytes # 0.8 K/mm3 (0.7-4.5); Lymphocytes % 23.9 % (10-50); Mean Corpuscular HGB Conc 32.7 g/dL (31.8-35.4); Mean Corpuscular Hemoglobin 32.7 pg (27.0-31.2); Mean Corpuscular Volume 100.1 fl (81-99); Mean Platelet Volume 7.9 fl (7.4-10.4); Monocytes # 0.2 K/mm3 (0.1-1.0); Monocytes % 4.6 % (1.7-9.3); Neutrophils # 2.5 K/mm3 (1.8-7.8); Neutrophils % 69.7 % (37.0-80.0); Platelet Count 617 K/mm3 (142-424); Red Cell Distribution Width 14.8 % (11.5-17.5); White Blood Count 3.5 K/mm3 (4.8-10.8)
--- NOTE | 2023-07-15 07:26 | HMH.PHAINT1 ---
Pharmacy Intervention Comments: Home med list verified with patient's sister at bedside and with external pharmacy list.
[2023-07-15 07:48] LABS: Blood Urea Nitrogen 6 mg/dl (7-17); Calcium 7.5 mg/dl (8.4-10.2); Creatinine Clearance Estimated 47 mL/min (50-200); Estimated Glomerular Filt Rate 102 ml/min (>60); GFR (African American) 123 ML/MIN (>60); Glucose 123 mg/dl (74-100); Potassium 3.9 mmoL/L (3.5-5.1); Sodium 133 mmol/L (136-145)
[2023-07-15 07:49] LABS: Anion Gap 10.9 mEq/L (5-15); Carbon Dioxide 26 mmol/L (22.0-30.0); Chloride 100 mmol/L (98-107)
--- NOTE | 2023-07-15 08:42 | DIET.NUTRFU ---
Patient was here recently and I spoke to sister over phone last week. Intake has been poor. COMPLIANCE SPECIALIST recommended pureed diet last admit. Sister has been blending all her foods, patient dislikes some of the pureed items. She used to eat oatmeal but does not like it blended. Still likes the mashed potatoes and sister was going to try cottage cheese with blended peaches mixed in for flavor. Last admit family had no desire for feeding tube. They also do not do finger sticks at home. Recommended glucerna or premier protein at home for extra protein and calories. She also uses peanut butter flavor protein powder in foods. Patient is currently NPO, when diet is advanced will look to add supplements.
--- NOTE | 2023-07-15 09:54 | EXP.ACUTE.PN ---
Subjective *Date: 07/15/23 *Time: 16:37 Interval history: On room air. Had small bowel movement this morning. No nausea or vomiting. Does not appear in any acute pain. No respiratory distress. Sister/caregiver at bedside. Patient is afebrile. Nonverbal and at baseline level of interaction Medical Exam Vital signs and Labs for Last 24 Hours: Vital Signs Temp Pulse Pulse Resp BP BP Pulse Ox 07/15/23 08:48 94 L 07/15/23 08:00 98.5 F 70 16 134/65 94 L 07/15/23 06:57 07/15/23 04:00 63 07/15/23 05:00 07/15/23 00:00 66 07/15/23 04:00 97.9 F 66 16 137/57 L 94 L 07/15/23 03:00 07/15/23 01:00 07/15/23 00:00 98.1 F 66 16 110/64 96 07/14/23 23:00 07/14/23 21:00 07/14/23 20:00 07/14/23 20:00 96.6 F L 64 16 116/52 L 92 L 07/14/23 18:35 07/14/23 18:31 07/14/23 17:00 07/14/23 15:51 98.3 F 67 18 119/65 94 L 07/14/23 15:45 98.4 F 78 18 119/65 07/14/23 15:00 64 119/65 92 L 07/14/23 14:00 71 115/68 94 L 07/14/23 13:23 73 131/69 96 07/14/23 11:57 63 120/57 L 93 L 07/14/23 11:41 64 121/60 93 L 07/14/23 11:33 98.3 F 64 14 121/60 93 L O2 Del Method 07/15/23 08:48 Room Air 07/15/23 08:00 Room Air 07/15/23 06:57 Room Air 07/15/23 04:00 07/15/23 05:00 Room Air 07/15/23 00:00 07/15/23 04:00 Room Air 07/15/23 03:00 Room Air 07/15/23 01:00 Room Air 07/15/23 00:00 07/14/23 23:00 Room Air 07/14/23 21:00 Room Air 07/14/23 20:00 Room Air 07/14/23 20:00 07/14/23 18:35 Room Air 07/14/23 18:31 Room Air 07/14/23 17:00 Room Air 07/14/23 15:51 Room Air 07/14/23 15:45 Room Air 07/14/23 15:00 Room Air 07/14/23 14:00 07/14/23 13:23 Room Air 07/14/23 11:57 Room Air 07/14/23 11:41 Room Air 07/14/23 11:33 Room Air Intake and Output 07/14/23 07/15/23 07/15/23 23:59 07:59 15:59 Intake Total 0 / 0 Output Total 250 / 250 0 / 0 Balance -250 / -250 0 / 0 Intake: Intake, Oral Amount 0 / 0 Output: Output, Urine Amount 250 / 250 0 / 0 Other: Number of Unmeasured Voids 1 1 Number of Bowel Movements 1 Weight 50.439 kg Patient Weight 07/15/23 23:59 Weight 50.439 kg Laboratory Results - last 24 hr 07/14/23 12:00: WBC 6.2, RBC 3.60 L, Hgb 11.9 L, Hct 36.3 L, MCV 100.9 H, MCH 32.9 H, MCHC 32.6, RDW 14.9, Plt Count 677 H, MPV 7.9, Neut % (Auto) 85.5 H, Lymph % (Auto) 10.1, [place] % (Auto) 3.2, Eos % (Auto) 0.8, Baso % (Auto) 0.4, Neut # (Auto) 5.3, Lymph # (Auto) 0.6 L, [place] # (Auto) 0.2, Eos # (Auto) 0.1, Baso # (Auto) 0.0, Total Counted 100, Neutrophils % (Manual) 82 H, Lymphocytes % (Manual) 15, Monocytes % (Manual) 3, Platelet Estimate Normal, RBC Morphology Normal, Sodium 128 L, Potassium 4.0, Chloride 95 L, Carbon Dioxide 23, Anion Gap 14.0, BUN 10, Creatinine 0.50 L, Estimated Creat Clear 63, Estimated GFR 125, Est GFR ( Amer) 152, Glucose 180 H, Hemoglobin A1c 7.2 H, Lactate 2.2 H, Calcium 7.3 L, Total Bilirubin 0.3, AST 47 H, ALT 35, Alkaline Phosphatase 91, Troponin I < 0.01, Total Protein 6.5 D, Albumin 3.2 L, Globulin 3.3 H, Albumin/Globulin Ratio 1.0 L, Lipase 51, Procalcitonin 0.058 07/14/23 13:22: Urine Color Yellow, Urine Appearance Clear, Urine pH 6.5, Ur Specific [place] <= 1.005, Urine Protein Negative, Urine Glucose (UA) Negative, Urine Ketones Negative, Urine Blood Negative, Urine Nitrate Negative, Urine Bilirubin Negative, Urine Urobilinogen 0.2, Ur Leukocyte Esterase Negative, Urine RBC None, Urine WBC None, Ur Squamous Epith Cells Occasional, Urine Bacteria Trace 07/14/23 15:12: Troponin I < 0.01 07/14/23 17:25: Lactate 1.9 07/14/23 20:05: POC Glucose 127 H 07/15/23 06:55: WBC 3.5 L D, RBC 3.60 L, Hgb 11.8 L, Hct 36.0 L, MCV 100.1 H, MCH 32.7 H, MCHC 32.7, RDW 14.8, Plt Count 617 H, MPV 7.9, Neut % (Auto) 69.7, Lymph % (Auto) 23.9, [place] % (Auto) 4.6, Eos % (Auto) 1.1, Baso % (Auto) 0.7, Neut # (Auto) 2.5, Lymph # (Auto) 0.8, [place] # (Auto) 0.2, Eos # (Auto) 0.0, Baso # (Auto) 0.0, Sodium 133 L, Potassium 3.9, Chloride 100, Carbon Dioxide 26, Anion Gap 10.9, BUN 6 L D, Creatinine 0.60, Estimated Creat Clear 47, Estimated GFR 102, Est GFR ( Amer) 123, Glucose 123 H D, Calcium 7.5 L I & O for Labs for Last 24 Hours: Intake & Output 07/12/23 07/13/23 07/14/23 07/15/23 23:59 23:59 23:59 23:59 Intake Total 0 / 0 Output Total 250 / 250 0 / 0 Balance -250 / -250 0 / 0 Weight 50.094 kg 50.439 kg Constitutional: Present no acute distress, obese, chronically ill appearing and cooperative Comment:: Non-verbal Head: Present atraumatic Comment:: Downs facies Neck: Present normal inspection Respiratory: Present crackles (Right lower lobe posterior lung field) and normal respiratory effort; Absent rhonchi or wheezes Comment:: transmitted upper airway sounds Cardiac: Present Reg Rate and Rhythm GI: Present normal bowel sounds; Absent tenderness Extremities: Present normal inspection and full ROM Skin: Present intact; Absent erythema Neuro: Present Grossly Intact, alert, awake and moves all extremities Assessment and Plan *Assessment and plan (1) Pneumonia: Status: Acute Category: Medical Code(s): J18.9 - Pneumonia, unspecified organism (2) Diarrhea: Status: Acute Category: Medical Code(s): R19.7 - Diarrhea, unspecified (3) Colitis: Status: Acute Category: Medical Code(s): K52.9 - Noninfective gastroenteritis and colitis, unspecified (4) Type 2 diabetes mellitus with hyperglycemia, without long-term current use of insulin: Status: Chronic Category: Medical Code(s): E11.65 - Type 2 diabetes mellitus with hyperglycemia (5) Hyponatremia: Status: Acute Category: Medical Code(s): E87.1 - Hypo-osmolality and hyponatremia (6) Down syndrome: Status: Chronic Category: Medical Code(s): Q90.9 - Down syndrome, unspecified Plan Patient is a 62-year-old female with past medical history of Down syndrome, diabetes mellitus who presented to hospital due to not feeling well. According to the patient's sister at the bedside patient has not been feeling well, patient was screaming last night and agitated, this is her typical behavior when she is not feeling well. Otherwise no reported fevers chills. Had been started on outpatient antibiotics with levofloxacin 500 mg daily for outpatient pneumonia. Has been having diarrhea for the past 2 weeks alternating with constipation. Patient on room air this morning but not at her normal level of health. Chest imaging concerning for volume overload and pleural effusions. Daily diuresis. Continues to require inpatient management. Problems addressed as follows: Current pneumonia Pleural effusions Aspiration -Continue antibiotics with vancomycin and cefepime IV. Monitor for toxicity -White cell count 3.5. Repeat CBC, CMP, magnesium ordered for the morning. -Previously evaluated by speech, on pur?ed and thins. Caregiver has no desire to pursue alternate means of nutrition, will allow patient to eat with her modified diet. No repeat speech eval necessary during this visit -Lasix 40 mg daily to assist with resorption of pleural effusions. Monitor electrolytes. Creatinine 0.6, BUN 6, potassium 3.9 Diarrhea -History of diarrhea and constipation. On bowel regimen at home. Extensive antibiotic exposure over the past month however. C. difficile pending -If develops increased diarrhea output, low threshold to initiate empiric vancomycin pending results from stool panel Diabetes -A1c 7.2 earlier this month. Given patient's agitation with labs and fingersticks, will hold on fingersticks and sliding scale insulin. Appears well-controlled. Blood sugars have been within the 100 range. Hypothyroid: Continue levothyroxine 75 mcg daily Hypertension: Continue metoprolol 12.5 twice daily Hyperlipidemia: Continue Lipitor 10 mg nightly Continue pantoprazole for GERD Initiate Claritin for allergies, continue nasal sprays Continue tamsulosin 0.4mg daily for urinary retention DNR Pur?ed diet with thin liquids PLOV
[2023-07-15] MEDS: FUROSEMIDE 40MG/4ML VIAL 40 MG IV (10:10)
[2023-07-15] MEDS: CEFEPIME HCL 2 GM in 0.9 % SODIUM CHLORIDE 100 ML IV ×2 (10:11→20:22)
[2023-07-15 11:53] LABS: POC Glucose,Bedside 130 (70-110)
--- NOTE | 2023-07-15 12:07 | HMH.PTEV ---
Physical Therapy Evaluation Rehab PT IP Evaluation Start: 07/15/23 09:56 Freq: ONCE Status: Active Protocol: Document 07/15/23 12:03 BHAVNAHU (Rec: 07/15/23 12:07 ACE [id number]) Subjective/History History History 62 yowf adm to [facility] with PNA and pleural effusion. She has PMH of Down Syndrome and DM. She lives with her sister, 1-2 steps to enter the home, and she is generally independent with all mobility without AD. She is nonverbal at baseline, but able to follow instruction well. Her sister provides for all of her ADLs at baseline. Subjective Subjective Pt is pleasant this am and agreeable to mobility assessment. New diagnosis of cancer in past 12 No months? Rehab PT IP Eval Objective Appearance Patient Behavior Appropriate Patient Orientation Person Difficulty following instructions none Speech Pattern No Speech,Patient Baseline Ambulation Patient Able to Ambulate Yes Ambulation Observation IP General Gait Pattern Observation No Deviations/Normal Ambulation Distance (feet) 30 Ambulation Assistive Device None Ambulation Ability Independent Balance Ability to Arise Able, w/o using arms Sitting Balance Steady, safe Standing Balance Steady, wide stance Dynamic Sitting Balance Ability Good Dynamic Standing Balance Ability Good Transfers Bed Transfer Ability Independent Chair Transfer Ability Independent Sit to Stand Bed Transfer Ability Independent Sit to Stand Chair Transfer Ability Independent Rehab PT IP prob,goals,plan Problems Date of Evaluation: 07/15/23 Discharge Plan PT Discharge Plan Pt appears to be at baseline for all mobility at this time, no current inpatient therapy needs. Eval Complexity Eval Charge Codes 63005 - High Complexity PHYSICIAN CERTIFICATION: I certify the specified therapy services for Oseas Arreola are required, authorized, and reviewed every 30 days.
--- NOTE | 2023-07-15 12:07 | HMH.OTEV ---
OT Inpatient Evaluation Rehab OT IP Evaluation Start: 07/15/23 09:56 Freq: ONCE Status: Active Protocol: Document 07/15/23 12:03 ANJUMAMEYA (Rec: 07/15/23 12:07 RAMIREZ [id number]) Rehab OT IP Assessment Subjective History Patient is a 62-year-old female with past medical history of Down syndrome, diabetes mellitus who presented to hospital due to not feeling well. According to the patient's sister at the bedside patient has not been feeling well, patient was screaming last night and agitated, this is her typical behavior when she is not feeling well. Otherwise no reported fevers chills. She was recently started on antibiotics for pneumonia, she has been having diarrhea for the past 2 weeks alternating with constipation. Patient is non-verbal. Lives with sister. Sister provides all ADLs and IADLs care to patient. Patient able to follow simple commands and ambulates with SBA. Subjective Instructed Patient to participate in bed mobility of supine->sit @ EOB ->stand-> ambulate to BSC ~10ft from bed . Patient continent of bladder and bowel mgt tr. Patient required Max A for toilet hygiene and CGA for transfers and ambulation for safety. No LOB noted. Assisted patient back to bed with needs met at end of session. Objective Patient Orientation Person,Place,Name,Age,Birthday ,Year Right Upper Extremity Gross ROM WFL Left Upper Extremity Gross ROM WFL Bed Mobility bed mobility - supine/sit Assist Level Independent Transfer Training Sit/Stand/Pivot Transfer Assist Level Contact Guard/Hand Hold Chair Transfer Ability Supervision/Stand by Chair Transfer Technique Sit to/from Ambulatory Chair Transfer Assistive Devices None Lower Body Dressing Ability Maximum Assistance Performing Toilet Hygiene Ability Maximum Assistance Overall Commode/Toilet Transfer Ability Standby Assistance Commode/Toilet Transfer Technique Sit to/from Ambulatory Commode/Toilet Transfer Assistive 3-in-1 Commode Devices Rehab OT IP prob,goals,plan Problems Date of Evaluation: 07/15/23 Rehab Potential Rehab Potential Innapropriate for Skilled Therapy Discharge Plan OT Discharge Plan Patient appears to be at baseline. Recommend patient to return home after medical d/c . Eval Complexity Eval Charge Codes 80997 - Low Complexity PHYSICIAN CERTIFICATION: I certify the specified therapy services for Oseas Bonnie Lyvers are required, authorized, and reviewed every 30 days.
--- NOTE | 2023-07-15 12:08 | HMH.PTEV ---
Physical Therapy Evaluation Rehab PT IP Evaluation Start: 07/15/23 09:56 Freq: ONCE Status: Complete Protocol: Document 07/15/23 12:03 ACE (Rec: 07/15/23 12:07 ACE [id number]) Subjective/History History History 62 yowf adm to [facility] with PNA and pleural effusion. She has PMH of Down Syndrome and DM. She lives with her sister, 1-2 steps to enter the home, and she is generally independent with all mobility without AD. She is nonverbal at baseline, but able to follow instruction well. Her sister provides for all of her ADLs at baseline. Subjective Subjective Pt is pleasant this am and agreeable to mobility assessment. New diagnosis of cancer in past 12 No months? Rehab PT IP Eval Objective Appearance Patient Behavior Appropriate Patient Orientation Person Difficulty following instructions none Speech Pattern No Speech,Patient Baseline Ambulation Patient Able to Ambulate Yes Ambulation Observation IP General Gait Pattern Observation No Deviations/Normal Ambulation Distance (feet) 30 Ambulation Assistive Device None Ambulation Ability Independent Balance Ability to Arise Able, w/o using arms Sitting Balance Steady, safe Standing Balance Steady, wide stance Dynamic Sitting Balance Ability Good Dynamic Standing Balance Ability Good Transfers Bed Transfer Ability Independent Chair Transfer Ability Independent Sit to Stand Bed Transfer Ability Independent Sit to Stand Chair Transfer Ability Independent Rehab PT IP prob,goals,plan Problems Date of Evaluation: 07/15/23 Discharge Plan PT Discharge Plan Pt appears to be at baseline for all mobility at this time, no current inpatient therapy needs. Eval Complexity Eval Charge Codes 68856 - High Complexity PHYSICIAN CERTIFICATION: I certify the specified therapy services for Oseas Arreola are required, authorized, and reviewed every 30 days.
[2023-07-15] MEDS: ACETAMINOPHEN 325MG TAB 650 MG PO (12:18)
[2023-07-15] MEDS: MONTELUKAST SODIUM 10MG TAB 10 MG PO (17:46)
--- NOTE | 2023-07-15 18:07 | PC.NURSE ---
patient has tolerated pureed diet and thin liquids today with no issues, remains on RA.
--- NOTE | 2023-07-15 18:40 | PC.NURSE ---
patient was tugging at her right ear and appeared to be having some discomfort in it, her caregiver informed the RN that the pt is due to have her middle ear irrigated in a few days and hadn't had her ear drops, PO tylenol was given and her drops were ordered for this evening per MD.
[2023-07-15] MEDS: TAMSULOSIN 0.4MG CAPSULE 0.400000000000000022 MG PO (20:21)
[2023-07-15] MEDS: LORATADINE 10MG TABLET 10 MG PO (20:21)
[2023-07-15] MEDS: METOPROLOL TARTRATE 25MG TABLET 12.5 MG PO (20:21)
[2023-07-15] MEDS: CIPRO 0.3%-DEX 0.1% OTIC SUSP 7.5ML 0.200000000000000011 ML OT (20:22)
[2023-07-16] VITALS: BP 109/55; PULSE 60; PULSE 64; RESP 18; TEMP 36.2; O2SAT 94
[2023-07-16] MEDS: ACETAMINOPHEN 325MG TAB 650 MG PO (03:52)
[2023-07-16 04:00] VITALS: BP 129/51; PULSE 70; PULSE 73; RESP 20; TEMP 36.4; O2SAT 92; BMI 28.1
--- NOTE | 2023-07-16 05:03 | PC.NURSE ---
Patient has had a decent shift. Has been up the bathroom x2 this shift. Around 4am when patient got up to the bathroom was tearful. RN and tech went into the room. Sister stated that when she is tearful she is hurting or upset. RN bladder scanned patient to see if patient was retaining the patient did not have anything in her bladder. it was discussed with the sister and Tylenol was given to see if that helped. When RN left the room the patient seems to be in better spirts and was no longer tearful. Family asked for patient to be up in chair for meals. Stated that we could do that and would be back to help her up to the chair for breakfast.
[2023-07-16] MEDS: LEVOTHYROXINE 75MCG (0.075MG) TAB 75 MCG PO (06:44)
[2023-07-16 06:46] LABS: Basophils % 0.6 % (0.1-2.0); Eosinophils % 0.6 % (0.1-12.0); Hematocrit 34.6 % (37.0-47.0); Hemoglobin 11.4 g/dL (12.2-16.2); Lymphocytes # 1.1 K/mm3 (0.7-4.5); Lymphocytes % 23.5 % (10-50); Mean Corpuscular HGB Conc 32.9 g/dL (31.8-35.4); Mean Corpuscular Hemoglobin 32.5 pg (27.0-31.2); Mean Corpuscular Volume 98.7 fl (81-99); Mean Platelet Volume 7.7 fl (7.4-10.4); Monocytes # 0.3 K/mm3 (0.1-1.0); Monocytes % 6.7 % (1.7-9.3); Neutrophils # 3.3 K/mm3 (1.8-7.8); Neutrophils % 68.6 % (37.0-80.0); Platelet Count 531 K/mm3 (142-424); Red Cell Distribution Width 14.8 % (11.5-17.5); White Blood Count 4.8 K/mm3 (4.8-10.8)
[2023-07-16 07:01] LABS: Blood Urea Nitrogen 7 mg/dl (7-17); Calcium 7.6 mg/dl (8.4-10.2); Carbon Dioxide 29 mmol/L (22.0-30.0); Chloride 97 mmol/L (98-107); Creatinine Clearance Estimated 48 mL/min (50-200); Estimated Glomerular Filt Rate 102 ml/min (>60); GFR (African American) 123 ML/MIN (>60); Glucose 162 mg/dl (74-100); Sodium 131 mmol/L (136-145)
[2023-07-16 08:00] VITALS: BP 118/62; PULSE 70; RESP 16; TEMP 36.4; O2SAT 94
[2023-07-16] MEDS: METOPROLOL TARTRATE 25MG TABLET 12.5 MG PO ×2 (09:11→20:53)
[2023-07-16] MEDS: PANTOPRAZOLE 40MG TABLET 40 MG PO (09:11)
[2023-07-16] MEDS: CIPRO 0.3%-DEX 0.1% OTIC SUSP 7.5ML 0.200000000000000011 ML OT ×2 (09:14→20:55)
[2023-07-16] MEDS: FUROSEMIDE 40MG/4ML VIAL 40 MG IV (09:14)
[2023-07-16] MEDS: CEFEPIME HCL 2 GM in 0.9 % SODIUM CHLORIDE 100 ML IV ×2 (09:14→20:53)
[2023-07-16] MEDS: PSYLLIUM UD PACKET 1 EACH PO (09:29)
[2023-07-16 12:00] VITALS: BP 101/52; PULSE 60; PULSE 63; RESP 16; TEMP 36.3; O2SAT 93
--- NOTE | 2023-07-16 15:04 | PC.NURSE ---
Patient alert and cooperative. Up in chairs most of morning and for meals. Up with BSC with 2 for voids. Tolerating pureed diet. No nonverbal indications of pain. On room air. Sister in room throughout shift.
--- NOTE | 2023-07-16 15:50 | P.PN_ITS ---
Subjective *Date: 07/16/23 *Time: 16:28 Interval history: In bedside chair on exam this morning. Stable on room air. Diuresing well, - 600 cc in the past 24 hours. Kidney function electrolytes remained stable. Tolerating p.o. intake. Baseline mentation. No bowel movement today, will r esume bowel regimen. Medical Exam Vital signs and Labs for Last 24 Hours: Vital Signs Temp Pulse Pulse Resp BP Pulse Ox O2 Del Method 07/16/23 14:50 Room Air 07/16/23 13:00 Room Air 07/16/23 12:00 60 07/16/23 08:00 70 07/16/23 12:00 97.3 F L 63 16 101/52 L 93 L Room Air 07/16/23 11:00 Room Air 07/16/23 09:15 Room Air 07/16/23 08:23 Room Air 07/16/23 08:00 97.5 F L 70 16 118/62 94 L Room Air 07/16/23 06:56 Room Air 07/16/23 05:00 Room Air 07/16/23 04:00 70 07/16/23 04:00 97.6 F 73 20 129/51 L 92 L Room Air 07/16/23 03:00 Room Air 07/16/23 00:00 60 07/16/23 01:00 Room Air 07/15/23 23:00 Room Air 07/16/23 00:00 97.2 F L 64 18 109/55 L 94 L Room Air 07/15/23 21:00 Room Air 07/15/23 20:00 Room Air 07/15/23 20:00 70 07/15/23 20:00 98.5 F 68 20 124/57 L 94 L 07/15/23 18:44 Room Air 07/15/23 16:00 70 07/15/23 16:49 Room Air 07/15/23 16:00 98.5 F 65 18 121/60 94 L Room Air Intake and Output 07/15/23 07/16/23 07/16/23 23:59 07:59 15:59 Intake Total 160 / 470 150 / 670 520 / 670 Output Total 150 / 950 150 / 1075 925 / 1075 Balance 10 / -480 0 / -405 -405 / -405 Intake: Intake, Oral Amount 160 / 470 150 / 570 420 / 570 Intake, Total IV Amount 100 / 100 Cefepime HCl 2 gm In 0.9 % 100 / 100 Sodium Chloride 100 ml @ 200 mls/hr IV Q12H [facility] Rx#:[id number] Output: Output, Urine Amount 150 / 950 150 / 1075 925 / 1075 Other: Number of Unmeasured Voids 0 0 0 Weight 51.284 kg Patient Weight 07/16/23 23:59 Weight 51.284 kg Laboratory Results - last 24 hr 07/16/23 06:14: WBC 4.8 D, RBC 3.50 L, Hgb 11.4 L, Hct 34.6 L, MCV 98.7, MCH 32.5 H, MCHC 32.9, RDW 14.8, Plt Count 531 H, MPV 7.7, Neut % (Auto) 68.6, Lymph % (Auto) 23.5, [place] % (Auto) 6.7, Eos % (Auto) 0.6, Baso % (Auto) 0.6, Neut # (Auto) 3.3, Lymph # (Auto) 1.1, [place] # (Auto) 0.3, Eos # (Auto) 0.0, Baso # (Auto) 0.0, Sodium 131 L, Potassium 4.0, Chloride 97 L, Carbon Dioxide 29, Anion Gap 9.0, BUN 7, Creatinine 0.60, Estimated Creat Clear 48, Estimated GFR 102, Est GFR ( Amer) 123, Glucose 162 H D, Calcium 7.6 L I & O for Labs for Last 24 Hours: Intake & Output 07/13/23 07/14/23 07/15/23 07/16/23 23:59 23:59 23:59 23:59 Intake Total 0 / 0 320 / 470 670 / 670 Output Total 250 / 250 950 / 950 1075 / 1075 Balance -250 / -250 -630 / -480 -405 / -405 Weight 50.094 kg 50.43 kg 51.284 kg Constitutional: Present no acute distress, obese, chronically ill appearing and cooperative Comment:: Non-verbal Head: Present atraumatic Comment:: Downs facies Neck: Present normal inspection Respiratory: Present crackles (Right lower lobe posterior lung field) and normal respiratory effort; Absent rhonchi or wheezes Comment:: transmitted upper airway sounds Cardiac: Present Reg Rate and Rhythm GI: Present normal bowel sounds; Absent tenderness Extremities: Present normal inspection and full ROM Skin: Present intact; Absent erythema Neuro: Present Grossly Intact, alert, awake and moves all extremities Assessment and Plan *Assessment and plan (1) Pneumonia: Status: Acute Category: Medical Code(s): J18.9 - Pneumonia, unspecified organism (2) Diarrhea: Status: Acute Category: Medical Code(s): R19.7 - Diarrhea, unspecified (3) Colitis: Status: Acute Category: Medical Code(s): K52.9 - Noninfective gastroenteritis and colitis, unspecified (4) Type 2 diabetes mellitus with hyperglycemia, without long-term current use of insulin: Status: Chronic Category: Medical Code(s): E11.65 - Type 2 diabetes mellitus with hyperglycemia (5) Hyponatremia: Status: Acute Category: Medical Code(s): E87.1 - Hypo-osmolality and hyponatremia (6) Down syndrome: Status: Chronic Category: Medical Code(s): Q90.9 - Down syndrome, unspecified Plan Patient is a 62-year-old female with past medical history of Down syndrome, diabetes mellitus who presented to hospital due to not feeling well. According to the patient's sister at the bedside patient has not been feeling well, patient was screaming last night and agitated, this is her typical behavior when she is not feeling well. Otherwise no reported fevers chills. Had been started on outpatient antibiotics with levofloxacin 500 mg daily for outpatient pneumonia. Has been having diarrhea for the past 2 weeks alternating with constipation. Patient on room air this morning but not at her normal level of health. Chest imaging concerning for volume overload and pleural effusions. Daily diuresis. Continues to require inpatient management. Problems addressed as follows: Current pneumonia Pleural effusions Aspiration -Continue antibiotics with vancomycin and cefepime IV. Monitor for toxicity -White cell count 4.8. Repeat CBC, CMP, magnesium ordered for the morning. -Previously evaluated by speech, on pur?ed and thins. Caregiver has no desire to pursue alternate means of nutrition, will allow patient to eat with her modif ied diet. No repeat speech eval necessary during this visit -Lasix 40 mg daily to assist with resorption of pleural effusions. Monitor electrolytes. Creatinine 0.6, BUN 7, potassium 4.0 Diarrhea -History of diarrhea and constipation. On bowel regimen at home. Extensive antibiotic exposure over the past month however. No further diarrhea since admission. Low concern given clinical stability and no further diarrhea for C. difficile. -Resume bowel regimen with MiraLAX nightly and senna during the day. Patient has not had a bowel movement in 2 days. -If develops increased diarrhea output, low threshold to reconsider workup for C. difficile Diabetes -A1c 7.2 earlier this month. Given patient's agitation with labs and fingersticks, will hold on fingersticks and sliding scale insulin. Appears well-controlled. Blood sugars have been within the 100 range. Hypothyroid: Continue levothyroxine 75 mcg daily Hypertension: Continue metoprolol 12.5 twice daily Hyperlipidemia: Continue Lipitor 10 mg nightly Continue pantoprazole for GERD Initiate Claritin for allergies, continue nasal sprays Continue tamsulosin 0.4mg daily for urinary retention DNR Pur?ed diet with thin liquids PLOV
[2023-07-16 16:00] VITALS: BP 134/63; PULSE 64; PULSE 70; RESP 20; TEMP 36.6; O2SAT 93
[2023-07-16] MEDS: MONTELUKAST SODIUM 10MG TAB 10 MG PO (18:22)
[2023-07-16] MEDS: METFORMIN 500MG TABLET 500 MG PO (18:22)
[2023-07-16 20:00] VITALS: BP 108/69; PULSE 66; PULSE 67; RESP 16; TEMP 36.6; O2SAT 93
[2023-07-16] MEDS: TAMSULOSIN 0.4MG CAPSULE 0.400000000000000022 MG PO (20:53)
[2023-07-16] MEDS: POLYETHYLENE GLYCOL 3350 238GM POWDER 119 GM PO (20:53)
[2023-07-16] MEDS: LORATADINE 10MG TABLET 10 MG PO (20:55)
[2023-07-17] VITALS: BP 130/62; PULSE 60; PULSE 70; RESP 16; TEMP 36.4; O2SAT 92
[2023-07-17 04:00] VITALS: BP 142/71; PULSE 65; PULSE 67; RESP 16; TEMP 36.5; O2SAT 91; BMI 26.9
[2023-07-17] MEDS: LEVOTHYROXINE 75MCG (0.075MG) TAB 75 MCG PO (07:15)
[2023-07-17 07:45] LABS: Anion Gap 12.1 mEq/L (5-15); Blood Urea Nitrogen 10 mg/dl (7-17); Calcium 8.1 mg/dl (8.4-10.2); Carbon Dioxide 29 mmol/L (22.0-30.0); Chloride 95 mmol/L (98-107); Creatinine Clearance Estimated 46 mL/min (50-200); Estimated Glomerular Filt Rate 102 ml/min (>60); GFR (African American) 123 ML/MIN (>60); Glucose 161 mg/dl (74-100); Potassium 4.1 mmoL/L (3.5-5.1); Sodium 132 mmol/L (136-145)
[2023-07-17 07:54] VITALS: BP 122/66; PULSE 75; RESP 18; TEMP 36.6; O2SAT 94
[2023-07-17 07:56] LABS: Basophils % 0.5 % (0.1-2.0); Eosinophils % 0.7 % (0.1-12.0); Hematocrit 35.6 % (37.0-47.0); Hemoglobin 12.1 g/dL (12.2-16.2); Lymphocytes # 1.5 K/mm3 (0.7-4.5); Mean Corpuscular HGB Conc 33.9 g/dL (31.8-35.4); Mean Corpuscular Hemoglobin 33.7 pg (27.0-31.2); Mean Corpuscular Volume 99.3 fl (81-99); Mean Platelet Volume 7.9 fl (7.4-10.4); Monocytes # 0.4 K/mm3 (0.1-1.0); Monocytes % 7.4 % (1.7-9.3); Neutrophils # 3.2 K/mm3 (1.8-7.8); Neutrophils % 62.5 % (37.0-80.0); Platelet Count 497 K/mm3 (142-424); Red Blood Count 3.58 M/mm3 (4.20-5.40); Red Cell Distribution Width 14.7 % (11.5-17.5); White Blood Count 5.1 K/mm3 (4.8-10.8)
[2023-07-17] MEDS: METFORMIN 500MG TABLET 500 MG PO (08:36)
[2023-07-17] MEDS: PANTOPRAZOLE 40MG TABLET 40 MG PO (08:36)
[2023-07-17] MEDS: CIPRO 0.3%-DEX 0.1% OTIC SUSP 7.5ML 0.200000000000000011 ML OT (08:37)
[2023-07-17] MEDS: CEFEPIME HCL 2 GM in 0.9 % SODIUM CHLORIDE 100 ML IV (08:37)
[2023-07-17] MEDS: METOPROLOL TARTRATE 25MG TABLET 12.5 MG PO (08:37)
[2023-07-17] MEDS: FUROSEMIDE 40MG/4ML VIAL 40 MG IV (08:37)
--- NOTE | 2023-07-17 11:14 | PC.NURSE ---
pt sleeping sister refused vitals at this time. nurse notified.
--- NOTE | 2023-07-17 11:32 | EXP.DC.SUM ---
General Admission date:: 07/14/23 Discharge date: 07/17/23 HPI HPI HPI: Patient is a 62-year-old female with past medical history of Down syndrome, diabetes mellitus who presented to hospital due to not feeling well. According to the patient's sister at the bedside patient has not been feeling well, patient was screaming last night and agitated, this is her typical behavior when she is not feeling well. Otherwise no reported fevers chills. She was recently started on antibiotics for pneumonia, she has been having diarrhea for the past 2 weeks alternating with constipation. Hospital Course Hospital Course Hospital Course: Patient is a 62-year-old female with past medical history of Down syndrome, diabetes mellitus who presented to hospital due to not feeling well. According to the patient's sister at the bedside patient has not been feeling well, patient was screaming last night and agitated, this is her typical behavior when she is not feeling well. Otherwise no reported fevers chills. Had been started on outpatient antibiotics with levofloxacin 500 mg daily for outpatient pneumonia. Has been having diarrhea for the past 2 weeks alternating with constipation. Admitted for pneumonia and effusions. Remained on room air the entire admission. Has been afebrile. Clinically stable for discharge home. Problems addressed as follows: Current pneumonia Pleural effusions Aspiration -Patient was initiated on empiric antibiotics with vancomycin and cefepime. Had no oxygen requirement during duration of hospitalization. Previously evaluated by speech, on pur?ed and thins. Caregiver has no desire to pursue alternate means of nutrition, will allow patient to eat with her modified diet. No repeat speech eval necessary during this visit. Monitored during admission, white cell count remained stable. Had no worsening respiratory status. Given pleural effusions, diuresed with Lasix 40 mg IV daily, -2 L during admission. Will continue Lasix 40 mg p.o. for 3 more days after discharge. Kidney function remained stable and within normal range with BUN of 10 and creatinine 0.6. Transition back to levofloxacin at discharge, 500 mg p.o. daily for 3 more days. Recommend close follow-up with PCP. Diarrhea -History of diarrhea and constipation. On bowel regimen at home. Extensive antibiotic exposure over the past month however. No further diarrhea since admission. Low concern given clinical stability and no further diarrhea for C. difficile. -Resume bowel regimen with MiraLAX nightly and senna during the day. Small bowel movement on day of discharge. Diabetes -A1c 7.2 earlier this month. Given patient's agitation with labs and fingersticks, will hold on fingersticks and sliding scale insulin. Appears well-controlled. Blood sugars have been within the 100 range. Continue home regimen at discharge. Hypothyroid: Continue levothyroxine 75 mcg daily Hypertension: Continue metoprolol 12.5 twice daily Hyperlipidemia: Continue Lipitor 10 mg nightly Continue pantoprazole for GERD Continue tamsulosin 0.4mg daily for urinary retention Spent 30 minutes in discharge counseling, documentation, chart review, and direct care with patient. Exam Data for Last 24 hours Vital signs and Labs for Last 24 Hours: Temp Pulse Resp BP Pulse Ox O2 Del Method 97.8 F 75 18 122/66 94 L Room Air 07/17/23 07:54 07/17/23 07:54 07/17/23 07:54 07/17/23 07:54 07/17/23 07:54 07/17/23 08:46 Laboratory Results - last 24 hr 07/17/23 07:03: WBC 5.1, RBC 3.58 L, Hgb 12.1 L, Hct 35.6 L, MCV 99.3 H, MCH 33.7 H, MCHC 33.9, RDW 14.7, Plt Count 497 H, MPV 7.9, Neut % (Auto) 62.5, Lymph % (Auto) 29.0, [place] % (Auto) 7.4, Eos % (Auto) 0.7, Baso % (Auto) 0.5, Neut # (Auto) 3.2, Lymph # (Auto) 1.5, [place] # (Auto) 0.4, Eos # (Auto) 0.0, Baso # (Auto) 0.0, Sodium 132 L, Potassium 4.1, Chloride 95 L, Carbon Dioxide 29, Anion Gap 12.1, BUN 10 D, Creatinine 0.60, Estimated Creat Clear 46, Estimated GFR 102, Est GFR ( Amer) 123, Glucose 161 H, Calcium 8.1 L I & O for Last 24 hours: Intake & Output 07/14/23 07/15/23 07/16/23 07/17/23 23:59 23:59 23:59 23:59 Intake Total 0 / 0 320 / 470 1030 / 1130 580 / 580 Output Total 250 / 250 950 / 950 1755 / 1755 200 / 200 Balance -250 / -250 -630 / -480 -725 / -625 380 / 380 Weight 50.094 kg 50.43 kg 51.284 kg 48.988 kg Microbiology Reports for the Last 24 Hours: Microbiology 07/15/23 11:06 Sputum - Expectorated Sputum Gram Stain - Final Constitutional Constitutional: no acute distress, obese, chronically ill appearing and cooperative Comments: non-verbal *Routine HEENT Exam Head: Present normocephalic Eye: Present EOMI and PERRL ENT: Present mucous membranes moist *Routine Neck Exam Neck: Present supple; Absent lymphadenopathy *Routine Respiratory Exam Respiratory: Present CTA bilaterally and diminished air movement (in bases); Absent rhonchi, wheezes or crackles *Routine Cardiovascular Exam Cardiovascular: Present RRR *Routine Abdominal Exam Abdominal: Present soft and normoactive bowel sounds; Absent tenderness *Routine Extremities Exam Extremities: Absent cyanosis, clubbing or edema *Routine Skin Exam Skin: Present warm; Absent rash *Routine Neurological Exam Neurological: Present alert and moving all extremities; Absent altered mental status Comments: [email or web address] Results Data Completed and Pending Labs on day of discharge: Labs from last 24 hours 07/17/23 07:03 WBC 5.1 RBC 3.58 L Hgb 12.1 L Hct 35.6 L MCV 99.3 H MCH 33.7 H MCHC 33.9 RDW 14.7 Plt Count 497 H MPV 7.9 Neut % (Auto) 62.5 Lymph % (Auto) 29.0 [place] % (Auto) 7.4 Eos % (Auto) 0.7 Baso % (Auto) 0.5 Neut # (Auto) 3.2 Lymph # (Auto) 1.5 [place] # (Auto) 0.4 Eos # (Auto) 0.0 Baso # (Auto) 0.0 Sodium 132 L Potassium 4.1 Chloride 95 L Carbon Dioxide 29 Anion Gap 12.1 BUN 10 D Creatinine 0.60 Estimated Creat Clear 46 Estimated GFR 102 Est GFR ( Amer) 123 Glucose 161 H Calcium 8.1 L DS: Diagnosis Discharge Diagnosis (1) Pneumonia: Status: Acute Code(s): J18.9 - Pneumonia, unspecified organism (2) Diarrhea: Status: Acute Code(s): R19.7 - Diarrhea, unspecified (3) Colitis: Status: Acute Code(s): K52.9 - Noninfective gastroenteritis and colitis, unspecified (4) Type 2 diabetes mellitus with hyperglycemia, without long-term current use of insulin: Status: Chronic Code(s): E11.65 - Type 2 diabetes mellitus with hyperglycemia (5) Hyponatremia: Status: Acute Code(s): E87.1 - Hypo-osmolality and hyponatremia (6) Down syndrome: Status: Chronic Code(s): Q90.9 - Down syndrome, unspecified Meds Home Medications and Allergies Home Medications Medication Instructions Recorded Confirmed Type aspirin 81 mg tablet,delayed 81 mg PO DAILY 07/25/17 07/14/23 History release (Adult Low Dose Aspirin) atorvastatin 10 mg tablet 10 mg PO HS 30 days 07/25/17 07/14/23 History levothyroxine 75 mcg tablet 75 mcg PO DAILY 30 days 07/25/17 07/14/23 History metformin 500 mg tablet 500 mg PO BID 90 days 07/25/17 07/14/23 History montelukast 10 mg tablet 10 mg PO PM 30 days ##30 11/28/17 07/14/23 History olopatadine 0.1 % eye drops 1 drp ophthalmic (eye) BID PRN 04/21/20 07/15/23 History Allergy Symptoms polyethylene glycol 3350 17 1 cap PO HS 12/06/20 07/15/23 History gram/dose oral powder pantoprazole 20 mg tablet,delayed 20 mg PO DAILY 08/21/21 07/14/23 History release tamsulosin 0.4 mg capsule 0.4 mg PO DAILY 08/21/21 07/14/23 History cetirizine 10 mg tablet 10 mg PO DAILY 09/05/21 07/14/23 History sennosides 8.8 mg/5 mL oral syrup 5 ml PO DAILY 09/05/21 07/15/23 History (senna) calcium 500 mg-D3 12.5 mcg-mag 20 15 ml PO PM 03/12/23 07/15/23 History mg-boron 125 mcg/15 mL oral liquid mecobalamin (vitamin B12) 500 mcg 500 mcg PO AM 03/12/23 07/15/23 History chewable tablet azelastine 137 mcg (0.1 %) nasal 2 spray intranasal HS Allergy 06/29/23 07/14/23 History spray aerosol Symptoms docusate sodium 50 mg/5 mL oral 5 ml PO DAILY 06/29/23 07/15/23 History liquid beclomethasone dipropionate 80 1 - 2 spray intranasal DAILY PRN 06/30/23 07/14/23 History mcg/actuation nasal HFA inhaler Allergies (QNASL) metoprolol tartrate 25 mg tablet 12.5 mg PO BID 30 days #30 tabs 07/03/23 07/14/23 Rx ciprofloxacin 0.3 %-dexamethasone 4 drp otic (ear) BID 7 days #7.5 mL 07/11/23 07/14/23 Rx 0.1 % ear drops,suspension wheat dextrin 3 gram/3.5 gram oral 1 packet PO DAILY 07/15/23 07/15/23 History powder packet (Benefiber Clear Sugar Free(dextrin)) furosemide 40 mg tablet 40 mg PO DAILY 3 days #3 tabs 07/17/23 Rx levofloxacin 500 mg tablet 500 mg PO HS 3 days #3 tabs 07/17/23 Rx New Prescriptions to Start Prescriptions: Danielito Fenton levofloxacin Danielito Baptiste Allergies Allergy/AdvReac Type Severity Reaction Status Date / Time bacitracin [BACITRACIN] Allergy Unknown Verified 06/29/23 11:12 codeine [CODEINE] Allergy Unknown Verified 06/29/23 11:12 Penicillins [PENICILLINS] Allergy Unknown Verified 06/29/23 11:12 Discharge Plan Disposition Patient Disposition: Home, Self-Care Condition: Fair Discharge Order Discharge Orders: Discharge Order (Routine); Ordered 07/17/23 Ordered By: Danielito Baptiste Follow up Plan Follow up with: Jacqueline Baez APRN [Primary Care Provider] - 07/23/23 2:00 pm Prescriptions/Medication Reconciliation: New furosemide 40 mg tablet 40 mg PO DAILY 3 Days Qty: 3 0RF levofloxacin 500 mg tablet 500 mg PO HS 3 Days Qty: 3 0RF Rx Instructions: first dose evening of 07/17/23. has script already at home Continued levothyroxine 75 mcg tablet 75 mcg PO DAILY 30 Days Patient Comments: atorvastatin 10 mg tablet 10 mg PO HS 30 Days Patient Comments: metformin 500 mg tablet 500 mg PO BID 90 Days Patient Comments: aspirin [Adult Low Dose Aspirin] 81 mg tablet,delayed release (DR/EC) 81 mg PO DAILY Rx Instructions: montelukast 10 mg tablet 10 mg PO PM 30 Days Qty: 30 olopatadine 0.1 % drops 1 drp OPHTHALMIC BID PRN (Reason: Allergy Symptoms) cetirizine 10 mg tablet 10 mg PO DAILY sennosides [senna] 8.8 mg/5 mL syrup 5 ml PO DAILY mecobalamin (vitamin B12) 500 mcg tablet,chewable 500 mcg PO AM calcium no.31-[id number]-bws-boron 500 mg-12.5 mcg -20 mg/15 mL liquid 15 ml PO PM ciprofloxacin-dexamethasone 0.3-0.1 % drops,suspension 4 drp otic (ear) BID 7 Days Qty: 7.5 0RF Rx Instructions: Instill into right ear pantoprazole 20 MG tablet,delayed release (DR/EC) 20 mg PO DAILY tamsulosin 0.4 MG capsule 0.4 mg PO DAILY polyethylene glycol 3350 119 GM powder 1 cap PO HS docusate sodium 50 mg/5 mL liquid 5 ml PO DAILY azelastine 137 mcg (0.1 %) aerosol,spray 2 spray intranasal HS Rx Instructions: Administer into each nostril QNASL 80 mcg/actuation HFA aerosol inhaler 1 - 2 spray INTRANASAL DAILY PRN (Reason: Allergies) metoprolol tartrate 25 mg Tablet 12.5 mg PO BID 30 Days Qty: 30 0RF Benefiber Clear SF (dextrin) 3 gram/3.5 gram Powder In Packet 1 packet PO DAILY Rx Instructions: Mix into at least 4 oz water or juice before administering Discontinued levofloxacin 500 mg tablet 500 mg PO DAILY Problem Reconciliation Problems Reviewed?: Yes Patient Discharge Instructions ACTIVITY: Continue current activity DIET: continue same diet Patient Instructions: Pneumonia-Adult, Pleural Effusion, DI for Pneumonia -- Adult, DI for Shortness of Breath, How to Manage Shortness of Breath, DI for Pleural Effusion Providers Primary Care Provider: Jacqueline Baez Admit Provider: Jordyn Jacinto Attending Provider: Jordyn Jacinto
[2023-07-17 12:00] VITALS: PULSE 60
--- NOTE | 2023-07-18 15:21 | CARE MANAGER ---
Spoke with patient's sister, who states patient is doing well. Patient has started both new medications prescribed at discharge and sister is aware of f/u appt. No complaints or concerns at time of call.
== END 2023-07-17 13:09 | disposition home or self-care (01) | DRG 178 ==
LOC: ER 12:17 → 2ND 15:17
PROVIDERS: Emergency Medicine; Admitting Provider Internal Medicine; Emergency Provider Emergency Medicine; PCP Nurse Practitioner Family; Visit Provider Internal Medicine
DX: J69.0 Pneumonitis due to inhalation of food and vomit (principal); E87.1 Hypo-osmolality and hyponatremia; J18.9 Pneumonia, unspecified organism; K52.9 Noninfective gastroenteritis and colitis, unspecified; E11.65 Type 2 diabetes mellitus with hyperglycemia; Q90.9 Down syndrome, unspecified; K21.9 Gastro-esophageal reflux disease without esophagitis; E78.5 Hyperlipidemia, unspecified; I10 Essential (primary) hypertension
CPT/HCPCS: 36415; 71260; 74177; 80048; 80053; 81001; 82962; 83036; 83605; 83690; 84145; 84484; 85007; 85025; 87070; 87205; 93005; 97163; 97165; 99285; J0131; J2543; Q9967

== ENCOUNTER 2023-11-12 12:09 | Emergency (ER) | payer MEDICARE, MEDICAID, SELFPAY ==
[2023-11-12] VITALS (9 sets, daily range): BP systolic 92–126; BP diastolic 44–70; PULSE 62–70; RESP 16–20; TEMP 36.6; O2SAT 92–97; BMI 22.0
--- NOTE | 2023-11-12 12:38 | XR_ITS ---
FINAL REPORT CLINICAL HISTORY: hypoxemia, cough COMPARISON: 04/22/2023 FINDINGS: SINGLE-VIEW CHEST The heart size is normal. The mediastinum is normal. The lungs are underinflated with scarring at the left base. There is no pneumothorax. IMPRESSION: No acute cardiopulmonary process. Reviewed, Interpreted and Dictated by Sukhjinder Montes MD Transcribed by Tanya Del Castillo Authenticated and [facility]
[2023-11-12] MEDS: LACTATED RINGERS 1000ML 1,000 ML 999 ML IV (12:48)
[2023-11-12 12:49] LABS: Basophils # 0.1 K/mm3 (0-0.2); Eosinophils # 0.1 K/mm3 (0.0-0.4); Hematocrit 33.6 % (37.0-47.0); Lymphocytes # 0.6 K/mm3 (0.7-4.5); Lymphocytes % 10.4 % (10-50); Mean Corpuscular HGB Conc 35.8 g/dL (31.8-35.4); Mean Corpuscular Hemoglobin 35.9 pg (27.0-31.2); Mean Corpuscular Volume 100.4 fl (81-99); Monocytes # 0.2 K/mm3 (0.1-1.0); Monocytes % 3.1 % (1.7-9.3); Neutrophils # 5.1 K/mm3 (1.8-7.8); Neutrophils % 84.5 % (37.0-80.0); Platelet Count 380 K/mm3 (142-424); Red Blood Count 3.35 M/mm3 (4.20-5.40); Red Cell Distribution Width 16.3 % (11.5-17.5)
[2023-11-12 12:58] LABS: Alanine Aminotransferase 27 U/L (12-78); Albumin Level 3.9 g/dl (3.5-5.0); Albumin/Globulin Ratio 1.1 (1.1-1.8); Alkaline Phosphatase 92 U/L (38-126); Anion Gap 17.3 mEq/L (5-15); Aspartate Amino Transferase 39 U/L (14-36); Bilirubin,Total 0.4 mg/dl (0.2-1.3); Blood Urea Nitrogen 15 mg/dl (7-17); Calcium 8.8 mg/dl (8.4-10.2); Carbon Dioxide 22 mmol/L (22.0-30.0); Chloride 95 mmol/L (98-107); Creatinine Clearance Estimated 43 mL/min (50-200); Estimated Glomerular Filt Rate 102 ml/min (>60); GFR (African American) 123 ML/MIN (>60); Globulin 3.5 g/dL (1.3-3.2); Glucose 183 mg/dl (74-100); Potassium 4.3 mmoL/L (3.5-5.1); Sodium 130 mmol/L (136-145); Total Protein,Serum 7.4 g/dl (6.3-8.2)
[2023-11-12] MEDS: ONDANSETRON 4MG/2ML VIAL 4 MG IV (13:17)
--- NOTE | 2023-11-12 13:48 | ED_ITS ---
Discharge Plan Disposition Patient Disposition: Admitted Chief Complaint: Nausea/Vomiting/Diarrhea Prescriptions Prescriptions: No Action levothyroxine 75 mcg tablet 75 mcg PO DAILY 30 Days Patient Comments: atorvastatin 10 mg tablet 10 mg PO HS 30 Days Patient Comments: metformin 500 mg tablet 500 mg PO BID 90 Days Patient Comments: aspirin [Adult Low Dose Aspirin] 81 mg tablet,delayed release (DR/EC) 81 mg PO DAILY Rx Instructions: montelukast 10 mg tablet 10 mg PO PM 30 Days Qty: 30 olopatadine 0.1 % drops 1 drp OPHTHALMIC BID PRN (Reason: Allergy Symptoms) cetirizine 10 mg tablet 10 mg PO DAILY sennosides [senna] 8.8 mg/5 mL syrup 5 ml PO DAILY mecobalamin (vitamin B12) 500 mcg tablet,chewable 500 mcg PO AM calcium [id number]-boron 500 mg-12.5 mcg -20 mg/15 mL liquid 15 ml PO PM ciprofloxacin-dexamethasone 0.3-0.1 % drops,suspension 4 drp otic (ear) BID 7 Days Qty: 7.5 0RF Rx Instructions: Instill into right ear pantoprazole 20 MG tablet,delayed release (DR/EC) 20 mg PO DAILY tamsulosin 0.4 MG capsule 0.4 mg PO DAILY polyethylene glycol 3350 119 GM powder 1 cap PO HS docusate sodium 50 mg/5 mL liquid 5 ml PO DAILY QNASL 80 mcg/actuation HFA aerosol inhaler 1 - 2 spray INTRANASAL DAILY PRN (Reason: Allergies) metoprolol tartrate 25 mg Tablet 12.5 mg PO BID 30 Days Qty: 30 0RF Benefiber Clear SF (dextrin) 3 gram/3.5 gram Powder In Packet 1 packet PO DAILY Rx Instructions: Mix into at least 4 oz water or juice before administering furosemide 40 mg tablet 40 mg PO DAILY 3 Days Qty: 3 0RF Referrals Follow up/Referrals: Jacqueline Baez APRN [Primary Care Provider] - See instructions Clinical Impressions Clinical Impression: Pneumonia, Acute hypoxemic respiratory failure Instructions Patient Instructions: DI for Diarrhea and Traveler's Diarrhea -- Adult, DI for Diarrhea and Traveler's Diarrhea -- Child, DI for Nausea -- Adult, DI for Nausea -- Child Discharge ED Provider: J Luis Manjarrez General Adult HPI General Chief complaint: Nausea/Vomiting/Diarrhea Stated complaint: diarrhea, cough, screaming pain Time Seen by Provider: 11/12/23 12:26 Mode of Arrival: Wheelchair Source of Information: Relative Limitations: Language Barrier Description of Symptoms (Recalled from ER Triage Doc. by RN): Patient brought to ED with concerns of high blood sugar reading at home of 200 and patient started to dry heave. Caregiver reports patient got very shakey at home. Caregiver reports patient just got over C-diff last week. Patient is non-verbal. History of Present Illness HPI narrative: Please note that above description of symptoms, in this electronic medical record under categorization of recalled from ER triage doctor by RN are reflective of an initial nursing assessment, however, is not reflective of my full history and physical exam that was personally taken and clarified. Consequentially, this preceding description of symptoms, which may include the patient's categorized chief complaint in the EMR, do not reflect my personal clinical impression, and the ultimate description of history of present illness and patient stated complaints should be deferred to this section of the note. Unless stated otherwise or congruent with this section of the note, additional signs, symptoms, or incongruence should be interpreted as inaccurate with my clinical impression. Related Data Home Medications Medication Instructions Recorded Confirmed aspirin 81 mg tablet,delayed 81 mg PO DAILY 07/25/17 09/03/23 release (Adult Low Dose Aspirin) atorvastatin 10 mg tablet 10 mg PO HS 30 days 07/25/17 09/03/23 levothyroxine 75 mcg tablet 75 mcg PO DAILY 30 days 07/25/17 09/03/23 metformin 500 mg tablet 500 mg PO BID 90 days 07/25/17 09/03/23 montelukast 10 mg tablet 10 mg PO PM 30 days ##30 11/28/17 09/03/23 olopatadine 0.1 % eye drops 1 drp ophthalmic (eye) BID PRN 04/21/20 09/03/23 Allergy Symptoms polyethylene glycol 3350 17 1 cap PO HS 12/06/20 09/03/23 gram/dose oral powder pantoprazole 20 mg tablet,delayed 20 mg PO DAILY 08/21/21 09/03/23 release tamsulosin 0.4 mg capsule 0.4 mg PO DAILY 08/21/21 09/03/23 cetirizine 10 mg tablet 10 mg PO DAILY 09/05/21 09/03/23 sennosides 8.8 mg/5 mL oral syrup 5 ml PO DAILY 09/05/21 09/03/23 (senna) calcium 500 mg-D3 12.5 mcg-mag 20 15 ml PO PM 03/12/23 09/03/23 mg-boron 125 mcg/15 mL oral liquid mecobalamin (vitamin B12) 500 mcg 500 mcg PO AM 03/12/23 09/03/23 chewable tablet docusate sodium 50 mg/5 mL oral 5 ml PO DAILY 06/29/23 09/03/23 liquid beclomethasone dipropionate 80 1 - 2 spray intranasal DAILY PRN 06/30/23 09/03/23 mcg/actuation nasal HFA inhaler Allergies (QNASL) wheat dextrin 3 gram/3.5 gram oral 1 packet PO DAILY 07/15/23 09/03/23 powder packet (Benefiber Clear Sugar Free(dextrin)) Previous Rx's Medication Instructions Recorded metoprolol tartrate 25 mg tablet 12.5 mg (1/2 x 25 mg) PO BID 30 07/03/23 days #30 tabs ciprofloxacin 0.3 %-dexamethasone 4 drp otic (ear) BID 7 days #7.5 mL 07/11/23 0.1 % ear drops,suspension furosemide 40 mg tablet 40 mg PO DAILY 3 days #3 tabs 07/17/23 Allergies Allergy/AdvReac Type Severity Reaction Status Date / Time bacitracin [BACITRACIN] Allergy Unknown Verified 09/03/23 14:48 codeine [CODEINE] Allergy Unknown Verified 09/03/23 14:48 Penicillins [PENICILLINS] Allergy Unknown Verified 09/03/23 14:48 [facility] Disclaimer: The information contained in this section may have been updated after the patient was seen, as this information can be updated by other users. Medical History Hypertrophy of nasal turbinates Impacted cerumen of left ear Bilateral impacted cerumen GERD with esophagitis Down syndrome Hyponatremia Type 2 diabetes mellitus with hyperglycemia, without long-term current use of insulin Surgical History H/O mastoidectomy S/P dilatation of esophageal stricture Family History Other Cancer Hyperlipidemia Hypertension Social History Smoking Status: Never smoker second hand exposure: No alcohol intake: never counseling provided: none substance use type: denies use current occupational status: disabled Travel in the last 8 weeks: None household members: family housing: house current occupational exposures/hazards: No caffeine: No ROS Obtained: Yes All systems reviewed & no additional complaints except as documented Physical Exam General General appearance: alert and in no apparent distress Head Head exam: atraumatic Eye Eye exam: Present normal appearance, PERRL and EOMI ENT ENT exam: Present mucous membranes moist Neck Neck exam: Present normal inspection, full ROM and trachea midline Respiratory Respiratory exam: Present normal lung sounds bilaterally; Absent respiratory distress, wheezes, stridor, accessory muscle use or prolonged expiratory phase Cardiovascular Cardiovascular exam: Present regular rate and normal rhythm Abdominal Exam Abdominal exam: Present soft; Absent distention, tenderness, guarding, rebound or rigidity Comment: Right lower retching Extremities Exam Extremities exam: Absent edema Neurological Exam Neurological exam: Present alert and other (Neurovascular baseline, per family) Skin Skin exam: Present warm and dry; Absent diaphoresis or erythema Medical Decision Making Medical Records Medical records reviewed: Yes I reviewed the patient's medical records. [place] Inquiry Pt receiving controlled substance: No [place] was queried for this patient: No Vital Signs: 11/12/23 12:19 11/12/23 12:30 11/12/23 13:00 Temperature 97.8 F Temperature Source Axillary Pulse Rate 64 64 Pulse Rate [Right Radial] 63 Respiratory Rate 16 Blood Pressure 126/58 L 92/47 L Blood Pressure [Right Arm] 102/57 L Blood Pressure Mean 76 62 Blood Pressure Mean [Right Arm] 72 Blood Pressure Source [Right Arm] Automatic Cuff Blood Pressure Position [Right Arm] Supine 02 Sat by Pulse Oximetry 94 L 94 L 94 L Oxygen Delivery Method Room Air 11/12/23 13:30 11/12/23 14:00 Temperature Temperature Source Pulse Rate 64 64 Pulse Rate [Right Radial] Respiratory Rate Blood Pressure 102/47 L 102/44 L Blood Pressure [Right Arm] Blood Pressure Mean 58 58 Blood Pressure Mean [Right Arm] Blood Pressure Source [Right Arm] Blood Pressure Position [Right Arm] 02 Sat by Pulse Oximetry 94 L 94 L Oxygen Delivery Method Lab Data Lab Results 11/12/23 12:34: WBC 6.0, RBC 3.35 L, Hgb 12.0 L, Hct 33.6 L, MCV 100.4 H, MCH 35.9 H, MCHC 35.8 H, RDW 16.3, Plt Count 380, MPV 8.0, Neut % (Auto) 84.5 H, Lymph % (Auto) 10.4, [place] % (Auto) 3.1, Eos % (Auto) 1.0, Baso % (Auto) 1.0, Neut # (Auto) 5.1, Lymph # (Auto) 0.6 L, [place] # (Auto) 0.2, Eos # (Auto) 0.1, Baso # (Auto) 0.1, Sodium 130 L, Potassium 4.3, Chloride 95 L, Carbon Dioxide 22, Anion Gap 17.3 H, BUN 15, Creatinine 0.60, Estimated Creat Clear 43, Estimated GFR 102, Est GFR ( Amer) 123, Glucose 183 H, Calcium 8.8, Total Bilirubin 0.4, AST 39 H, ALT 27, Alkaline Phosphatase 92, Total Protein 7.4, Albumin 3.9, Globulin 3.5 H, Albumin/Globulin Ratio 1.1 11/12/23 12:34 11/12/23 12:34 Orders (Tests/Meds): ED MEDICATIONS Generic Name Dose Route Start Last Admin Trade Name Freq PRN Reason Stop Dose Admin Azithromycin 500 mg/ Sodium 250 mls @ 250 mls/hr 11/12/23 14:30 Chloride IV 11/22/23 14:29 Q24H SIMÓN Discontinued Medications Generic Name Dose Route Start Last Admin Trade Name Freq PRN Reason Stop Dose Admin Lactated Ringer's 1,000 mls @ 999 mls/hr 11/12/23 12:39 11/12/23 12:48 Lactated Ringer's 1000 Ml Bag IV 11/12/23 13:39 999 mls/hr .Q1H1M ONE Administration Ceftriaxone Sodium 2 gm/ 100 mls @ 200 mls/hr 11/12/23 14:27 11/12/23 15:03 Sodium Chloride IV 11/12/23 14:56 200 mls/hr ONCE ONE Administration Ondansetron HCl 4 mg 11/12/23 13:02 11/12/23 13:17 Ondansetron 4mg/2ml Vial IV 11/12/23 13:03 4 mg ONCE ONE Administration ORDERS Category Date Time Status CXR --portable [XR chest portable] Stat Exams 11/12/23 12:38 Taken CBC w/Auto Diff [Complete Blood Count Auto Diff] Stat Lab 11/12/23 12:34 Completed CMP [Comprehensive Metabolic Panel] Stat Lab 11/12/23 12:34 Completed Lactic Acid Stat Lab 11/12/23 12:38 Ordered Blood Culture Stat Micro 11/12/23 13:30 Received Medical Decision Narrative: 62-year-old female history of Down syndrome, silent aspiration, type 2 diabetes, hypertension, presenting with productive cough. Patient started vomiting this morning, 11/11. Nonbloody, nonbilious. Per family, patient has been more tired and not acting like himself over the past couple of days. History of aspiration, silent aspiration, and pneumonia, concerned this may be part of the issue, given she has had a cough productive of green sputum over the last couple of days. No obvious fevers, diarrhea, travel, or other sick contacts. History was obtained via conversation with patient's caregiver and mother. On arrival, patient hemodynamically stable, alert, appropriate, moving all extremities spontaneously, pupils equal and reactive to light. Full physical exam performed and significant for at neurologic baseline, per mother. Intermittently coughing, intermittently retching. 94% on room air, but no respiratory distress. Differential includes pneumonia, bronchitis, gastroenteritis, aspiration pneumonitis, among others. Patient was given ceftriaxone and azithromycin for symptomatic management and correction of underlying abnormalities. Workup independently interpreted and significant for nonactionable CBC. Chemistry with mild hyponatremia (this is chronic, per caregiver) mildly elevated anion gap 17.3. LFTs normal, troponin negative. Chest x-ray without acute cardiopulmonary airspace disease. See radiology read for full review of final results. On reevaluation, patient still hypoxemic 90 to 94% on room air. Largely intolerant of oxygen. Patient maintains hypotensive pressures as well with systolics in the 90s. Ceftriaxone and azithromycin already administered. Hospital medicine was contacted and case was discussed at length, patient to be admitted. Because patient high risk for clinical decompensation, deemed appropriate for inpatient admission. Results were relayed to patient who voiced understanding and patient was agreeable to inpatient admission and management. Patient was admitted to the hospital for further definitive management. [employer] disclaimer Much of this encounter note is an electronic national sales spoken language to printed text. Electronic national sales of the spoken language may permit errors. Although I have reviewed the note, some errors may still exist. Critical Care Critical Care Time Critical Care Time: No
[2023-11-12] MEDS: CEFTRIAXONE SODIUM 2 GM in 0.9 % SODIUM CHLORIDE 100 ML IV (15:03)
[2023-11-12 15:32] LABS: NT Pro Brain Natriuretic Pep. 64.1 pg/mL (0-125)
[2023-11-12 16:00] LABS: Lactic Acid 0.9 mmol/L (0.7-2.1)
[2023-11-12 17:08] LABS: Adenovirus,PCR Not Detected (NotDetected); Bordetella Pertussis Not Detected (NotDetected); Chlamydophila Pneumoniae, PCR Not Detected (NotDetected); Coronavirus 19, PCR Not Detected (NotDetected); Coronavirus 229E Not Detected (NotDetected); Coronavirus NL63 Not Detected (NotDetected); Coronavirus OC43 Not Detected (NotDetected); Coronovirus HKU1,PCR Not Detected (NotDetected); Human Metapneumovirus Not Detected (NotDetected); Influenza A, PCR Not Detected (NotDetected); Influenza AH1, 2009 Not Detected (NotDetected); Influenza AH1, PCR Not Detected (NotDetected); Influenza AH3,PCR Not Detected (NotDetected); Influenza B, PCR Not Detected (NotDetected); Mycoplasma Pneumoniae, PCR Not Detected (NotDetected); Parainfluenza 1, PCR Not Detected (NotDetected); Parainfluenza 2, PCR Not Detected (NotDetected); Parainfluenza 4, PCR Not Detected (NotDetected); Respiratory Syncytial Virus Not Detected (NotDetected); Rhinovirus/Enterovirus Not Detected (NotDetected)
--- NOTE | 2023-11-12 17:19 | P.CONS_ITS ---
History of Present Illness *Admission Date: 11/12/23 *Reason for visit:: cough, screaming at home *History of present illness: Oseas is a 62-year-old female with Down syndrome who has a history of silent aspiration, type 2 diabetes, and hypertension. She presented to the ER because of concern for less than a day of productive cough for green sputum. No reported fever. Caregiver who is her sister reports that today at home Jennie developed an episode of screaming. She does this when she does not feel well. She tried to gag herself. Over the past few days she has had several large bowel movements, soiled herself in the shower yesterday. Denies any filiberto emesis. Has been more tired since her episode today. Came to the ER for evaluation. On arrival to the ER she is hemodynamically stable, afebrile, alert, satting 94% on room air. In no acute distress. Labs obtained showing normal white cell count of 6.0. Kidney function electrolytes at baseline, sodium 130 which is not uncommon for Jennie. Chest imaging obtained showing no focal consolidation. Of note, caregiver reports that she just finished prolonged treatment for C. difficile about a week ago. Has not increased back to her normal bowel regimen for her chronic constipation. Given her increased cough, ER was concerned and started her on ceftriaxone and azithromycin. Consulted medicine for evaluation for possible admission versus discharge home. Sister expressed concern for patient's blood pressure, maps greater than 65 but systolics ranging from 90-105. Of note, patient is on metoprolol twice daily. [facility] Disclaimer: The information contained in this section may have been updated after the patient was seen, as this information can be updated by other users. Medical History Hypertrophy of nasal turbinates Impacted cerumen of left ear Bilateral impacted cerumen GERD with esophagitis Down syndrome Hyponatremia Type 2 diabetes mellitus with hyperglycemia, without long-term current use of insulin Surgical History H/O mastoidectomy S/P dilatation of esophageal stricture Family History Hyperlipidemia Cancer Hypertension Social History Smoking Status: Never smoker second hand exposure: No alcohol intake: never counseling provided: none substance use type: denies use current occupational status: disabled Travel in the last 8 weeks: None household members: family housing: house current occupational exposures/hazards: No caffeine: No Review of Systems Review of Systems Review of systems:: unable to obtain Exam Data for Last 24 hours Vital signs and Labs for Last 24 Hours: Temp Pulse Resp BP Pulse Ox O2 Del Method 97.8 F 64 16 105/70 L 92 L Room Air 11/12/23 12:19 11/12/23 16:23 11/12/23 12:19 11/12/23 16:23 11/12/23 16:23 11/12/23 12:19 Laboratory Results - last 24 hr 11/12/23 12:34: WBC 6.0, RBC 3.35 L, Hgb 12.0 L, Hct 33.6 L, MCV 100.4 H, MCH 35.9 H, MCHC 35.8 H, RDW 16.3, Plt Count 380, MPV 8.0, Neut % (Auto) 84.5 H, Lymph % (Auto) 10.4, [place] % (Auto) 3.1, Eos % (Auto) 1.0, Baso % (Auto) 1.0, Neut # (Auto) 5.1, Lymph # (Auto) 0.6 L, [place] # (Auto) 0.2, Eos # (Auto) 0.1, Baso # (Auto) 0.1, Sodium 130 L, Potassium 4.3, Chloride 95 L, Carbon Dioxide 22, Anion Gap 17.3 H, BUN 15, Creatinine 0.60, Estimated Creat Clear 43, Estimated GFR 102, Est GFR ( Amer) 123, Glucose 183 H, Calcium 8.8, Total Bilirubin 0.4, AST 39 H, ALT 27, Alkaline Phosphatase 92, NT-Pro-B Natriuret Pep 64.1, Total Protein 7.4, Albumin 3.9, Globulin 3.5 H, Albumin/Globulin Ratio 1.1 11/12/23 15:40: Lactate 0.9 I & O for Last 24 hours: Intake & Output 11/09/23 11/10/23 11/11/23 11/12/23 23:59 23:59 23:59 23:59 Weight 46.266 kg Constitutional Constitutional: no acute distress, obese, chronically ill appearing and cooperative Comments: non-verbal *Routine HEENT Exam Head: Present normocephalic Eye: Present EOMI and PERRL ENT: Present mucous membranes moist *Routine Neck Exam Neck: Present supple; Absent lymphadenopathy *Routine Respiratory Exam Respiratory: Present CTA bilaterally and normal respiratory effort; Absent rhonchi, wheezes, crackles or diminished air movement *Routine Cardiovascular Exam Cardiovascular: Present RRR *Routine Abdominal Exam Abdominal: Present soft and normoactive bowel sounds; Absent tenderness *Routine Rectal Exam Patient deferred: visual exam *Routine Exam Patient deferred: external exam *Routine Extremities Exam Extremities: Absent cyanosis, clubbing or edema *Routine Skin Exam Skin: Present intact and warm; Absent rash *Routine Neurological Exam Neurological: Present alert and moving all extremities; Absent altered mental status Comments: [email or web address] Meds Home Medications and Allergies Home Medications Medication Instructions Recorded Confirmed Type aspirin 81 mg tablet,delayed 81 mg PO DAILY 07/25/17 09/03/23 History release (Adult Low Dose Aspirin) atorvastatin 10 mg tablet 10 mg PO HS 30 days 07/25/17 09/03/23 History levothyroxine 75 mcg tablet 75 mcg PO DAILY 30 days 07/25/17 09/03/23 History metformin 500 mg tablet 500 mg PO BID 90 days 07/25/17 09/03/23 History montelukast 10 mg tablet 10 mg PO PM 30 days ##30 11/28/17 09/03/23 History olopatadine 0.1 % eye drops 1 drp ophthalmic (eye) BID PRN 04/21/20 09/03/23 History Allergy Symptoms polyethylene glycol 3350 17 1 cap PO HS 12/06/20 09/03/23 History gram/dose oral powder pantoprazole 20 mg tablet,delayed 20 mg PO DAILY 08/21/21 09/03/23 History release tamsulosin 0.4 mg capsule 0.4 mg PO DAILY 08/21/21 09/03/23 History cetirizine 10 mg tablet 10 mg PO DAILY 09/05/21 09/03/23 History sennosides 8.8 mg/5 mL oral syrup 5 ml PO DAILY 09/05/21 09/03/23 History (senna) calcium 500 mg-D3 12.5 mcg-mag 20 15 ml PO PM 03/12/23 09/03/23 History mg-boron 125 mcg/15 mL oral liquid mecobalamin (vitamin B12) 500 mcg 500 mcg PO AM 03/12/23 09/03/23 History chewable tablet docusate sodium 50 mg/5 mL oral 5 ml PO DAILY 06/29/23 09/03/23 History liquid beclomethasone dipropionate 80 1 - 2 spray intranasal DAILY PRN 06/30/23 09/03/23 History mcg/actuation nasal HFA inhaler Allergies (QNASL) metoprolol tartrate 25 mg tablet 12.5 mg (1/2 x 25 mg) PO BID 30 07/03/23 09/03/23 Rx days #30 tabs ciprofloxacin 0.3 %-dexamethasone 4 drp otic (ear) BID 7 days #7.5 mL 07/11/23 09/03/23 Rx 0.1 % ear drops,suspension wheat dextrin 3 gram/3.5 gram oral 1 packet PO DAILY 07/15/23 09/03/23 History powder packet (Benefiber Clear Sugar Free(dextrin)) furosemide 40 mg tablet 40 mg PO DAILY 3 days #3 tabs 07/17/23 09/03/23 Rx New Prescriptions to Start Prescriptions: Allergies Allergy/AdvReac Type Severity Reaction Status Date / Time bacitracin [BACITRACIN] Allergy Unknown Verified 09/03/23 14:48 codeine [CODEINE] Allergy Unknown Verified 09/03/23 14:48 Penicillins [PENICILLINS] Allergy Unknown Verified 09/03/23 14:48 Results Labs 11/12/23 12:34 11/12/23 12:34 Labs: Abnormal lab results 11/12/23 Range/Units 12:34 RBC 3.35 L (4.20-5.40) M/mm3 Hgb 12.0 L (12.2-16.2) g/dL Hct 33.6 L (37.0-47.0) % MCV 100.4 H (81-99) fl MCH 35.9 H (27.0-31.2) pg MCHC 35.8 H (31.8-35.4) g/dL Neut % (Auto) 84.5 H (37.0-80.0) % Lymph # (Auto) 0.6 L (0.7-4.5) K/mm3 Sodium 130 L (136-145) mmol/L Chloride 95 L (98-107) mmol/L Anion Gap 17.3 H (5-15) mEq/L Glucose 183 H (74-100) mg/dl AST 39 H (14-36) U/L Globulin 3.5 H (1.3-3.2) g/dL H & H 11/12/23 Range/Units 12:34 Hgb 12.0 L (12.2-16.2) g/dL Hct 33.6 L (37.0-47.0) % All other labs normal. Assessment and Plan *Assessment and plan (1) Down syndrome: Status: Chronic Category: Medical Code(s): Q90.9 - Down syndrome, unspecified (2) Type 2 diabetes mellitus with hyperglycemia, without long-term current use of insulin: Status: Chronic Category: Medical Code(s): E11.65 - Type 2 diabetes mellitus with hyperglycemia (3) GERD with esophagitis: Status: Chronic Category: Medical Code(s): K21.00 - Gastro-esophageal reflux disease with esophagitis, without bleeding (4) Hyponatremia: Status: Acute Category: Medical Code(s): E87.1 - Hypo-osmolality and hyponatremia (5) Constipation: Status: Acute Category: Medical Code(s): K59.00 - Constipation, unspecified (6) Cough: Status: Acute Category: Medical Code(s): R05.9 - Cough, unspecified Plan Ms. yi is a 62-year-old female who presents with cough and sputum production. Labs are unremarkable in the ER. Normal white count. Mild hyponatremia with sodium of 130. Kidney function normal. Blood pressure low normal. Patient stable on room air. On evaluation, exam is benign. After much discussion with sister/caregiver, recommend discharging patient home. Recommend discontinuing antibiotics in the setting of recent completion of antibiotics for C. difficile and no clear source of infection. Also recommended to obtain comprehensive respiratory panel to assess for viral etiology. Differential diagnosis includes viral URI, allergic bronchitis, allergic rhinitis, constipation. No clear source for her discomfort at this time. However, no indication for admission given her clinical stability. Recommend close follow-up with PCP for further evaluation. Recommend holding metoprolol pending follow-up with PCP. Also recommend increasing bowel regimen with addition of senna at night to her Benefiber and MiraLAX. After discharge, patient's respiratory panel returned positive for parainfluenza 3. This was explained her respiratory symptoms and cough. Continue symptomatic treatment. Stable to discharge home with close follow-up with PCP.
[2023-11-12 18:46] LABS: Parainfluenza 3, PCR Detected (NotDetected)
== END 2023-11-12 18:07 | disposition home or self-care (01) ==
PROVIDERS: Internal Medicine Adolescent Medicine; Emergency Provider Emergency Medicine; PCP Nurse Practitioner Family
DX: Q90.9 Down syndrome, unspecified (principal); E11.65 Type 2 diabetes mellitus with hyperglycemia; K21.00 Gastro-esophageal reflux disease with esophagitis, without bleeding; E87.1 Hypo-osmolality and hyponatremia; K59.00 Constipation, unspecified; R05.9 Cough, unspecified; B34.8 Other viral infections of unspecified site; J12.2 Parainfluenza virus pneumonia; J96.01 Acute respiratory failure with hypoxia; Z79.84 Long term (current) use of oral hypoglycemic drugs
CPT/HCPCS: 71045; 80053; 83605; 83880; 85025; 87040; 87581; 87632; 87635; 87798; 96361; 96365; 96366; 96375; 99285; J0456; J0696; J2405

== ENCOUNTER 2023-11-27 10:04 | Outpatient (CLI) | payer MEDICARE, MEDICAID, SELFPAY ==
--- NOTE | 2023-11-27 10:17 | XR_ITS ---
FINAL REPORT CLINICAL HISTORY: rt hand pain COMPARISON: None FINDINGS: RIGHT HAND: 3 views of the right hand were obtained. There is no acute fracture or dislocation. There are mild degenerative changes. Soft tissues are unremarkable. IMPRESSION: Mild degenerative changes without acute bony abnormality. Reviewed, Interpreted and Dictated by Darwin Modi III, MD Transcribed by Carrie Mosqueda Authenticated and [facility]
== END 2023-11-27 23:59 | disposition home or self-care (01) ==
PROVIDERS: PCP Nurse Practitioner Family; Visit Provider Nurse Practitioner Family
DX: M65.30 Trigger finger, unspecified finger (principal); M79.641 Pain in right hand; R03.1 Nonspecific low blood-pressure reading
CPT/HCPCS: 73130; 93306

== ENCOUNTER 2023-12-09 11:01 | Outpatient (CLI) | payer MEDICARE, MEDICAID, SELFPAY ==
--- NOTE | 2023-12-09 | CA_ITS ---
APPROVED REPORT EXAM: Comprehensive 2D, Doppler, and color-flow Echocardiogram Time Analysis Clerk: Nadya Pelletier RVT Ht: 4 ft 3 in Wt: 103lbs BSA: 1.25 BP: 104/59 mmHg Indications: PNEUMONIA,DOWN SYNDROME,DM,ABN BP 2D Dimensions IVSd 1.25 cm F: 0.6-1.0 LVEF (Visual) 64.70 % PWd 0.97 cm F: 0.6 - 1.0 LA Volume 19.70 mL LVDd 3.43 cm F: 3.9 - 5.3 LA Volume Index 15.76 mL/m2 (M/F) 16-34 LVDs 2.25 cm F: 2.2 - 3.5 M-Mode Dimensions LA Diam 3.61 cm (1.9-4.0) TAPSE 2.33 (<1.7) LV Diastology E Decel Time 267 (160-240 msec) E/A Ratio 0.7 Aortic Valve KEVYN Index 1.34 cm2/m2 AoV Peak Bryan. 177.0 (50-130 cm/s) AO Peak GR. 12.60 mmHg AO Mean GR. 7.50 (<5 mmHg) AO VTI 34.4 (18-25 cm) KEVYN (VTI) 1.72 (2.5-4.5 cm2) Mitral Valve MV E Max Bryan. 89.0 (40-130 cm/s) MV A Velocity 119.0 (40-130 cm/s) E/A Ratio 0.75 MV PHT 78.0 ms Pulmonary Valve PV Peak Velocity 125.0 (50-150 cm/s) Left Ventricle The left ventricle is normal size. The left ventricular systolic function is normal. The left ventricular ejection fraction is within the normal range. There is increased LV wall thickness. There is normal LV segmental wall motion. The left ventricular diastolic function is normal. LVEF is 55%. Right Ventricle The right ventricle is normal size. The right ventricular systolic function is normal. There is increased RV wall thickness. Atria The left atrium size is normal. The right atrium size is normal. There is no Doppler evidence of interatrial shunt. Aortic Valve The aortic valve is mildly thickened, but opens well. There is no aortic valvular stenosis. No aortic regurgitation is present. Mitral Valve The mitral valve is normal in structure. No evidence of mitral valve stenosis. There is no mitral valve regurgitation noted. Tricuspid Valve The tricuspid valve leaflets are thin and pliable. Trace tricuspid regurgitation. There is insufficient TR jet to estimate RVSP. Pulmonic Valve The pulmonary valve is normal in structure. Trace pulmonic regurgitation. Great Vessels The aortic root is normal in size. The ascending aorta is normal in size. IVC is normal in size and collapses >50% with inspiration. Pericardium There is no pericardial effusion. Other Information Study Quality: Fair Conclusion Normal biventricular systolic function. No significant valvular stenosis or regurgitation. The aortic root and ascending aorta are normal in size. Electronically signed by : Mackenzie Shields MD 12/12/2023 10:28:52
== END 2023-12-09 23:59 | disposition home or self-care (01) ==
LOC: RT 11:01
PROVIDERS: PCP Nurse Practitioner Family; Visit Provider Nurse Practitioner Family
DX: R03.1 Nonspecific low blood-pressure reading (principal); J18.9 Pneumonia, unspecified organism; Q90.9 Down syndrome, unspecified; E11.9 Type 2 diabetes mellitus without complications; Z79.84 Long term (current) use of oral hypoglycemic drugs
CPT/HCPCS: 93306

== ENCOUNTER 2024-06-12 10:34 | Outpatient (CLI) | payer MEDICARE, MEDICAID, SELFPAY ==
--- NOTE | 2024-06-12 10:41 | XR_ITS ---
FINAL REPORT CLINICAL HISTORY: SOB COMPARISON: 11/12/2023 FINDINGS: No acute pulmonary density is evident. There is no evidence of effusion or other pleural disease. The mediastinum has a normal appearance. The cardiac silhouette is unremarkable. IMPRESSION: Unremarkable chest exam. Reviewed, Interpreted and Dictated by Leilani De Luna MD Transcribed by Tanya Del Castillo Authenticated and . [facility]
== END 2024-06-12 23:59 | disposition home or self-care (01) ==
LOC: RAD 10:38
PROVIDERS: PCP Nurse Practitioner Family; Visit Provider Internal Medicine Pulmonary Disease
DX: R06.02 Shortness of breath (principal)
CPT/HCPCS: 71046

== ENCOUNTER 2024-09-18 12:56 | Outpatient (CLI) | payer MEDICARE, MEDICAID, SELFPAY ==
--- NOTE | 2024-09-18 | US_ITS ---
FINAL REPORT CLINICAL HISTORY: Type II diabetes , Down syndrome, HLD, Slow healing foot injury FINDINGS: BILATERAL ANKLE BRACHIAL INDICES Pressure indices are as follows are: RIGHT LOWER EXTREMITY Ankle brachial pressure index: 1.2 Toe brachial pressure index: 0.7 COMMENTS: Normal LEFT LOWER EXTREMITY Ankle brachial pressure index: 1.1 Toe brachial pressure index: 0.7 COMMENTS: Normal IMPRESSION: No evidence of significant obstructive peripheral vascular disease of the lower extremities. Reviewed, Interpreted and Dictated by Sukhjinder Montes MD Transcribed by Rocio Morel Authenticated and [facility]
== END 2024-09-18 23:59 | disposition home or self-care (01) ==
LOC: RT 12:58
PROVIDERS: PCP Nurse Practitioner Family; Visit Provider Nurse Practitioner
DX: R09.89 Other specified symptoms and signs involving the circulatory and respiratory systems (principal)
CPT/HCPCS: 93923

== ENCOUNTER 2024-12-31 15:08 | Outpatient (CLI) | payer MEDICARE, MEDICAID, SELFPAY ==
--- OUTSIDE RECORDS SUMMARY | 2024-12-31 15:10 | XMS_ITS | Clinical Summary ---
Author Organization [facility] Address [address] [place] [address] Phone Care Team Providers Care [employer] Supervisor Name Role Phone No Pcp, Per Patient Primary Care Provider Unavai lable Allergies Active Allergy Reactions Criticality Noted Date Comments Bacitracin Dermatitis Medium 06/02/2012 Codeine Other (See Comments) 07/06/2009 Unknown Penicillins Itching,Other (See Comments) 07/06/2009 Watery eyes Unable To Assess 07/10/2011 Caregiver states family requests patient not eat any jelly beans ! Medications UNABLE TO FIND magic Butt name Used as needed Active Carboxymethylcellu lose Sodium 0.5 % DropIndications:Dr valladares eyes Apply 1 Drop to eye 2 times daily as needed for Other (dry eyes). 100 mL 4 05/30/20 12 Active carbamide peroxide (DEBROX) 6.5 % Otic DropsIndications:C erumen impaction, unspecified laterality Place 5 drops into the right ear once a week. Use once weekly 100 mL 3 02/25/20 14 Active Additional Information Patient not taking.Reason: Therapy Completed, Reported on 11/15/2023 Blood Sugar Diagnostic, Disc (ASCENSIA BREEZE 2) Misc StripIndications:D blanco ([facility]),Diabetes mellitus type 2, uncontrolled Test blood sugar daily 100 strip 3 02/25/20 14 Active Additional Information Patient not taking.Reason: Therapy Completed, Reported on 11/15/2023 aspirin 81 mg Oral Tablet, Delayed Release (E.C.) Take 1 tablet by mouth daily. 30 tablet 11 02/26/20 14 Active Artificial Tear Ointment Opht OintmentIndication s:Dry eyes, bilateral Apply 1 drop to eye nightly. Apply thin ribbon to ea eye at bedtime 1 Tube 4 05/24/20 14 Active calcium-vitamin D (OYSTER SHELL CALCIUM-VIT D3) 500 mg(1,250mg) -200 unit Oral TabletIndications: Health care maintenance Take 1 tablet by mouth 3 times daily (with meals). 90 tablet 11 05/25/20 14 Active levothyroxine (SYNTHROID) 88 mcg Oral TabletIndications: Hypothyroidism Take 1 Tab by mouth daily. 90 Tab 3 07/26/19 15 Active Blood-Glucose Meter, Disc-type (ASCENSIA BREEZE 2) [facility] Kit For testing blood sugar 3 times daily. 1 Kit 1 09/01/19 15 Active Additional Information Patient not taking.Reason: Therapy Completed, Reported on 11/15/2023 atorvastatin (LIPITOR) 10 mg Oral TabletIndications: Dyslipidemia, goal LDL below 100 Take 1 Tab by mouth daily. 90 Tab 1 09/01/19 15 Active metFORMIN (GLUCOPHAGE) 850 mg Oral TabletIndications: Diabetes mellitus type 2, uncontrolled Take 1 Tab by mouth 3 times daily (with meals). 270 Tab 1 09/01/19 15 Active lancets (TRUEPLUS LANCETS) 28 gauge [facility] MiscIndications:Di abetes mellitus type 2, uncontrolled 1 Each by Percutaneous route 3 times daily. 100 Each 6 09/01/19 15 Active Additional Information Patient not taking.Reason: Therapy Completed, Reported on 11/15/2023 loratadine (CLARITIN) 10 mg Oral TabletIndications: Non-allergic rhinitis Take 1 Tab by mouth daily. 90 Tab 3 09/24/19 15 Active cyanocobalamin 500 mcg Oral TabletIndications: B12 deficiency Take 1 Tab by mouth daily. 30 Tab 3 12/09/19 15 Active polyethylene glycol (GLYCOLAX, MIRALAX) 17 gram Oral Powder in PacketIndications: Abdominal distension,Slow transit constipation Take 17 g by mouth 2 times daily. 60 Packet 3 12/09/19 15 Active Additional Information Patient taking differently:17 g OralDAILY, Reason: Unable to tolerate, Reported on 11/15/2023 zinc oxide 28.35 g, aluminum & magnesium hydroxide-simethic one 30 mL, cholestyramine 1 PacketIndications: Rash Apply 1 Ampule topically 2 times daily. 60 Each 11 12/30/19 15 Active cetaphil (CETAPHIL) Top LotionIndications: Dry skin Apply topically as needed. Apply to dry skin daily as needed. 1 Bottle 6 12/30/19 15 Active Additional Information Patient not taking.Reason: Therapy Completed, Reported on 11/15/2023 cholecalciferol, vitamin D3, 25 mcg (1,000 unit) Oral Tablet Take 1 Tablet by mouth daily. Active pantoprazole (PROTONIX) 20 mg Oral Tablet, Delayed Release (E.C.) Take 40 mg by mouth daily. Active montelukast (SINGULAIR) 10 mg Oral Tablet Take by mouth every evening. Active sennosides (SENOKOT) 8.8 mg/5 mL Oral Syrup Take 5 mL by mouth nightly. Active tamsulosin (FLOMAX) 0.4 mg Oral Capsule Take 0.4 mg by mouth daily. Active Saccharomyces boulardii (FLORASTOR) 250 mg Oral Capsule Take 250 mg by mouth 2 times daily. Active Active Problems Problem Noted Date Diagnosed Date Hyperlipidemia associated with type 2 diabetes m ellitus 11/17/2023 Dysphagia 11/17/2023 Community acquired pneumonia of left lower lobe of lung 11/15/2023 Acute respiratory failure with hypoxia Chronic diastolic heart failure 11/15/2023 History of Clostridium difficile infection 11/14 Hyponatremia 11/15/2023 COPD, severity to be determined 11/15/2023 Decreased ROM of right elbow 11/09/2014 Weight loss 09/29/2014 Diabetes type 2, controlled 09/29/2014 Healthcare maintenance 04/27/2013 Assessment & Plan (04/27/2013 2:56 PM EST): - Mammogram - 01/16/13 - negative, routine screening in 1 year - Pap - unknown - Colonoscopy - will order GI referral today - Flu - given 04/27/2013 - adacel - given 04/27/2013 - Pneumovax - 08/22/2006 - zostavax - due at 61 years - dexa scan - n/a - HgbA1c - Lab Results Component Value Date HGBA1C 7.0 07/10/2011 - lipids Lab Results Component Value Date LDLCALC 57 07/10/2011 Non-allergic rhinitis 06/06/2011 Overview (06/06/2011): 06-21-10: Consult with Dr. Zapata. No evidence of airborne allergies. Her Down's syndrome potentially could be structual nasal congestion. She also is not interactive in blowing mucus from her nose. Recommended a trial of Dallergy Chewable. Food allergy 06/06/2011 Overview (06/06/2011): Reported history of a jellybean allergy. Type 2 diabetes mellitus wit h hyperglycemia, without long-term current use of insulin 04/13/2011 Xerosis cutis 11/09/2009 Down's syndrome 07/06/2009 Hypothyroidism 07/06/2009 Dyslipidemia 07/06/2009 Anemia, macrocytic 07/06/2009 Resolved Problems Problem Noted Date Diagnosed Date Resolved Date Diabetes mellitus type II 07/06/2009 Immunizations Immunization Administration Dates Next Due Influenza Vaccine, Unspecifi ed Formulation 05/13/2014,04/27/2013,04/12/2010,02/22 Pneumococcal Polysaccharide 23 Valent 08/22/2006 Td, Unspecified Formulation 08/22/2006 Tdap 04/27/2013 Surgical History Surgery Date Site/Laterality Comments INNER EAR SURGERY left ear several yrs ago Medical History Medical History Date Comments Severe intellectual disabilities Diabetes mellitus (HCC) Down syndrome Thyroid disease Hyperlipidemia Hard of hearing Blepharitis CHF (congestive heart failure) (HCC) Chronic obstructive pulmonary disease (HCC) Family History Medical History Relation Name Comments Heart Disease Father Heart Disease Mother Relation Name Status Comments Father Mother Social History Tobacco Use Types Packs/Day Years Used Date Smoking Tobacco: Never Smokeless Tobacco: Never Alcohol Use Standard Drinks/Week Comments No 0 (1 standard drink = 0.6 oz pur e alcohol) [facility] Utilities Answer Date Recorded In the past 12 months has e electric, gas, oil, or water company threatened to shut off services in your home? No 11/15/2023 Overall Financial Resource Strain (CARDIA) Answe r Date Recorded How hard is it for you to pa y for the very basics like food, housing, medical care, and heating? Not very hard 11/15/2023 PHQ-2 Answer Date Recorded PHQ-2 Total Score 0 11/15/2023 [facility] Occup[facility] - Occupational Stress Questionnaire Answer Date Recorded Do you feel stress - tense, restless, nervous, or anxious, or unable to sleep at night because your mind is troubled all the time - these days? Only a little 11/15/2023 Exercise Vital Sign Answer Date Recorde d On average, how many days pe r week do you engage in moderate to strenuous exercise (like a brisk walk)? 0 days 11/15/2023 On average, how many minutes do you engage in exercise at this level? 0 min 11/15/2023 Hunger Vital Sign Answer Date Recorded Within the past 12 months, y ou worried that your food would run out before you got the money to buy more. Never true 11/15/19 24 Within the past 12 months, t he food you bought just didn't last and you didn't have money to get more. Never true 11/15/2023 [facility] Transportation Answer D ate Recorded In the past 12 months, has l ack of reliable transportation kept you from medical appointments, meetings, work or from getting things needed for daily living? No 11/15/2023 Comments No Sex and Gender Information Value Date Recorded Sex Assigned at Not on file Legal Sex Female 9:55 AM EDT Gender Identity Not on file Sexual Orientation Not on file Obstetrics History Last Filed Vital Signs Vital Sign Reading Time Taken Comments Blood Pressure 108/59 11/18/2023 8:53 AM EDT Pulse 64 11/18/2023 8:53 AM EDT Temperature 36.4 C (97.6 F) 11/18/2023 8:53 AM EDT Respiratory Rate 16 11/18/2023 8:53 AM EDT Oxygen Saturation 91% 11/18/2023 8:53 AM EDT Inhaled Oxygen Concentration - - Weight 46.7 kg (103 lb) 08/25/2021 9:17 AM EST Height 137.2 cm (4' 6 ) 11/15/2023 7:54 PM EDT Body Mass Index 24.83 10/06/2013 3:17 PM EDT Plan of Treatment Health Maintenance Due Date Last Done Comments Karyotyping Documentation Transfer: If the patient has no karyotyping documentation, karyotyping results should be obtained pre- or post-natally. 1961 Ferritin and CRP or Iron and TIBC 1962 Annual Wellness Exam 1964 Sleep Study 1964 Diabetic Eye Exam 11/26/1979 Hepatitis C Screening 11/26/1979 Cervical Cancer Screening 1982 Pap Smear 1982 HPV/Pap Cotest 11/26/1991 Cologuard 2006 Colon Cancer Screening 2006 Colonoscopy 2006 FIT 2006 Sigmoidoscopy 2006 Virtual Colonography 2006 Zoster (1 of 2) 11/26/2011 Kidney Health: uACR 06/07/2015 06/07/2014, 1 TSH Level 09/01/2015 08/31/2014, 05/24, 08/05/2013, Additional history exists Lipids 10/27/2015 10/26/2014, 10/2014, 08/05/2013, Additional history exists Breast Cancer Screening 01/26/2016 01/26/20 14, 01/16/2013, 10/24/2011, Additional history exists Pneumococcal Vaccine 50+ (2 of 2 - PCV) 05/16/2016 05/16/2015, 09/17/2006, 08/22/2006 RSV or 60+ (1 - Risk 60-74 years 1-dose series) 2021 DTaP/TDaP/Td (3 - Td or Tdap) 04/27/2023 04/27/2013, 09/17/2006, 08/22/2006 COVID-19 Vaccine ( - season) 2024 08/04/2021, 01/27/2021, 12/23/2020 Hemoglobin A1c 05/18/2024 11/16/2023, 05/24, 08/05/2013, Additional history exists CBC Level 11/15/2024 11/16/2023, 10/23, 10/26/2014, Additional history exists Kidney Health: eGFR 11/15/2024 11/16/2023, 11/15/2023, 10/26/2014, Additional history exists Influenza Vaccine (#1) 2025 3, 03/14/2020, 03/24/2019, Additional history exists Echocardiogram Completed 11/22/2010 Hepatitis B Vaccine Aged Out No longe r eligible based on patient's age to complete this topic Meningococcal B Vaccine Aged Out No l onger eligible based on patient's age to complete this topic Goals Goal Patient Goal Type Associated Problems Recent Progress Patient-Stated? Author Blood Pressure < 140/90 Blood Pressure 108/59(2023 8:53 AM EDT) No Napoleon Herrmann, RN BMI (Calculated) < 30 General 26.3(10/07/19 14 3:17 PM EDT) No Napoleon Herrmann, RN Maintain a healthy diet, exercise regularly and maintain an ideal body weight General No Napoleon Herrmann, RN HEMOGLOBIN A1C < 7.0 Result Component 7.5( 4:43 AM EDT) No Napoleon Herrmann, news clipping cutter Procedure Name Priority Date/Time Associated Diagnosis Comments RENAL FUNCTION PANEL Early AM 11/16/2023 4:44 AM EDT CBC Early AM 11/16/2023 4:43 AM EDT HEMOGLOBIN A1C Early AM 11/16/2023 4:43 AM EDT LIPID PANEL REFLEX Routine 10/26/2014 9: 33 AM EDT Dyslipidemia TSH REFLEX TO FT4 Routine 08/31/2014 8:5 7 AM EDT Hypothyroid MICROALBUMIN/CREATININ E RATIO URINE Routine 06/07/2014 9:21 AM EST Diabetes mellitus type 2, uncontrolled (HCC) MM MAMMO DIGITAL SCREENING W CAD BILAT Routine 01/25/2014 11:26 AM EDT Other screening mammogram EC ECHOCARDIOGRAM COMPLETE W DOPPLER AND COLOR FLOW MAPPING Routine 11/22/2010 3:40 PM EDT Murmur, cardiac from Last 3 Months or Most Recently Relevant to Health Maintenance Results * (ABNORMAL) RENAL FUNCTION PANEL (11/16/2023 4:44 AM EDT) Sodium 132(L) 136 - 145 mmol/L 11/16/2023 5:51 AM EDT [facility] Potassium 3.7 3.5 - 5.0 mmol/L 11/16/2023 5:51 AM EDT [facility] Chloride 97(L) 98 - 107 mmol/L 11/16/2023 5:51 AM EDT [facility] Total CO2 23 22 - 29 mmol/L 11/16/2023 5:51 AM EDT [facility] Anion Gap 12 7 - 16 mmol/L 11/16/2023 5:51 AM EDT [facility] Calcium 8.6(L) 8.8 - 10.4 mg/dL 11/16/2023 5:51 AM EDT [facility] Glucose Lvl 143(H) 70 - 99 mg/dL 11/16/2023 5:51 AM EDT [facility] BUN 6(L) 8 - 23 mg/dL 11/16/2023 5:51 AM EDT [facility] Creatinine 0.57 0.51 - 1.30 mg/dL 11/16/2023 5:51 AM EDT [facility] Albumin 3.1(L) 3.2 - 4.6 gm/dL 11/16/2023 5:51 AM EDT [facility] Phosphorus 3.1 2.5 - 4.5 mg/dL 11/16/2023 5:51 AM EDT [facility] eGFR (CKD-EPIcr 2020) 103 >=60 mL/min/1.7 3 m2 11/16/2023 5:51 AM EDT [facility] Comment:Estimated GFR was ca lculated using the CKD-EPIcr (2020) equation refit without race. The equation is recommended by the National Kidney Foundation - [place] [employer] of Nephrology Task Force. Blood VENOUS BLOOD / Unknown Venipuncture / Unknown 11/16/2023 4:44 AM EDT 11/16/2023 5:29 AM EDT us Danielito Juarez MD CHEMISTRY ORDERABLES Final Res ult [facility] [address] [place] [address] * (ABNORMAL) CBC (11/16/2023 4:43 AM EDT) WBC 4.2 3.7 - 10.3 x10(3)/mcL 11/16/2023 5:33 AM EDT [facility] RBC 3.24(L) 3.90 - 5.20 x10(6)/mcL 11/16/2023 5:33 AM EDT [facility] Hgb 10.6(L) 11.2 - 15.7 g/dL 11/16/2023 5:33 AM EDT [facility] Hct 30.3(L) 34.0 - 45.0 % 11/16/2023 5:33 AM EDT [facility] MCV 93.5 80.0 - 100.0 fL 11/16/2023 5:33 AM EDT [facility] MCH 32.7 26.0 - 34.0 pg 11/16/2023 5:33 AM EDT [facility] MCHC 35.0 30.7 - 35.5 g/dL 11/16/2023 5:33 AM EDT [facility] RDW 15.7(H) <=14.9 % 11/16/2023 5:33 AM EDT [facility] Platelet 256 155 - 369 x10(3)/mcL 11/16/2023 5:33 AM EDT [facility] MPV 9.4 8.8 - 12.5 fL 11/16/2023 5:33 AM EDT [facility] Blood VENOUS BLOOD / Unknown Venipuncture / Unknown 11/16/2023 4:43 AM EDT 11/16/2023 5:29 AM EDT us Danielito Juarez MD HEMATOLOGY ORDERABLES Final Re sult [facility] [address] [place] [address] * (ABNORMAL) HEMOGLOBIN A1C (11/16/2023 4:43 AM EDT) Hgb A1C 7.5(H) 4.2 - 5.6 % 11/18/2023 11:26 AM EDT [employer] Est. Avg Glucose 169 mg/dL 11/18/2023 11:26 AM EDT [facility] [employer] [facility] Blood VENOUS BLOOD / Unknown Venipuncture / Unknown 11/16/2023 4:43 AM EDT 11/16/2023 5:29 AM EDT Narrative PREFERRED [employer] [facility] - 11/18/2023 11:26 AM EDT REFERENCE RANGE: Normal: 4.0-5.6% Pre-diabetes: 5.7-6.4% Provisional diagnosis of diabetes: >6.4% Hgb F>10% and anything which shortens red cell survival, such as hemolytic anemia, or unstable hemoglobin variants such as HbSS, HbSC, or HbCC, will lower the HbA1c value associated with a given level of glycemic control. us Alexsander Hernandez MD CHEMISTRY ORDERABLES Final Resul t Performing Organization Address City/[facility]/ZIP Co de Phone Number [facility] [employer] [address], [place] [address] * LIPID PANEL REFLEX (10/26/2014 9:33 AM EDT) Cholesterol 113 <=200 mg/dL [facility] Comment: < 200 Desirable 200 - 239 Borderline High >= 240 High Triglyceride 53 <=150 mg/dL [facility] Comment: < 150 Normal 150 - 199 Borderline High 200 - 499 High >= 500 Very High HDL 41 >=40 mg/dL [facility] Comment: > 60 Optimal 40 - 60 Acceptable < 40 Low Blood specimen (specimen) UPPER LIMB STRUCTURE / Unknown 10/26/2014 9:33 AM EDT 10/26/2014 1:29 PM EDT us Virginia Kumar MD CHEMISTRY ORDERABLES Fi nal Result Performing Organization Address City/[facility]/ZIP Co de Phone Number [facility] [address] [place] [address] * TSH REFLEX (08/31/2014 8:57 AM EDT) TSH Reflex 0.557 0.270 - 4.200 mcIU/mL [facility] Blood specimen (specimen) UPPER LIMB STRUCTURE / Unknown 08/31/2014 8:57 AM EDT 08/31/2014 1:32 PM EDT us Nehemiah White MD CHEMISTRY ORDERABLES Tabby l Result Performing Organization Address [facility] Co de Phone Number [facility] [address] [place] [address] * MICROALBUMIN/CREATININE RATIO URINE (06/07/2014 9:21 AM EST) Urine Microalb <12.0 mg/L [facility] Urine Creatinine 94.6 mg/dL [facility] Ur Microalb/Creat See Footnote 0 - 20 [facility] Comment:Unable to calculate due to value outside linearity. Urine specimen (specimen) 06/07/2014 9:21 AM EST 06/07/2014 1:07 PM EST Debi Marquez MD URINE ORDERABLES Edited Result - Final Performing Organization Address [facility] de Phone Number [facility] [address] [place] [address] * MM MAMMO DIGITAL SCREENING W CAD BILAT (01/25/2014 11:26 AM EDT) Anatomical Region Laterality Modality Breast Bilateral Mammography 01/26/2014 7:28 AM EDT Impressions 01/26/2014 8:18 AM EDT : Negative ([id number]) ~ RECOMMENDATION: Routine screening mammogram in 1 year. ~ * The patient with a palpable abnormality, unexplained by breast imaging, should be managed on clinical basis by the attending physician. * Breast imaging has a false negative rate of 15%. * The patient was notified by mail of the results of this examination. *The patient's information was entered into a reminder system with a target due date for the next mammogram. The mammogram was reviewed by a Radiologist and CAD. Narrative 01/26/2014 8:18 AM EDT Procedure:MM MAMMO DIGITAL SCREENING W CAD BILAT ~ Reason for exam: screening (asymptomatic). ~ MM MAMMO DIG SCREEN CAD BILAT Bilateral CC and MLO view(s) were taken. Technologist: Nora Ignacio, mammo tech RY There are scattered fibroglandular densities. No suspicious calcifications. Compared to prior studies the most recent being 01-16-13. ~ Procedure Note Jazzy Obregon MD - 01/26/2014 Procedure:MM MAMMO DIGITAL SCREENING W CAD BILAT ~ Reason for exam: screening (asymptomatic). ~ MM MAMMO DIG SCREEN CAD BILAT Bilateral CC and MLO view(s) were taken. Technologist: Nora Ignacio, mammo tech RY There are scattered fibroglandular densities. No suspicious calcifications. Compared to prior studies the most recent [id number]. ~ IMPRESSION: Negative ([id number]) ~ RECOMMENDATION: Routine screening mammogram in 1 year. ~ * The patient with a palpable abnormality, unexplained by breast imaging, should be managed on clinical basis by the attending physician. * Breast imaging has a false negative rate of 15%. * The patient was notified by mail of the results of this examination. *The patient's information was entered into a reminder system with atarget due date for the next mammogram. The mammogram was reviewed by a Radiologist and CAD. Jazzy Garcia MD IMG MAMMOGRAPHY ORDERABLES Fi nal Result * EC ECHOCARDIOGRAM COMPLETE W DOPPLER AND COLOR FLOW MAPPING (11/22/2010 3:40 PM EDT) PYRAMIS LINK PYRAMIS Anatomical Region Laterality Modality Electrocardiogra phy 11/22/2010 3:06 PM EDT Jazzy Garcia MD IMG ECHO ORDERABLES Final Res ult from Last 3 Months or Most Recently Relevant to Health Maintenance Insurance [place] CLAIMS [place] [address] [place] Advance Directives For more information, please contact: [phone] Documents on File Type Date Recorded Patient Employment Representative Expl anation [employer] ORDER 09/29/2021 10:07 AM Ester milton of Atty. * DNR (Latest Code Status on File) Date Activated Date Inactivated Comments 11/15/2023 3:07 PM 11/18/2023 7:29 PM Question Answer Comments This treatment plan has been discussed with and agreed upon by: Patient's Veronica LUONG Care Teams [employer] Super[employer] Relationship Specialty Start Date End Date No Pcp, Per Patient PCP - General 11/15/23
--- NOTE | 2024-12-31 15:16 | US_ITS ---
FINAL REPORT CLINICAL HISTORY: urinary retention COMPARISON: None FINDINGS: RENAL ULTRASOUND Ultrasound images of the kidneys were obtained. The right kidney measures 10.0 cm in length. It is normal echogenicity. There is no hydronephrosis. The left kidney measures 8.2 cm in length. It is normal echogenicity. There is no hydronephrosis. IMPRESSION: Normal renal ultrasound. Reviewed, Interpreted and Dictated by Leilani De Luna MD Transcribed by Carrie Mosqueda Authenticated and [facility]
--- NOTE | 2024-12-31 15:16 | US_ITS ---
FINAL REPORT CLINICAL HISTORY: URINARY RETENTION COMPARISON: None FINDINGS: ULTRASOUND BLADDER WITH POST VOID RESIDUAL Bladder volumes were estimated based on 3 dimensional measurements, pre- and postvoid. Prevoid bladder volume: 58 mls Postvoid bladder volume: 50 mls The urinary bladder is poorly distended with abnormally high postvoid residual. However, this may be due to poorly distended bladder not allowing normal void. IMPRESSION: Elevated post void residual of doubtful significance.. Reviewed, Interpreted and Dictated by Leilani De Luna MD Transcribed by Carire Mosqueda Authenticated and [facility]
== END 2024-12-31 23:59 | disposition home or self-care (01) ==
LOC: RAD 15:09
PROVIDERS: PCP Nurse Practitioner Family; Visit Provider Nurse Practitioner Family
DX: R39.198 Other difficulties with micturition (principal); R33.9 Retention of urine, unspecified
CPT/HCPCS: 76770; 76857

== ENCOUNTER 2025-03-20 15:57 | Emergency (ER) | payer MEDICARE, MEDICAID, SELFPAY ==
--- OUTSIDE RECORDS SUMMARY | 2025-03-20 16:06 | XMS_ITS | Clinical Summary ---
Author Organization [facility] Address [address] [place] [address] Phone Care Team Providers Care [employer] Athlete Name Role Phone No Pcp, Per Patient [...] Disc (ASCENSIA BREEZE 2) Misc StripIndications:D blanco ([facility]),Diabetes mellitus type 2, uncontrolled Test [...] Active Blood-Glucose Meter, Disc-type (ASCENSIA BREEZE 2) [facility] Kit For testing blood sugar 3 times [...] 15 Active lancets (TRUEPLUS LANCETS) 28 gauge [facility] MiscIndications:Di abetes mellitus type 2, uncontrolled 1 [...] drink = 0.6 oz pur e alcohol) [facility] Utilities Answer Date Recorded In the past [...] Date Recorded PHQ-2 Total Score 0 11/15/2023 [facility] [place] [facility] Occupat ional Health - Occupational Stress [...] money to get more. Never true 11/15/2023 [facility] IP Transportation Answer D ate Recorded In [...] Td or Tdap) 04/27/2023 04/27/2013, 09/17/2006, 08/22/2006 Hemoglobin A1c 05/18/2024 11/16/2023, 05/24, 08/05/2013, Additional history exists CBC Level 11/15/2024 11/16/2023, 10/23, 10/26/2014, Additional history exists Kidney Health: eGFR 11/15/2024 11/16/2023, 11/15/2023, 10/26/2014, Additional history exists COVID-19 Vaccine (2024- season) 2025 08/04/2021, 01/27/2021, 12/23/2020 Influenza Vaccine (#1) 2025 3, 03/14/2020, 03/24/2019, [...] 7.5( 4:43 AM EDT) No Napoleon Herrmann, airborne electronics analyst Procedure Name Priority Date/Time Associated Diagnosis Comments [...] - 5.0 mmol/L 11/16/2023 5:51 AM EDT [facility] Chloride 97(L) 98 - 107 mmol/L 11/16/2023 5:51 AM EDT [facility] Total CO2 23 22 - 29 mmol/L 11/16/2023 5:51 AM EDT [facility] Anion Gap 12 7 - 16 mmol/L 11/16/2023 5:51 AM EDT [facility] Calcium 8.6(L) 8.8 - 10.4 mg/dL 11/16/2023 5:51 AM EDT [facility] Glucose Lvl 143(H) 70 - 99 mg/dL 11/16/2023 5:51 AM EDT [facility] BUN 6(L) 8 - 23 mg/dL 11/16/2023 5:51 AM EDT [facility] Creatinine 0.57 0.51 - 1.30 mg/dL 11/16/2023 5:51 AM EDT [facility] Albumin 3.1(L) 3.2 - 4.6 gm/dL 11/16/2023 5:51 AM EDT [facility] Phosphorus 3.1 2.5 - 4.5 mg/dL 11/16/2023 5:51 AM EDT [facility] eGFR (CKD-EPIcr 2020) 103 >=60 mL/min/1.7 3 m2 11/16/2023 5:51 AM EDT [facility] Comment:Estimated GFR was ca lculated using the CKD-EPIcr (2020) equation refit without race. The equation is recommended by the National Kidney Foundation - [place] Society of Nephrology Task Force. Blood VENOUS BLOOD / Unknown Venipuncture / Unknown 11/16/2023 4:44 AM EDT 11/16/2023 5:29 AM EDT us Danielito Juarez MD CHEMISTRY ORDERABLES Final Res ult [facility] [address] [place] [address] * (ABNORMAL) CBC (11/16/2023 4:43 AM EDT) WBC 4.2 3.7 - 10.3 x10(3)/mcL 11/16/2023 5:33 AM EDT [facility] RBC 3.24(L) 3.90 - 5.20 x10(6)/mcL 11/16/2023 5:33 AM EDT [facility] Hgb 10.6(L) 11.2 - 15.7 g/dL 11/16/2023 5:33 AM EDT [facility] Hct 30.3(L) 34.0 - 45.0 % 11/16/2023 5:33 AM EDT [facility] MCV 93.5 80.0 - 100.0 fL 11/16/2023 5:33 AM EDT [facility] MCH 32.7 26.0 - 34.0 pg 11/16/2023 5:33 AM EDT [facility] MCHC 35.0 30.7 - 35.5 g/dL 11/16/2023 5:33 AM EDT [facility] RDW 15.7(H) <=14.9 % 11/16/2023 5:33 AM EDT [facility] Platelet 256 155 - 369 x10(3)/mcL 11/16/2023 5:33 AM EDT [facility] MPV 9.4 8.8 - 12.5 fL 11/16/2023 5:33 AM EDT [facility] Blood VENOUS BLOOD / Unknown Venipuncture / Unknown 11/16/2023 4:43 AM EDT 11/16/2023 5:29 AM EDT us Danielito Juarez MD HEMATOLOGY ORDERABLES Final Re sult [facility] [address] [place] [address] * (ABNORMAL) HEMOGLOBIN A1C (11/16/2023 4:43 AM EDT) Hgb A1C 7.5(H) 4.2 - 5.6 % 11/18/2023 11:26 AM EDT [employer]. Avg Glucose 169 mg/dL 11/18/2023 11:26 AM EDT [facility] [employer] Blood VENOUS BLOOD / Unknown Venipuncture / Unknown 11/16/2023 4:43 AM EDT 11/16/2023 5:29 AM EDT Narrative PREFERRED [employer] - 11/18/2023 11:26 AM EDT REFERENCE RANGE: [...] ORDERABLES Final Resul t Performing Organization Address City/[facility]/ZIP Co de Phone Number [facility] [employer] [address] [place] [address] * LIPID PANEL REFLEX (10/26/2014 9:33 AM EDT) Cholesterol 113 <=200 mg/dL [facility] Comment: < 200 Desirable 200 - 239 Borderline High >= 240 High Triglyceride 53 <=150 mg/dL [facility] Comment: < 150 Normal 150 - 199 Borderline High 200 - 499 High >= 500 Very High HDL 41 >=40 mg/dL [facility] Comment: > 60 Optimal 40 - 60 Acceptable < 40 Low Blood specimen (specimen) UPPER LIMB STRUCTURE / Unknown 10/26/2014 9:33 AM EDT 10/26/2014 1:29 PM EDT us Virginia Kumar MD CHEMISTRY ORDERABLES Fi nal Result Performing Organization Address City/[facility]/ZIP Co de Phone Number [facility] [address] [place] [address] * TSH REFLEX (08/31/2014 8:57 AM EDT) TSH Reflex 0.557 0.270 - 4.200 mcIU/mL [facility] Blood specimen (specimen) UPPER LIMB STRUCTURE / Unknown 08/31/2014 8:57 AM EDT 08/31/2014 1:32 PM EDT us Nehemiah White MD CHEMISTRY ORDERABLES Tabby l Result Performing Organization Address [facility] Co de Phone Number [facility] [address] [place] [address] * MICROALBUMIN/CREATININE RATIO URINE (06/07/2014 9:21 AM EST) Urine Microalb <12.0 mg/L [facility] Urine Creatinine 94.6 mg/dL [facility] Ur Microalb/Creat See Footnote 0 - 20 [facility] Comment:Unable to calculate due to value outside linearity. Urine specimen (specimen) 06/07/2014 9:21 AM EST 06/07/2014 1:07 PM EST Debi Marquez MD URINE ORDERABLES Edited Result - Final Performing Organization Address [facility] de Phone Number [facility] [address] [place] [address] * MM MAMMO DIGITAL SCREENING W CAD BILAT (01/25/2014 11:26 AM EDT) Anatomical Region Laterality Modality Breast Bilateral Mammography 01/26/2014 7:28 AM EDT Impressions 01/26/2014 8:18 AM EDT : Negative ([id number]) ~ RECOMMENDATION: Routine screening mammogram in 1 [...] Compared to prior studies the most recent -24-44. ~ IMPRESSION: Negative ([id number]) ~ RECOMMENDATION: Routine screening mammogram in 1 [...] Recently Relevant to Health Maintenance Insurance [place] CLAIMS [place] [address] MEDICAID [place] Advance Directives For more information, please contact: [phone] Documents on File Type Date Recorded Patient Eap Counselor Expl anation [employer] ORDER 09/29/2021 10:07 AM Ester milton of Atty. * DNR (Latest Code Status on File) Date Activated Date Inactivated Comments 11/15/2023 3:07 PM 11/18/2023 7:29 PM Question Answer Comments This treatment plan has been discussed with and agreed upon by: Patient's Veronica LUONG Care Teams [employer] Athlete Relationship Specialty Start Date End Date No Pcp, Per Patient PCP - General 11/15/23
[2025-03-20 16:09] VITALS: BP 132/66; PULSE 75; RESP 15; TEMP 36.8; O2SAT 99; BMI 19.6
--- NOTE | 2025-03-20 16:12 | HMH.EDGENADL ---
Discharge Plan Prescriptions Prescriptions: No Action levothyroxine 75 mcg tablet 75 mcg PO DAILY 30 Days Patient Comments: atorvastatin 10 mg tablet 10 mg PO HS 30 Days Patient Comments: metformin 500 mg tablet 500 mg PO BID 90 Days Patient Comments: aspirin [Adult Low Dose Aspirin] 81 mg tablet,delayed release (DR/EC) 81 mg PO DAILY Rx Instructions: ammonium lactate 12 % cream 1 applic topical BID Qty: 385 1RF [place] Saline 0.65 % aerosol,spray 2 spray intranasal QID PRN (Reason: nasal congestion) Qty: 50 0RF mupirocin 2 % ointment 1 applic topical BID 14 Days Qty: 22 1RF ketoconazole 2 % cream 1 applic topical BID 30 Days Qty: 30 2RF tamsulosin [Flomax] 0.4 mg capsule 0.4 mg PO DAILY mirtazapine 7.5 mg tablet PO DAILY Patient Comments: TAKE 1 TABLET BY MOUTH ONCE DAILY AT BEDTIME. montelukast 10 mg tablet 10 mg PO PM 30 Days Qty: 30 olopatadine 0.1 % drops 1 drp OPHTHALMIC BID PRN (Reason: Allergy Symptoms) cetirizine 10 mg tablet 10 mg PO DAILY sennosides [senna] 8.8 mg/5 mL syrup 5 ml PO DAILY mecobalamin (vitamin B12) 500 mcg tablet,chewable 500 mcg PO AM calcium no.[id number]-boron 500 mg-12.5 mcg -20 mg/15 mL liquid 15 ml PO PM azelastine 0.05 % drops 1 drp Eye-Both ONCE ipratropium bromide 42 mcg (0.06 %) spray,non-aerosol 2 spray intranasal BID Qty: 15 3RF Rx Instructions: administer into each nostril tamsulosin [Flomax] 0.4 mg capsule 0.4 mg PO DAILY Qty: 30 3RF mupirocin 2 % ointment 1 applic topical BID 14 Days Qty: 15 0RF cefdinir 125 mg/5 mL suspension for reconstitution 300 mg PO BID 10 Days Qty: 240 0RF pantoprazole 20 MG tablet,delayed release (DR/EC) 20 mg PO DAILY polyethylene glycol 3350 119 GM powder 1 cap PO HS docusate sodium 50 mg/5 mL liquid 5 ml PO DAILY QNASL 80 mcg/actuation HFA aerosol inhaler 1 - 2 spray INTRANASAL DAILY PRN (Reason: Allergies) Benefiber Clear SF (dextrin) 3 gram/3.5 gram Powder In Packet 1 packet PO DAILY Rx Instructions: Mix into at least 4 oz water or juice before administering Referrals Follow up/Referrals: Jacqueline Baez APRN [Primary Care Provider, Medical] - See instructions Print Language Print Language: [place] Discharge ED Provider: Autumn Cristobal General Adult HPI General Stated complaint: constipated x9, pain, vomiting Time Seen by Provider: 03/20/25 16:12 Related Data Home Medications ?Medication ?Instructions ?Recorded ?Confirmed aspirin 81 mg tablet,delayed 81 mg PO DAILY 07/25/17 03/01/25 release (Adult Low Dose Aspirin) atorvastatin 10 mg tablet 10 mg PO HS 30 days 07/25/17 03/01/25 levothyroxine 75 mcg tablet 75 mcg PO DAILY 30 days 07/25/17 03/01/25 metformin 500 mg tablet 500 mg PO BID 90 days 07/25/17 03/01/25 montelukast 10 mg tablet 10 mg PO PM 30 days ##30 11/28/17 03/01/25 olopatadine 0.1 % eye drops 1 drp ophthalmic (eye) BID PRN 04/21/20 03/01/25 Allergy Symptoms polyethylene glycol 3350 17 1 cap PO HS 12/06/20 03/01/25 gram/dose oral powder pantoprazole 20 mg tablet,delayed 20 mg PO DAILY 08/21/21 03/01/25 release cetirizine 10 mg tablet 10 mg PO DAILY 09/05/21 03/01/25 sennosides 8.8 mg/5 mL oral syrup 5 ml PO DAILY 09/05/21 03/01/25 (senna) calcium 500 mg-D3 12.5 mcg-mag 20 15 ml PO PM 03/12/23 03/01/25 mg-boron 125 mcg/15 mL oral liquid mecobalamin (vitamin B12) 500 mcg 500 mcg PO AM 03/12/23 03/01/25 chewable tablet docusate sodium 50 mg/5 mL oral 5 ml PO DAILY 06/29/23 03/01/25 liquid beclomethasone dipropionate 80 1 - 2 spray intranasal DAILY PRN 06/30/23 03/01/25 mcg/actuation nasal HFA inhaler Allergies (QNASL) wheat dextrin 3 gram/3.5 gram oral 1 packet PO DAILY 07/15/23 03/01/25 powder packet (Benefiber Clear Sugar Free(dextrin)) azelastine 0.05 % eye drops 1 drp Eye-Both ONCE 03/04/24 03/01/25 mirtazapine 7.5 mg tablet mg PO DAILY 03/01/25 03/01/25 tamsulosin 0.4 mg capsule (Flomax) 0.4 mg PO DAILY 03/01/25 03/01/25 Previous Rx's ?Medication ?Instructions ?Recorded sodium chloride 0.65 % nasal spray 2 spray intranasal QID PRN nasal 06/12/24 aerosol ([place] Saline) congestion #50 mL ammonium lactate 12 % topical cream 1 applic topical BID dry skin, 06/15/24 callus care #385 grams mupirocin 2 % topical ointment 1 applic topical BID infection 14 07/24/24 days #15 grams ketoconazole 2 % topical cream 1 applic topical BID fungal 09/14/24 infection 30 days #30 grams mupirocin 2 % topical ointment 1 applic topical BID infection 14 09/14/24 days #22 grams cefdinir 125 mg/5 mL oral 300 mg (12 mL) PO BID 10 days #240 09/18/24 suspension mL ipratropium bromide 42 mcg (0.06 2 spray intranasal BID #15 mL 12/21/24 %) nasal spray tamsulosin 0.4 mg capsule (Flomax) 0.4 mg PO DAILY #30 caps 01/04/25 Allergies Allergy/AdvReac Type Severity Reaction Status Date / Time bacitracin (BACITRACIN) Allergy Mild Hives Verified 03/01/25 13:13 codeine (CODEINE) Allergy Mild Hives Verified 03/01/25 13:13 Penicillins (PENICILLINS) Allergy Unknown Hives Verified 03/01/25 13:13 [facility] Disclaimer: The information contained in this section may have been updated after the patient was seen, as this information can be updated by other users. Medical History Allergic rhinitis Impacted cerumen of left ear Recurrent pneumonia Hypertrophy of nasal turbinates Impacted cerumen of left ear Bilateral impacted cerumen GERD with esophagitis Down syndrome Hyponatremia Type 2 diabetes mellitus with hyperglycemia, without long-term current use of insulin Surgical History H/O mastoidectomy S/P dilatation of esophageal stricture Family History Other Cancer Hyperlipidemia Hypertension Social History Smoking Status: Never smoker second hand exposure: No alcohol intake: never counseling provided: none substance use type: denies use current occupational status: disabled Travel in the last 8 weeks?: None household members: family housing: house current occupational exposures/hazards: No caffeine: No Have you lived/traveled outside [place] in past 30 days?: No Contact w/someone who lives/traveled outside US past 30 days?: No Exposure to someone with infectious disease in past 14 days?: No Do you have a fever (greater than 100.4 F or 38 C)?: No Have you tested positive for COVID-19?: No Exposed to someone with COVID-19 in past 14 days?: No Do you have a sore throat?: No Do you have a cough?: No Do you have any weakness?: No Do you have any diarrhea?: No Are you experiencing any unusual bleeding?: No Do you have any muscle aches/pain?: No Do you have any abdominal pain?: No Are you experiencing loss of taste or smell?: No Other Medical History Have you received the Flu Vaccine for this season: No Have you received the Pneumonia Vaccine: Yes Physical Exam General General appearance: alert and in no apparent distress Head Head exam: atraumatic, normocephalic and normal inspection Eye Eye exam: Present normal appearance, PERRL and EOMI; Absent scleral icterus ENT ENT exam: Present normal exam and normal external ear exam Neck Neck exam: Present normal inspection and full ROM Chest Chest inspection: Present normal inspection and symmetric chest wall rise Respiratory Respiratory exam: Present normal lung sounds bilaterally; Absent respiratory distress or wheezes Cardiovascular Cardiovascular exam: Present regular rate, normal rhythm and normal heart sounds Abdominal Exam Abdominal exam: Present soft and distention; Absent tenderness, guarding or rebound Extremities Exam Extremities exam: Present normal inspection and full ROM Back Exam Back exam: Present normal inspection and full ROM Neurological Exam Neurological exam: Present alert and oriented X3 Psychiatric Psychiatric exam: Present normal affect and normal mood Skin Skin exam: Present warm and dry Medical Decision Making Medical Records Screening: Per USPSTF and CDC recommendations, given the prevalence of disease in our region, it is our hospital?s policy to screen for HIV and viral Hepatitis for all patients aged 18 and over and those with ongoing risk factors.
--- NOTE | 2025-03-20 17:07 | CT_ITS ---
PROCEDURE INFORMATION: Exam: CT Abdomen And Pelvis Without Contrast Exam date and time: 03/20/2025 7:29 PM Age: 64 years old Clinical indication: Other: Abd pain constipated 9 days vomiting TECHNIQUE: Imaging protocol: Computed tomography of the abdomen and pelvis without contrast. Radiation optimization: All CT scans at this facility use at least one of these dose optimization techniques: automated exposure control; mA and/or kV adjustment per patient size (includes targeted exams where dose is matched to clinical indication); or iterative reconstruction. COMPARISON: CT ABDOMEN PELVIS W CON 07/14/2023 12:44 PM FINDINGS: Liver: Normal. No mass. Gallbladder and biliary ducts: Cholecystectomy. Pancreas: Normal. No ductal dilation. Spleen: Normal. No splenomegaly. Adrenal glands: Normal. No mass. Kidneys and ureters: Normal. No hydronephrosis. Stomach and bowel: Fluid-filled minimally distended small bowel suggesting enteritis. Appendix: No evidence of appendicitis. Intraperitoneal space: Unremarkable. No free air. No significant fluid collection. Vasculature: Unremarkable. No abdominal aortic aneurysm. Lymph nodes: Unremarkable. No enlarged lymph nodes. Urinary bladder: Modest prominence of the bladder wall similar to prior. Reproductive: Unremarkable as visualized. Bones/joints: Unremarkable. No acute fracture. Soft tissues: Unremarkable. IMPRESSION: Fluid-filled minimally distended small bowel suggesting enteritis.
--- NOTE | 2025-03-20 18:06 | ED_ITS ---
<Statement entered by Autumn Cristobal DO - 03/21/25 00:50> I was consulted by the GABRIELLE, and we discussed the complexity of problems being addressed. I approve the treatment and management plan for this patient's care in the emergency department, thus performing a substantial portion of the medical decision making. Autumn Cristobal DO Discharge Plan Disposition Patient Disposition: Home, Self-Care Condition: Good Prescriptions Prescriptions: No Action levothyroxine 75 mcg tablet 75 mcg PO DAILY 30 Days Patient Comments: atorvastatin 10 mg tablet 10 mg PO HS 30 Days Patient Comments: metformin 500 mg tablet 500 mg PO BID 90 Days Patient Comments: aspirin [Adult Low Dose Aspirin] 81 mg tablet,delayed release (DR/EC) 81 mg PO DAILY Rx Instructions: ammonium lactate 12 % cream 1 applic topical BID Qty: 385 1RF [place] Saline 0.65 % aerosol,spray 2 spray intranasal QID PRN (Reason: nasal congestion) Qty: 50 0RF mupirocin 2 % ointment 1 applic topical BID 14 Days Qty: 22 1RF ketoconazole 2 % cream 1 applic topical BID 30 Days Qty: 30 2RF tamsulosin [Flomax] 0.4 mg capsule 0.4 mg PO DAILY mirtazapine 7.5 mg tablet PO DAILY Patient Comments: TAKE 1 TABLET BY MOUTH ONCE DAILY AT BEDTIME. montelukast 10 mg tablet 10 mg PO PM 30 Days Qty: 30 olopatadine 0.1 % drops 1 drp OPHTHALMIC BID PRN (Reason: Allergy Symptoms) cetirizine 10 mg tablet 10 mg PO DAILY sennosides [senna] 8.8 mg/5 mL syrup 5 ml PO DAILY mecobalamin (vitamin B12) 500 mcg tablet,chewable 500 mcg PO AM calcium no.[id number]-boron 500 mg-12.5 mcg -20 mg/15 mL liquid 15 ml PO PM azelastine 0.05 % drops 1 drp Eye-Both ONCE ipratropium bromide 42 mcg (0.06 %) spray,non-aerosol 2 spray intranasal BID Qty: 15 3RF Rx Instructions: administer into each nostril tamsulosin [Flomax] 0.4 mg capsule 0.4 mg PO DAILY Qty: 30 3RF mupirocin 2 % ointment 1 applic topical BID 14 Days Qty: 15 0RF cefdinir 125 mg/5 mL suspension for reconstitution 300 mg PO BID 10 Days Qty: 240 0RF pantoprazole 20 MG tablet,delayed release (DR/EC) 20 mg PO DAILY polyethylene glycol 3350 119 GM powder 1 cap PO HS docusate sodium 50 mg/5 mL liquid 5 ml PO DAILY QNASL 80 mcg/actuation HFA aerosol inhaler 1 - 2 spray INTRANASAL DAILY PRN (Reason: Allergies) Benefiber Clear SF (dextrin) 3 gram/3.5 gram Powder In Packet 1 packet PO DAILY Rx Instructions: Mix into at least 4 oz water or juice before administering Referrals Follow up/Referrals: Jacqueline Baez APRN [Primary Care Provider, Medical] - See instructions Activity Restrictions/Add. Instructions Additional Instructions/Restrictions: Continue the bowel regimen at home as prescribed. Return to the ER for any acute or worsening symptoms. Clinical Impressions Clinical Impression: Enteritis Instructions Patient Instructions: DI for Acute Abdominal Pain Print Language Print Language: Slovak Discharge ED Provider: Autumn Cristobal General Adult HPI <Nandini Luther APRN - Last Filed: 03/20/25 21:42> General Chief complaint: Abdominal Pain Stated complaint: constipated x9, pain, vomiting Time Seen by Provider: 03/20/25 16:12 Mode of Arrival: Ambulatory Source of Information: Relative Description of Symptoms (Recalled from ER Triage Doc. by RN): pt has not had a BM in approx 9 days. had a few hard stool balls yesterday morning. family states this has happened in the past History of Present Illness HPI narrative: patient is a 64-year-old female PMHx Down syndrome, diabetes, history of chronic constipation, who presents to the ED with family/caregivers for no bowel movement in 9 days and vomiting. They state that patient has been evaluated by her PCP earlier this week and given stool softeners and Dulcolax. They have also tried a suppository without any success. Family reports that the vomiting started this morning. They are initially only requesting an x-ray. Related Data Home Medications ?Medication ?Instructions ?Recorded ?Confirmed aspirin 81 mg tablet,delayed 81 mg PO DAILY 07/25/17 0 03/01/25 release (Adult Low Dose Aspirin) atorvastatin 10 mg tablet 10 mg PO HS 30 days 07/25/17 03/01/25 levothyroxine 75 mcg tablet 75 mcg PO DAILY 30 days 03/01/25 metformin 500 mg tablet 500 mg PO BID 90 days 03/01/25 montelukast 10 mg tablet 10 mg PO PM 30 days ##30 01/0803/01/25 olopatadine 0.1 % eye drops 1 drp ophthalmic (eye) BID PRN 04/21/20 03/01/25 Allergy Symptoms polyethylene glycol 3350 17 1 cap PO HS 12/06/2003/01 gram/dose oral powder pantoprazole 20 mg tablet,delayed 20 mg PO DAILY 08/2103/01/25 release cetirizine 10 mg tablet 10 mg PO DAILY 09/05/2102/15 sennosides 8.8 mg/5 mL oral syrup 5 ml PO DAILY 03/01/25 (senna) calcium 500 mg-D3 12.5 mcg-mag 20 15 ml PO PM 03/12/23 03/01/25 mg-boron 125 mcg/15 mL oral liquid mecobalamin (vitamin B12) 500 mcg 500 mcg PO AM 03/01/25 chewable tablet docusate sodium 50 mg/5 mL oral 5 ml PO DAILY 06/29/23 03/01/25 liquid beclomethasone dipropionate 80 1 - 2 spray intranasal DAILY PRN 06/30/23 03/01/25 mcg/actuation nasal HFA inhaler Allergies (QNASL) wheat dextrin 3 gram/3.5 gram oral 1 packet PO DAILY 0 07/15/23 03/01/25 powder packet (Benefiber Clear Sugar Free(dextrin)) azelastine 0.05 % eye drops 1 drp Eye-Both ONCE 03/01/25 mirtazapine 7.5 mg tablet mg PO DAILY 03/01/25 5 tamsulosin 0.4 mg capsule (Flomax) 0.4 mg PO DAILY 02/1503/01/25 Previous Rx's ?Medication ?Instructions ?Recorded sodium chloride 0.65 % nasal spray 2 spray intranasal QID PRN nasal 06/12/24 aerosol ([place] Saline) congestion #50 mL ammonium lactate 12 % topical cream 1 applic topical B ID dry skin, 06/15/24 callus care #385 grams mupirocin 2 % topical ointment 1 applic topical BID in fection 14 07/24/24 days #15 grams ketoconazole 2 % topical cream 1 applic topical BID fu ngal 09/14/24 infection 30 days #30 grams mupirocin 2 % topical ointment 1 applic topical BID in fection 14 09/14/24 days #22 grams cefdinir 125 mg/5 mL oral 300 mg (12 mL) PO BID 10 day s #240 09/18/24 suspension mL ipratropium bromide 42 mcg (0.06 2 spray intranasal BI D #15 mL 12/21/ %) nasal spray tamsulosin 0.4 mg capsule (Flomax) 0.4 mg PO DAILY #30 caps 01/04/25 Allergies Allergy/AdvReac Type Severity Reaction Status Date / Time bacitracin (BACITRACIN) Allergy Mild Hives Verified 03/01/25 13:13 codeine (CODEINE) Allergy Mild Hives Verified 03/01/25 13:13 Penicillins (PENICILLINS) Allergy Unknown Hives Verified 03/01/25 13:13 [facility] <Nandini Luther APRN - Last Filed: 03/20/25 21:42> [facility] Disclaimer: The information contained in this section may have been updated after the patient was seen, as this information can be updated by other users. Medical History Allergic rhinitis Impacted cerumen of left ear Recurrent pneumonia Hypertrophy of nasal turbinates Impacted cerumen of left ear Bilateral impacted cerumen GERD with esophagitis Down syndrome Hyponatremia Type 2 diabetes mellitus with hyperglycemia, without long-term current use of insulin Surgical History H/O mastoidectomy S/P dilatation of esophageal stricture Family History Other Cancer Hyperlipidemia Hypertension Social History Smoking Status: Never smoker second hand exposure: No alcohol intake: never counseling provided: none substance use type: denies use current occupational status: disabled Travel in the last 8 weeks?: None household members: family housing: house current occupational exposures/hazards: No caffeine: No Have you lived/traveled outside [place] in past 30 days?: No Contact w/someone who lives/traveled outside [place] past 30 days?: No Exposure to someone with infectious disease in past 14 days?: No Do you have a fever (greater than 100.4 F or 38 C)?: No Have you tested positive for COVID-19?: No Exposed to someone with COVID-19 in past 14 days?: No Do you have a sore throat?: No Do you have a cough?: No Do you have any weakness?: No Do you have any diarrhea?: No Are you experiencing any unusual bleeding?: No Do you have any muscle aches/pain?: No Do you have any abdominal pain?: No Are you experiencing loss of taste or smell?: No Other Medical History Have you received the Flu Vaccine for this season: No Have you received the Pneumonia Vaccine: Yes <Nandini Luther APRN - Last Filed: 03/20/25 21:42> ROS Obtained: Yes Systems reviewed as appropriate & no additional complaints except as documented Physical Exam <Nandini Luther APRN - Last Filed: 03/20/25 21:42> General General appearance: alert and in no apparent distress Eye Eye exam: Present PERRL Respiratory Respiratory exam: Present normal lung sounds bilaterally Cardiovascular Cardiovascular exam: Present regular rate Abdominal Exam Abdominal exam: Present rigidity and hypoactive bowel sounds Back Exam Back exam: Present full ROM Neurological Exam Neurological exam: Present alert Skin Skin exam: Present dry Medical Decision Making <Nandini Luther APRN - Last Filed: 03/20/25 21:42> Medical Records Screening: Per USPSTF and CDC recommendations, given the prevalence of disease in our region, it is our hospital?s policy to screen for HIV and viral Hepatitis for all patients aged 18 and over and those with ongoing risk factors. [place] Inquiry Pt receiving controlled substance: No Vital Signs: 03/20/25 16:09 03/20/25 22:14 03/20/25 22:15 Temperature 98.3 F Temperature Source Axillary Pulse Rate 74 72 Pulse Rate [Right] 75 Respiratory Rate 15 Blood Pressure Blood Pressure [Right Arm] 132/66 Blood Pressure Mean Blood Pressure Mean [Right Arm] 88 Blood Pressure Source Blood Pressure Position 02 Sat by Pulse Oximetry 99 97 98 Oxygen Delivery Method 03/20/25 22:15 03/20/25 22:21 Temperature 98.3 F Temperature Source Pulse Rate 73 Pulse Rate [Right] Respiratory Rate 16 Blood Pressure 136/71 136/71 Blood Pressure [Right Arm] Blood Pressure Mean 105 Blood Pressure Mean [Right Arm] Blood Pressure Source Automatic Cuff Blood Pressure Position Sitting 02 Sat by Pulse Oximetry Oxygen Delivery Method Room Air Nasal Cannula Lab Data Lab Results 03/20/25 17:55: WBC 4.9, RBC 3.90 L, Hgb 13.2, Hct 37.8, MCV 96.9, MCH 33.8 H, MCHC 34.9, RDW 13.2, Plt Count 379, MPV 9.9, Neut % (Auto) 64.0, Lymph % (Auto) 24.2, [place] % (Auto) 10.0 H, Eos % (Auto) 0.2, Baso % (Auto) 1.2, Neut # (Auto) 3.2, Lymph # (Auto) 1.2, [place] # (Auto) 0.5, Eos # (Auto) 0.0, Baso # (Auto) 0.1, Sodium 129 L, Potassium 5.2 H, Chloride 94 L, Carbon Dioxide 28, Anion Gap 12.2, BUN 13, Creatinine 0.60, Estimated Creat Clear 39, Estimated GFR 101, Est GFR ( Amer) 122, Glucose 175 H, Calcium 9.4, Total Bilirubin 0.5, AST 34, ALT 18, Alkaline Phosphatase 70, Total Protein 7.1, Albumin 3.9, Globulin 3.2, Albumin/Globulin Ratio 1.2 03/20/25 17:55 03/20/25 17:55 Orders (Tests/Meds): ORDERS Category Date Time Status CT abdomen pelvis wo con Stat Cat Scan 03/20/25 17:07 Completed CBC w/Auto Diff [Complete Blood Count Auto Diff] Stat Lab 03/20/25 17:55 Completed CMP [Comprehensive Metabolic Panel] Stat Lab 03/20/25 17:55 Completed Medical Decision Narrative: In summary, patient is a 64-year-old female PMHx Down syndrome, diabetes, history of chronic constipation, who presents to the ED with family/caregivers for no bowel movement in 9 days and vomiting. They state that patient has been evaluated by her PCP earlier this week and given stool softeners and Dulcolax. They have also tried a suppository without any success. Family reports that the vomiting started this morning. They are initially only requesting an x-ray. Upon my initial evaluation patient is alert, she follows commands. Unsure if patient is passing gas. Her abdomen is hard and has a large, protruding hernia in the center, unable to auscultate bowel sounds. Unable to reduce hernia. Family states that they bathe her each night and have never noticed this large, protruding hernia. I discussed with patient's family that I was concerned for an obstruction and that we most likely needed labs and CT with contrast. Denies fever, chills, foul urine. Differential diagnoses include bowel obstruction, mesenteric ischemia, strangulated hernia, infectious process, constipation, among others. Shared decision making used, and family elected to move forward with IV contrast. Upon chart review, patient has had IV contrast multiple times in the past. Family consented to CT and labs. CBC unremarkable for any leukocytosis, stable H&H. CMP remarkable for hyponatremia, sodium 129, potassium 5.2, chloride 94, glucose 175. While waiting on CT to be performed, family states they want the IV taken out and would like to leave. Attending at bedside to discuss, attending and patient family had shared decision making, they elected to change the CT to a noncontrasted scan. CT has been performed, pending CT read. Care transferred to attending, Dr. Cristobal. <Autumn Cristobal, DO - Last Filed: 03/21/25 00:50> Vital Signs: 03/20/25 16:09 03/20/25 22:14 03/20/25 22:15 Temperature 98.3 F Temperature Source Axillary Pulse Rate 74 72 Pulse Rate [Right] 75 Respiratory Rate 15 Blood Pressure Blood Pressure [Right Arm] 132/66 Blood Pressure Mean Blood Pressure Mean [Right Arm] 88 Blood Pressure Source Blood Pressure Position 02 Sat by Pulse Oximetry 99 97 98 Oxygen Delivery Method 03/20/25 22:15 03/20/25 22:21 Temperature 98.3 F Temperature Source Pulse Rate 73 Pulse Rate [Right] Respiratory Rate 16 Blood Pressure 136/71 136/71 Blood Pressure [Right Arm] Blood Pressure Mean 105 Blood Pressure Mean [Right Arm] Blood Pressure Source Automatic Cuff Blood Pressure Position Sitting 02 Sat by Pulse Oximetry Oxygen Delivery Method Room Air Nasal Cannula Lab Data Lab Results 03/20/25 17:55: WBC 4.9, RBC 3.90 L, Hgb 13.2, Hct 37.8, MCV 96.9, MCH 33.8 H, MCHC 34.9, RDW 13.2, Plt Count 379, MPV 9.9, Neut % (Auto) 64.0, Lymph % (Auto) 24.2, [place] % (Auto) 10.0 H, Eos % (Auto) 0.2, Baso % (Auto) 1.2, Neut # (Auto) 3.2, Lymph # (Auto) 1.2, [place] # (Auto) 0.5, Eos # (Auto) 0.0, Baso # (Auto) 0.1, Sodium 129 L, Potassium 5.2 H, Chloride 94 L, Carbon Dioxide 28, Anion Gap 12.2, BUN 13, Creatinine 0.60, Estimated Creat Clear 39, Estimated GFR 101, Est GFR ( Amer) 122, Glucose 175 H, Calcium 9.4, Total Bilirubin 0.5, AST 34, ALT 18, Alkaline Phosphatase 70, Total Protein 7.1, Albumin 3.9, Globulin 3.2, Albumin/Globulin Ratio 1.2 Orders (Tests/Meds): ORDERS Category Date Time Status CT abdomen pelvis wo con Stat Cat Scan 03/20/25 17:07 Completed CBC w/Auto Diff [Complete Blood Count Auto Diff] Stat Lab 03/20/25 17:55 Completed CMP [Comprehensive Metabolic Panel] Stat Lab 03/20/25 17:55 Completed Medical Decision Narrative: In summary, patient is a 64-year-old female PMHx Down syndrome, diabetes, history of chronic constipation, who presents to the ED with family/caregivers for no bowel movement in 9 days and vomiting. They state that patient has been evaluated by her PCP earlier this week and given stool softeners and Dulcolax. They have also tried a suppository without any success. Family reports that the vomiting started this morning. They are initially only requesting an x-ray. Upon my initial evaluation patient is alert, she follows commands. Unsure if patient is passing gas. Her abdomen is hard and has a large, protruding hernia in the center, unable to auscultate bowel sounds. Unable to reduce hernia. Family states that they bathe her each night and have never noticed this large, protruding hernia. I discussed with patient's family that I was concerned for an obstruction and that we most likely needed labs and CT with contrast. Denies fever, chills, foul urine. Differential diagnoses include bowel obstruction, mesenteric ischemia, strangulated hernia, infectious process, constipation, among others. Shared decision making used, and family elected to move forward with IV contrast. Upon chart review, patient has had IV contrast multiple times in the past. Family consented to CT and labs. CBC unremarkable for any leukocytosis, stable H&H. CMP remarkable for hyponatremia, sodium 129, potassium 5.2, chloride 94, glucose 175. While waiting on CT to be performed, family states they want the IV taken out and would like to leave. Attending at bedside to discuss, attending and patient family had shared decision making, they elected to change the CT to a noncontrasted scan. CT has been performed, pending CT read. Care transferred to attending, Dr. Cristobal. Autumn Cristobal, DO I assumed care of the patient at 2200. Patient CT scan was reviewed and interpreted by myself and per radiology there is no bowel obstruction. Patient showed some fluid-filled bowel loops consistent with enteritis. There was some significant stool burden as well. Patient is already on a significant bowel regimen at home. Patient takes 1 capful of MiraLAX and recommended that they increase the MiraLAX at home to help with bowel movements. Patient had a bowel movement while in the emergency department as well. Given patient's otherwise unremarkable workup I felt the patient was appropriate and stable for discharge home. Return precautions were discussed. Critical Care <Nandini Luther APRN - Last Filed: 03/20/25 21:42> Critical Care Time Critical Care Time: No
[2025-03-20 18:18] LABS: Hematocrit 37.8 % (37.0-47.0); Hemoglobin 13.2 g/dL (12.2-16.2); Immature Granulocytes % 0.4 %; Mean Corpuscular HGB Conc 34.9 g/dL (31.8-35.4); Mean Corpuscular Hemoglobin 33.8 pg (27.0-31.2); Mean Corpuscular Volume 96.9 fl (81-99); Nucleated Red Blood Cells % 0 %; Platelet Count 379 K/mm3 (142-424); Red Blood Count 3.90 M/mm3 (4.20-5.40); Red Cell Distribution Width-SD 47.0 fL; White Blood Count 4.9 K/mm3 (4.8-10.8)
[2025-03-20 18:34] LABS: Alanine Aminotransferase 18 U/L (12-78); Albumin Level 3.9 g/dl (3.5-5.0); Albumin/Globulin Ratio 1.2 (1.1-1.8); Alkaline Phosphatase 70 U/L (38-126); Anion Gap 12.2 mEq/L (5-15); Aspartate Amino Transferase 34 U/L (14-36); Bilirubin,Total 0.5 mg/dl (0.2-1.3); Blood Urea Nitrogen 13 mg/dl (7-17); Calcium 9.4 mg/dl (8.4-10.2); Carbon Dioxide 28 mmol/L (22.0-30.0); Chloride 94 mmol/L (98-107); Creatinine Clearance Estimated 39 mL/min (50-200); Creatinine,Serum 0.60 mg/dl (0.52-1.04); Estimated Glomerular Filt Rate 101 ml/min (>60); GFR (African American) 122 ML/MIN (>60); Globulin 3.2 g/dL (1.3-3.2); Glucose 175 mg/dl (74-100); Potassium 5.2 mmoL/L (3.5-5.1); Sodium 129 mmol/L (136-145); Total Protein,Serum 7.1 g/dl (6.3-8.2)
[2025-03-20 22:14] VITALS: PULSE 74; O2SAT 97
[2025-03-20 22:15] VITALS: BP 136/71; PULSE 72; O2SAT 98
[2025-03-20 22:21] VITALS: BP 136/71; PULSE 73; RESP 16; TEMP 36.8; O2SAT 98
== END 2025-03-20 22:23 | disposition home or self-care (01) ==
PROVIDERS: Nurse Practitioner; Emergency Provider Student in an Organized Health Care Education/Training Program; PCP Nurse Practitioner Family
DX: R10.84 Generalized abdominal pain (principal); K52.9 Noninfective gastroenteritis and colitis, unspecified; R11.2 Nausea with vomiting, unspecified; E87.1 Hypo-osmolality and hyponatremia; E86.0 Dehydration; K59.00 Constipation, unspecified
CPT/HCPCS: 74176; 80053; 85025; 99284